=== PATIENT | female | born 1965 | race Caucasian/White ===

== ENCOUNTER 2019-11-08 12:16 | Emergency (ER) | payer BC ==
--- OUTSIDE RECORDS SUMMARY | 2019-11-08 12:19 | XMS REPORT | Clinical Summary ---
:1965 Author Organization [facility] Address [address] [place] [address] Care Team Providers Name Role Phone GILSON Ye Primary Care Provider Allergies Active Allergy Reactions Severity Noted Date Comments Atorvastatin Other (See Comments) 12/28/2018 Benadryl Allergy Palpitations Low 04/10/2011 Decongestant Cyclobenzaprine Other (See Comments) 09/04/2015 Spac ed out Spaced out Spaced out Spaced out Duloxetine 09/04/2015 Can not functio n Diphenhydramine Other (See Comments) 12/28/2018 Gabapentin 09/04/2015 Angina attacks, eyes crossed, tripping over m y feet Medications Medication Sig Dispensed Refills Start Date End Date Status metFORMIN XR Take 1,000 3 07/25/2015 Activ e (GLUCOPHATE-XR) 500 mg by mouth MG 24 hr tablet 2 (two) times a day. aspirin (ECOTRIN) Take 81 mg 0 A ctive 81 MG enteric by mouth coated tablet daily. bisoproloL-hydrochl 0 12/29/2018 Active orothiazide (ZIAC) 10-6.25 mg per tablet UNABLE TO FIND 1 capsule 2 0 05/08/2018 Ac tive (two) times a day. NeuRx-TF furosemide (LASIX) 40 mg. 0 02/11/2019 Active 20 mg tablet losartan (COZAAR) Take 25 mg 0 A ctive 25 MG tablet by mouth daily. glipiZIDE Take 10 mg 0 Active (GLUCOTROL) 10 MG by mouth 3 tablet (three) times a day. SITagliptin Take 100 mg 0 Active (JANUVIA) 100 MG by mouth tablet daily. divalproex Take 1 90 tablet 3 10/07/2019 Active (Depakote) 250 MG tablet (250 EC tablet mg total) by mouth nightly. acetaminophen-codei 0 07/01/2015 Discontinued ne (TYLENOL #3) 0 (Pat ient 300-30 mg per Report ed) tablet fluvastatin 0 06/20/2015 Discont inued (LESCOL) 20 MG 0 (Tika ent capsule Reported) ondansetron 0 07/01/2015 Discont inued (ZOFRAN) 4 MG 0 (Patie nt tablet Reported) nebivolol Take 2.5 mg 0 Disconti nued (BYSTOLIC) 2.5 MG by mouth 0 (P atient tablet daily. Reported) lidocaine 0 09/07/2015 Discontin ued (XYLOCAINE) 5 % 0 (Pat ient ointment Reported) diclofenac sodium 3 0 09/07/2015 Discontinued % gel 0 (Patient Reported) cyanocobalamin 100 Take 700,000 0 08/27/19 2 Discontinued MCG tablet Units by 0 (Patient mouth. Reported) divalproex Take 1 30 tablet 11 08/27/2019 Disconti nued (Depakote) 250 MG tablet (250 0 (Reorder) EC tablet mg total) by mouth nightly. divalproex Take 1 90 tablet 2 09/24/2019 Disconti nued (Depakote) 250 MG tablet (250 0 (Reorder) EC tablet mg total) by mouth nightly. Active Problems Problem Noted Date Neuropathy 08/27/2019 Diabetic polyneuropathy associated with type 2 diabete s mellitus 08/27/2019 Foot pain, bilateral 08/27/2019 Spondylolisthesis of cervical region 10/20/2017 Impingement syndrome of left shoulder 10/20/2017 Chronic left shoulder pain 10/20/2017 Cervical spondylosis with radiculopathy 10/20/2017 S/P cervical spinal fusion 11/22/2015 Hoarseness 09/04/2015 Chest pain 09/04/2015 Palpitation 09/04/2015 Arrhythmia 09/04/2015 Urgency of urination 09/04/2015 Nocturia 09/04/2015 Postoperative visit 09/04/2015 Overview: 6 wks post op -DOS-06/29/15- ACDF C45-C56 , doing good, occasional numbness to back of neck, improved. Would like to see pt inmarielos [facility] PT, do not want her to undergo any traction on the cervical spine and the L UE Cervical radiculopathy 09/04/2015 Cervical spondylosis 09/04/2015 Thoracic spondylosis 09/04/2015 Encounters Date Type Specialty Care Team Description 10/27/2019 Telephone Neurology Marissa Palafox MA 10/07/2019 Procedure visit Neurology Dallin Morris, Diabetic garo yneuropathy associated with type 2 diabetes mellitus (HCC) (Primary Dx); Neuropathy 10/07/2019 Travel 09/24/2019 Refill Neurology Marissa Palafox MA 08/27/2019 Office Visit Neurology Dallin Morris, Diabetic polyne uropathy associated with type 2 diabetes mellitus (HCC) (Primary Dx); Neuropathy; Foot pain, bila teral 08/27/2019 Travel 08/09/2019 Travel 03/15/2019 Hospital Encounter Radiology Shun Whitaker II, MD 03/12/2019 Office Visit Orthopedic Surgery Shun Whitaker Polyneur opathy associated with underlying disease (HCC) (Primary Dx); MD BRAIN Type 2 diabetes mellitus without complication, without long-term current use of insulin (HCC); Chronic pain of both ankles; Foot pain, bila teral after 11/07/2018 Family History Medical History Relation Name Comments Cancer Father Janae Angel Unknown Diabetes Father Janae Angel Hyperlipidemia Father Janae Angel Heart disease Maternal Grandmother Lauren Candelaria Blood Clots Mother Isaura Candelaria Cancer Mother Isaura Candelaria Colon Cancer Crohn's disease Mother Isaura Jacobsonard Heart disease Mother Isaura Candelaria Hypertension Mother Isaura Candelaria Cancer Paternal Aunt Flora Angel Breast, Colon Cancer Paternal Grandmother Adevannessa Jeanne Unkown Diabetes Paternal Grandmother Adevannessa Angel Relation Name Status Comments Father Janae Angel Maternal Grandmother Lauren Candelaria Mother Isaura Candelaria Paternal Aunt Flora Angel Paternal Grandmother Yani Angel Social History Tobacco Use Types Packs/Day Years Used Date Never Smoker 0 0 Smokeless Tobacco: Never Used Alcohol Use Drinks/Week oz/Week Comments Yes 0 Glasses of wine 0.0 occl 0 Cans of beer 0 Shots of liquor 0 Standard drinks or equivalent Sex Assigned at Date Recorded Female 03/11/2019 5:43 PM [employer] Job Start Date Occupation Industry Not on file Not on file Not on file Travel History Travel Start Travel End No recent travel history available. Last Filed Vital Signs Vital Sign Reading Time Taken Comments Blood Pressure 120/80 10/07/2019 2:56 PM CDT Pulse 86 10/07/2019 2:56 PM CDT Temperature - - Respiratory Rate 14 10/07/2019 2:56 PM CDT Oxygen Saturation - - Inhaled Oxygen Concentration - - Weight 87.5 kg (193 lb) 08/27/2019 8:24 AM CDT Height - - Body Mass Index - - Plan of Treatment Date Type Specialty Care Team Description 01/17/2020 [place] [address] [facility] [address] [place] [id number] Health Maintenance Due Date Last Done Comments DIABETIC RETINAL EYE EXAM 1965 DIABETIC FOOT EXAM 1974 URINE MICROALBUMIN 1974 CERVICAL CANCER SCREENING 1985 BREAST CANCER SCREENING 2014 COLONOSCOPY SCREENING 2014 SHINGLES VACCINES (#1) 2014 INFLUENZA VACCINE 12/09/2019 Procedures Procedure Name Priority Date/Time Associated Diagnosis Comme nts XR ANKLE 3 VW Routine 03/12/2019 1:26 PM Chronic pain of both Results for this BILATERAL [employer] ankles procedure are i n the results section. XR FOOT 3 VW Routine 03/12/2019 1:26 PM Chronic pain of both Results for this BILATERAL [employer] ankles procedure are in Foot pain, bilateral the res ults section. after 11/07/2018 Results XR Ankle 3 Vw Bilateral (03/12/2019 1:26 PM [employer]) Specimen Narrative Performed At This result has an attachment that is no t available. Three-view weightbearing images of the right ankle reveals no evidence of [facility] acute fracture or dislocation. Ankle mortise is congru ent. Bones well mineralized. Three-view weightbearing images of the Left ankle reve als no evidence of acute fracture or dislocation. Ankle mortise is congru ent. Bones well mineralized. Left navicular rim osteophyte appreciat ed. Performing Organization Address City/State/Zipcode Phone Number [facility] [address] [place] [address] XR Foot 3 Vw Bilateral (03/12/2019 1:26 PM [employer]) Specimen Narrative Performed At This result has an attachment that is no t available. Three-view weightbearing images of the right foot reveals no evidence of [facility] acute fracture or dislocation. Bones well mineralized. Neutral talus first metatarsal alignment appreciated Three-view weightbearing images of the left foot revea ls no evidence of acute fracture or dislocation. Bones well mineralized. Neutral talus first metatarsal alignment appreciated. Dorsal rim navicul ar osteophyte appreciated. 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
--- OUTSIDE RECORDS SUMMARY | 2019-11-08 12:20 | XMS REPORT | Summary of Care ---
:1965 Author Organization [facility] Address [address] [place] [id number] Care Team Providers Name Role Phone Unavailable Primary Care Provider Unavailable Reason for Visit Reason Comments Medical Records Encounter Details Date Type Department Care Team Description 08/24/2019 Telephone [facility]opa[facility] Minh Pineda MD Medical Records Surgery- [place] [address], [place] [address] [place] [address] [place], [place] [phone] [id number] Allergies Active Allergy Reactions Severity Noted Date Comments Benadryl Allergy Palpitations 04/10/2011 Decongestant Cyclobenzaprine Unknown - See comments 09/04/2015 Sp aced out Duloxetine Unknown - See comments 09/04/2015 Can n ot function Gabapentin Unknown - See comments 09/04/2015 Angin a attacks, eyes crossed, tripping over m y feet documented as of this encounter (statuses as of 08/24/2019) Medications Medication Sig Dispensed Refills Start Date End Date Status zolpidem (AMBIEN) 10 mg Take 10 mg by 0 Active tablet mouth at bedtime as needed. aspirin (ASPIR-LOW) 81 Take 81 mg by 0 Active mg EC tablet mouth daily. Blood-Glucose Meter 1 Kit 0 07/11/2011 Active (ONE TOUCH ULTRAMINI) Kit Lancets & Blood Glucose 200 Strip 3 07/11/2011 Active Strips (ONE TOUCH COMBO) Cmpk carvedilol (COREG) 12.5 Take 1 Tab by 180 Tab 1 07/11/2011 Active mg tablet mouth 2 (two) times daily with meals. metformin ER 500 mg 24 Take 1,000 mg by 0 07/25/2015 Active hr tablet mouth. OXTELLAR XR 150 mg Tb24 0 08/17/2018 Active HYDROcodone-acetaminoph Take 1 tablet by 0 Active en (NORCO) 10-325 mg mouth every 6 tablet (six) hours as needed. amitriptyline 50 mg TAKE 1 TABLET BY 0 08/12/2018 Active tablet MOUTH EVERYDAY AT BEDTIME losartan potassium Take by mouth. 0 Active (LOSARTAN ORAL) cyanocobalamin/thiamine Inject as 0 Active (NEURO B-12 INJECTION) directed. Vitamin B Complex Take by mouth. 0 Active No.12-Niacin 50 mg/15 mL Liqd sub-q insulin device, Use 1 V-go daily. 90 Each 1 09/04/2018 Active 20 unit (V-GO 20) Use 2 clicks 5 DeviIndications: minutes before Uncontrolled type 2 each meal. diabetes mellitus with hyperglycemia insulin aspart RAPID Use up to 40 5 Vial 3 09/04/2018 Active (NOVOLOG U-100 INSULIN units daily ASPART) 100 unit/mL through V-go injectionIndications: insulin pump Uncontrolled type 2 diabetes mellitus with hyperglycemia Insulin Syringe-Needle Use One syringe 1 Box 3 09/04/2018 Active U-100 (INSULIN SYRINGE) Daily 0.5 mL 29 gauge x 1/2" SyrgIndications: Uncontrolled type 2 diabetes mellitus with hyperglycemia atorvastatin 40 mg Take 1 tablet by 90 tablet 1 09/18/2018 Active tabletIndications: mouth at bedtime. 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 Financial Resource Strain Answer Date Recorded How hard is it for you to pay for the very basics like Somew hat hard 04/13/2019 food, housing, medical care, and heating? Food Insecurity Answer Date Recorded Within the past 12 months, you worried that your food Someti mes true 04/13/2019 would run out before you got money to buy more. Within the past 12 months, the food you bought just Sometime s true 04/13/2019 didn't last and you didn't have money to get more. Transportation Needs Answer Date Recorded In the past 12 months, has lack of transportation kept you f rom No 04/13/2019 medical appointments or from getting medications? In the past 12 months, has lack of transportation kept you f rom No 04/13/2019 meetings, work, or getting things needed for daily living? Sex Assigned at Date Recorded Not on file Job Start Date Occupation Industry Not on file Not on file Not on file Travel History Travel Start Travel End No recent travel history available. documented as of this encounter Last Filed Vital Signs Not on filedocumented in this encounter Plan of Treatment Health Maintenance Due Date Last Done Comments HEPATITIS C (HCV) SCREEN 1965 PNEUMOCOCCAL 0-64 YEARS COMBINED 1970 SERIES (1 of 1 - PPSV23) EYE EXAM 1974 DTaP,Tdap,and Td Vaccines (1 - 12/15/1975 Tdap) FOOT EXAM 1982 PAP SMEAR 1985 Breast Cancer Screening 2004 (MAMMOGRAM) COLONOSCOPY 2014 Zoster Recombinant Vaccine 2014 (SHINGRIX) (1 of 2) URINE MICROALBUMIN 09/15/2019 09/14/2018, 04/10/2011 HgA1C 10/12/2019 04/13/2019, 09/04/2018, 07/10/2011, Additional history exists INFLUENZA VACCINE (Season Ended) 2019 Depression Screening 12/02/2019 12/01/2018 CREATININE (SERUM) 04/13/2020 04/13/2019, 09/14/2018, 07/10/2011 LDL-C 04/13/2020 04/13/2019, 09/14/2018, 07/10/2011, Additional history exists documented as of this encounter Results Not on filedocumented in this encounter Insurance Payer Benefit Plan Subscriber ID Effective Dates Phone Address Type / Group BC[employer] OF [employer] [place] [id number] 2015-Deb [phone] [address] PPO/POS [place] - OUT OF t [id number] [place] [address] documented as of this encounter
--- OUTSIDE RECORDS SUMMARY | 2019-11-08 12:20 | XMS REPORT | Continuity of Care Document ---
:1965 Author Organization [facility] t Address [address] [place] [address] Care Team Providers Name Role Phone Ephraim RIGGINS Primary Care Physician Javy CONTRERAS Attending Clinician Unavailable Alexandra TRUONG Attending Clinician Miriam TRUONG, L Attending Clinician Panchito TRUONG Attending Clinician Doctor Unassigned, Name Attending Clinician Unavailable Miriam MONIQUE Attending Clinician Singer ROQUE Attending Clinician Ronaldo TRUONG Attending Clinician Sherman TRUONG, A. Attending Clinician Buddy TRUONG Attending Clinician Ashley Dorsey Attending Clinician Ronaldo TRUONG Admitting Clinician Payers Payer Name Policy Type Policy Number Effective Date Expiration Date Ashley atkins [id number] xxxxxxxxxxxx 2019 [place] CHOICE 00:00:00 Worship PPO/FEDERAL EMPL PPOxxxxxxxxxxx x1 2018-Pre sentPPO Problems Condition Condition Condition Status Onset Resolution Last Treating Co mments Source Name Details Category Date Date Treatment Clinician Date Neuropathy Neuropathy Disease Active [place] 6[facility]19 [facility] 00:00: st 00 Diabetic Diabetic Disease Active [place] polyneurop polyneurop 6-19 [facility] athy athy 00:00: st associated associated 00 with type with type 2 diabetes 2 diabetes mellitus mellitus Foot pain, Foot pain, Disease Active [place] bilateral bilateral 6- Meth cris 00:00: st 00 Spondyloli Spondyloli Disease Active [place] st[place] of sthesis of 8-13 [facility] cervical cervical 00:00: st region region 00 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 8-13 [facility] of left of left 00:00: st shoulder shoulder 00 Chronic Chronic Disease Active [place] left left 8-13 [facility] shoulder shoulder 00:00: st pain pain 00 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 8-13 [facility] s with s with 00:00: st radiculopa radiculopa 00 thy thy S/P S/P Disease Active [place] cervical cervical 9-14 [facility] i spinal spinal 00:00: st fusion fusion 00 Hoarseness Hoarseness Disease Active [place] 09-03 [facility] 00:00: st 00 Chest pain Chest pain Disease Active [place] 09-03 [facility] 00:00: st 00 Palpitatio Palpitatio Disease Active [place] n n 09-03 Method[facility] 00:00: st 00 Arrhythmia Arrhythmia Disease Active [place] 09-03 Method[facility] 00:00: st 00 Urgency of Urgency of Disease Active [place] urination urination 09-03 Meth cris 00:00: st 00 Nocturia Nocturia Disease Active [place] 09-03 [facility] 00:00: st 00 Postoperat Postoperat Disease Active Overview : [place] doris visit doris visit 09-03 6 wks Meth cris 00:00: post op st 00 -DOS-/ /16- ACDF C45-C56, doing good, occasiona l numbness to back of neck, improved. Would like to see pt initiate PT, do not want her to undergo any traction on the cervical spine and the LUE Cervical Cervical Disease Active [place] radiculopa radiculopa 09-03 [facility] thy thy 00:00: st 00 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 09-03 [facility] s s 00:00: st 00 Thoracic Thoracic Disease Active [place] spondylosi spondylosi 09-03 Me [facility] s s 00:00: st 00 Allergies, Adverse Reactions, Alerts Allergy Allergy Status Severity Reaction(s) Onset Inactive Treating Comm ents Source Name Type Date Date Clinician Atorvast Propensi Active Other (See 2018-03 Chance lee atin ty to Comments) [facility] adverse 00:00: st reaction 00 s to drug Diphenhy Propensi Active Other (See 2018-03 Chance lee dramine ty to Comments) Method i adverse 00:00: st reaction 00 s to drug Cycloben Propensi Active Other (See Spaced Chance lee zaprine ty to Comments) 09-03 outSpaced Met hodi adverse 00:00: outSpaced st reaction 00 outSpaced s to out drug Duloxeti Propensi Active Can not [place] ne ty to 09-03 function [facility] adverse 00:00: st reaction 00 s to drug Gabapent Propensi Active Angina [place] in ty to 09-03 attacks, [facility] adverse 00:00: eyes st reaction 00 crossed, s to tripping drug over my feet Benadryl Propensi Active Palpitations [place] Allergy ty to 04-10 [facility] Deconges adverse 00:00: st tant reaction 00 s to drug Family History Family Member Diagnosis Comments Start Date Stop Date Source Natural father Cancer [facility] Natural father Diabetes [facility] Natural father Hyperlipidemia [place] [facility] Maternal grandmother Heart disease [place] [facility] Natural mother Blood Clots [facility] ethodist Natural mother Cancer [facility] Natural mother Crohn's disease [place] [facility] Natural mother Heart disease [facility] Natural mother Hypertension [facility] Paternal aunt Cancer [facility] Paternal grandmother Cancer [place] [facility] Paternal grandmother Diabetes [place] [facility] Social History Social Habit Start Date Stop Date Quantity Comments Source Sex Assigned At F [facility] Alcohol intake 2019-10-07 2019-10-07 Current drinker [place] [facility] 00:00:00 00:00:00 of alcohol (finding) Alcohol Comment 2019-08-27 2019-08-27 occl Krzysztof Cheung ethodist 00:00:00 00:00:00 Smoking Status Start Date Stop Date Source Never smoker Krzysztof Jesuis t Medications Ordered Filled Start Stop Current Ordering Indication Dosage Frequency Signature Comments Components Source Medication Medication Date Date Medication? Clinician (SIG) Name Name divalproex 2020-0 Yes 250mg QD Take 1 [place] (Depakote) 7-30 tablet [facility] 250 MG EC 00:00: ([address] tablet 00 total) by mouth nightly. divalproex 2020-0 2020- No 250mg QD Take 1 [place] (Depakote) 09-23 07-30 tablet Method i 250 MG EC 00:00: 00:00 ([address] tablet 00 :00 total) by mouth nightly. SITagliptin 2020-0 Yes 100mg QD Take 100 [place] (JANUVIA) 6-19 mg by [facility] 100 MG 08:30: mouth st tablet 12 daily. losartan 2020-0 Yes 25mg QD Take 25 mg [place] (COZAAR) 25 08-26 by mouth Meth cris MG tablet 08:30: daily. st 11 glipiZIDE 2020-0 Yes 10mg [id number] Take 10 mg [place] (GLUCOTROL) - [id number] by mouth 3 [facility] 10 MG 08:30: 3D (three) st tablet 11 times a day. cyanocobala 2020-0 2020- No [id number] Take [place] min 100 MCG 08-26- 700,000 Meth cris tablet 08:28: 00:[address] 08 :00 mouth. nebivolol 2020-0 2020- No 2.5mg QD Take 2.5 [place] (BYSTOLIC) 08-26-19 mg by Methodi 2.5 MG 08:21: 00:[address] tablet 39 :00 daily. divalproex 2020-0 2020- No 250mg QD Take 1 [place] (Depakote) 08-26 tablet Method i 250 MG EC 00:00: 00:00 ([address] tablet 00 :00 total) by mouth nightly. aspirin 2020-0 Yes 81mg QD Take 81 mg [place] (ECOTRIN) 1-03 by mouth Method i 81 MG 12:54: daily. st enteric 34 coated tablet furosemide 2018-03 Yes 40mg 40 mg. [place] (LASIX) 20 2-05 [facility] mg tablet 00:00: st 00 bisoproloL- 2018-03 Yes [place] hydrochloro 0-22 [facility] thiazide 00:00: st (ZIAC) 00 10-6.25 mg per tablet UNABLE TO Yes 1{capsu Q.5D 1 capsule Krzysztof FIND 05-08 le} 2 (two) [facility] 00:00: times a st 00 day. NeuRx-TF lidocaine 2019- No Krzysztof (XYLOCAINE) 09-06 Methodi 5 % 00:00: 00:00 st ointment 00 :00 diclofenac 2019- No Opal n sodium 3 % 09-06 [facility] gel 00:00: 00:00 st 00 :00 metFORMIN Yes 1000mg Q.5D Take 1,000 [place] XR 5-17 mg by [facility] (GLUCOPHATE 00:00: mouth 2 st -XR) 500 MG 00 (two) 24 hr times a tablet day. acetaminoph 2019- No [place] en-codeine 06-30 [facility] (TYLENOL 00:00: 00:00 st #3) 300-30 00 :00 mg per tablet ondansetron 2019- No [place] (ZOFRAN) 4 06-30 [facility] MG tablet 00:00: 00:00 st 00 :00 fluvastatin 2019- No [place] (LESCOL) 20 06-19 [facility] MG capsule 00:00: 00:00 st 00 :00 Vital Signs Vital Name Observation Time Observation Value Comments Source Systolic blood 2019-10-07 14:56:00 120 mm[Hg] [facility] [facility] pressure Diastolic blood 2019-10-07 14:56:00 80 mm[Hg] [place] [facility] pressure Heart rate 2019-10-07 14:56:00 86 /min Krzysztof Corcoran Respiratory rate 2019-10-07 14:56:00 14 /min Sunny Corcoran Body weight 2019-08-27 08:24:00 87.544 kg Krzysztof Corcoran Procedures Procedure Date / Time Performed Performing Clinician Sourc e XR ANKLE 3 VW BILATERAL 2019-03-12 13:26:45 [facility] [place] [facility] XR FOOT 3 VW BILATERAL 2019-03-12 13:26:34 [place] [facility] Plan of Care Planned Activity Planned Date Details Comments Source Future Scheduled 2019-12-09 INFLUENZA VACCINE [place] [facility] Test 00:00:00 [code = INFLUENZA VACCINE] Future Scheduled 2014 BREAST CANCER [facility] Test 00:00:00 SCREENING [code = BREAST CANCER SCREENING] Future Scheduled 2014 COLONOSCOPY SCREENING [place] [facility] Test 00:00:00 [code = COLONOSCOPY SCREENING] Future Scheduled 2014 SHINGLES VACCINES (#1) [place] [facility] Test 00:00:00 [code = SHINGLES VACCINES (#1)] Future Scheduled 1985 Screening for [facility] thodist Test 00:00:00 malignant neoplasm of cervix (procedure) [code = 888629095] Future Scheduled 1974 DIABETIC FOOT EXAM [place] [facility] Test 00:00:00 [code = DIABETIC FOOT EXAM] Future Scheduled 1974 URINE MICROALBUMIN [place] [facility] Test 00:00:00 [code = URINE MICROALBUMIN] Future Scheduled 1964 DIABETIC RETINAL EYE [place] [facility] [facility] Test 00:00:00 EXAM [code = DIABETIC RETINAL EYE EXAM] Encounters Start End Encounter Admission Attending Care Care Encounter Source Date/Time Date/Time Type Type Clinicians Facility Department ID 2019-10-07 2019-10-07 Outpatient SANJIV CABRERA [facility] [id number] [place] 00:00:00 00:00:[address] 2019-08-27 2019-08-27 Outpatient SANJIV CABRERA [facility] [id number] [place] 00:00:00 00:00:[address] 2019-08-24 2019-08-24 Telephone Miriam [facility] [id number] 00:00:00 00:00:00 [facility] [id number] Surgical [id number] Specialti [id number] es 198 Alexis 2019-05-13 2019-05-13 Telephone DHIRAJ Flanagan [id number] 00:00:00 00:00:00 [place] [id number] [place] [id number] Profess [id number] [facility] 2019-05-13 2019-05-13 Orders Doctor GENE [id number] 00:00:00 00:00:00 Only Unassigned, YESSY [id number] [place] [facility] [id number] [id number] 2019-04-29 2019-04-29 Telephone [facility] [id number] 00:00:00 00:00:00 [facility] [id number] Surgical [id number] Special [id number] rika Espinoza 2019-04-18 2019-04-18 [facility] [id number] 16:51:08 18:50:00 Phil Espinoza [id number] [place] [id number] [place] [id number] 084 2019-04-13 2019-04-13 Emergency Srinivasan [facility] 1.2.840. [id number] 01:48:48 20:25:00 Jordon Higgins [id number] [place] [id number] [place] [id number] [id number] 2019-04-12 2019-04-12 Orders Doctor GENE [id number] 00:00:00 00:00:00 Only Unassigned, YESSY [id number] [place] [facility] [id number] [id number] 2019-04-06 2019-04-06 Orders Doctor GENE [id number] 00:00:00 00:00:00 Only Unassigned, YESSY [id number] [place] [facility] [id number] 009 2019-03-15 2019-03-15 Outpatient BLAKE GREEN [facility] [id number] [place] 00:00:00 00:00:[address] 2018-11-24 2018-11-24 Abstract [place], [facility] [id number] 00:00:00 00:00:00 [facility] [id number] CARE [id number] [facility] [id number] 198 2018-11-12 2018-11-12 Office Huseyin [facility] [id number] 08:41:28 09:13:32 Visit [facility] [id number] Surgical [id number] [facility] [id number] 198 [place] Results This patient has no known results.
--- NOTE | 2019-11-08 13:55 | RAD REPORT ---
EXAM DESCRIPTION: RAD - Foot Left 3 View - 11/08/2019 1:42 pm CLINICAL HISTORY: bruising/swelling COMPARISON: No comparisons FINDINGS: No fracture, dislocation or periosteal reaction. No erosive or destructive bone process. P atient has mild IP joint degenerative change. Distal phalanges show some osteopenic change. Large kristen ntar spur is present. Moderate-size spur is present at the Achilles attachment to the calcaneus. Mild spurring changes are present over the dorsum of the tarsal bones. Soft tissues are edematous over the dorsum of the distal foot. No air or foreign body in the soft tis sues. IMPRESSION: No acute or destructive bone process identifiable. Patient has a large plantar spur. Soft tissue swelling over the dorsum of the foot. No air or foreign body.
--- NOTE | 2019-11-08 14:55 | EDPHYS ---
Physician Documentation [facility] Name: Emily Nguyen Age: 53 yrs Sex: Female : 1965 Arrival Date: 11/08/2019 Time: 12:19 Bed 12 Private MD: Charan Piña ED Physician Michael Key HPI: 11/07 14:59 This 53 yrs old Female presents to ER via Ambulatory with complaints of Foot snw Pain, Foot Injury. 14:59 The patient presents with a contusion, an injury, swelling. The complaints affect the snw dorsum of left foot. Context: The problem was sustained at home, resulted from an unknown cause, the patient can fully bear weight, the patient is able to ambulate, Problem is a result from a previous injury: No. Onset: The symptoms/episode began/occurred at an unknown time. Associated signs and symptoms: Pertinent positives: swelling. 15:00 Severity of symptoms: At their worst the symptoms were very mild, in the emergency snw department the symptoms are unchanged. The patient has not experienced similar symptoms in the past. It is unknown whether or not the patient has recently seen a physician. Historical: - Allergies: 12:33 Benadryl; aa5 12:33 Flexeril; aa5 12:33 GABAPENTIN; aa5 - PMHx: 12:33 Neuropathy; Diabetes - NIDDM; Hypertension; Heart blockage; aa5 - PSHx: 12:33 Tonsillectomy; Tubal ligation; C4, C5, C6 fusion; Heart cath; aa5 - Immunization history:: Adult Immunizations unknown. - Social history:: Smoking status: Patient denies any tobacco usage or history of. ROS: 14:58 Constitutional: Negative for fever, chills, and weight loss, Eyes: Negative for injury, snw pain, redness, and discharge, ENT: Negative for injury, pain, and discharge, Neck: Negative for injury, pain, and swelling, Cardiovascular: Negative for chest pain, palpitations, and edema, Respiratory: Negative for shortness of breath, cough, wheezing, and pleuritic chest pain, Abdomen/GI: Negative for abdominal pain, nausea, vomiting, diarrhea, and constipation, Back: Negative for injury and pain, : Negative for injury, bleeding, discharge, and swelling, Neuro: Negative for headache, weakness, numbness, tingling, and seizure, Psych: Negative for depression, anxiety, suicide ideation, homicidal ideation, and hallucinations. 14:58 Skin: Negative for injury, rash, and discoloration. 14:58 MS/extremity: Positive for injury or acute deformity, contusion, of the dorsum of left foot, pt with neuropathy and does not know of any trauma. Exam: 14:57 Constitutional: This is a well developed, well nourished patient who is awake, alert, snw and in no acute distress. Head/Face: Normocephalic, atraumatic. Eyes: Pupils equal round and reactive to light, extra-ocular motions intact. Lids and lashes normal. Conjunctiva and sclera are non-icteric and not injected. Cornea within normal limits. Periorbital areas with no swelling, redness, or edema. ENT: Nares patent. No nasal discharge, no septal abnormalities noted. Tympanic membranes are normal and external auditory canals are clear. Oropharynx with no redness, swelling, or masses, exudates, or evidence of obstruction, uvula midline. Mucous membranes moist. Neck: Trachea midline, no thyromegaly or masses palpated, and no cervical lymphadenopathy. Supple, full range of motion without nuchal rigidity, or vertebral point tenderness. No Meningismus. Chest/axilla: Normal chest wall appearance and motion. Nontender with no deformity. No lesions are appreciated. Cardiovascular: Regular rate and rhythm with a normal S1 and S2. No gallops, murmurs, or rubs. Normal PMI, no JVD. No pulse deficits. Respiratory: Lungs have equal breath sounds bilaterally, clear to auscultation and percussion. No rales, rhonchi or wheezes noted. No increased work of breathing, no retractions or nasal flaring. Abdomen/GI: Soft, non-tender, with normal bowel sounds. No distension or tympany. No guarding or rebound. No evidence of tenderness throughout. Back: No spinal tenderness. No costovertebral tenderness. Full range of motion. Neuro: Awake and alert, GCS 15, oriented to person, place, time, and situation. Cranial nerves II-XII grossly intact. Motor strength 5/5 in all extremities. Sensory grossly intact. Cerebellar exam normal. Normal gait. Psych: Awake, alert, with orientation to person, place and time. Behavior, mood, and affect are within normal limits. 14:57 Skin: Appearance: Color: pale, doughy, injury, contusion(s), that are deep, of the dorsum of left foot, left second toe and left third toe. Vital Signs: 12:30 BP 161 / 99; Pulse 99; Resp 18 S; Temp 97.4(O); Pulse Ox 98% on R/A; Weight 85.73 kg aa5 (R); Height 5 ft. 7 in. (170.18 cm) (R); Pain 0/10; 12:30 Body Mass Index 29.60 (85.73 kg, 170.18 cm) aa5 MDM: 14:06 Patient medically screened. snw 14:54 Data reviewed: vital signs, nurses notes. Data interpreted: Pulse oximetry: on room air snw is 98 %. Interpretation: normal. Counseling: I had a detailed discussion with the patient and/or guardian regarding: the historical points, exam findings, and any diagnostic results supporting the discharge/admit diagnosis, the presence of at least one elevated blood pressure reading (>120/80) during this emergency department visit, radiology results, the need for outpatient follow up, to return to the emergency department if symptoms worsen or persist or if there are any questions or concerns that arise at home. Special discussion: Based on the history and exam findings, there is no indication for further emergent testing or inpatient evaluation. I discussed with the patient/guardian the need to see the primary care provider for further evaluation of the symptoms. 11/07 12:36 Order name: Foot Left 3 View XRAY; Complete Time: 14:00 aa5 11/07 13:50 Order name: Naun wrap-joint; Complete Time: 15:00 snw Administered Medications: 15:00 Drug: Tetanus-Diphtheria Toxoid Adult 0.5 ml {Beauty Sales Consultant: [employer]. Exp: aa5 04/29/2022. Lot #: [id number]. } Route: IM; Site: right deltoid; 15:15 Follow up: Response: No adverse reaction aa5 Disposition: 16:24 Co-signature as Attending Physician, Michael Key MD. rn Disposition: 11/08/19 14:54 Discharged to Home. Impression: Contusion of left foot, Edema, unspecified. - Condition is Stable. - Discharge Instructions: Deisy RICE for Routine Care of Injuries, VIS, Tetanus, Diphtheria (Td) - CDC, Heat Therapy, Peripheral Edema. - Medication Reconciliation Form, Thank You Letter, Antibiotic Education, Prescription Opioid Use form. - Follow up: Charan Piña MD; When: 2 - 3 days; Reason: Recheck today's complaints, Continuance of care, Re-evaluation by your physician. Follow up: Emergency Department; When: As needed; Reason: Worsening of condition. Signatures: Dispatcher [employer] EDME Yanelis Pacheco, ENEIDA-C SENIOR OPERATOR-Csnw Melisa Ashley, RN RN iw Michael Key MD MD rn Calderon, Audri, RN RN aa5 Corrections: (The following items were deleted from the chart) 15:15 14:54 11/08/2019 14:54 Discharged to Home. Impression: Contusion of left foot; Edema, iw unspecified. Condition is Stable. Discharge Instructions: Contusion, RICE for Routine Care of Injuries, Heat Therapy. Forms are Medication Reconciliation Form, Thank You Letter, Antibiotic Education, Prescription Opioid Use. Follow up: Charan Piña; When: 2 - 3 days; Reason: Recheck today's complaints, Continuance of care, Re-evaluation by your physician. Follow up: Emergency Department; When: As needed; Reason: Worsening of condition. snw
--- NOTE | 2019-11-08 14:55 | ER ---
Nurse's Notes [facility] Name: Emily Nguyen Age: 53 yrs Sex: Female : 1965 Arrival Date: 11/08/2019 Time: 12:19 Bed 12 Private MD: Charan Piña Diagnosis: Contusion of left foot;Edema, unspecified Presentation: 11/07 12:30 Chief complaint: Patient states: left foot bruising that she noticed last night around aa5 2330. Pt states "I have neuropathy so I don't know what I did to it". 12:30 Acuity: ARLET 4 aa5 12:30 Initial Sepsis Screen: Does the patient meet any 2 criteria? No. Patient's initial aa5 sepsis screen is negative. Does the patient have a suspected source of infection? No. Patient's initial sepsis screen is negative. Risk Assessment: Do you want to hurt yourself or someone else? Patient reports no desire to harm self or others. 12:30 Coronavirus screen: Client denies travel out of the [place] in the last 14 days. At this aa5 time, the client does not indicate any symptoms associated with coronavirus-19. Ebola Screen: Patient negative for fever greater than or equal to 101.5 degrees Fahrenheit, and additional compatible Ebola Virus Disease symptoms. Onset of symptoms was October 2019. 12:30 Method Of Arrival: Ambulatory aa5 Historical: - Allergies: 12:33 Benadryl; aa5 12:33 Flexeril; aa5 12:33 GABAPENTIN; aa5 - PMHx: 12:33 Neuropathy; Diabetes - NIDDM; Hypertension; Heart blockage; aa5 - PSHx: 12:33 Tonsillectomy; Tubal ligation; C4, C5, C6 fusion; Heart cath; aa5 - Immunization history:: Adult Immunizations unknown. - Social history:: Smoking status: Patient denies any tobacco usage or history of. Screenin:00 Abuse screen: Denies threats or abuse. Nutritional screening: No deficits noted. aa5 Tuberculosis screening: No symptoms or risk factors identified. Fall Risk None identified. Assessment: 14:00 General: Appears comfortable, Behavior is calm, cooperative. Pain: Denies pain. Neuro: aa5 Level of Consciousness is awake, alert, obeys commands, Oriented to person, place, time, situation. Cardiovascular: Patient's skin is warm and dry. Respiratory: Airway is patent Respiratory effort is even, unlabored, Respiratory pattern is regular, symmetrical. GI: No signs and/or symptoms were reported involving the gastrointestinal system. : No signs and/or symptoms were reported regarding the genitourinary system. EENT: No signs and/or symptoms were reported regarding the EENT system. Derm: Skin is pink, warm \\T\\ dry. Bruising that is dark purple, green, on dorsum of left foot. Musculoskeletal: Range of motion: intact in all extremities. 15:00 Reassessment: Naun bandage applied to left foot. . aa5 15:15 Reassessment: Patient is alert, oriented x 3, equal unlabored respirations, skin aa5 warm/dry/pink. Vital Signs: 12:30 BP 161 / 99; Pulse 99; Resp 18 S; Temp 97.4(O); Pulse Ox 98% on R/A; Weight 85.73 kg aa5 (R); Height 5 ft. 7 in. (170.18 cm) (R); Pain 0/10; 12:30 Body Mass Index 29.60 (85.73 kg, 170.18 cm) aa5 ED Course: 12:19 Patient arrived in ED. ag5 12:19 Charan Piña MD is Private Physician. ag5 12:30 Arm band placed on. aa5 12:30 Patient has correct armband on for positive identification. aa5 12:34 Triage completed. aa5 13:41 Foot Left 3 View XRAY In Process Unspecified. EDMS 13:51 Yanelis Pacheco FNP-C is PHCP. snw 13:51 Michael Key MD is Attending Physician. snw 14:03 Jose M Ramachandran, SCARLETT is Primary Nurse. em 14:51 Charan Piña MD is Referral Physician. snw 15:15 No provider procedures requiring assistance completed. Patient did not have IV access aa5 during this emergency room visit. Administered Medications: 15:00 Drug: Tetanus-Diphtheria Toxoid Adult 0.5 ml {Chopping Machine Operator: [employer]. Exp: aa5 04/29/2022. Lot #: [id number]. } Route: IM; Site: right deltoid; 15:15 Follow up: Response: No adverse reaction aa5 Outcome: 14:54 Discharge ordered by . snw 15:15 Patient left the ED. alexander 15:15 Discharged to home ambulatory. loren 15:15 Condition: stable 15:15 Discharge instructions given to patient, Instructed on discharge instructions, follow up and referral plans. Demonstrated understanding of instructions, follow-up care. Signatures: Dispatcher [employer] EDYanelis Correa, SUPPLY TECH-C SUPPLY TECH-Csnw Jose M Ramachandran RN RN em Williams, Irene, RN RN iw Calderon, Audri, RN RN Esha Zamudio [facility]
[2019-11-08] MEDS ORDERED: TETANUS & DIPHTHERIA TOX,ADULT 0.5 ML VIAL ONE (15:13)
== END 2019-11-08 15:15 | disposition home or self-care (01) ==
LOC: ER 12:16
DX: S90.32XA Contusion of left foot, initial encounter (principal); X58.XXXA Exposure to other specified factors, initial encounter; Y93.9 Activity, unspecified; Y92.009 Unspecified place in unspecified non-institutional (private) residence as the place of occurrence of the external cause; I10 Essential (primary) hypertension; Z88.8 Allergy status to other drugs, medicaments and biological substances
CPT/HCPCS: 90471; 90714; 99283

== ENCOUNTER 2020-08-24 02:02 | Emergency (ER) | payer BC, OTHER ==
--- OUTSIDE RECORDS SUMMARY | 2020-08-24 02:05 | XMS REPORT | Continuity of Care Document ---
:1965 Author Organization [facility] t Address [address] [place] [address] Dr. Goel [address] [place] [address] Care Team Providers Name Role Phone Ephraim RIGGINS Primary Care Physician Alexandra TRUONG Attending Clinician Javy CONTRERAS Attending Clinician Unavailable Miriam TRUONG, L Attending Clinician Doctor Unassigned, Name Attending Clinician Unavailable Panchito TRUONG Attending Clinician Miriam MONIQUE Attending Clinician Singer ROQUE Attending Clinician Ronaldo TRUONG Attending Clinician PETER Attending Clinician Unavailable Buddy TRUONG Attending Clinician Huseyin WALTER S Attending Clinician Ronaldo TRUONG Admitting Clinician Payers Payer Name Policy Type Policy Effective Date Expiration Date Sour ce Number BCBSBCBS CHOICE [id number] 2019 [facility] PPO/FEDERAL 00:00:00 [facility] EMPL [id number] 2019-Presnicola ntPPO Problems Condition Condition Condition Status Onset Resolution Last Treating Co mments Source Name Details Category Date Date Treatment Clinician Date Neuropathy Neuropathy Disease Active 2020-0 [facility] [place] 6-19 [facility] 00:00: st 00 Diabetic Diabetic Disease Active 2020-0 [place] polyneurop polyneurop 6 [facility] athy athy 00:00: st associated associated 00 with type with type 2 diabetes 2 diabetes mellitus mellitus Foot pain, Foot pain, Disease Active [place] bilateral bilateral 6- Meth cris 00:00: st 00 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 8-13 [facility] cervical cervical 00:00: st region region 00 Impingemen Impingemen Disease Active [place] t syndrome t syndrome 8-13 Me [facility] of left of left 00:00: st shoulder shoulder 00 Chronic Chronic Disease Active [facility] left left 8-13 [facility]i shoulder shoulder 00:00: st pain pain 00 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 8- Me thodi s with s with 00:00: st radiculopa radiculopa 00 thy thy S/P S/P Disease Active [facility] cervical cervical 9-14 Method i spinal spinal [...] 00 Postoperat Postoperat Disease Active Overview : [facility] doris visit doris visit 09-03 Formattin M ethodi 00:00: g of this st note might be different from the original. 6 wks post op -DOS-06/28- ACDF C45-C56, doing good, occasiona l numbness [...] over my feet Benadryl Propensi Active Palpitations [facility] Allergy ty to 04-10 [facility]i Deconges adverse 00:00: st tant reaction 00 s to drug Family History Family Member Diagnosis Comments Start Date Stop Date Source Natural father Cancer [facility] Me thodist Natural father Diabetes [facility] Natural father Hyperlipidemia [place] Maternal grandmother Heart disease [place] Natural mother Blood Clots [place] M ethodist Natural mother Cancer [facility] Natural mother Crohn's disease [place] Natural mother Heart disease [facility] Natural mother Hypertension [facility] Paternal aunt Cancer [facility] Met hodist Paternal grandmother Cancer [place] Paternal grandmother Diabetes [place] Social History Social Habit Start Date Stop Date Quantity Comments Source Tobacco use and 2019-10-07 2019-10-07 Never used [place] ethodist exposure 00:00:00 00:00:00 Alcohol intake 2019-10-07 2019-10-07 Current drinker [place] [facility] 00:00:00 00:00:00 of alcohol (finding) Alcohol Comment 2019-08-27 2019-08-27 occl Krzysztof Cheung ethodist 00:00:00 00:00:00 Sex [birth year] F Krzysztof Cheung ethodist 00:00:00 00:00:00 Smoking Status Start Date Stop Date Source Never smoker Krzysztof Methodis t Medications Ordered Filled Start Stop Current Ordering Indication Dosage Frequency Signature Comments Components Source Medication Medication Date Date Medication? Clinician (SIG) Name Name divalproex Yes TAKE 250 [place] (DEPAKOTE) 5-26 MG AND 125 Met h[facility] 125 MG EC 00:00: MG st tablet 00 TOGETHER AT NIGHT FOR A TOTAL OF 375 MG. divalproex 2020- No TAKE 250 [place] (DEPAKOTE) 3-22 05-26 MG AND 125 Me thodi 125 MG EC 00:00: 00:[address] tablet 00 :00 TOGETHER AT NIGHT FOR A TOTAL OF 375 MG. divalproex 2020- No TAKE 250 [place] (DEPAKOTE) 1-21 03-22 MG AND 125 Me [facility] 125 MG EC 00:00: 00:[address] tablet 00 :00 TOGETHER AT NIGHT FOR A TOTAL OF 375 MG. glipiZIDE 2019-03 No 10mg [id number] Take 10 mg [place] (GLUCOTROL) 03-18 [id number] by mouth 3 Methodi 10 MG 11:44: 00:00 3D (three) st tablet 32 :00 times a day. SITagliptin 2019-03- No 100mg QD Take 100 [place] (JANUVIA) 03-18- mg by Methodi 100 MG 11:44: 00:[address] tablet 32 :00 daily. diclofenac 2019-03 Yes 1{patch QD Place 1 [place] epolamine 03-18 } patch on Method i 1.3 % patch 00:00: the skin st 24 hour 00 daily. divalproex 2019-03 No Take 250 [place] (DEPAKOTE) 09 01-21 mg and 125 Me [facility] 125 MG EC 00:00: 00:[address] tablet 00 :00 together at night for a total of 375 mg. pravastatin 2019-03 Yes TAKE 1 [place] (PRAVACHOL) 0-21 TABLET (40 Me thodi 40 mg 00:00: MG TOTAL) st tablet 00 BY MOUTH 1 (ONE) TIME EACH DAY bisoproloL- 2019- Yes 1{tbl} QD Take 1 [place] hydrochloro 0-12 tablet by Met hodi thiazide 00:00: mouth st (ZIAC) 00 daily. 5-6.25 mg per tablet furosemide 2019-0 Yes 40mg QD Take 40 mg [place] (LASIX) 40 9-25 by mouth Metho di mg tablet 00:00: daily. st 00 prednisoLON 2019- Yes PLACE 1 [place] E acetate 9-09 DROP INTO Metho di (PRED 00:00: THE LEFT st FORTE) 1 % 00 EYE TWO ophthalmic TIMES suspension DAILY. SHAKE WELL BEFORE INSTILLATI ON divalproex 2019-0 Yes 250mg QD Take 1 [place] (Depakote) 7-30 tablet Methodi 250 MG EC 00:00: ([address] tablet 00 total) by mouth nightly. divalproex 2019-0 2020- No 250mg QD Take 1 [place] (Depakote) 7-17 07-30 tablet Method i 250 MG EC 00:00: 00:00 ([address] tablet 00 :00 total) by mouth nightly. losartan 2019-0 Yes 25mg QD Take 25 mg [place] (COZAAR) 25 6-19 by mouth Meth cris MG tablet 08:30: daily. st 11 cyanocobala 2019-0 2020- No [id number] Take [place] min 100 MCG 6- 06-19 700,000 Meth cris tablet 08:28: 00:[address] 08 :00 mouth. nebivolol 2020-0 2020- No 2.5mg QD Take 2.5 [place] (BYSTOLIC) 6-19 06-19 mg by Methodi 2.5 MG 08:21: 00:[address] tablet 39 :00 daily. divalproex 2020-0 2020- No 250mg QD Take 1 [place] (Depakote) 6- 07-17 tablet Method i 250 MG EC 00:00: 00:00 ([address] tablet 00 :00 total) by mouth nightly. aspirin 2020-0 Yes 81mg QD Take 81 mg [place] (ECOTRIN) 1-03 by mouth Method i 81 MG 12:54: daily. st enteric 34 coated tablet furosemide 2018-03- No 40mg 40 mg. [place] (LASIX) 20 2-01-16 Methodi mg tablet 00:00: 00:00 st 00 :00 bisoproloL- 2018-03- No [place] hydrochloro 0-22 01-16 Methodi thiazide 00:00: 00:00 st (ZIAC) 00 :00 10-6.25 mg per tablet UNABLE TO Yes 1{capsu Q.5D 1 capsule [place] FIND 05-08 le} 2 (two) Methodi 00:00: times a st 00 day. NeuRx-TF lidocaine 2019- No Krzysztof (XYLOCAINE) 09-06 Methodi 5 % 00:00: 00:00 st ointment 00 :00 diclofenac 2019- No [place] n sodium 3 % 09-06 Methodi gel [...] Time Observation Value Comments Source Systolic blood 2020-01-17 11:41:00 102 mm[Hg] [place] [facility] pressure Diastolic blood 2020-01-17 11:41:00 68 mm[Hg] [place] pressure Heart rate 2020-01-17 11:41:00 86 /min [facility] Respiratory rate 2020-01-17 11:41:00 14 /min [place] Body weight 2019-08-27 08:24:00 87.544 kg [facility] Procedures This patient has no known procedures. Plan of Care Planned Activity Planned Date Details Comments Source Future Scheduled 2020-11-16 DIABETES: RETINAL EYE [place] [facility] Test 00:00:00 EXAM [code = DIABETES: RETINAL EYE EXAM] Future Scheduled 2020-10-08 INFLUENZA VACCINE [place] [facility] Test 00:00:00 [code = INFLUENZA VACCINE] Future Scheduled 2014 COLONOSCOPY SCREENING [place] [facility] Test 00:00:00 [code = COLONOSCOPY SCREENING] Future Scheduled 2014 SHINGLES VACCINES (#1) [place] [facility] Test 00:00:00 [code = SHINGLES VACCINES (#1)] Future Scheduled 2014 BREAST CANCER [facility] thodist Test 00:00:00 SCREENING [code = BREAST CANCER SCREENING] Future Scheduled 1985 Screening for [facility] thodist Test 00:00:00 malignant neoplasm of cervix (procedure) [code = 015047279] Future Scheduled 1982 Hepatitis C screening [place] [facility] Test 00:00:00 (procedure) [code = 790396936] Future Scheduled 1976 COVID-19 VACCINE (1) [place] [facility] Test 00:00:00 [code = COVID-19 VACCINE (1)] Future Scheduled 1974 DIABETIC FOOT EXAM [place] [facility] Test 00:00:00 [code = DIABETIC FOOT EXAM] Future Scheduled 1974 URINE MICROALBUMIN [place] [facility] Test 00:00:00 [code = URINE MICROALBUMIN] Encounters Start End Encounter Admission Attending Care Care Encounter Source Date/Time Date/Time Type Type Clinicians Facility Department ID 2020-01-17 2020-01-17 Outpatient SANJIV CABRERA [facility] [id number] [facility] 00:00:00 00:00:[address] 2019-10-07 2019-10-07 Outpatient SANJIV CABRERA [facility] [id number] [facility] 00:00:00 00:00:[address] 2019-08-27 2019-08-27 Outpatient SANJIV CABRERA [facility] [id number] [facility] 00:00:00 00:00:[address] 2019-08-24 2019-08-24 [id number] 00:00:00 00:00:[address] [facility] [id number] Surgical [id number] Specialti [id number] es 198 [place] 2019-05-13 2019-05-13 Orders Doctor MILLS [id number] 00:00:00 00:00:00 Only Unassigned, YESSY [id number] Piqua [facility] [id number] 2019-05-13 2019-05-13 Telephone Panchito [facility] [id number] 00:00:00 00:00:00 Paola Espinoza [id number] Adger [id number] [facility] [id number] [facility] 2019-04-29 2019-04-29 Telephone Miriam [facility] [id number] 00:00:00 00:00:[address] [facility] [id number] Surgical [id number] Specialti [id number] es 198 [place] 2019-04-18 2019-04-18 Emergency Miriam [facility] [id number] 16:51:08 18:50:00 Phil Espinoza [id number] Adger [id number] [facility] [id number] 2019-04-13 2019-04-13 Emergency Srinivasan Whitney [facility] 1.2.840. [id number] 01:48:48 20:25:00 Jordon Higgins [id number] Adger [id number] [facility] [id number] 2019-04-12 2019-04-12 Orders Doctor MILLS [id number] 00:00:00 00:00:00 Only Unassigned, YESSY [id number] [place] [facility] [id number] 2019-04-06 2019-04-06 Orders Doctor GENE [id number] 00:00:00 00:00:00 Only Unassigned, YESSY [id number] [facility] [id number] [id number] 2019-03-15 2019-03-15 Outpatient BLAKE GREEN [facility] [id number] [facility] 00:00:00 00:00:[address] 2018-11-24 2018-11-24 Abstract Buddy AKJAZMINE [id number] 00:00:00 00:00:00 [facility] [id number] CARE [id number] CHANCE [id number] 198 2018-11-12 2018-11-12 Office DHIRAJ Fontanez [id number] 08:41:28 09:13:32 Visit [facility] [id number] Surgical [id number] Specialti [id number] 198 [place] Results This patient has no known results.
--- NOTE | 2020-08-24 02:26 | ER ---
Nurse's Notes [facility] Name: Emily Nguyen Age: 54 yrs Sex: Female : 1965 Arrival Date: 08/24/2020 Time: 02:08 Bed 20 Private MD: Diagnosis: Cellulitis of right toe Presentation: 08/24 02:20 Chief complaint: Patient states: blister on big right toe that started yesterday, em redness noted to right big toe. Coronavirus screen: Client denies travel out of the [place] in the last 14 days. Ebola Screen: Patient negative for fever greater than or equal to 101.5 degrees Fahrenheit, and additional compatible Ebola Virus Disease symptoms Patient denies exposure to infectious person. Patient denies travel to an Ebola-affected area in the 21 days before illness onset. No symptoms or risks identified at this time. Initial Sepsis Screen: Does the patient meet any 2 criteria? No. Patient's initial sepsis screen is negative. Does the patient have a suspected source of infection? No. Patient's initial sepsis screen is negative. Risk Assessment: Do you want to hurt yourself or someone else? Patient reports no desire to harm self or others. Onset of symptoms was August 24, 2020. 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 - Social history:: Smoking status: Patient denies any tobacco usage or history of. - Family history:: not pertinent. - Hospitalizations: : No recent hospitalization is reported. Screenin:24 Abuse screen: Denies threats or abuse. Denies injuries from another. Nutritional jm8 screening: No deficits noted. Tuberculosis screening: No symptoms or risk factors identified. Fall Risk None identified. Assessment: 02:22 General: Appears in no apparent distress. comfortable, Behavior is calm, cooperative, jm8 appropriate for age. Pain: Denies pain. Neuro: No deficits noted. Level of Consciousness is awake, alert, obeys commands, Oriented to person, place, time. Cardiovascular: No deficits noted. Respiratory: No deficits noted. Airway is patent Trachea midline Respiratory effort is even, unlabored, Respiratory pattern is regular, symmetrical. GI: No deficits noted. No signs and/or symptoms were reported involving the gastrointestinal system. : No deficits noted. No signs and/or symptoms were reported regarding the genitourinary system. EENT: No deficits noted. No signs and/or symptoms were reported regarding the EENT system. Derm: Skin is intact, is healthy with good turgor, Skin is dry, Skin is pink, warm \T\ dry. normal, Skin temperature is warm Wound noted left big toe Wound is blister with erythema. Musculoskeletal: No deficits noted. No signs and/or symptoms reported regarding the musculoskeletal system. Vital Signs: 02:20 BP 171 / 100; Pulse 98; Resp 18; Temp 97.4; Pulse Ox 100% on R/A; Weight 80.74 kg; em Height 5 ft. 7 in. (170.18 cm); Pain 0/10; 02:20 Body Mass Index 27.88 (80.74 kg, 170.18 cm) em ED Course: 02:08 Patient arrived in ED. bp1 02:13 Michael Key MD is Attending Physician. rn 02:23 Triage completed. em 02:23 Arm band placed on. em 02:25 Patient has correct armband on for positive identification. Bed in low position. Call jm8 light in reach. Side rails up X2. 02:31 No provider procedures requiring assistance completed. Patient did not have IV access jm8 during this emergency room visit. Administered Medications: 02:22 Drug: Clindamycin 300 mg Route: PO; jm8 02:31 Follow up: Response: No adverse reaction jm8 Outcome: 02:25 Discharge ordered by . rn 02:30 Discharged to home ambulatory. jm8 02:30 Condition: good 02:30 Discharge instructions given to patient, Instructed on discharge instructions, follow up and referral plans. medication usage, Demonstrated understanding of instructions, follow-up care, medications, Prescriptions given X 1. 02:31 Patient left the ED. jm8 Signatures: Jose M Ramachandran RN RN Michael Key MD MD rn [place], Brittany [address], [place], RN RN jm8
--- NOTE | 2020-08-24 02:27 | EDPHYS ---
Physician Documentation [facility] Name: Emily Nguyen Age: 54 yrs Sex: Female : 1965 Arrival Date: 08/24/2020 Time: 02:08 Bed 20 Private MD: ED Physician Michael Key HPI: 08/24 02:21 This 54 yrs old Female presents to ER via Unassigned with complaints of rn Blister On Toe, Toe Injury. 02:21 The patient presents with a rash. The complaints affect the right foot. Onset: The rn symptoms/episode began/occurred yesterday. Modifying factors: The symptoms are alleviated by nothing, the symptoms are aggravated by nothing. Severity of symptoms: At their worst the symptoms were mild, in the emergency department the symptoms are unchanged. The patient has experienced similar episodes in the past. Reports had another blister on her right big toe, lanced it last night and soaked it, today noticed small rash and redness to toe, no drainage or fever. . 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 - Social history:: Smoking status: Patient denies any tobacco usage or history of. - Family history:: not pertinent. - Hospitalizations: : No recent hospitalization is reported. ROS: 02:21 Constitutional: Negative for fever, chills, and weight loss, MS/Extremity: Negative for rn injury and deformity, Skin: + rash to right great toe Exam: 02:21 Constitutional: This is a well developed, well nourished patient who is awake, alert, rn and in no acute distress. 02:21 Skin: + de-roofed blister right great toe, mild erythema around blister, no drainage, rn few papular lesions without erythema over proximal toe. Vital Signs: 02:20 BP 171 / 100; Pulse 98; Resp 18; Temp 97.4; Pulse Ox 100% on R/A; Weight 80.74 kg; em Height 5 ft. 7 in. (170.18 cm); Pain 0/10; 02:20 Body Mass Index 27.88 (80.74 kg, 170.18 cm) em MDM: 02:13 Patient medically screened. rn 02:21 Differential diagnosis: cellulitis. Differential diagnosis: fungal infection. Data rn reviewed: vital signs, nurses notes. Counseling: I had a detailed discussion with the patient and/or guardian regarding: the historical points, exam findings, and any diagnostic results supporting the discharge/admit diagnosis, the need for outpatient follow up, to return to the emergency department if symptoms worsen or persist or if there are any questions or concerns that arise at home. Special discussion: I discussed with the patient/guardian in detail that at this point there is no indication for admission to the hospital. It is understood, however, that if the symptoms persist or worsen the patient needs to return immediately for re-evaluation. Administered Medications: 02:22 Drug: Clindamycin 300 mg Route: PO; jm8 02:31 Follow up: Response: No adverse reaction jm8 Disposition: 08/24/20 02:25 Discharged to Home. Impression: Cellulitis of right toe. - Condition is Stable. - Discharge Instructions: Cellulitis, Adult. - Prescriptions for Clindamycin HCl 300 mg Oral Capsule - take 1 capsule by ORAL route every 6 hours for 10 days; 40 capsule. - Medication Reconciliation Form, Thank You Letter, Antibiotic Education, Prescription Opioid Use form. - Follow up: Private Physician; When: As needed; Reason: Recheck today's complaints, Re-evaluation by your physician. - Problem is new. - Symptoms have improved. Signatures: Jose M Ramachandran RN RN em Michael Key MD MD rn Malcaba, Joseph, RN RN jm8 Corrections: (The following items were deleted from the chart) 02:24 02:21 Constitutional: Negative for fever, chills, and weight loss, MS/Extremity: rn Negative for injury and deformity, Skin: + de-roofed blister right great toe, mild erythema around blister, no drainage, few papular lesions without erythema over proximal toe. rn 02:31 02:25 08/24/2020 02:25 Discharged to Home. Impression: Cellulitis of right toe. jmLinn Condition is Stable. Forms are Medication Reconciliation Form, Thank You Letter, Antibiotic Education, Prescription Opioid Use. Follow up: Private Physician; When: As needed; Reason: Recheck today's complaints, Re-evaluation by your physician. Problem is new. Symptoms have improved. rn
[2020-08-24 03:35] VITALS: BP 171/100; TEMP 97.4; O2SAT 100
== END 2020-08-24 02:31 | disposition home or self-care (01) ==
LOC: ER 02:02
DX: L03.031 Cellulitis of right toe (principal); I10 Essential (primary) hypertension; Z88.8 Allergy status to other drugs, medicaments and biological substances

== ENCOUNTER 2020-09-23 21:21 | Inpatient (IN) | payer OTHER ==
--- OUTSIDE RECORDS SUMMARY | 2020-09-23 21:26 | XMS REPORT | Continuity of Care Document ---
:1965 Author Organization [facility] t Address [address] [place] [address] Care Team Providers Name Role Phone Wang TRUONG Primary Care Physician Jacky CONTRERAS Attending Clinician Unavailable Chilango Borden MD Attending Clinician Javy CONTRERAS Attending Clinician Unavailable Alexandra TRUONG Attending Clinician Miriam TRUONG, L Attending Clinician Panchito TRUONG Attending Clinician Doctor Unassigned, Name Attending Clinician Unavailable Miriam MONIQUE Attending Clinician Singer ROQUE Attending Clinician Ronaldo TRUONG Attending Clinician PETER Attending Clinician Unavailable Buddy TRUONG Attending Clinician Ashley Dorsey Attending Clinician Ronaldo TRUONG Admitting Clinician Payers Payer Name Policy Type Policy Effective Date Expiration Date Sour ce Number [facility] [id number] 2020 [place] CHO[place] 00:00:00 [facility] EXCHANGECOM [facility] EXCHANGE MARKETPLACExxxxxx [id number] 2020-Pr esentExchange Problems Condition Condition Condition Status Onset Resolution [...] pain, Disease Active [place] bilateral bilateral 6-19 Meth cirs 00:00: st 00 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 8-13 Me [facility] cervical cervical 00:00: st region region 00 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 8-13 Me th[facility] of left of left 00:00: st shoulder shoulder 00 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 8-13 Methodi shoulder shoulder 00:00: st pain pain 00 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 8-13 Me th[facility] s with s with 00:00: st radiculopa radiculopa 00 thy thy S/P S/P Disease Active [place] cervical cervical 9-14 Method i spinal spinal [...] 00 Postoperat Postoperat Disease Active Overview : [place] doris visit doris visit 09-03 Autumn batres 00:00: g of this st note might [...] 2018-03 Chance lee atin ty to Comments) 0 Methodi adverse 00:00: st reaction 00 s [...] over my feet Benadryl Propensi Active Palpitations [place] Allergy ty to 04-10 Methodi Deconges adverse 00:00: st tant reaction 00 s to drug Family History Family Member Diagnosis Comments Start Date Stop Date Source Natural father Cancer [place] [facility] Natural father Diabetes [place] [facility] Natural father Hyperlipidemia [place] [facility] Maternal grandmother Heart disease [place] [facility] Natural mother Blood Clots [place] M ethodist Natural mother Cancer [place] [facility] Natural mother Crohn's disease [place] [facility] Natural mother Heart disease [place] [facility] Natural mother Hypertension [place] [facility] Paternal aunt Cancer [place] [facility] Paternal grandmother Cancer [place] [facility] Paternal grandmother Diabetes [place] [facility] Social History Social Habit Start Date Stop Date Quantity Comments Source Tobacco use and 2020-09-20 2020-09-20 Never used Krzysztof Cheung ethodist exposure 00:00:00 00:00:00 Alcohol intake 2020-09-20 2020-09-20 Current drinker [place] [facility] 00:00:00 00:00:00 of alcohol (finding) Alcohol Comment 2019-08-27 2019-08-27 occl Kr[facility]ysztof [facility]orneodist 00:00:00 00:00:00 Sex [birth year] F [facility]f [facility] 00:00:00 00:00:00 Smoking Status Start Date Stop Date Source Never smoker Krzysztof Nailsis t Medications Ordered Filled Start Stop Current Ordering Indication Dosage Frequency Signature Comments Components Source Medication Medication Date Date Medication? Clinician (SIG) Name Name MAGNESIUM Yes Q.5D Take by [place] CARBONATE 7-14 mouth 2 Methodi ORAL 15:34: (two) st 02 times a day. potassium Yes Q.5D Take by [place] 99 mg 7-14 mouth 2 Methodi tablet 15:34: (two) st 02 times a day. cholecalcif Yes Take by [place] lukas, 7-14 mouth. Methodi vitamin D3, 15:34: st (VITAMIN D3 02 ORAL) ibuprofen Yes 400mg Q6H Take 400 [place] (ADVIL) 200 7-14 mg by Methodi MG tablet 15:31: mouth st 12 every 6 (six) hours as needed for mild pain. aspirin Yes 81mg QD Take 81 mg [place] (ECOTRIN) 7-14 by mouth Method i 81 MG 15:30: daily. st enteric 29 coated tablet furosemide Yes 20mg QD Take 20 mg [place] (LASIX) 20 7-14 by mouth Metho di mg tablet 15:30: daily. st 29 losartan Yes 12.5mg QD Take 12.5 [place] potassium 7-14 mg by Methodi (LOSARTAN 15:30: mouth st ORAL) 29 nightly. lidocaine Yes 1{patch Q24H Place 1 [place] (LIDODERM) 7-14 } patch on Metho di 5 % 15:30: the skin st 29 daily. Remove & Discard patch within 12 hours or as directed by losartan 2020- No 25mg QD Take 25 mg [place] (COZAAR) 25 7-14 07-14 by mouth Met hodi MG tablet 15:27: 00:[address] 34 :00 divalproex Yes TAKE 1 [place] (DEPAKOTE) 6-21 TABLET AT Meth cris 125 MG EC 00:00: BEDTIME st tablet 00 ALONG WITH A 250 MG TABLET FOR A TOTAL OF 375 MG. divalproex 2020- No TAKE 250 [place] (DEPAKOTE) 5-26 06-21 MG AND 125 Me th[facility] 125 MG [...] FOR A TOTAL OF 375 MG. glipiZIDE 2019-03- No 10mg Q.[id number] Take 10 mg [place] (GLUCOTROL) 03-18 [id number] by mouth 3 Methodi 10 MG 11:44: 00:00 3D (three) st tablet 32 :00 times a day. SITagliptin 2019-03- No 100mg QD Take 100 [place] (JANUVIA) 03-18 mg by Methodi 100 MG 11:44: 00:[address] tablet 32 :00 daily. diclofenac 2019-03- No 1{patch QD Place 1 [place] epolamine 03-18 } patch on Metho di 1.3 % patch 00:00: 00:00 the skin s t 24 hour 00 :00 daily. divalproex 2019-03- No Take 250 [place] (DEPAKOTE) 09 01-21 mg and 125 Me th[facility] 125 MG EC 00:00: 00:[address] tablet 00 :00 together at night for a total of 375 mg. pravastatin 2019-03 Yes TAKE 1 [place] (PRAVACHOL) 0-21 TABLET (40 Me thodi 40 mg 00:00: MG TOTAL) st tablet 00 BY MOUTH 1 (ONE) TIME EACH DAY bisoproloL- 2019-03 Yes 1{tbl} QD Take 1 [place] hydrochloro 0-12 tablet by Met hodi thiazide 00:00: mouth st (ZIAC) 00 daily. 5-6.25 mg per tablet furosemide Yes 40mg QD Take 40 mg [place] (LASIX) 40 9-25 by mouth Metho di mg tablet 00:00: daily. st 00 prednisoLON 2019- Yes Using once [place] E acetate 9-09 a day Methodi (PRED 00:00: st FORTE) 1 % 00 ophthalmic suspension divalproex Yes 250mg QD Take 1 [place] (Depakote) 7-30 tablet Methodi 250 MG EC 00:00: ([address] tablet 00 total) by mouth nightly. divalproex 2020- No 250mg QD Take 1 [place] (Depakote) 7-17 07-30 tablet Method i 250 MG EC 00:00: 00:00 ([address] tablet 00 :00 total) by mouth nightly. divalproex 2019-0 2020- No 250mg QD Take 1 [place] (Depakote) 6-19 07-17 tablet Method i 250 MG EC 00:00: 00:00 ([address] tablet 00 :00 total) by mouth nightly. furosemide 2018-03 2020- No 40mg 40 mg. [place] (LASIX) 20 2-05 01-16 Methodi mg tablet 00:00: 00:00 st 00 :00 bisoproloL- 2018-03 2020- No [place] hydrochloro 0-22 01-16 Methodi thiazide 00:00: 00:00 st (ZIAC) 00 :00 10-6.25 mg per tablet UNABLE TO Yes 1{capsu Q.5D 1 capsule [place] FIND 3- le} 2 (two) Methodi 00:00: times a st 00 day. NeuRx-TF metFORMIN Yes 1000mg Q.5D Take 1,000 [place] XR 5-17 mg by Methodi (GLUCOPHATE 00:00: mouth 2 st -XR) 500 MG 00 (two) 24 hr times a tablet day. Vital Signs Vital Name Observation Time Observation Value Comments Source Systolic blood 2020-09-20 15:22:00 113 mm[Hg] [place] [facility] pressure Diastolic blood 2020-09-20 15:22:00 78 mm[Hg] [place] [facility] pressure Heart rate 2020-09-20 15:22:00 93 /min Krzysztof Corcoran Body temperature 2020-09-20 15:22:00 36.67 Anna Sunny Corcoran Body weight 2020-09-20 15:22:00 83.008 kg Krzysztof Corcoran Oxygen saturation in 2020-09-20 15:22:00 98 /min Krzysztof Corcoran Arterial blood by Pulse oximetry Respiratory rate 2020-01-17 11:41:00 14 /min Sunny Corcoran Procedures Procedure Date / Time Performing Clinician Source Performed ANTINUCLEAR ANTIBODIES, 2020-09-20 16:14:00 Nisha Borden IFA RHEUMATOID FACTOR 2020-09-20 16:14:00 Nisha Borden CYCLIC CITRULLINATED 2020-09-20 16:14:00 Nisha Borden PEPTIDE AB, IGG ANTIEXTRACTABLE NUCLEAR 2020-09-20 16:14:00 Nisha Borden ANTIGENS SCL-70 ANTIBODY 2020-09-20 16:14:00 Nisha Borden SEDIMENTATION RATE 2020-09-20 16:14:00 Nisha Borden C-REACTIVE PROTEIN 2020-09-20 16:14:00 Nisha Borden CREATINE KINASE, TOTAL 2020-09-20 16:14:00 Nisha Borden (CPK) URINALYSIS, AUTOMATED WITH 2020-09-20 16:14:00 Nsiha Borden MICROSCOPY COMPREHENSIVE METABOLIC 2020-09-20 16:14:00 Nisha Borden PANEL CBC WITH PLATELET AND 2020-09-20 16:14:00 Nisha Borden DIFFERENTIAL MICROSCOPIC EXAMINATION 2020-09-20 16:14:00 Michi, Nisha Chilango [place] [facility] Plan of Care Planned Activity Planned Date Details Comments Source Future Scheduled 2020-11-16 DIABETES: RETINAL EYE [place] [facility] Test 00:00:00 EXAM [code = DIABETES: RETINAL EYE EXAM] Future Scheduled 2020-10-08 INFLUENZA VACCINE [place] [facility] Test 00:00:00 [code = INFLUENZA VACCINE] Future Scheduled 2014 BREAST CANCER [place] [facility] Test 00:00:00 SCREENING [code = BREAST CANCER SCREENING] Future Scheduled 2014 COLONOSCOPY SCREENING [place] [facility] Test 00:00:00 [code = COLONOSCOPY SCREENING] Future Scheduled 2014 SHINGLES VACCINES (#1) [place] [facility] Test 00:00:00 [code = SHINGLES VACCINES (#1)] Future Scheduled 1985 Screening for [facility] thodist Test 00:00:00 malignant neoplasm of cervix (procedure) [code = 123913469] Future Scheduled 1982 Hepatitis C screening [place] [facility] Test 00:00:00 (procedure) [code = 606905392] Future Scheduled 1976 COVID-19 VACCINE (1) [place] [facility] Test 00:00:00 [code = COVID-19 VACCINE (1)] Future Scheduled 1974 DIABETIC FOOT EXAM [place] [facility] Test 00:00:00 [code = DIABETIC FOOT EXAM] Future Scheduled 1974 URINE MICROALBUMIN [place] [facility] Test 00:00:00 [code = URINE MICROALBUMIN] Encounters Start End Encounter Admission Attending Care Care Encounter Source Date/Time Date/Time Type Type Clinicians Facility Department ID 2020-09-20 2020-09-20 Outpatient MICHI, [facility] [id number] [place] 00:00:00 00:00:00 MOHAMMED [address] 2020-01-17 2020-01-17 Outpatient CABRERASANJIV [facility] [id number] [place] 00:00:00 00:00:[address] 2019-10-07 2019-10-07 Outpatient CABRERASANJIV [facility] [id number] [place] 00:00:00 00:00:[address] 2019-08-27 2019-08-27 Outpatient CABRERASANJIV [facility] [id number] [place] 00:00:00 00:00:[address] 2019-08-24 2019-08-24 Telephone Miriam [facility] [id number] 00:00:00 00:00:00 Minh [facility] [id number] Surgical 4.2.7.2.686 Specialti [id number] es 198 [place] 2019-05-13 2019-05-13 Telephone Panchito [facility] [id number] 00:00:00 00:00:00 Paola Alexis [id number] [place] 4.2.7.2.686 [facility] [id number] nal 059 [facility] 2019-05-13 2019-05-13 Orders Doctor MILLS [id number] 00:00:00 00:00:00 Only Unassigned, YESSY [id number] Botines [facility] 4.2.7.2.686 [id number] 009 2019-04-29 2019-04-29 Telephone Miriam [facility] [id number] 00:00:00 00:00:00 Minh [facility] [id number] Surgical 4.2.7.2.686 Specialti [id number] es 198 [place] 2019-04-18 2019-04-18 Emergency Miriam [facility] [id number] 16:51:08 18:50:00 Phil Espinoza [id number] [place] 4.2.7.2.686 [place] [id number] 084 2019-04-13 2019-04-13 Emergency Srinivasan Whitney [facility] 1.2.840. [id number] 01:48:48 20:25:00 Jordon Higgins [id number] [place] 4.2.7.2.686 [place] [id number] 2019-04-12 2019-04-12 Orders Doctor MILLS [id number] 00:00:00 00:00:00 Only Unassigned, YESSY 350.1.13.10 [place] [facility] 4.2.7.2.686 [id number] [id number] 2019-04-06 2019-04-06 Orders Doctor GENE [id number] 00:00:00 00:00:00 Only Unassigned, YESSY 350.1.13.10 [place] [facility] 4.2.7.2.686 [id number] 009 2019-03-15 2019-03-15 Outpatient [facility]LA[facility] [id number] [place] 00:00:00 00:00:[address] 2018-11-24 2018-11-24 [facility] [id number] 00:00:00 00:00:00 [facility] [id number] CARE 4.2.7.2.686 PAVILLION [id number] 198 2018-11-12 2018-11-12 Office Huseyin [facility] [id number] 08:41:28 09:13:32 Visit [facility] [id number] Surgical 4.2.7.2.686 Specialti [id number] 198 [place] Results Test Description Test Time Test Comments Results Result Comments Source Cyclic citrullinated peptide antibody, IgG 2020-09-23 05:09: 00 Test Item Value Reference Range Interpretation Comme nts Cyclic citrullin 7 See_Comment peptide Ab (test code Negati ve <20 = 37871-0) Weak positive 2 0 - 39 Moderate positive 40 - 59 S jan positive >59 [Automated mess age] The system which ge nerated this result transmit rodolfo reference range: 0 - 19 u nits. The reference range was not used to interpret th is result as normal/abnormal . NEELAM (test code = NEELAM) Performed at: [address] [place] [address] [id number] Director: Piotr Gerard MD, Phone: [phone] Comment: Test(s) Glucose called to Genoveva Rico MA on 09/21/2020pecimen Comment: at 13:31 EST [place] MethodistSSA/SSB [id number] 13:10:00 Test Item Value Reference Range Interpretation Comments Sjogren's SS-A <0.2 See_Comment [Automated antibody (test message] The system code = 67539-2) which genera rodolfo this result transmitted reference range : 0.0 - 0.9 AI. T he reference range was not used to interpret this result as normal/abnormal . Sjogren's SS-B <0.2 See_Comment [Automated antibody (test message] The system code = 28673-3) which genera rodolfo this result transmitted reference range : 0.0 - 0.9 AI. T he reference range was not used to interpret this result as normal/abnormal . NEELAM (test code = Performed at: NEELAM) - [address] [id number] Director: Shivam Uriostegui MD, Phone: [phone] [place] MethodistScl-70 [id number] 13:10:00 Test Item Value Reference Range Interpretation Comments Scleroderma SCL-70 <0.2 See_Comment [Automat ed Ab (test code = message] The 44219-6) system which generated this result transmit rodolfo reference range : 0.0 - 0.9 AI. T he reference range was not used to interpret this result as normal/abnormal . NEELAM (test code = Performed at: [facility]) - [address] [id number] Director: Shivam Uriostegui MD, Phone: [phone] [place] MethodistAntinuclear Antibodies, [id number] 13:10:00 Test Item Value Reference Range Interpretation Comments Antinuclear Negative antibodies (LADONNA) (test code = Negative <1: 80 5048-4) Borderline 1:8 0 Positive >1:8 0 NEELAM (test code = Performed at: NEELAM) - [address] [id number] Director: Shivam Uriostegui MD, Phone: [phone] [place] MethodistAntiextractable Nuclear [id number] 13:10:00 Test Item Value Reference Range Interpretation Comments Ribonucleic <0.2 See_Comment [Automated antibody (PODIATRIST) message] The (test code = system which 17513-8) generated this result transmit rodolfo reference range : 0.0 - 0.9 AI. T he reference range was not used to interpret this result as normal/abnormal . Carrillo antibody <0.2 See_Comment [Automated (test code = message] The 87468-5) system which generated this result transmit rodolfo reference range : 0.0 - 0.9 AI. T he reference range was not used to interpret this result as normal/abnormal . NEELAM (test code = Performed at: NEELAM) - [address] [id number] Director: Shivam Uriostegui MD, Phone: [phone] n Comment: Test(s) Glucose called to Genoveva Rico MA on 09/21/2020pecime n Comment: at 13:31 EST [place] MethodistMicroscopic [id number] 09:10:00 Test Item Value Reference Range Interpretation Comments WBC, UA (test code = >30 See_Comment A [Autom ated 5821-4) message] The system which generated this result transmitted reference range : 0 - 5 /hpf. The reference range was not used to interpret this result as normal/abnormal . RBC, UA (test code = 11-30 See_Comment A [Autom ated 98768-0) message] The system which generated this result transmitted reference range : 0 - 2 /hpf. The reference range was not used to interpret this result as normal/abnormal . Epithelial cells (non 0-10 See_Comment [Auto mated renal) (test code = message] The 5787-7) system which generated this result transmitted reference range : 0 - 10 /hpf. Th e reference range was not used to interpret this result as normal/abnormal . Casts (test code = None seen None seen /lpf 41343-1) Bacteria, UA (test Many None seen/Few A code = 5769-5) NEELAM (test code = NEELAM) Performed at: 01 - [address] [id number] Director: Shivam Uriostegui MD, Phone: [phone] Lab Interpretation Abnormal (test code = 03074-9) [place] MethodistSedimentation [id number] 09:10:00 Test Item Value Reference Range Interpretation Comments Sedimentation rate 13 See_Comment [Automat ed (test code = 4537-7) message ] The system which generated this result transmitted reference range : 0 - 40 mm/hr. T he reference range was not used to interpret this result as normal/abnormal . NEELAM (test code = Performed at: NEELAM) - [address] [id number] Director: Shivam Uriostegui MD, Phone: [phone] [place] MethodistUrinalysis, automated with [id number] 09:10:00 Test Item Value Reference Range Interpretation Comments Specific gravity, >=1.030 1.005-1.030 A urine (test code = 2965-2) pH, urine (test code 6.5 5.0-7.5 = 5803-2) Color, UA (test code Yellow Yellow = 5778-6) Appearance (test code Clear Clear = 5767-9) WBC esterase, urine Negative Negative (test code = 5799-2) Protein, UA (test Trace Negative/Trace code = 10858-5) Glucose, urine (test 3+ Negative A code = 2349-9) Ketones, UA (test Negative Negative code = 2514-8) Occult blood, urine 2+ Negative A (test code = 5794-3) Bilirubin, UA (test Negative Negative code = 5770-3) Urobilinogen, UA 0.2 mg/dL 0.2-1.0 (test code = 43082-4) Nitrite, UA (test Positive Negative A code = 5802-4) Microscopic See below: Microscopic was examination (test indicated and was code = 03877-9) performed. NEELAM (test code = NEELAM) Performed at: [facility] [id number] Director: Shivam Uriostegui MD, Phone: [phone] Lab Interpretation Abnormal (test code = 65389-5) [place] MethodistComprehensive metabolic [id number] 07:15:00 Test Item Value Reference Interpretation Comments Range Glucose (test code = 664 mg/dL 65-99 Verif ied by repeat 5-7) analysis BUN (test code = 13 mg/dL 6-24 3094-0) Creatinine (test 0.83 mg/dL 0.57-1.00 code = 2160-0) EGFR Non-Afr. 80 mL/min/1.73 >59 Bulgarian (test code = 2775) EGFR 92 mL/min/1.73 >59 [facility] cur rently Bulgarian (test code reports eGFR in = 2774) compliance with the current recommendations of the [employer]. Lab daniel will update reporting as ne w guidelines are published from the NKF-ASN Task f orce. BUN/creatinine ratio 16 9-23 (test code = 3097-3) Sodium (test code = 133 mmol/L 134-144 L 2951-2) Potassium (test code 4.4 mmol/L 3.5-5.2 = 2823-3) Chloride (test code 91 mmol/L 96-106 L = 2075-0) CO2 (test code = 25 mmol/L -2027-9) Calcium (test code = 9.7 mg/dL 8.7-10.2 19832-1) Protein (test code = 7.3 g/dL 6.0-8.5 2885-2) Albumin, S (test 4.4 g/dL 3.8-4.9 code = 1751-7) Globulin, total 2.9 g/dL 1.5-4.5 (test code = 42744-2) Albumin/globulin 1.5 1.2-2.2 ratio (test code = 1759-0) Total bilirubin 0.2 mg/dL 0.0-1.2 (test code = 1975-2) Alkaline phosphatase 204 See_Comment H [Autom ated message] (test code = 6768-6) The [facility] tem which generated this result transmit rodolfo reference range : 48 - 121 IU/L. The reference range was not used to interpret this result as normal/abnormal . AST (test code = 13 See_Comment [Automated message] 1920-8) The system [employer] generated this result transmit rodolfo reference range : 0 - 40 IU/L. The reference range was not used to interpret this result as normal/abnormal . ALT (test code = 17 See_Comment [Automated message] 1742-6) The system [employer] generated this result transmit rodolfo reference range : 0 - 32 IU/L. The reference range was not used to interpret this result as normal/abnormal . NEELAM (test code = Performed at: NEELAM) 01 - [facility] [address] [place], [place] [id number] Director: Shivam Uriostegui MD, Phone: [phone] Lab Interpretation Abnormal (test code = 23500-1) [place] MethodistCreatine kinase, total (CPK)2020-09-21 07:15:00 Test Item Value Reference Range Interpretation Comments Creatine kinase (test 24 U/L 32-182 L code = 2157-6) NEELAM (test code = NEELAM) Performed at: [facility] [address] [id number] Director: Shivam Uriostegui MD, Phone: [phone] Lab Interpretation (test Abnormal code = 93270-8) [place] MethodistC-reactive [id number] 05:10:00 Test Item Value Reference Range Interpretation Comments CRP (test code = 1987-07) 23 mg/L 0-10 H NEELAM (test code = NEELAM) Performed at: [facility] [address] [id number] Director: Shivam Uriostegui MD, Phone: [phone] Lab Interpretation (test Abnormal code = 59485-2) [place] MethodistRheumatoid [id number] 05:10:00 Test Item Value Reference Range Interpretation Comments Rheumatoid 12.5 See_Comment [Automated arthritis latex message] The turbid (test code system whi ch = 72020-5) generated this result transmit rodolfo reference range : 0.0 - 13.9 IU/m L. The reference range was not u sed to interpret th is result as normal/abnormal . NEELAM (test code = Performed at: [facility]) - [facility] [id number] Director: Shivam Uriostegui MD, Phone: [phone] [place] MethodistCBC with platelet and [id number] 05:10:00 Test Item Value Reference Range Interpretation Comments WBC (test code = 10.8 See_Comment [Automated 2390-2) message] The system which generated this result transmitted reference range : 3.4 - 10.8 x10E3/uL. The reference range was not used to interpret this result as normal/abnormal . RBC (test code = 4.85 See_Comment [Automated 241-8) message] The system which generated this result transmitted reference range : 3.77 - 5.28 x10E6/uL. The reference range was not used to interpret this result as normal/abnormal . HGB (test code = 15.1 g/dL 11.1-15.9 718-7) HCT (test code = 44.4 % 34.0-46.6 4544-3) MCV (test code = 92 fL 79-97 787-2) MCH (test code = 31.1 pg 26.6-33.0 785-6) MCHC (test code = 34.0 g/dL 31.5-35.7 786-4) RDW (test code = 11.7 % 11.7-15.4 788-0) Platelet count (test 343 See_Comment [Autom ated code = 777-3) message] The system which generated this result transmitted reference range : 150 - 450 x10E3/uL. The reference range was not used to interpret this result as normal/abnormal . Neutrophils (test 76 % Not Estab. code = 770-8) Lymphocytes (test 17 % Not Estab. code = 736-9) Monocytes (test code 4 % Not Estab. = 5905-5) Eosinophils (test 2 % Not Estab. code = 713-8) Basophils (test code 1 % Not Estab. = 706-2) Neutrophils, absolute 8.2 See_Comment H [Auto mated (test code = 751-8) message] The system which generated this result transmitted reference range : 1.4 - 7.0 x10E3/uL. The reference range was not used to interpret this result as normal/abnormal . Lymphocytes, absolute 1.9 See_Comment [Auto mated (test code = 731-0) message] The system which generated this result transmitted reference range : 0.7 - 3.1 x10E3/uL. The reference range was not used to interpret this result as normal/abnormal . Monocytes, absolute 0.5 See_Comment [Automa rodolfo (test code = 742-7) message] The system which generated this result transmitted reference range : 0.1 - 0.9 x10E3/uL. The reference range was not used to interpret this result as normal/abnormal . Eosinophils, absolute 0.2 See_Comment [Auto mated (test code = 711-2) message] The system which generated this result transmitted reference range : 0.0 - 0.4 x10E3/uL. The reference range was not used to interpret this result as normal/abnormal . Basophils, absolute 0.1 See_Comment [Automa rodolfo (test code = 704-7) message] The system which generated this result transmitted reference range : 0.0 - 0.2 x10E3/uL. The reference range was not used to interpret this result as normal/abnormal . Immature granulocytes 0 % Not Estab. (test code = 98599-2) Immature grans (abs) 0.0 See_Comment [Autom ated (test code = 15911-2) messag e] The system which generated this result transmitted reference range : 0.0 - 0.1 x10E3/uL. The reference range was not used to interpret this result as normal/abnormal . NEELAM (test code = NEELAM) Performed at: [facility] [id number] Director: Shivam Uriostegui MD, Phone: [phone] Lab Interpretation Abnormal (test code = 09810-0) Krzysztof Corcoran
[2020-09-23 22:31] LABS: Urine Blood Trace-intact (Negative); Urine Glucose 2+ (Negative); Urine Protein Trace (Negative); Urine pH 6.5 (5.0-7.0)
[2020-09-23 22:54] LABS: Absolute Lymphocytes (CBC) 1.9 K/uL (0.7-4.9); Basophils % 0.4 % (0-1.3); Hematocrit 38.5 % (36.0-45.0); Lymphocytes % 19.7 % (15.3-44.8); MPV 9.1 fL (7.6-11.3); Protime INR 0.85; RBC Red Blood Cell Count 4.29 M/uL (3.86-4.86)
[2020-09-23 23:11] LABS: ALT/SGPT 23 U/L (12-78); AST/SGOT 8 U/L (15-37); Albumin 3.2 g/dL (3.4-5.0); Alkaline Phosphatase 193 U/L (45-117); BUN Blood Urea Nitrogen 14 mg/dL (7-18); Bicarbonate 25 mmol/L (21-32); Bilirubin Direct < 0.1 mg/dL (0-0.2); Bilirubin Total 0.3 mg/dL (0.2-1.0); Glucose Level 614 mg/dL (74-106); Magnesium 2.4 mg/dL (1.8-2.4); NT PRO-BNP 88 pg/mL (<125); Potassium 4.2 mmol/L (3.5-5.1); Protein, Total 7.4 g/dL (6.4-8.2); Sodium Level 129 mmol/L (136-145); Troponin (Emerg Dept Use Only) < 0.02 ng/mL (0.0-0.045)
[2020-09-23 23:13] LABS: Urine Bacteria 20-50 /HPF (<20); Urine RBC <5 /HPF (NONE SEEN)
[2020-09-24] MEDS ORDERED: NA CHLORIDE 0.9% 1,000 ML ONE ×2 (00:10→07:29)
[2020-09-24] MEDS ORDERED: INSULIN -REGULAR HUMAN 50 UNIT/0.5 ML ML ONE ×3 (01:48→12:40)
[2020-09-24] MEDS ORDERED: CEFTRIAXONE/SWI 1gm 1 GM/10 ML SYR ONE ×2 (01:49→08:56)
--- NOTE | 2020-09-24 03:35 | ER ---
Nurse's Notes [facility] Name: Emily Nguyen Age: 54 yrs Sex: Female : 1965 Arrival Date: 09/23/2020 Time: 21:25 Bed 18 Private MD: Diagnosis: Other specified diabetes mellitus with hyperglycemia;UTI/ Urinary tract infection, site not specified;Chest pain, unspecified;Dehydration Presentation: 09/23 21:55 Chief complaint: Patient states: she always has pain but now she is feeling shaky, bb weak, and her blood sugar is greater than 600. Coronavirus screen: At this time, the client does not indicate any symptoms associated with coronavirus-19. Ebola Screen: No symptoms or risks identified at this time. Initial Sepsis Screen: Does the patient meet any 2 criteria? No. Patient's initial sepsis screen is negative. Does the patient have a suspected source of infection? No. Patient's initial sepsis screen is negative. Risk Assessment: Do you want to hurt yourself or someone else? Patient reports no desire to harm self or others. Onset of symptoms was September 23, 2020. 21:55 Method Of Arrival: Ambulatory bb 21:55 Acuity: ARLET 3 bb Triage Assessment: 21:57 General: Appears in no apparent distress. Behavior is calm, cooperative. Pain: Denies bb pain. Neuro: Level of Consciousness is awake, alert, obeys commands, Oriented to person, place, time, situation. Cardiovascular: Capillary refill < 3 seconds Patient's skin is warm and dry. Respiratory: Airway is patent Respiratory effort is even, unlabored. GI: Reports nausea. Derm: Skin is pink, warm \T\ dry. Musculoskeletal: Circulation, motion, and sensation intact. 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 - Social history:: Smoking status: Patient denies any tobacco usage or history of. Screenin:30 Abuse screen: Denies threats or abuse. Nutritional screening: No deficits noted. ea Tuberculosis screening: No symptoms or risk factors identified. Fall Risk None identified. Assessment: 23:20 General: Appears in no apparent distress. Behavior is calm, cooperative, appropriate ea for age. Pain: Denies pain. Neuro: Level of Consciousness is awake, alert, obeys commands, Oriented to person, place, time. Cardiovascular: Patient's skin is warm and dry. Respiratory: Airway is patent Respiratory effort is even, unlabored, Respiratory pattern is regular, symmetrical. GI: Abdomen is non-distended. Derm: Skin is pink, warm \T\ dry. 09/24 00:16 Reassessment: Patient and/or family updated on plan of care and expected duration. Pain ea level reassessed. Patient is alert, oriented x 3, equal unlabored respirations, skin warm/dry/pink. 01:00 Reassessment: Pt resting with eyes closed respirations even and unlabored chest ea expansions even and symmetrical. No s/s of pain or discomfort noted at this time. 02:30 Reassessment: Pt resting with eyes closed respirations even and unlabored chest ea expansions even and symmetrical. No s/s of pain or discomfort noted at this time. 03:34 Reassessment: Patient and/or family updated on plan of care and expected duration. Pain ea level reassessed. Patient is alert, oriented x 3, equal unlabored respirations, skin warm/dry/pink. Provider updating pt on plan of care. Vital Signs: 09/23 21:55 BP 126 / 87; Pulse 91; Resp 18; Temp 99.1(TE); Pulse Ox 97% on R/A; Weight 81.65 kg bb (R); Height 5 ft. 7 in. (170.18 cm) (R); Pain 0/10; 09/24 01:00 BP 152 / 81; Pulse 83; Resp 18; Pulse Ox 98% ; ea 03:30 BP 165 / 85; Pulse 83; Resp 18; Pulse Ox 98% on R/A; ea 09/23 21:55 Body Mass Index 28.19 (81.65 kg, 170.18 cm) bb ED Course: 09/23 21:25 Patient arrived in ED. cf2 21:57 Triage completed. bb 21:57 Arm band placed on Patient placed in an exam room, Patient notified of wait time. bb 22:41 XRAY Chest (1 view) In Process Unspecified. EDMS 23:14 Notified ED physician of a critical lab result(s). glucose of 614 Dr Galindo notified. bb 23:20 Yeimi Spain, RN is Primary Nurse. ea 23:30 Patient has correct armband on for positive identification. Bed in low position. Call ea light in reach. Side rails up X2. 09/24 00:13 Hua Galindo MD is Attending Physician. [facility] 00:32 Inserted saline lock: 22 gauge in left hand, using aseptic technique. ea 03:34 Elias Whitt MD is Hospitalizing Provider. [facility] 05:41 No provider procedures requiring assistance completed. Patient admitted, IV remains in ea place. Administered Medications: 00:32 Drug: NS 0.9% 1000 ml Route: IV; Rate: 1 bolus; Site: left hand; ea 03:30 Follow up: Response: No adverse reaction; IV Status: Completed infusion; IV Intake: ea 1000ml 02:17 Drug: Insulin Regular Human 10 units {Co-Signature: em (Jose M Ramachandran RN).} Route: IVP; ea Site: left hand; 02:30 Follow up: Response: No adverse reaction ea 02:18 Drug: Rocephin (cefTRIAXone) 1 grams Route: IV; Rate: per protocol; Site: left hand; ea 05:42 Follow up: IV Status: Completed infusion ea Intake: 03:30 IV: 1000ml; Total: 1000ml. ea Outcome: 03:35 Decision to Hospitalize by Provider. [facility] 05:41 Admitted to ER Hold. Please see [facility] for further documentation. ea 05:41 Condition: stable 05:41 Instructed on the need for admit. 14:18 Patient left the ED. ss Signatures: Dispatcher [employer] Savita Jacob RN RN bb Smirch, Shelby, RN RN Yeimi Spain, Gio Rivera RN, ea 2 Hua Galindo MD MD [facility] Jose M Ramachandran RN em
--- NOTE | 2020-09-24 03:35 | EDPHYS ---
Physician Documentation [facility] Name: Emily Nguyen Age: 54 yrs Sex: Female : 1965 Arrival Date: 09/23/2020 Time: 21:25 Bed 18 Private MD: ED Physician Hua Galindo HPI: 09/24 00:40 This 54 yrs old Female presents to ER via Ambulatory with complaints of High mh7 Blood Sugar, Dizziness, Nausea, Chest Pain. 00:40 The patient or guardian reports generalized fatigue, hyperglycemia, that was mh7 potentially precipitated by adjusting medication dose, with the patient's symptoms witnessed by no one, Treatment prior to arrival includes:. 01:25 Onset: The symptoms/episode began/occurred 2 day(s) ago. Associated signs and symptoms: mh7 Pertinent positives: nausea, Dizziness, chest pain, Pertinent negatives: diaphoresis, diarrhea, seizure activity, skin flushing, urinary incontinence, vomiting. Current symptoms: In the emergency department the patient's symptoms are unchanged from the initial presentation. 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 - Social history:: Smoking status: Patient denies any tobacco usage or history of. ROS: 09/24 01:25 Constitutional: Negative for fever, chills, and weight loss, Eyes: Negative for injury, mh7 pain, redness, and discharge, ENT: Negative for injury, pain, and discharge, Neck: Negative for injury, pain, and swelling, Respiratory: Negative for shortness of breath, cough, wheezing, and pleuritic chest pain. Back: Negative for injury and pain, : Negative for injury, bleeding, discharge, and swelling, MS/Extremity: Negative for injury and deformity, Skin: Negative for injury, rash, and discoloration, Neuro: Negative for headache, weakness, numbness, tingling, and seizure, Psych: Negative for depression, anxiety, suicide ideation, homicidal ideation, and hallucinations, Allergy/Immunology: Negative for hives, rash, and allergies, Hematologic/Lymphatic: Negative for swollen nodes, abnormal bleeding, and unusual bruising. Abdomen/GI: Negative for abdominal pain, vomiting, diarrhea, constipation, abdominal cramps, abdominal distension, anorexia, dysphagia, hematemesis, black/tarry stool, rectal pain, rectal bleeding, bowel incontinence, flatulence. Exam: 01:25 Constitutional: This is a well developed, well nourished patient who is awake, alert, mh7 and in no acute distress. Head/Face: Normocephalic, atraumatic. Eyes: Pupils equal round and reactive to light, extra-ocular motions intact. Lids and lashes normal. Conjunctiva and sclera are non-icteric and not injected. Cornea within normal limits. Periorbital areas with no swelling, redness, or edema. Neck: Trachea midline, no thyromegaly or masses palpated, and no cervical lymphadenopathy. Supple, full range of motion without nuchal rigidity, or vertebral point tenderness. No Meningismus. Chest/axilla: Normal chest wall appearance and motion. Nontender with no deformity. No lesions are appreciated. Cardiovascular: Regular rate and rhythm with a normal S1 and S2. No gallops, murmurs, or rubs. Normal PMI, no JVD. No pulse deficits. Respiratory: Lungs have equal breath sounds bilaterally, clear to auscultation and percussion. No rales, rhonchi or wheezes noted. No increased work of breathing, no retractions or nasal flaring. Abdomen/GI: Soft, non-tender, with normal bowel sounds. No distension or tympany. No guarding or rebound. No evidence of tenderness throughout. Back: No spinal tenderness. No costovertebral tenderness. Full range of motion. Skin: Warm, dry with normal turgor. Normal color with no rashes, no lesions, and no evidence of cellulitis. MS/ Extremity: Pulses equal, no cyanosis. Neurovascular intact. Full, normal range of motion. Neuro: Awake and alert, GCS 15, oriented to person, place, time, and situation. Cranial nerves II-XII grossly intact. Motor strength 5/5 in all extremities. Sensory grossly intact. Cerebellar exam normal. Normal gait. Psych: Awake, alert, with orientation to person, place and time. Behavior, mood, and affect are within normal limits. 01:25 Constitutional: The patient appears Vital Signs: 09/23 21:55 BP 126 / 87; Pulse 91; Resp 18; Temp 99.1(TE); Pulse Ox 97% on R/A; Weight 81.65 kg bb (R); Height 5 ft. 7 in. (170.18 cm) (R); Pain 0/10; 09/24 01:00 BP 152 / 81; Pulse 83; Resp 18; Pulse Ox 98% ; ea 03:30 BP 165 / 85; Pulse 83; Resp 18; Pulse Ox 98% on R/A; ea 09/23 21:55 Body Mass Index 28.19 (81.65 kg, 170.18 cm) MDM: 03:32 Differential diagnosis: DKA, hyperglycemia, Chest pain, UTI. Data reviewed: vital [facility] signs, nurses notes, lab test result(s), cardiac enzymes, CBC, electrolytes, urinalysis, EKG, radiologic studies, plain films. Data interpreted: Pulse oximetry: on room air is 97 %. Interpretation: normal. Counseling: I had a detailed discussion with the patient and/or guardian regarding: the historical points, exam findings, and any diagnostic results supporting the discharge/admit diagnosis, lab results, radiology results, the need for further work-up and treatment in the hospital. Response to treatment: the patient's symptoms have mildly improved after treatment. 03:35 Patient medically screened. [facility] 09/23 22:06 Order name: Basic Metabolic Panel; Complete Time: 00:38 09/23 22:06 Order name: CBC with Diff; Complete Time: 00:38 09/23 22:06 Order name: LFT's; Complete Time: 00:38 09/23 22:06 Order name: Magnesium; Complete Time: 00:38 09/23 22:06 Order name: NT PRO-BNP; Complete Time: 00:38 09/23 22:06 Order name: PT-INR; Complete Time: 00:38 09/23 22:06 Order name: Troponin (emerg Dept Use Only); Complete Time: 00:38 09/23 22:12 Order name: Glucose, Ancillary Testing; Complete Time: 00:38 EDMS 09/23 22:30 Order name: Urine Dipstick-Ancillary; Complete Time: 00:38 EDMS 09/23 22:32 Order name: Urine Microscopic Only ds4 09/23 22:33 Order name: Urine Microscopic Only; Complete Time: 00:38 [facility] 09/23 23:14 Order name: Urine Culture [facility] 09/24 06:14 Order name: COVID-19 : Document "Date of Symptom Onset" if Symptomatic. ea 09/24 06:30 Order name: CORONAVIRUS [facility] 09/23 22:06 Order name: XRAY Chest (1 view) 09/24 07:24 Order name: SARS-COV-2 RT PCR [facility] 09/24 07:57 Order name: Glucose, Ancillary Testing [facility] 09/24 10:30 Order name: CBC with Automated Diff [facility] 09/24 10:32 Order name: Comprehensive Metabolic Panel [facility] 09/24 10:32 Order name: Phosphorus [facility] 09/24 10:32 Order name: Troponin I [facility] 09/24 10:32 Order name: Lipid Profile [facility] 09/24 10:32 Order name: T4 Free [facility] 09/24 10:32 Order name: Magnesium [facility] 09/24 10:32 Order name: Thyroid Stimulating Hormone [facility] 09/24 12:19 Order name: Glucose, Ancillary Testing [facility] 09/24 13:26 Order name: Hemoglobin A1c [facility] 09/23 22:06 Order name: EKG; Complete Time: 22:07 09/23 22:06 Order name: Cardiac monitoring; Complete Time: 00:32 09/23 22:06 Order name: EKG - Nurse/Tech; Complete Time: 22:32 09/23 22:06 Order name: IV Saline Lock; Complete Time: 00:32 09/23 22:06 Order name: Labs collected and sent; Complete Time: 22:32 09/23 22:06 Order name: O2 Per Protocol; Complete Time: 22:32 09/23 22:06 Order name: O2 Sat Monitoring; Complete Time: 22:32 bb Administered Medications: 00:32 Drug: NS 0.9% 1000 ml Route: IV; Rate: 1 bolus; Site: left hand; ea 03:30 Follow up: Response: No adverse reaction; IV Status: Completed infusion; IV Intake: ea 1000ml 02:17 Drug: Insulin Regular Human 10 units {Co-Signature: em (Jose M Ramachandran RN).} Route: IVP; ea Site: left hand; 02:30 Follow up: Response: No adverse reaction 02:18 Drug: Rocephin (cefTRIAXone) 1 grams Route: IV; Rate: per protocol; Site: left hand; ea 05:42 Follow up: IV Status: Completed infusion ea Disposition Summary: 09/24/20 03:35 Hospitalization Ordered Hospitalization Status: Inpatient Admission [facility] Provider: Elias Whitt Condition: Stable [facility] Problem: new [facility] Symptoms: have improved [facility] Bed/Room Type: Standard [facility] Location: Telemetry/MedSurg (Inpatient)(09/24/20 12:13) Room Assignment: [facility](09/24/20 12:13) Diagnosis - Other specified diabetes mellitus with hyperglycemia [facility] - UTI/ Urinary tract infection, site not specified [facility] - Chest pain, unspecified [facility] - Dehydration [facility] Forms: - Medication Reconciliation Form [facility] - SBAR form [facility] Signatures: Dispatcher [employer] EDReena Colvin RN RN mw Woody, Diana, RN RN dw Ballard, Brenda, RN RN bb Antunez, Elena, RN RN ea Holmes, Maurice, MD MD [facility] Jose M Ramachandran RN em Corrections: (The following items were deleted from the chart) 03:46 03:35 Telemetry/MedSurg (Inpatient) [facility] mw 03:46 03:35 7 mw 12:13 03:46 [facility] ER HOLD mw dw 12:13 03:46 ERHOLD- mw
--- NOTE | 2020-09-24 04:47 | P.HP ---
Certification for Inpatient Patient admitted to: Inpatient With expected LOS: >2 Midnights Patient will require the following post-hospital care: None Practitioner: I am a practitioner with admitting privileges, knowledge of patient current condition, hospital course, and medical plan of care. Services: Services provided to patient in accordance with Admission requirements found in Title 42 Section 412.3 of the Code of Federal Regulations Patient History Date of Service: 09/24/20 Reason for admission: UTI, dehydration History of Present Illness: Ms. Nguyen is a 54 yo F with DM here today for malaise, weakness and lower abdominal pain beginning last night. She also reports dysuria and nausea. Denies night sweats, and chills. Na 129, cl 96. Glu 614. UA positive for nitrites, leuks, WBCs, bacteria, glucose. Received fluids, ceftriaxone and insulin in the ED. - Past Medical/Surgical History -: DM -: Raynauds -: Diabete retinopathy -: Diabetic neuropathy -: scleritis of eye -: tonsillectomy -: tubal ligation - Family History Mother -: Heart disease, Stroke Father -: Cancer - Social History Smoking Status: Never smoker Alcohol use: No CD- Drugs: No Caffeine use: Yes Place of Residence: Home Review of Systems General: Weakness, Malaise Gastrointestinal: Abdominal Pain Genitourinary: Dysuria Physical Examination - Physical Exam General: Alert, In no apparent distress HEENT: Atraumatic, PERRLA, Mucous membr. moist/pink, EOMI, Sclerae nonicteric Neck: Supple, 2+ carotid pulse no bruit, No LAD, Without JVD or thyroid abn ormality Respiratory: Clear to auscultation bilaterally, Normal air movement Cardiovascular: Regular rate/rhythm, Normal S1 S2 Gastrointestinal: Normal bowel sounds, No tenderness Musculoskeletal: No tenderness Integumentary: No rashes Neurological: Normal gait, Normal speech, Normal strength at 5/5 x4 extr, Normal tone, Normal affect Lymphatics: No axilla or inguinal lymphadenopathy - Studies Laboratory Data (last 24 hrs) 09/23/20 22:22: PT 9.8, INR 0.85 09/23/20 22:22: WBC 9.50, Hgb 13.5, Hct 38.5, Plt Count 294 09/23/20 22:22: Sodium 129 L, Potassium 4.2, BUN 14, Creatinine 0.91, Glucose 614 H*, Magnesium 2.4, Total Bilirubin 0.3, AST 8 L, ALT 23, Alkaline Phosphatase 193 H Assessment and Plan - Problems (Diagnosis) (1) Type 2 diabetes mellitus Current Visit: Yes Status: Acute Qualifiers: 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 use Diabetes mellitus complication status: with kidney complications Diabetes mellitus complication detail: with chronic kidney disease Chronic kidney disease stage: stage 2 (mild) Qualified Code(s): E11.22 - Type 2 diabetes mellitus with diabetic chronic kidney disease; N18.2 - Chronic kidney disease, stage 2 (mild); Z79.4 - skilled nursing (current) use of insulin (2) UTI (urinary tract infection) Current Visit: Yes Status: Acute Qualifiers: Urinary tract infection type: acute cystitis Hematuria presence: without hematuria Qualified Code(s): N30.00 - Acute cystitis without hematuria (3) Dehydration Current Visit: Yes Status: Acute (4) Hyponatremia Current Visit: Yes Status: Acute - Plan continue IVF hydration and Iv antibiotics monitor sodium levels sliding scale insulin and accuchecks, A1c pending reconcile and continue home medications DVT ppx Discharge Plan: Home Plan to discharge in: 48 Hours - Advance Directives Does patient have a Living Will: No Does patient have a Durable POA for Healthcare: No - Code Status/Comfort Care Code Status Assessed: Yes (full code ) Critical Care: No Time Spent Managing Pts Care (In Minutes): 70
[2020-09-24 05:52] VITALS: BMI 28.1
[2020-09-24] MEDS ORDERED: ACETAMINOPHEN 500 MG TAB PO PRN (06:03)
[2020-09-24] MEDS ORDERED: ACETAMINOPHEN 500 MG TAB ONE (06:33)
[2020-09-24] MEDS ORDERED: CEFTRIAXONE/SWI 1gm 1 GM/10 ML SYR IV SCH ×2 (07:00→09:00)
[2020-09-24] MEDS: NA CHLORIDE 0.9% 1,000 ML IV SCH ×2 (07:23→16:57)
--- NOTE | 2020-09-24 07:56 | RAD REPORT ---
EXAM DESCRIPTION: RAD - Chest Single View - 09/23/2020 10:41 pm CLINICAL HISTORY: CHEST PAIN Chest pain. COMPARISON: No comparisons FINDINGS: Portable technique limits examination quality. The lungs are grossly clear. The heart is normal in size. No displaced fractures. Cervical hardware p late. IMPRESSION: No acute intrathoracic process suspected.
[2020-09-24] MEDS: INSULIN -REGULAR HUMAN 50 UNIT/0.5 ML ML SQ SCH ×4 (08:37→21:00)
[2020-09-24] MEDS: ENOXAPARIN 40 MG/0.4 ML SQ SCH (08:37)
[2020-09-24] MEDS ORDERED: ENOXAPARIN 40 MG/0.4 ML SQ ONE (08:58)
[2020-09-24 10:22] LABS: Absolute Lymphocytes (CBC) 0.8 K/uL (0.7-4.9); Basophils % 0.4 % (0-1.3); Hematocrit 28.6 % (36.0-45.0); Lymphocytes % 11.1 % (15.3-44.8); MPV 8.8 fL (7.6-11.3); RBC Red Blood Cell Count 3.22 M/uL (3.86-4.86)
[2020-09-24 10:29] LABS: ALT/SGPT 14 U/L (12-78); AST/SGOT 5 U/L (15-37); Albumin 2.1 g/dL (3.4-5.0); Alkaline Phosphatase 112 U/L (45-117); BUN Blood Urea Nitrogen 9 mg/dL (7-18); Bicarbonate 25 mmol/L (21-32); Bilirubin Total 0.2 mg/dL (0.2-1.0); Glucose Level 265 mg/dL (74-106); HDL Cholesterol 31 mg/dL (40-60); LDL Cholesterol, Calculated 107 (<130); Magnesium 1.7 mg/dL (1.8-2.4); Phosphorus 2.3 mg/dL (2.5-4.9); Sodium Level 143 mmol/L (136-145); Thyroid Stimulating Hormone 0.341 uIU/mL (0.360-3.740); Troponin I < 0.02 ng/mL (0.0-0.045)
[2020-09-24] MEDS ORDERED: SENOSIDES 8.6 MG TAB PO PRN (10:44)
[2020-09-24] MEDS ORDERED: [UNRECOGNIZED DRUG - OTHER] PO SCH (10:45)
[2020-09-24] MEDS ORDERED: MAG HYDROX PO SCH (10:45)
[2020-09-24] MEDS ORDERED: CA CARB PO SCH (10:45)
[2020-09-24] MEDS ORDERED: FAMOTIDINE PO SCH (10:45)
[2020-09-24] MEDS: HOME MED 1 EA UNK (Cholecalciferol (Vitamin D3) [D3-50] 1,250 MCG Capsule) PO SCH (10:48)
[2020-09-24] MEDS ORDERED: HOME MED 1 EA UNK (Divalproex Sodium [Depakote] 125 MG Tablet.Dr) PO SCH (10:48)
[2020-09-24] MEDS: TRAMADOL HCL 50 MG TAB PO PRN ×3 (11:07→22:14)
[2020-09-24] MEDS ORDERED: TRAMADOL 37.5mg/APAP 325mg PER TAB ONE (11:23)
[2020-09-24] MEDS ORDERED: TRAMADOL HCL 50 MG TAB ONE (11:29)
[2020-09-24] MEDS: MAGNESIUM OXIDE 400 MG TAB PO SCH ×2 (12:00→21:00)
[2020-09-24] MEDS ORDERED: LIDOCAINE 4% PATCH TOP SCH (12:00)
[2020-09-24] MEDS ORDERED: POTASSIUM 25 MEQ EFFERV TAB PO ONE (12:00)
[2020-09-24] MEDS: ASPIRIN 81 MG CHEWABLE TABLET PO SCH (12:30)
[2020-09-24] MEDS: FUROSEMIDE 40 MG TABLET PO SCH (12:30)
[2020-09-24] MEDS ORDERED: ASPIRIN 81 MG CHEWABLE TABLET ONE (12:48)
[2020-09-24] MEDS ORDERED: MAGNESIUM OXIDE 400 MG TAB ONE (12:48)
[2020-09-24] MEDS ORDERED: POTASSIUM 25 MEQ EFFERV TAB ONE (12:48)
[2020-09-24] MEDS ORDERED: FUROSEMIDE 40 MG TABLET ONE (12:49)
--- NOTE | 2020-09-24 15:58 | P.PN ---
Subjective Date of Service: 09/24/20 Chief Complaint: UTI, dehydration Blood sugar readings improved. Patient complaining of back pain which is chronic. No fever. Physical Examination - Vital Signs Temperature: 98.6 F Blood Pressure: 171/80 Pulse: 91 Respirations: 16 Pulse Ox (%): 97 - Physical Exam General: Alert, In no apparent distress, Oriented x3 HEENT: Mucous membr. moist/pink Neck: JVD not distended Respiratory: Clear to auscultation bilaterally, Normal air movement Cardiovascular: No edema, Regular rate/rhythm, Normal S1 S2 Gastrointestinal: Soft and benign, Non-distended, No tenderness Musculoskeletal: No swelling Integumentary: No rashes, No erythema Neurological: Normal speech, Normal strength at 5/5 x4 extr - Studies Laboratory Data (last 24 hrs) 09/23/20 22:22: PT 9.8, INR 0.85 09/23/20 22:22: WBC 9.50, Hgb 13.5, Hct 38.5, Plt Count 294 09/23/20 22:22: Sodium 129 L, Potassium 4.2, BUN 14, Creatinine 0.91, Glucose 614 H*, Magnesium 2.4, Total Bilirubin 0.3, AST 8 L, ALT 23, Alkaline Phosphatase 193 H Assessment And Plan - Current Problems (Diagnosis) (1) Type 2 diabetes mellitus with hyperglycemia Current Visit: Yes Status: Acute (2) Hyponatremia Current Visit: Yes Status: Acute (3) UTI (urinary tract infection) Current Visit: Yes Status: Acute Qualifiers: Urinary tract infection type: acute cystitis Hematuria presence: without hematuria Qualified Code(s): N30.00 - Acute cystitis without hematuria (4) Hypocalcemia Current Visit: Yes Status: Acute - Plan Continue IV Rocephin. Follow urine culture. Patient admits noncompliance with insulin. Hemoglobin A1c is 13 Continue insulin sliding scale Long-acting insulin-start with 15 units b.i.d. Patient is on Tresiba 25 units b.i.d. Replace calcium and magnesium levels. Check vitamin-D levels Monitor electrolytes.
[2020-09-24] MEDS ORDERED: Magnesium Sulfate 2gm IVPB 2 G/50 ML BAG IV ONE (16:01)
[2020-09-24] MEDS ORDERED: GLUCAGON 1 MG/VIAL IM PRN (16:06)
[2020-09-24] MEDS ORDERED: D50W 25 GM/50 ML SYRINGE IV PRN (16:06)
[2020-09-24] MEDS ORDERED: POTASSIUM CL SA 10 MEQ TAB PO ONE (16:06)
[2020-09-24] MEDS ORDERED: POTASS/SODIUM PHOSPHATE 1 PKT POWD.PACK PO ONE (16:06)
[2020-09-24] MEDS: DIVALPROEX DR 250 MG TAB PO SCH (16:57)
[2020-09-24 17:04] LABS: Magnesium 2.3 mg/dL (1.8-2.4); Phosphorus 2.9 mg/dL (2.5-4.9); Potassium 4.1 mmol/L (3.5-5.1)
[2020-09-24] MEDS ORDERED: CEFEPIME/SWI 1gm 10 ML IV SCH (21:00)
[2020-09-24] MEDS: HOME MED 1 EA UNK (Potassium Gluconate [Potassium] 99 MG Tablet) PO SCH (21:00)
[2020-09-24] MEDS ORDERED: HOME MED 1 EA UNK (Magnesium Oxide [Magnesium] 500 MG Capsule) PO SCH (21:00)
[2020-09-24] MEDS: B6 PO SCH (21:00)
[2020-09-24] MEDS ORDERED: CEFEPIME 1 GM/VIAL IV SCH (21:00)
[2020-09-24] MEDS: B12 PO SCH (21:00)
[2020-09-24] MEDS: LEVOMEFOLATE CALCIUM PO SCH (21:00)
[2020-09-24] MEDS: ATORVASTATIN 10 MG TAB PO SCH (21:00)
[2020-09-24] MEDS: INSULIN GLARGINE 100 UNITS/ML SQ SCH (22:12)
[2020-09-24] MEDS: CALCIUM CARBONATE 500 MG TAB PO SCH (22:16)
[2020-09-25] MEDS ORDERED: CEFTRIAXONE 1 GM/NS 50 ML 1 GM/50 ML BAG IV SCH (02:00)
[2020-09-25] MEDS: NA CHLORIDE 0.9% 1,000 ML IV SCH ×3 (02:00→21:04)
[2020-09-25 06:10] LABS: Absolute Lymphocytes (CBC) 1.4 K/uL (0.7-4.9); Basophils % 0.6 % (0-1.3); Hematocrit 35.7 % (36.0-45.0); Lymphocytes % 20.3 % (15.3-44.8); MPV 7.9 fL (7.6-11.3); RBC Red Blood Cell Count 3.95 M/uL (3.86-4.86)
[2020-09-25 06:21] LABS: ALT/SGPT 16 U/L (12-78); AST/SGOT 10 U/L (15-37); Albumin 2.5 g/dL (3.4-5.0); Alkaline Phosphatase 130 U/L (45-117); BUN Blood Urea Nitrogen 9 mg/dL (7-18); Bicarbonate 30 mmol/L (21-32); Bilirubin Total 0.3 mg/dL (0.2-1.0); Glucose Level 178 mg/dL (74-106); Magnesium 2.3 mg/dL (1.8-2.4); Phosphorus 3.4 mg/dL (2.5-4.9); Potassium 4.3 mmol/L (3.5-5.1); Protein, Total 6.4 g/dL (6.4-8.2); Sodium Level 138 mmol/L (136-145)
[2020-09-25] MEDS: TRAMADOL HCL 50 MG TAB PO PRN ×2 (07:16→09:08)
[2020-09-25] MEDS: ONDANSETRON 4 MG/2 ML VIAL IV PRN ×3 (07:16→21:07)
[2020-09-25] MEDS: HOME MED 1 EA UNK (Cholecalciferol (Vitamin D3) [D3-50] 1,250 MCG Capsule) PO SCH (09:00)
[2020-09-25] MEDS: B6 PO SCH ×2 (09:00→21:00)
[2020-09-25] MEDS ORDERED: HOME MED 1 EA UNK (Pravastatin [Pravachol*] 40 MG/TAB Tab) PO SCH (09:00)
[2020-09-25] MEDS: MAGNESIUM OXIDE 400 MG TAB PO SCH ×2 (09:00→21:00)
[2020-09-25] MEDS ORDERED: DIVALPROEX NA 125 MG CAP PO SCH ×3 (09:00→19:00)
[2020-09-25] MEDS ORDERED: HOME MED 1 EA UNK (Losartan Potassium [Losartan Potassium] 25 MG Tablet) PO SCH (09:00)
[2020-09-25] MEDS: B12 PO SCH ×2 (09:00→21:00)
[2020-09-25] MEDS: LEVOMEFOLATE CALCIUM PO SCH ×2 (09:00→21:00)
[2020-09-25] MEDS: INSULIN GLARGINE 100 UNITS/ML SQ SCH ×2 (09:00→21:04)
[2020-09-25] MEDS: HOME MED 1 EA UNK (Potassium Gluconate [Potassium] 99 MG Tablet) PO SCH ×2 (09:00→21:00)
[2020-09-25] MEDS: CEFEPIME/SWI 1gm 10 ML IV SCH ×2 (09:07→21:00)
[2020-09-25] MEDS: ENOXAPARIN 40 MG/0.4 ML SQ SCH (09:07)
[2020-09-25] MEDS: ASPIRIN 81 MG CHEWABLE TABLET PO SCH (09:08)
[2020-09-25] MEDS: LOSARTAN POTASSIUM 50 MG TABLET PO SCH (09:08)
[2020-09-25] MEDS: CALCIUM CARBONATE 500 MG TAB PO SCH ×2 (09:09→21:06)
[2020-09-25] MEDS: FUROSEMIDE 40 MG TABLET PO SCH (09:10)
[2020-09-25] MEDS: INSULIN -REGULAR HUMAN 50 UNIT/0.5 ML ML SQ SCH ×4 (09:11→21:06)
--- NOTE | 2020-09-25 14:21 | P.PN ---
Subjective Date of Service: 09/25/20 Chief Complaint: UTI, dehydration Blood sugar readings improved. Patient vomited this morning and she is complaining of headache. Urine culture growing Gram negative rods. She is complaining of headache. Physical Examination - Vital Signs Temperature: 97.5 F Blood Pressure: 130/70 Pulse: 97 Respirations: 15 Pulse Ox (%): 93 - Physical Exam General: Alert, In no apparent distress, Oriented x3 HEENT: Mucous membr. moist/pink Neck: Supple, JVD not distended Respiratory: Clear to auscultation bilaterally, Normal air movement Cardiovascular: No edema, Regular rate/rhythm, Normal S1 S2 Gastrointestinal: Soft and benign, Non-distended, No tenderness Musculoskeletal: No swelling Integumentary: No rashes Neurological: Normal strength at 5/5 x4 extr Assessment And Plan - Current Problems (Diagnosis) (1) Type 2 diabetes mellitus with hyperglycemia Current Visit: Yes Status: Acute (2) Hyponatremia Current Visit: Yes Status: Acute (3) UTI (urinary tract infection) Current Visit: Yes Status: Acute Qualifiers: Urinary tract infection type: acute cystitis Hematuria presence: without hematuria Qualified Code(s): N30.00 - Acute cystitis without hematuria (4) Hypocalcemia Current Visit: Yes Status: Acute - Plan Patient headache likely related to febrile illness Continue IV Rocephin. Follow urine culture. Hemoglobin A1c is 13 Continue insulin sliding scale Continue Long-acting insulin. Patient is on Tresiba 25 units b.i.d at home but has been noncompliant Replace calcium and magnesium levels. Serum calcium level corrected. Monitor electrolytes and replete as needed.
[2020-09-25] MEDS ORDERED: METOCLOPRAMIDE 10 MG/2mL INJ IV PRN (17:09)
[2020-09-25] MEDS: DIVALPROEX DR 250 MG TAB PO SCH (18:00)
[2020-09-25] MEDS: ATORVASTATIN 10 MG TAB PO SCH (21:00)
[2020-09-26 04:32] LABS: Absolute Lymphocytes (CBC) 1.9 K/uL (0.7-4.9); Basophils % 0.3 % (0-1.3); Hematocrit 35.9 % (36.0-45.0); MPV 8.7 fL (7.6-11.3); RBC Red Blood Cell Count 4.01 M/uL (3.86-4.86)
[2020-09-26 04:35] LABS: BUN Blood Urea Nitrogen 7 mg/dL (7-18); Bicarbonate 30 mmol/L (21-32); Glucose Level 156 mg/dL (74-106); Potassium 3.9 mmol/L (3.5-5.1); Sodium Level 141 mmol/L (136-145)
[2020-09-26] MEDS: NA CHLORIDE 0.9% 1,000 ML IV SCH (08:03)
[2020-09-26 08:38] VITALS: BP 179/92; TEMP 98.4
[2020-09-26] MEDS: LOSARTAN POTASSIUM 50 MG TABLET PO SCH (08:40)
[2020-09-26] MEDS: CALCIUM CARBONATE 500 MG TAB PO SCH (08:40)
[2020-09-26] MEDS: ASPIRIN 81 MG CHEWABLE TABLET PO SCH (08:40)
[2020-09-26] MEDS: FUROSEMIDE 40 MG TABLET PO SCH (08:41)
[2020-09-26] MEDS: MAGNESIUM OXIDE 400 MG TAB PO SCH (08:41)
[2020-09-26] MEDS: INSULIN -REGULAR HUMAN 50 UNIT/0.5 ML ML SQ SCH ×2 (08:42→11:30)
[2020-09-26] MEDS: CEFEPIME/SWI 1gm 10 ML IV SCH (08:42)
[2020-09-26] MEDS: ENOXAPARIN 40 MG/0.4 ML SQ SCH (08:42)
[2020-09-26] MEDS: INSULIN GLARGINE 100 UNITS/ML SQ SCH (08:43)
[2020-09-26] MEDS: HOME MED 1 EA UNK (Potassium Gluconate [Potassium] 99 MG Tablet) PO SCH (08:46)
[2020-09-26] MEDS: B12 PO SCH (08:48)
[2020-09-26] MEDS: B6 PO SCH (08:48)
[2020-09-26] MEDS: LEVOMEFOLATE CALCIUM PO SCH (08:48)
[2020-09-26] MEDS: HOME MED 1 EA UNK (Cholecalciferol (Vitamin D3) [D3-50] 1,250 MCG Capsule) PO SCH (08:48)
[2020-09-26 08:58] LABS: Platelet Estimate ADEQ; Platelets, Giant PRESENT; White Blood Cell Scan OK (OK)
[2020-09-26 08:59] LABS: Blood Morphology Comment NOT SEEN (NOT SEEN)
[2020-09-26] MEDS ORDERED: POTASSIUM CL SA 10 MEQ TAB PO ONE (09:00)
[2020-09-26] MEDS ORDERED: BISOPROLOL/HCTZ 5/6.25MG TAB PO SCH (10:00)
[2020-09-26 10:11] VITALS: O2SAT 93
--- NOTE | 2020-09-26 14:48 | P.DS ---
Admission Date: 09/24/20 Discharge Date: 09/26/20 Disposition: ROUTINE DISCHARGE Discharge Condition: GOOD Reason for Admission: UTI, dehydration Procedures: CXR (09/23): No acute intrathoracic process suspected. Problem list Acute cystitis Mild hypocalcemia, resolved Mild hyponatremia, resolved Diabetes mellitus type 2, insulin-dependent Brief History of Present Illness: 54 yo F with DM here today for malaise, weakness and lower abdominal pain beginning last night. She also reports dysuria and nausea. Denies night sweats, and chills. Na 129, cl 96. Glu 614. UA positive for nitrites, leuks, WBCs, bacteria, glucose. Received fluids, ceftriaxone and insulin in the ED. Hospital Course: Empirically treated with IV antibiotics. She had improvement/resolution of her symptoms. Her glucose was controlled with Levemir and sliding scale insulin. Urine culture grew E. coli resistant to ampicillin and intermediate resistant to Unasyn. She was discharged home with Levaquin. Follow-up with PCP in 3 to 5 days. During her hospitalization she developed some nausea which improved with antiemetics. On day of discharge she tolerated her breakfast without any nausea or vomiting and not requiring antiemetics for >12hrs. she was discharged with a few doses of Zofran as needed. Vital Signs/Physical Exam: Temp Pulse Resp BP Pulse Ox 98.4 F 103 H 18 179/92 H 93 09/26/20 08:00 09/26/20 08:41 09/26/20 08:00 09/26/20 08:41 09/26/20 08:00 General: Alert, In no apparent distress, Oriented x3 HEENT: Sclerae nonicteric Neck: JVD not distended Respiratory: Clear to auscultation bilaterally, Normal air movement Cardiovascular: No edema, Regular rate/rhythm, Normal S1 S2 Gastrointestinal: Soft and benign, Non-distended, No tenderness Musculoskeletal: No erythema, No tenderness Integumentary: No rashes, No significant lesion Neurological: Normal speech, Normal affect Laboratory Data at Discharge: WBC 8.90 K/uL (4.3-10.9) D 09/26/20 03:39 Hgb 12.7 g/dL (12.0-15.0) 09/26/20 03:39 Hct 35.9 % (36.0-45.0) L 09/26/20 03:39 Plt Count 239 K/uL (152-406) 09/26/20 03:39 PT 9.8 SECONDS (9.5-12.5) 09/23/20 22:22 INR 0.85 09/23/20 22:22 Sodium 141 mmol/L (136-145) 09/26/20 03:39 Potassium 3.9 mmol/L (3.5-5.1) 09/26/20 03:39 BUN 7 mg/dL (7-18) 09/26/20 03:39 Creatinine 0.50 mg/dL (0.55-1.3) L 09/26/20 03:39 Glucose 156 mg/dL (74-106) H 09/26/20 03:39 Phosphorus 3.4 mg/dL (2.5-4.9) 09/25/20 05:52 Magnesium 2.3 mg/dL (1.8-2.4) 09/25/20 05:52 Total Bilirubin 0.3 mg/dL (0.2-1.0) 09/25/20 05:52 AST 10 U/L (15-37) L 09/25/20 05:52 ALT 16 U/L (12-78) 09/25/20 05:52 Alkaline Phosphatase 130 U/L (45-117) H 09/25/20 05:52 Troponin I < 0.02 ng/mL (0.0-0.045) 09/24/20 14:05 Triglycerides 154 mg/dL (<150) H 09/24/20 09:35 Cholesterol 169 mg/dL (<200) 09/24/20 09:35 HDL Cholesterol 31 mg/dL (40-60) L 09/24/20 09:35 Cholesterol/HDL Ratio 5.45 09/24/20 09:35 Home Medications: Acetaminophen with Codeine [Tylenol with-Codeine #3 Tablet] 1 tab PO DAILY PRN 09/24/20 Aspirin 1 tab PO DAILY 09/24/20 B12/Levomefolate Calcium/B-6 [Folbic Rf Tablet] 2 tab PO BID 09/24/20 Bisoprolol Fumarate/Hctz [Bisoprolol-Hctz 5-6.25 mg Tab] 5 - 6.25 tab PO DAILY 09/24/20 Cholecalciferol (Vitamin D3) [D3-50] 2 tab PO DAILY 09/24/20 Divalproex Sodium 250 mg PO DAILY 6PM 09/24/20 Divalproex Sodium [Depakote] 1 tab PO DAILY 09/24/20 Famotidine/Ca Carb/Mag Hydrox [Pepcid Complete Tablet Chew] 1 tab PO PRN 09/24/20 Furosemide [Lasix*] 1 tab PO DAILY 09/24/20 Ibuprofen 2 tab PO PRN PRN 09/24/20 Insulin Degludec [Tresiba] 25 units IM BID 09/24/20 Lidocaine [Lidocaine Pain Relief] 1 patch IN PRN 09/24/20 Losartan Potassium 1 tab PO DAILY 09/24/20 Magnesium Oxide [Magnesium] 1 tab PO BID 09/24/20 Metformin ER [Glucophage ER*] 2 tab PO BID 09/24/20 Potassium Gluconate [Potassium] 1 tab PO BID 09/24/20 Pravastatin [Pravachol*] 1 tab PO DAILY 09/24/20 Sennosides [Senna Lax] 1 tab PO PRN PRN 09/24/20 Silver Sulfadiazine Crm [Silvadene*] 1 lizet IN PRN 09/24/20 Ondansetron HCl [Zofran] 4 mg PO Q6H #10 tablet 09/26/20 levoFLOXacin [Levaquin*] 750 mg PO DAILY #7 tab 09/26/20 New Medications: levoFLOXacin [Levaquin*] 750 mg PO DAILY #7 tab Ondansetron HCl [Zofran] 4 mg PO Q6H #10 tablet Physician Discharge Instructions: You were found to have a urinary tract infection. Your symptoms improved with antibiotics. Your urine culture grew e.coli that was sensitive to many antibiotics, and you are discharged with Levaquin for 7 days. Please follow up with your PCP in 3-5 days. Diet: ADA Activity: Ad jairo Followup: Charan Piña MD [Primary Care Provider] - (Call to schedule appointment) Time spent managing pt's care (in minutes): 40
[2020-09-28 23:08] LABS: Vitamin D 1,25-Dihydroxy Total 53 pg/mL (18-72); Vitamin D,1,25-OH2, D2 <8 pg/mL
== END 2020-09-26 11:50 | disposition home or self-care (01) | DRG 690 ==
LOC: ER 21:21 → ERHOLD 09-24 03:38 → 2ND 09-24 14:13
PROVIDERS: ADMIT Internal Medicine; ATTEND Hospitalist
DX: N30.00 Acute cystitis without hematuria (principal); E87.1 Hypo-osmolality and hyponatremia; Z16.11 Resistance to penicillins; E86.0 Dehydration; I12.9 Hypertensive chronic kidney disease with stage 1 through stage 4 chronic kidney disease, or unspecified chronic kidney disease; N18.2 Chronic kidney disease, stage 2 (mild); E11.22 Type 2 diabetes mellitus with diabetic chronic kidney disease; E11.65 Type 2 diabetes mellitus with hyperglycemia; E11.40 Type 2 diabetes mellitus with diabetic neuropathy, unspecified; G89.29 Other chronic pain; M54.9 Dorsalgia, unspecified; E83.51 Hypocalcemia; B96.20 Unspecified Escherichia coli [E. coli] as the cause of diseases classified elsewhere; R07.9 Chest pain, unspecified; Z79.4 Long term (current) use of insulin; Z88.8 Allergy status to other drugs, medicaments and biological substances; Z91.14 Patient's other noncompliance with medication regimen; Z98.51 Tubal ligation status; Z20.822 Contact with and (suspected) exposure to COVID-19
CPT/HCPCS: 36415; 71045; 80048; 80053; 80061; 80076; 81003; 81015; 82306; 82652; 82947; 83036; 83735; 83880; 84100; 84132; 84439; 84443; 84484; 85025; 85610; 87077; 87086; 87088; 87186; 93005; 94760; 96361; 96365; 96366; 96375; 99285; J0692; J0696; J1650; J1815; J2405; J2765; J7030; U0003

== ENCOUNTER 2021-07-03 20:46 | Emergency (ER) | payer MEDICARE ==
--- OUTSIDE RECORDS SUMMARY | 2021-07-03 20:51 | XMS REPORT | Continuity of Care Document ---
:1965 Author Organization [facility] t Address [address] [place] [address] Care Team Providers Name Role Phone KEDENA Primary Care Physician Unavailable NATHANIEL FERRIS Attending Clinician Unavailable GENOVEVA MAGALLANES Attending Clinician Unavailable FLORES LESLIE Attending Clinician Unavailable Sesar Attending Clinician Unavailable BLAKE GREEN Attending Clinician Unavailable DIAMOND OTT Attending Clinician Unavailable SANJIV CABRERA Attending Clinician Unavailable Minh Silva MD Attending Clinician Panchito TRUONG Attending Clinician Doctor Unassigned, Name Attending Clinician Unavailable Shira RATE ENGINEER Attending Clinician SHIRA Attending Clinician Unavailable Singer ROQUE Attending Clinician Ronaldo TRUONG Attending Clinician Buddy TRUONG Attending Clinician Huseyin WALTER S Attending Clinician Sesar Admitting Clinician Unavailable SHIRA Admitting Clinician Unavailable Ronaldo TRUONG Admitting Clinician Payers Payer Name Policy Type Policy Number Effective Date Expiration Date S lizznatali PPO/POS - [employer] [id number] OUT OF STATE BCBS - [id number] PPO - BCBS DEVOTED HEALTH DAF5UR DEVOTED HEALTH DAF5UR 2021 (MEDICARE 00:00:00 REPLACEMENT HMO) Problems Condition Condition Condition Status Onset Resolution Last Treating Co mments Source Name Details Category Date Date Treatment Clinician Date Chest pain Chest pain Disease Active U nivers 2-04 ity of 00:00: Medical Branch Obesity Obesity Disease Active Univers (BMI (BMI 2-04 ity of 30-39.9) 30-39.9) 00:00: Medical Branch Hypertensi Hypertensi Disease Active U nivers ve urgency ve urgency 2-04 it y of 00:00: Medical Branch Diabetes Diabetes Disease Active Overview: Un josh mellitus mellitus 5-18 ICD10 ity of type 2, type 2, 00:00: Diagnosis [place] uncontroll uncontroll 00 Term Me dical ed, ed, 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 Industrial Branch without without Utility complicati complicati ons ons Diabetes Diabetes Disease Active Overview: Un josh mellitus mellitus 5-18 ICD10 ity of type 2, type 2, 00:00: Diagnosis [place] uncontroll uncontroll 00 Term Me dical ed, ed, Nurse Staff Industrial Branch without without Utility complicati complicati ons ons Allergies, Adverse Reactions, Alerts Allergy Allergy Status Severity Reaction(s) Onset Inactive Treating Comm ents Source Name Type Date Date Clinician Cycloben Propensi Active Unknown - Spaced Uni vers zaprine ty to See comments 09-03 out ity of adverse 00:00: [place] reaction 00 Medical s Branch Duloxeti Propensi Active Unknown - Can not Un josh ne ty to See comments 6 function it y of adverse 00:00: [place] reaction 00 Medical s Branch CYCLOBEN DRUG Active Unknown-Cmnt Un josh ZAPRINE INGREDI 09-03 ity of 00:00: [place] [facility] DULOXETI DRUG Active Unknown-Cmnt Un josh NE INGREDI 09-03 ity of 00:00: Medical Branch GABAPENT DRUG Active Unknown-Cmnt Un josh IN INGREDI 09-03 ity of 00:00: Medical Branch Gabapent Propensi Active Unknown - Angina Uni vers in ty to See comments 6 attacks, it y of adverse 00:00: eyes [place] reaction crossed, Medica l s tripping Branch over my feet Benadryl Propensi Active Palpitations Univers Allergy ty to 2- ity of Deconges adverse 00:00: [place] tant reaction 00 Medical s Branch BENADRYL DRUG Active Palpitations Un josh ALLERGY 04-10 ity of DECONGES 00:00: [place] TANT 00 Medical Branch Social History Social Habit Start Date Stop Date Quantity Comments Source Alcohol Comment once a month [facility] [place] [facility] [place] Sex Assigned At [facility] [place] [facility] [place] Alcohol intake 2019-04-18 2019-04-18 University 00:00:00 00:00:00 [place] [facility] History SDOH 2019-04-13 2019-04-13 21 University o f Education 00:00:00 00:00:00 [place] [facility] History [facility] 2019-04-13 2019-04-13 3 University o f Financial 00:00:00 00:00:00 [place] [facility] History [facility] Food 2019-04-13 2019-04-13 2 Univers ity of Worry 00:00:00 00:00:00 [place] [facility] History [facility] Food 2019-04-13 2019-04-13 2 Univers ity of Scarcity 00:00:00 00:00:00 [place] [facility] History [facility] 2019-04-13 2019-04-13 2 [place] o f Transport Med 00:00:00 00:00:00 [place] Medic al [facility] History [facility] 2019-04-13 2019-04-13 2 [place] o f Transport Non-Med 00:00:00 00:00:00 [facility] edical Branch Smoking Status Start Date Stop Date Source Never smoker [facility] Branch Medications Ordered Filled Start Stop Current Ordering Indication Dosage Frequency Signature Comments Components Source Medication Medication Date Date Medication? Clinician (SIG) Name Name cefadroxil 2020- No [id number] 1000mg Take 1 Univers 1 gram 04-18-20 tablet by ity of tablet 00:00: 05:59 mouth [place] 00 :00 daily for Medical 10 days. Branch zolpidem Yes 10mg Take 10 mg Uni vers (AMBIEN) 10 2-05 by mouth ity of mg tablet 02:37: at bedtime [place] 47 as needed. Medical Branch aspirin Yes 81mg Take 81 mg Univ ers (ASPIR-LOW) 2-05 by mouth ity of 81 mg EC 02:37: daily. [place] tablet 47 Medical Branch HYDROcodone 2020-0 Yes 1{tbl} Take 1 Un josh -acetaminop 2-05 tablet by ity of hen (NORCO) 02:37: mouth [place] 10-325 mg 47 every 6 Medical tablet (six) Branch hours as needed. losartan 2020-0 Yes Take by Unive rs potassium 2-05 mouth. ity of (LOSARTAN 02:37: [place] ORAL) 47 Medical Branch cyanocobala 0 Yes Inject as Univers min/thiamin 2-05 directed. ity of e (NEURO 02:37: [place] B-12 47 Medical INJECTION) Branch Vitamin B 0 Yes Take by Univ ers Complex 2-05 mouth. ity of No.12-Niaci 02:37: [place] n 50 mg/15 47 Medical mL Liqd Branch zolpidem 0 Yes 10mg Take 10 mg Uni vers (AMBIEN) 10 2-05 by mouth ity of mg tablet 02:37: at [place]time [place] 47 as needed. Medical Branch aspirin 0 Yes 81mg Take 81 mg Univ ers (ASPIR-LOW) 2-05 by mouth ity of 81 mg EC 02:37: daily. [place] tablet 47 Medical Branch HYDROcodone 0 Yes 1{tbl} Take 1 Un josh -acetaminop 2-05 tablet by ity of hen (NORCO) 02:37: mouth [place] 10-325 mg 47 every 6 Medical tablet (six) Branch hours as needed. losartan 2019-0 Yes Take by Unive rs potassium 2-05 mouth. ity of (LOSARTAN 02:37: [place] ORAL) 47 Medical Branch cyanocobala 0 Yes Inject as Univers min/thiamin 2-05 directed. ity of e (NEURO 02:37: [place] B-12 47 Medical INJECTION) Branch Vitamin B 0 Yes Take by Univ ers Complex 2-05 mouth. ity of No.12-Niaci 02:37: [place] n 50 mg/15 47 Medical mL Liqd Branch zolpidem 0 Yes 10mg Take 10 mg Uni vers (AMBIEN) 10 2-05 by mouth ity of mg tablet 02:37: at [place]time [place] 47 as needed. Medical Branch aspirin 2019-0 Yes 81mg Take 81 mg Univ ers (ASPIR-LOW) 2-05 by mouth ity of 81 mg EC 02:37: daily. [place] tablet 47 Medical Branch HYDROcodone 2020-0 Yes 1{tbl} Take 1 Un josh -acetaminop 2-05 tablet by ity of hen (NORCO) 02:37: mouth [place] 10-325 mg 47 every 6 Medical tablet (six) Branch hours as needed. losartan 2020-0 Yes Take by Unive rs potassium 2-05 mouth. ity of (LOSARTAN 02:37: [place] ORAL) 47 Medical Branch cyanocobala 2020-0 Yes Inject as Univers min/thiamin 2-05 directed. ity of e (NEURO 02:37: [place] B-12 47 Medical INJECTION) Branch Vitamin B 2020-0 Yes Take by Univ ers Complex 2-05 mouth. ity of No.12-Niaci 02:37: [place] n 50 mg/15 47 Medical mL Liqd Branch zolpidem 2019-0 Yes 10mg Take 10 mg Uni vers (AMBIEN) 10 2-05 by mouth ity of mg tablet 02:37: at [place]time [place] 47 as needed. Medical Branch aspirin 2020-0 Yes 81mg Take 81 mg Univ ers (ASPIR-LOW) 2-05 by mouth ity of 81 mg EC 02:37: daily. [place] tablet 47 Medical Branch HYDROcodone 2020-0 Yes 1{tbl} Take 1 Un josh -acetaminop 2-05 tablet by ity of hen (NORCO) 02:37: mouth [place] 10-325 mg 47 every 6 Medical tablet (six) Branch hours as needed. losartan 2020-0 Yes Take by Unive rs potassium 2-05 mouth. ity of (LOSARTAN 02:37: [place] ORAL) 47 Medical Branch cyanocobala 2020-0 Yes Inject as Univers min/thiamin 2-05 directed. ity of e (NEURO 02:37: [place] B-12 47 Medical INJECTION) Branch Vitamin B 2020-0 Yes Take by Univ ers Complex 2-05 mouth. ity of No.12-Niaci 02:37: [place] n 50 mg/15 47 Medical mL Liqd Branch zolpidem 2019-0 Yes 10mg Take 10 mg Uni vers (AMBIEN) 10 2-05 by mouth ity of mg tablet 02:37: at bedtime [place] 47 as needed. Medical Branch aspirin 2020-0 Yes 81mg Take 81 mg Univ ers (ASPIR-LOW) 2-05 by mouth ity of 81 mg EC 02:37: daily. [place] tablet 47 Medical Branch HYDROcodone 2020-0 Yes 1{tbl} Take 1 Un josh -acetaminop 2-05 tablet by ity of hen (NORCO) 02:37: mouth [place] 10-325 mg 47 every 6 Medical tablet (six) Branch hours as needed. losartan 2020-0 Yes Take by Unive rs potassium 2-05 mouth. ity of (LOSARTAN 02:37: [place] ORAL) 47 Medical Branch cyanocobala 2020-0 Yes Inject as Univers min/thiamin 2-05 directed. ity of e (NEURO 02:37: [place] B-12 47 Medical INJECTION) Branch Vitamin B 2020-0 Yes Take by Univ ers Complex 2-05 mouth. ity of No.12-Niaci 02:37: [place] n 50 mg/15 47 Medical mL Liqd Branch zolpidem 2019-0 Yes 10mg Take 10 mg Uni vers (AMBIEN) 10 2-05 by mouth ity of mg tablet 02:37: at bedtime [place] 47 as needed. Medical Branch aspirin 2020-0 Yes 81mg Take 81 mg Univ ers (ASPIR-LOW) 2-05 by mouth ity of 81 mg EC 02:37: daily. [place] tablet 47 Medical Branch HYDROcodone 2020-0 Yes 1{tbl} Take 1 Un josh -acetaminop 2-05 tablet by ity of hen (NORCO) 02:37: mouth [place] 10-325 mg 47 every 6 Medical tablet (six) Branch hours as needed. losartan 2020-0 Yes Take by Unive rs potassium 2-05 mouth. ity of (LOSARTAN 02:37: [place] ORAL) 47 Medical Branch cyanocobala 2020-0 Yes Inject as Univers min/thiamin 2-05 directed. ity of e (NEURO 02:37: [place] B-12 47 Medical INJECTION) Branch Vitamin B 2020-0 Yes Take by Univ ers Complex 2-05 mouth. ity of No.12-Niaci 02:37: [place] n 50 mg/15 47 Medical mL Liqd Branch zolpidem 2020-0 Yes 10mg Take 10 mg Uni vers (AMBIEN) 10 2-05 by mouth ity of mg tablet 02:37: at bedtime [place] 47 as needed. Medical Branch aspirin 2020-0 Yes 81mg Take 81 mg Univ ers (ASPIR-LOW) 2-05 by mouth ity of 81 mg EC 02:37: daily. [place] tablet 47 Medical Branch HYDROcodone 2020-0 Yes 1{tbl} Take 1 Un josh -acetaminop 2-05 tablet by ity of hen (NORCO) 02:37: mouth [place] 10-325 mg 47 every 6 Medical tablet (six) Branch hours as needed. losartan 2020-0 Yes Take by Unive rs potassium 2-05 mouth. ity of (LOSARTAN 02:37: [place] ORAL) 47 Medical Branch cyanocobala 2020-0 Yes Inject as Univers min/thiamin 2-05 directed. ity of e (NEURO 02:37: [place] B-12 47 Medical INJECTION) Branch Vitamin B 2019-0 Yes Take by Univ ers Complex 2-05 mouth. ity of No.12-Niaci 02:37: [place] n 50 mg/15 47 Medical mL Liqd Branch zolpidem 0 Yes 10mg Take 10 mg Uni vers (AMBIEN) 10 2-05 by mouth ity of mg tablet 02:37: at bedtime [place] 47 as needed. Medical Branch aspirin 2019-0 Yes 81mg Take 81 mg Univ ers (ASPIR-LOW) 2-05 by mouth ity of 81 mg EC 02:37: daily. [place] tablet 47 Medical Branch HYDROcodone 2020-0 Yes 1{tbl} Take 1 Un josh -acetaminop 2-05 tablet by ity of hen (NORCO) 02:37: mouth [place] 10-325 mg 47 every 6 Medical tablet (six) Branch hours as needed. losartan 2020-0 Yes Take by Unive rs potassium 2-05 mouth. ity of (LOSARTAN 02:37: [place] ORAL) 47 Medical Branch cyanocobala 2019-0 Yes Inject as Univers min/thiamin 2-05 directed. ity of e (NEURO 02:37: [place] B-12 47 Medical INJECTION) Branch Vitamin B 2019-0 Yes Take by Univ ers Complex 2-05 mouth. ity of No.12-Niaci 02:37: [place] n 50 mg/15 47 Medical mL Liqd Branch amLODIPine 0 2020- No [id number] 5mg Take 2 Univers 2.5 mg 2-05 03-07 tablets by ity of tablet 00:00: 05:59 mouth [place] 00 :00 daily for Medical 30 days. Branch SITagliptin 2019-0 2020- No [id number] 100mg Take 1 Univers 100 mg 2-07 10-07 tablet by ity of tablet 00:00: 05:59 mouth [place] 00 :00 daily for Medical 30 days. Branch amLODIPine 2020-0 2020- No [id number] 5mg Take 2 Univers 2.5 mg 2-05 03-07 tablets by ity of tablet 00:00: 05:59 mouth [place] 00 :00 daily for Medical 30 days. Branch SITagliptin 2020-0 2020- No [id number] 100mg Take 1 Univers 100 mg 2-07 10-07 tablet by ity of tablet 00:00: 05:59 mouth [place] 00 :00 daily for Medical 30 days. Branch amLODIPine 2020-0 2020- No [id number] 5mg Take 2 Univers 2.5 mg 2-07 10-07 tablets by ity of tablet 00:00: 05:59 mouth [place] 00 :00 daily for Medical 30 days. Branch SITagliptin 2020-0 2020- No [id number] 100mg Take 1 Univers 100 mg 2-07 10-07 tablet by ity of tablet 00:00: 05:59 mouth [place] 00 :00 daily for Medical 30 days. Branch amLODIPine 2020-0 2020- No [id number] 5mg Take 2 Univers 2.5 mg 2-07 10-07 tablets by ity of tablet 00:00: 05:59 mouth [place] 00 :00 daily for Medical 30 days. Branch SITagliptin 2020-0 2020- No [id number] 100mg Take 1 Univers 100 mg 2-07 10-07 tablet by ity of tablet 00:00: 05:59 mouth [place] 00 :00 daily for Medical 30 days. Branch ibuprofen 2020-0 Yes 600mg 600 mg, Univ ers (IBU) 2-04 Oral, ity of tablet 600 22:27: Q8HPRN, [place] mg 29 Starting Medical Fri04/13/19 Branch at 1627, Until Discontinu ed, Routine, headaches losartan 2020-0 Yes 100mg 100 mg, Unive rs (COZAAR) 2-04 Oral, ity of tablet 100 15:00: DAILY, [place] mg 00 First dose Medical on Fri [place] 04/13/19 at 0900, Until Discontinu ed, Routine amLODIPine 2020-0 Yes 5mg 5 mg, Univer s (NORVASC) 2-04 Oral, ity of tablet 5 mg 15:00: DAILY, [place] 00 First dose Medical on [facility] [place] 04/13/19 at 0900, Until Discontinu ed, Routine aspirin 2020-0 Yes 81mg 81 mg, Univers chewable 2-04 Oral, ity of tablet 81 15:00: DAILY, [place] mg 00 First dose Medical on [facility] [place] 04/13/19 at 0900, Until Discontinu ed, Routine metoprolol 2020-0 Yes 100mg 100 mg, Uni vers tartrate 2-04 Oral, BID, ity o f (LOPRESSOR) 14:00: First dose [place] tablet 100 00 on [facility] mg 04/13/19 at Branch 0800, Until Discontinu ed, Routine docusate 2020-0 Yes 100mg 100 mg, Unive rs (COLACE) 2-04 Oral, BID, ity o f capsule 100 14:00: First dose [place] mg 00 on [facility] 04/13/19 at Branch 0800, Until Discontinu ed, Routine SITagliptin 2020-0 Yes 100mg 100 mg, Un josh (JANUVIA) 2-04 Oral, ity of tablet 100 13:45: DAILY, [place] mg 00 First dose Medical on [facility] [place] 04/13/19 at 0745, Until Discontinu ed, Routine glipiZIDE 2020-0 Yes 10mg 10 mg, Univer s (GLUCOTROL) 2-04 Oral, ity of tablet 10 13:45: BIDAC, [place] mg 00 First dose Medical on [facility] [place] 04/13/19 at 0745, Until Discontinu ed, Routine furosemide 2020-0 Yes 20mg 20 mg, Unive rs (LASIX) 2-04 Slow IV ity of injection 13:45: Push, [place] 20 mg 00 QAM+PM, Medical First dose Branch on Fri04/13/19 at 0745, Until Discontinu ed, Routine Sliding 2020-0 Yes Subcutaneo Univ ers Scale 2-04 us, Q4H, ity of Insulin - 11:15: First [place] Aspart 00 on [facility] (NOVOLOG) + 04/13/19 at [facility] Fsbg 0515, Testing Until Discontinu ed, Routine ondansetron 2020-0 Yes 4mg 4 mg, Slow Univers (ZOFRAN 2-04 IV Push, ity of (PF)) 11:13: Q6HPRN, [place] injection 4 01 Starting Medi rocio mg 04/13/19 Branch at 0513, Until Discontinu ed, Routine, Nausea and Vomiting (N/V) glucagon 2019-0 Yes 1mg 1 mg, Univers (GLUCAGEN 2-04 Intramuscu ity of DIAGNOSTIC 11:11: lar, PRN, [place] KIT) 56 Starting Medical injection 1 04/13/19 Br anch mg at 0511, Until Discontinu ed, DAXA, Blood Glucose < or = 70 mg/dL and patient is unable to swallow or has mental changes. dextrose 50 2019-0 Yes 25mL 25 mL, Univ ers % in water 204 Slow IV ity of (D50W) 11:11: Push, PRN, [place] injection 56 Starting Medica l 25 mL 04/13/19 Branch at 0511, Until Discontinu ed, DAXA, Blood Glucose < or = 70 mg/dL and patient is unable to swallow or has mental status changes. insulin 2019- 2020- No 10U 10 Units, Univ ers regular 04-13 02-04 Subcutaneo ity o f human 10:30: 09:27 , ONCE, [place] (HUMULIN R) 00 :00 1 dose, Medic al injection 04/13/19 Bran ch 10 Units at 0430, Routine glipiZIDE 2019- 2020- No [id number] 10mg Take 1 U nivers 10 mg 2-06 10-06 tablet by ity of tablet 00:00: 05:59 mouth 3 [place] 00 :00 (three) Medical times Branch daily before meals for 30 days. metFORMIN 2019- 2020- No [id number] 1000mg Take 1 Univers 1,000 mg 2- 03-06 tablet by ity o f tablet 00:00: 05:59 mouth 2 [place] 00 :00 (two) Medical times Branch daily with meals for 30 days. glipiZIDE 2019- 2020- No [id number] 10mg Take 1 U nivers 10 mg 2- 03-06 tablet by ity of tablet 00:00: 05:59 mouth 3 [place] 00 :00 (three) Medical times Branch daily before meals for 30 days. metFORMIN 2019- 2020- No [id number] 1000mg Take 1 Univers 1,000 mg 2- 03-06 tablet by ity o f tablet 00:00: 05:59 mouth 2 [place] 00 :00 (two) Medical times Branch daily with meals for 30 days. glipiZIDE 2019- 2020- No [id number] 10mg Take 1 U nivers 10 mg 2- 03-06 tablet by ity of tablet 00:00: 05:59 mouth 3 [place] 00 :00 (three) Medical times Branch daily before meals for 30 days. metFORMIN 2019- 2020- No [id number] 1000mg Take 1 Univers 1,000 mg 2- 03-06 tablet by ity o f tablet 00:00: 05:59 mouth 2 [place] 00 :00 (two) Medical times Branch daily with meals for 30 days. glipiZIDE 2019-2019- No [id number] 10mg Take 1 U nivers 10 mg 2-06 10-06 tablet by ity of tablet 00:00: 05:59 mouth 3 [place] 00 :00 (three) Medical times Branch daily before meals for 30 days. metFORMIN 2019- No [id number] 1000mg Take 1 Univers 1,000 mg 2-06 tablet by ity o f tablet 00:00: 05:59 mouth 2 [place] 00 :00 (two) Medical times Branch daily with meals for 30 days. atorvastati 0 Yes [id number] 40mg Take 1 Univers n 40 mg 7-12 tablet by ity of tablet 00:00: mouth at [place] [address] bedtime. Medical Branch atorvastati 0 Yes [id number] 40mg Take 1 Univers n 40 mg 7-12 tablet by ity of tablet 00:00: mouth at [place] [address] bedtime. Medical Branch atorvastati 2019-0 Yes [id number] 40mg Take 1 Univers n 40 mg 7-12 tablet by ity of tablet 00:00: mouth at [place] [address] bedtime. Medical Branch atorvastati 0 Yes [id number] 40mg Take 1 Univers n 40 mg 7-12 tablet by ity of tablet 00:00: mouth at [place] [address] bedtime. Medical Branch atorvastati 2019-0 Yes [id number] 40mg Take 1 Univers n 40 mg 7-12 tablet by ity of tablet 00:00: mouth at [place] [address] bedtime. Medical Branch atorvastati 0 Yes [id number] 40mg Take 1 Univers n 40 mg 7-12 tablet by ity of tablet 00:00: mouth at [place] 00 bedtime. Medical Branch atorvastati Yes [id number] 40mg Take 1 Univers n 40 mg 7-12 tablet by ity of tablet 00:00: mouth at [place] [address] bedtime. Medical Branch atorvastati Yes [id number] 40mg Take 1 Univers n 40 mg 7-12 tablet by ity of tablet 00:00: mouth at [place] bedtime. Medical Branch atorvastati Yes [id number] 40mg Take 1 Univers n 40 mg 7-12 tablet by ity of tablet 00:00: mouth at [place] bedtime. Medical Branch atorvastati Yes [id number] 40mg Take 1 Univers n 40 mg 7-12 tablet by ity of tablet 00:00: mouth at [place] bedtime. Medical Branch atorvastati Yes [id number] 40mg Take 1 Univers n 40 mg 7-12 tablet by ity of tablet 00:00: mouth at [place] bedtime. Medical Branch atorvastati Yes [id number] 40mg Take 1 Univers n 40 mg 7-12 tablet by ity of tablet 00:00: mouth at [place] bedtime. Medical Branch atorvastati Yes [id number] 40mg Take 1 Univers n 40 mg 7-12 tablet by ity of tablet 00:00: mouth at [place] bedtime. Medical Branch atorvastati Yes [id number] 40mg Take 1 Univers n 40 mg 7-12 tablet by ity of tablet 00:00: mouth at [place] [address] bedtime. Medical Branch atorvastati Yes [id number] 40mg Take 1 Univers n 40 mg 7-12 tablet by ity of tablet 00:00: mouth at [place] [address] bedtime. Medical Branch atorvastati Yes [id number] 40mg Take 1 Univers n 40 mg 7-12 tablet by ity of tablet 00:00: mouth at [place] [address] bedtime. Medical Branch cyanocobala Yes Inject as Univers min/thiamin 09-04 directed. ity of e (NEURO 17:40: [place] B-12 55 Medical INJECTION) Branch Vitamin B Yes Take by Univ ers Complex 09-04 mouth. ity of No.12-Niaci 17:40: [place] n 50 mg/15 55 Medical mL Liqd Branch cyanocobala Yes Inject as Univers min/thiamin 6-28 directed. ity of e (NEURO 17:40: [place] B- 55 Medical INJECTION) Branch Vitamin B Yes Take by [employer] ers Complex 6-28 mouth. ity of No.12-Niaci 17:40: [place] n 50 mg/15 55 Medical mL Liqd Branch cyanocobala Yes Inject as Univers min/thiamin 6-28 directed. ity of e (NEURO 17:40: [place] B-12 55 Medical INJECTION) Branch Vitamin B Yes Take by [facility] ers Complex 6-28 mouth. ity of No.12-Niaci 17:40: [place] n 50 mg/15 55 Medical mL Liqd Branch cyanocobala Yes Inject as Univers min/thiamin 6-28 directed. ity of e (NEURO 17:40: [facility]- 55 Medical INJECTION) Branch Vitamin B Yes Take by [facility] ers Complex 6-28 mouth. ity of No.12-Niaci 17:40: [place] n 50 mg/15 55 Medical mL Liqd Branch cyanocobala Yes Inject as Univers min/thiamin 6-28 directed. ity of e (NEURO 17:40: [place] B- 55 Medical INJECTION) Branch Vitamin B Yes Take by Text[facility] ers Complex 6-28 mouth. ity of No.12-Niaci 17:40: [place] n 50 mg/15 55 Medical mL Liqd Branch cyanocobala Yes Inject as Univers min/thiamin 6-28 directed. ity of e (NEURO 17:40: [place] B- 55 Medical INJECTION) Branch Vitamin B Yes Take by Textádo ers Complex 6-28 mouth. ity of No.12-Niaci 17:40: [place] n 50 mg/15 55 Medical mL Liqd Branch cyanocobala Yes Inject as Univers min/thiamin 6-28 directed. ity of e (NEURO 17:40: [place] B-12 55 Medical INJECTION) Branch Vitamin B Yes Take by Textádo ers Complex 6-28 mouth. ity of No.12-Niaci 17:40: [place] n 50 mg/15 55 Medical mL Liqd Branch cyanocobala 2019-0 Yes Inject as Univers min/thiamin 6-28 directed. ity of e (NEURO 17:40: [place] B-12 55 Medical INJECTION) Branch Vitamin B Yes Take by Univ ers Complex 6-28 mouth. ity of No.12-Niaci 17:40: [place] n 50 mg/15 55 Medical mL Liqd Branch losartan Yes Take by Unive rs potassium 6-28 mouth. ity of (LOSARTAN 17:39: [place] ORAL) 20 Medical Branch losartan Yes Take by Unive rs potassium 6-28 mouth. ity of (LOSARTAN 17:39: [place] ORAL) 20 Medical Branch losartan Yes Take by Unive rs potassium 6-28 mouth. ity of (LOSARTAN 17:39: [place] ORAL) 20 Medical Branch losartan Yes Take by Unive rs potassium 6-28 mouth. ity of (LOSARTAN 17:39: [place] ORAL) 20 Medical Branch losartan Yes Take by Unive rs potassium 6-28 mouth. ity of (LOSARTAN 17:39: [place] ORAL) 20 Medical Branch losartan Yes Take by Unive rs potassium 6-28 mouth. ity of (LOSARTAN 17:39: [place] ORAL) 20 Medical Branch losartan Yes Take by Unive rs potassium 6-28 mouth. ity of (LOSARTAN 17:39: [place] ORAL) 20 Medical Branch losartan Yes Take by Unive rs potassium 6-28 mouth. ity of (LOSARTAN 17:39: [place] ORAL) 20 Medical Branch sub-q Yes [id number] Use 1 V-go U nivers insulin 6-28 daily. ity of device, 20 00:00: Use 2 [place] unit (V-GO 00 clicks 5 Medic al 20) Donna minutes Branch before each meal. insulin Yes [id number] Use up to Univers aspart 6-28 40 units ity of RAPID 00:00: daily [place] (NOVOLOG 00 through Medical U-100 V-go Branch INSULIN insulin ASPART) 100 pump unit/mL injection Insulin Yes [id number] Use One Un josh Syringe-Nee 6-28 syringe ity o f dle U-100 00:00: Daily [place] (INSULIN 00 Medical SYRINGE) Branch 0.5 mL 29 gauge x 1/2" Syrg sub-q Yes [id number] Use 1 V-go U nivers insulin 6-28 daily. ity of device, 20 00:00: Use 2 [place] unit (V-GO 00 clicks 5 Medic al 20) [place] minutes Branch before each meal. insulin 2019-0 Yes [id number] Use up to Univers aspart 6-28 40 units ity of RAPID 00:00: daily [place] (NOVOLOG 00 through Medical U-100 V-go Branch INSULIN insulin ASPART) 100 pump unit/mL injection Insulin 2019-0 Yes [id number] Use One Un josh Syringe-Nee 6-28 syringe ity o f dle U-100 00:00: Daily [place] (INSULIN 00 Medical SYRINGE) Branch 0.5 mL 29 gauge x 1/2" Syrg sub-q 2019-0 Yes [id number] Use 1 V-go U nivers insulin 6-28 daily. ity of device, 20 00:00: Use 2 [place] unit (V-GO 00 clicks 5 Medic al 20) [place] minutes Branch before each meal. insulin 2019-0 Yes [id number] Use up to Univers aspart 6-28 40 units ity of RAPID 00:00: daily [place] (NOVOLOG 00 through Medical U-100 V-go Branch INSULIN insulin ASPART) 100 pump unit/mL injection Insulin 2019-0 Yes [id number] Use One Un josh Syringe-Nee 6-28 syringe ity o f dle U-100 00:00: Daily [place] (INSULIN 00 Medical SYRINGE) Branch 0.5 mL 29 gauge x 1/2" Syrg sub-q 2019-0 Yes [id number] Use 1 V-go U nivers insulin 6-28 daily. ity of device, 20 00:00: Use 2 [place] unit (V-GO 00 clicks 5 Medic al 20) [place] minutes Branch before each meal. insulin 2019-0 Yes [id number] Use up to [facility] aspart 6-28 40 units ity of RAPID 00:00: daily [place] (NOVOLOG 00 through Medical U-100 V-go Branch INSULIN insulin ASPART) 100 pump unit/mL injection Insulin 2019-0 Yes [id number] Use One Un josh Syringe-Nee 6-28 syringe ity o f dle U-100 00:00: Daily [place] (INSULIN 00 Medical SYRINGE) Branch 0.5 mL 29 gauge x 1/2" Syrg sub-q 2019-0 Yes [id number] Use 1 V-go U nivers insulin 6-28 daily. ity of device, 20 00:00: Use 2 [place] unit (V-GO 00 clicks 5 Medic al 20) [place] minutes Branch before each meal. insulin 2019-0 Yes [id number] Use up to [facility] aspart 6-28 40 units ity of RAPID 00:00: daily [place] (NOVOLOG 00 through Medical U-100 V-go Branch INSULIN insulin ASPART) 100 pump unit/mL injection Insulin 2019-0 Yes [id number] Use One Un josh Syringe-Nee 6-28 syringe ity o f dle U-100 00:00: Daily [place] (INSULIN 00 Medical SYRINGE) Branch 0.5 mL 29 gauge x 1/2" Syrg sub-q 2019-0 Yes [id number] Use 1 V-go U nivers insulin 6-28 daily. ity of device, 20 00:00: Use 2 [place] unit (V-GO 00 clicks 5 Medic al 20) [place] minutes Branch before each meal. insulin 2019-0 Yes [id number] Use up to [facility] aspart 6-28 40 units ity of RAPID 00:00: daily [place] (NOVOLOG 00 through Medical U-100 V-go Branch INSULIN insulin ASPART) 100 pump unit/mL injection Insulin 2019-0 Yes [id number] Use One Un josh Syringe-Nee 6-28 syringe ity o f dle U-100 00:00: Daily [place] (INSULIN 00 Medical SYRINGE) Branch 0.5 mL 29 gauge x 1/2" Syrg sub-q 2019-0 Yes [id number] Use 1 V-go U nivers insulin 6-28 daily. ity of device, 20 00:00: Use 2 [place] unit (V-GO 00 clicks 5 Medic al 20) [place] minutes Branch before each meal. insulin 2019-0 Yes [id number] Use up to [facility] aspart 6-28 40 units ity of RAPID 00:00: daily [place] (NOVOLOG 00 through Medical U-100 V-go Branch INSULIN insulin ASPART) 100 pump unit/mL injection Insulin 2019-0 Yes [id number] Use One Un josh Syringe-Nee 6-28 syringe ity o f dle U-100 00:00: Daily [place] (INSULIN 00 Medical SYRINGE) Branch 0.5 mL 29 gauge x 1/2" Syrg sub-q 2019-0 Yes [id number] Use 1 V-go U nivers insulin 6-28 daily. ity of device, 20 00:00: Use 2 [place] unit (V-GO 00 clicks 5 Medic al 20) [place] minutes Branch before each meal. insulin 2019-0 Yes [id number] Use up to [facility] aspart 6-28 40 units ity of RAPID 00:00: daily [place] (NOVOLOG 00 through Medical U-100 V-go Branch INSULIN insulin ASPART) 100 pump unit/mL injection Insulin 2019-0 Yes [id number] Use One Un josh Syringe-Nee 6-28 syringe ity o f dle U-100 00:00: Daily [place] (INSULIN 00 Medical SYRINGE) Branch 0.5 mL 29 gauge x 1/2" Syrg sub-q 2019-0 Yes [id number] Use 1 V-go U nivers insulin 6-28 daily. ity of device, 20 00:00: Use 2 [place] unit (V-GO 00 clicks 5 Medic al 20) [place] minutes Branch before each meal. insulin 2019-0 Yes [id number] Use up to [facility] aspart 6-28 40 units ity of RAPID 00:00: daily [place] (NOVOLOG 00 through Medical U-100 V-go Branch INSULIN insulin ASPART) 100 pump unit/mL injection Insulin 2019-0 Yes [id number] Use One Un josh Syringe-Nee 6-28 syringe ity o f dle U-100 00:00: Daily [place] (INSULIN 00 Medical SYRINGE) Branch 0.5 mL 29 gauge x 1/2" Syrg sub-q 2019-0 Yes [id number] Use 1 V-go U nivers insulin 6-28 daily. ity of device, 20 00:00: Use 2 [place] unit (V-GO 00 clicks 5 Medic al 20) [place] minutes Branch before each meal. insulin 2019-0 Yes [id number] Use up to [facility] aspart 6-28 40 units ity of RAPID 00:00: daily [place] (NOVOLOG 00 through Medical U-100 V-go Branch INSULIN insulin ASPART) 100 pump unit/mL injection Insulin 2019-0 Yes [id number] Use One Un josh Syringe-Nee 6-28 syringe ity o f dle U-100 00:00: Daily [place] (INSULIN 00 Medical SYRINGE) Branch 0.5 mL 29 gauge x 1/2" Syrg sub-q 2019-0 Yes [id number] Use 1 V-go U nivers insulin 6-28 daily. ity of device, 20 00:00: Use 2 [place] unit (V-GO 00 clicks 5 Medic al 20) [place] minutes Branch before each meal. insulin 2019-0 Yes [id number] Use up to [facility] aspart 6-28 40 units ity of RAPID 00:00: daily [place] (NOVOLOG 00 through Medical U-100 V-go Branch INSULIN insulin ASPART) 100 pump unit/mL injection Insulin 2019-0 Yes [id number] Use One Un josh Syringe-Nee 6-28 syringe ity o f dle U-100 00:00: Daily [place] (INSULIN 00 Medical SYRINGE) Branch 0.5 mL 29 gauge x 1/2" Syrg sub-q 2019-0 Yes [id number] Use 1 V-go U nivers insulin 6-28 daily. ity of device, 20 00:00: Use 2 [place] unit (V-GO 00 clicks 5 Medic al 20) [place] minutes Branch before each meal. insulin 2019-0 Yes [id number] Use up to [facility] aspart 6-28 40 units ity of RAPID 00:00: daily [place] (NOVOLOG 00 through Medical U-100 V-go Branch INSULIN insulin ASPART) 100 pump unit/mL injection Insulin 2019-0 Yes [id number] Use One Un josh Syringe-Nee 6-28 syringe ity o f dle U-100 00:00: Daily [place] (INSULIN 00 Medical SYRINGE) Branch 0.5 mL 29 gauge x 1/2" Syrg sub-q 2019-0 Yes [id number] Use 1 V-go U nivers insulin 6-28 daily. ity of device, 20 00:00: Use 2 [place] unit (V-GO 00 clicks 5 Medic al 20) [place] minutes Branch before each meal. insulin 2019-0 Yes [id number] Use up to [facility] aspart 6-28 40 units ity of RAPID 00:00: daily [place] (NOVOLOG 00 through Medical U-100 V-go Branch INSULIN insulin ASPART) 100 pump unit/mL injection Insulin 2019-0 Yes [id number] Use One Un josh Syringe-Nee 6-28 syringe ity o f dle U-100 00:00: Daily [place] (INSULIN 00 Medical SYRINGE) Branch 0.5 mL 29 gauge x 1/2" Syrg sub-q 2019-0 Yes [id number] Use 1 V-go U nivers insulin 6-28 daily. ity of device, 20 00:00: Use 2 [place] unit (V-GO 00 clicks 5 Medic al 20) [place] minutes Branch before each meal. insulin 2019-0 Yes [id number] Use up to [facility] aspart 6-28 40 units ity of RAPID 00:00: daily [place] (NOVOLOG 00 through Medical U-100 V-go Branch INSULIN insulin ASPART) 100 pump unit/mL injection Insulin 2019-0 Yes [id number] Use One Un josh Syringe-Nee 6-28 syringe ity o f dle U-100 00:00: Daily [place] (INSULIN 00 Medical SYRINGE) Branch 0.5 mL 29 gauge x 1/2" Syrg sub-q 2019- Yes [id number] Use 1 V-go U nivers insulin 6-28 daily. ity of device, 20 00:00: Use 2 [place] unit (V-GO 00 clicks 5 Medic al 20) Donna minutes Branch before each meal. insulin 2019-0 Yes [id number] Use up to [facility] aspart 6-28 40 units ity of RAPID 00:00: daily [place] (NOVOLOG 00 through Medical U-100 V-go Branch INSULIN insulin ASPART) 100 pump unit/mL injection Insulin 2019-0 Yes [id number] Use One Un josh Syringe-Nee 6-28 syringe ity o f dle U-100 00:00: Daily [place] (INSULIN 00 Medical SYRINGE) Branch 0.5 mL 29 gauge x 1/2" Syrg sub-q 2019-0 Yes [id number] Use 1 V-go U nivers insulin 6-28 daily. ity of device, 20 00:00: Use 2 [place] unit (V-GO 00 clicks 5 Medic al 20) Donna minutes Branch before each meal. insulin 2019-0 Yes [id number] Use up to [facility] aspart 6-28 40 units ity of RAPID 00:00: daily [place] (NOVOLOG 00 through Medical U-100 V-go Branch INSULIN insulin ASPART) 100 pump unit/mL injection Insulin 2019-0 Yes [id number] Use One Un josh Syringe-Nee 6-28 syringe ity o f dle U-100 00:00: Daily [place] (INSULIN 00 Medical SYRINGE) Branch 0.5 mL 29 gauge x 1/2" Syrg zolpidem 2019-0 Yes 10mg Take 10 mg Uni vers (AMBIEN) 10 6-24 by mouth ity of mg tablet 19:03: at bedtime [place] 56 as needed. Medical Branch HYDROcodone 2019-0 Yes 1{tbl} Take 1 Un josh -acetaminop 6-24 tablet by ity of hen ([place]) 19:03: mouth [place] 10-325 mg 56 every 6 Medical tablet (six) Branch hours as needed. zolpidem 2019-0 Yes 10mg Take 10 mg Uni vers (AMBIEN) 10 6-24 by mouth ity of mg tablet 19:03: [place]time [place] 56 as needed. Medical Branch zolpidem 2019-0 Yes 10mg Take 10 mg [facility] vers (AMBIEN) 10 6-24 by mouth ity of mg tablet 19:03: at [place]time [place] 56 as needed. Medical Branch HYDROcodone 2018-0 Yes 1{tbl} Take 1 Un josh -acetaminop 6-24 tablet by ity of hen ([place]) 19:03: mouth [place] 10-325 mg 56 every 6 Medical tablet (six) Branch hours as needed. zolpidem 2019-0 Yes 10mg Take 10 mg Uni vers (AMBIEN) 10 6-24 by mouth ity of mg tablet 19:03: at [place]time [place] 56 as needed. Medical Branch HYDROcodone 2018-0 Yes 1{tbl} Take 1 Un josh -acetaminop 6-24 tablet by ity of hen ([place]) 19:03: mouth [place] 10-325 mg 56 every 6 Medical tablet (six) Branch hours as needed. HYDROcodone 2019-0 Yes 1{tbl} Take 1 Un josh -acetaminop 6-24 tablet by ity of hen ([place]) 19:03: mouth [place] 10-325 mg 56 every 6 Medical tablet (six) Branch hours as needed. zolpidem 2019-0 Yes 10mg Take 10 mg Uni vers (AMBIEN) 10 6-24 by mouth ity of mg tablet 19:03: at [place]time [place] 56 as needed. Medical Branch HYDROcodone 2019-0 Yes 1{tbl} Take 1 Un josh -acetaminop 6-24 tablet by ity of hen ([place]) 19:03: mouth [place] 10-325 mg 56 every 6 Medical tablet (six) Branch hours as needed. zolpidem 2019-0 Yes 10mg Take 10 mg Uni vers (AMBIEN) 10 6-24 by mouth ity of mg tablet 19:03: at bedtime [place] 56 as needed. Medical Branch HYDROcodone 2019-0 Yes 1{tbl} Take 1 Un josh -acetaminop 6-24 tablet by ity of hen ([place]) 19:03: mouth [place] 10-325 mg 56 every 6 Medical tablet (six) Branch hours as needed. zolpidem 2019-0 Yes 10mg Take 10 mg Uni vers (AMBIEN) 10 6-24 by mouth ity of mg tablet 19:03: at bedtime [place] 56 as needed. Medical Branch HYDROcodone 2019-0 Yes 1{tbl} Take 1 Un josh -acetaminop 6-24 tablet by ity of hen ([place]) 19:03: mouth [place] 10-325 mg 56 every 6 Medical tablet (six) Branch hours as needed. zolpidem 2018-0 Yes 10mg Take 10 mg Uni vers (AMBIEN) 10 6-24 by mouth ity of mg tablet 19:03: at bedtime [place] 56 as needed. Medical Branch HYDROcodone 2018-0 Yes 1{tbl} Take 1 Un josh -acetaminop 6-24 tablet by ity of hen ([place]) 19:03: mouth [place] 10-325 mg 56 every 6 Medical tablet (six) Branch hours as needed. aspirin 2019-0 Yes 81mg Take 81 mg Univ ers (ASPIR-LOW) 6-24 by mouth ity of 81 mg EC 19:02: daily. [place] tablet 47 Medical Branch aspirin 2019-0 Yes 81mg Take 81 mg Univ ers (ASPIR-LOW) 6-24 by mouth ity of 81 mg EC 19:02: daily. [place] tablet 47 Medical Branch aspirin 2019-0 Yes 81mg Take 81 mg Univ ers (ASPIR-LOW) 6-24 by mouth ity of 81 mg EC 19:02: daily. [place] tablet 47 Medical Branch aspirin 2019-0 Yes 81mg Take 81 mg Univ ers (ASPIR-LOW) 6-24 by mouth ity of 81 mg EC 19:02: daily. [place] tablet 47 Medical Branch aspirin 2019-0 Yes 81mg Take 81 mg Univ ers (ASPIR-LOW) 6-24 by mouth ity of 81 mg EC 19:02: daily. [place] tablet 47 Medical Branch aspirin 2019-0 Yes 81mg Take 81 mg Univ ers (ASPIR-LOW) 6-24 by mouth ity of 81 mg EC 19:02: daily. [place] tablet 47 Medical Branch aspirin 2019-0 Yes 81mg Take 81 mg Univ ers (ASPIR-LOW) 6-24 by mouth ity of 81 mg EC 19:02: daily. [place] tablet 47 Medical Branch aspirin 2019-0 Yes 81mg Take 81 mg Univ ers (ASPIR-LOW) 6-24 by mouth ity of 81 mg EC 19:02: daily. [place] tablet 47 Medical Branch OXTELLAR XR 2018-0 Yes Univer s 150 mg Tb24 6-10 ity of 00:00: [place] 00 Medical Branch OXTELLAR XR 2019-0 Yes Univer s 150 mg Tb24 6-10 ity of 00:00: [place] 00 Medical Branch OXTELLAR XR 2019-0 Yes Univer s 150 mg Tb24 6-10 ity of 00:00: [place] [id number] Medical Branch OXTELLAR XR 2019-0 Yes Univer s 150 mg Tb24 6-10 ity of 00:00: [place] [id number] Medical Branch OXTELLAR XR 2019-0 Yes Univer s 150 mg Tb24 6-10 ity of 00:00: [place] [id number] Medical Branch OXTELLAR XR 2019-0 Yes Univer s 150 mg Tb24 6-10 ity of 00:00: [place] 00 Medical Branch OXTELLAR XR 2019-0 Yes Univer s 150 mg Tb24 6-10 ity of 00:00: [place] 00 Medical Branch OXTELLAR XR 2019-0 Yes Univer s 150 mg Tb24 6-10 ity of 00:00: [place] 00 Medical Branch OXTELLAR XR 2019-0 Yes Univer s 150 mg Tb24 6-10 ity of 00:00: [place] 00 Medical Branch OXTELLAR XR 2019-0 Yes Univer s 150 mg Tb24 6-10 ity of 00:00: [place] 00 Medical Branch OXTELLAR XR 2019-0 Yes Univer s 150 mg Tb24 6-10 ity of 00:00: [place] 00 Medical Branch OXTELLAR XR 2019-0 Yes Univer s 150 mg Tb24 6-10 ity of 00:00: [place] 00 Medical Branch OXTELLAR XR 2019-0 Yes Univer s 150 mg Tb24 6-10 ity of 00:00: [place] 00 Medical Branch OXTELLAR XR 2019-0 Yes Univer s 150 mg Tb24 6-10 ity of 00:00: [place] Medical Branch OXTELLAR XR 2019-0 Yes Univer s 150 mg Tb24 6-10 ity of 00:00: [place] Medical Branch OXTELLAR XR 2019-0 Yes Univer s 150 mg Tb24 6-10 ity of 00:00: [place] Medical Branch amitriptyli 2019-0 Yes TAKE 1 Univ ers ne 50 mg 6-05 TABLET BY ity of tablet 00:00: MOUTH EVERYDAY Medical AT BEDTIME Branch amitriptyli 2019-0 Yes TAKE 1 Univ ers ne 50 mg 6-05 TABLET BY ity of tablet 00:00: [facility] EVERYDAY Medical AT BEDTIME Branch amitriptyli 2019-0 Yes TAKE 1 Univ ers ne 50 mg 6-05 TABLET BY ity of tablet 00:00: [facility] EVERYDAY Medical AT BEDTIME Branch amitriptyli 2019-0 Yes TAKE 1 Univ ers ne 50 mg 6-05 TABLET BY ity of tablet 00:00: MOUTH EVERYDAY Medical AT BEDTIME Branch amitriptyli 2019-0 Yes TAKE 1 Univ ers ne 50 mg 6-05 TABLET BY ity of tablet 00:00: [facility] EVERYDAY Medical AT BEDTIME Branch amitriptyli 2019-0 Yes TAKE 1 Univ ers ne 50 mg 6-05 TABLET BY ity of tablet 00:00: [facility] EVERYDAY Medical AT BEDTIME Branch amitriptyli 2019-0 Yes TAKE 1 Univ ers ne 50 mg 6-05 TABLET BY ity of tablet 00:00: [facility] EVERYDAY Medical AT BEDTIME Branch amitriptyli 2019-0 Yes TAKE 1 Univ ers ne 50 mg 6-05 TABLET BY ity of tablet 00:00: MOUTH EVERYDAY Medical AT BEDTIME Branch amitriptyli 2019-0 Yes TAKE 1 Univ ers ne 50 mg 6-05 TABLET BY ity of tablet 00:00: MOUTH 00 EVERYDAY Medical AT BEDTIME Branch amitriptyli 2019-0 Yes TAKE 1 Univ ers ne 50 mg 6-05 TABLET BY ity of tablet 00:00: MOUTH EVERYDAY Medical AT BEDTIME Branch amitriptyli 2019-0 Yes TAKE 1 Univ ers ne 50 mg 6-05 TABLET BY ity of tablet 00:00: MOUTH EVERYDAY Medical AT BEDTIME Branch amitriptyli 2019-0 Yes TAKE 1 Univ ers ne 50 mg 6-05 TABLET BY ity of tablet 00:00: MOUTH EVERYDAY Medical AT BEDTIME Branch amitriptyli 2019-0 Yes TAKE 1 Univ ers ne 50 mg 6-05 TABLET BY ity of tablet 00:00: MOUTH EVERYDAY Medical AT BEDTIME Branch amitriptyli 2019-0 Yes TAKE 1 Univ ers ne 50 mg 6-05 TABLET BY ity of tablet 00:00: MOUTH EVERYDAY Medical AT BEDTIME [place] amitriptyli 2019-0 Yes TAKE 1 Univ ers ne 50 mg 6-05 TABLET BY ity of tablet 00:00: MOUTH EVERYDAY Medical AT BEDTIME [place] amitriptyli 2018-0 Yes TAKE 1 Univ ers ne 50 mg 6-05 TABLET BY ity of tablet 00:00: MOUTH EVERYDAY Medical AT [facility] metformin 2015-0 Yes 1000mg Take 1,000 Univers ER 500 mg 5-17 mg by ity of 24 hr 00:00: mouth. [place] tablet [facility] metformin 2015-0 Yes 1000mg Take 1,000 Univers ER 500 mg 5-17 mg by ity of 24 hr 00:00: mouth. [place] tablet [facility] metformin 2015-0 Yes 1000mg Take 1,000 Univers ER 500 mg 5-17 mg by ity of 24 hr 00:00: mouth. [place] tablet [facility] metformin 2015-0 Yes 1000mg Take 1,000 Univers ER 500 mg 5-17 mg by ity of 24 hr 00:00: mouth. [place] tablet [facility] metformin 2015-0 Yes 1000mg Take 1,000 Univers ER 500 mg 5-17 mg by ity of 24 hr 00:00: mouth. [place] tablet [facility] metformin 2015-0 Yes 1000mg Take 1,000 Univers ER 500 mg 5-17 mg by ity of 24 hr 00:00: mouth. [place] tablet [facility] metformin 2015-0 Yes 1000mg Take 1,000 Univers ER 500 mg 5-17 mg by ity of 24 hr 00:00: mouth. [place] tablet [facility] metformin 2015-0 Yes 1000mg Take 1,000 Univers ER 500 mg 5-17 mg by ity of 24 hr 00:00: mouth. [place] tablet [facility] metformin 2016-0 Yes 1000mg Take 1,000 Univers ER 500 mg 5-17 mg by ity of 24 hr 00:00: mouth. [place] tablet [facility] metformin Yes 1000mg Take 1,000 Univers ER 500 mg 5-17 mg by ity of 24 hr 00:00: mouth. [place] tablet [facility] metformin 0 Yes 1000mg Take 1,000 Univers ER 500 mg 5-17 mg by ity of 24 hr 00:00: mouth. [place] tablet [facility] metformin Yes 1000mg Take 1,000 Univers ER 500 mg 5-17 mg by ity of 24 hr 00:00: mouth. [place] tablet [facility] metformin Yes 1000mg Take 1,000 Univers ER 500 mg 5-17 mg by ity of 24 hr 00:00: mouth. [place] tablet [facility] metformin Yes 1000mg Take 1,000 Univers ER 500 mg 5-17 mg by ity of 24 hr 00:00: mouth. [place] tablet [facility] metformin Yes 1000mg Take 1,000 Univers ER 500 mg 5-17 mg by ity of 24 hr 00:00: mouth. [place] tablet [facility] metformin Yes 1000mg Take 1,000 Univers ER 500 mg 5-17 mg by ity of 24 hr 00:00: mouth. [place] tablet [facility] Blood-Gluco Yes Univer s se Meter 5-03 ity of (ONE TOUCH 00:00: [place] ULTRAMINI) 00 [facility] Lancets & 0 Yes Univers Blood 5-03 ity of Glucose 00:00: [place] Strips (ONE [facility] COMBO) Cmpk carvedilol Yes 12.5mg Take 1 Tab Univers (COREG) 5-03 by mouth 2 ity of 12.5 mg 00:00: (two) [place] tablet 00 times Medical daily with Branch meals. Blood-Gluco Yes Univer s se Meter 5-03 ity of (ONE TOUCH 00:00: [place] ULTRAMINI) 00 [facility] Lancets & 2011-0 Yes Univers Blood 5-03 ity of Glucose 00:00: [place] Strips (ONE [facility] COMBO) Cmpk carvedilol 2011- Yes 12.5mg Take 1 Tab Univers (COREG) 5-03 by mouth 2 ity of 12.5 mg 00:00: (two) [place] tablet 00 times Medical daily with Branch meals. Blood-Gluco Yes Univer s se Meter 5-03 ity of (ONE TOUCH 00:00: [place] ULTRAMINI) 00 Medical Kit Branch Blood-Gluco Yes Univer s se Meter 5-03 ity of (ONE TOUCH 00:00: [place] ULTRAMINI) 00 Medical Kit Branch Lancets & 2011-0 Yes Univers Blood 5-03 ity of Glucose 00:00: [place] Strips (ONE 00 Medical TOUCH Branch COMBO) Cmpk carvedilol Yes 12.5mg Take 1 Tab Univers (COREG) 5-03 by mouth 2 ity of 12.5 mg 00:00: (two) [place] tablet 00 times Medical daily with Branch meals. Lancets & Yes Univers Blood 5-03 ity of Glucose 00:00: [place] Strips (ONE 00 Medical TOUCH Branch COMBO) Cmpk carvedilol Yes 12.5mg Take 1 Tab Univers (COREG) 5-03 by mouth 2 ity of 12.5 mg 00:00: (two) [place] tablet 00 times Medical daily with Branch meals. Blood-Gluco Yes Univer s se Meter 5-03 ity of (ONE TOUCH 00:00: [place] ULTRAMINI) 00 Medical Kit Branch Lancets & 0 Yes Univers Blood 5-03 ity of Glucose 00:00: [place] Strips (ONE 00 Medical TOUCH Branch COMBO) Cmpk carvedilol Yes 12.5mg Take 1 Tab Univers (COREG) 5-03 by mouth 2 ity of 12.5 mg 00:00: (two) [place] tablet 00 times Medical daily with Branch meals. Blood-Gluco Yes Univer s se Meter 5-03 ity of (ONE TOUCH 00:00: [place] ULTRAMINI) 00 Medical Kit Branch Lancets & 2011-0 Yes Univers Blood 5-03 ity of Glucose 00:00: [place] Strips (ONE 00 Medical TOUCH Branch COMBO) Cmpk carvedilol Yes 12.5mg Take 1 Tab Univers (COREG) 5-03 by mouth 2 ity of 12.5 mg 00:00: (two) [place] tablet 00 times Medical daily with Branch meals. Blood-Gluco Yes Univer s se Meter 5-03 ity of (ONE TOUCH 00:00: [place] ULTRAMINI) 00 Medical Kit Branch Lancets & Yes Univers Blood 5-03 ity of Glucose 00:00: [place] Strips (ONE 00 Medical TOUCH Branch COMBO) Cmpk carvedilol Yes 12.5mg Take 1 Tab Univers (COREG) 5-03 by mouth 2 ity of 12.5 mg 00:00: (two) [place] tablet 00 times Medical daily with Branch meals. Blood-Gluco Yes Univer s se Meter 5-03 ity of (ONE TOUCH 00:00: [place] ULTRAMINI) 00 Medical Kit Branch Lancets & Yes Univers Blood 5-03 ity of Glucose 00:00: [place] Strips (ONE 00 Medical TOUCH Branch COMBO) Cmpk carvedilol Yes 12.5mg Take 1 Tab Univers (COREG) 5-03 by mouth 2 ity of 12.5 mg 00:00: (two) [place] tablet 00 times Medical daily with Branch meals. Blood-Gluco Yes Univer s se Meter 5-03 ity of (ONE TOUCH 00:00: [place] ULTRAMINI) 00 Medical Kit Branch Lancets & Yes Univers Blood 5-03 ity of Glucose 00:00: [place] Strips (ONE 00 Medical TOUCH Branch COMBO) Cmpk carvedilol Yes 12.5mg Take 1 Tab Univers (COREG) 5-03 by mouth 2 ity of 12.5 mg 00:00: (two) [place] tablet 00 times Medical daily with Branch meals. Blood-Gluco Yes Univer s se Meter 5-03 ity of (ONE TOUCH 00:00: [place] ULTRAMINI) 00 Medical Kit Branch Lancets & Yes Univers Blood 5-03 ity of Glucose 00:00: [place] Strips (ONE 00 Medical TOUCH Branch COMBO) Cmpk carvedilol Yes 12.5mg Take 1 Tab Univers (COREG) 5-03 by mouth 2 ity of 12.5 mg 00:00: (two) [place] tablet 00 times Medical daily with Branch meals. Blood-Gluco Yes Univer s se Meter 5-03 ity of (ONE TOUCH 00:00: [place] ULTRAMINI) 00 Medical Kit Branch Blood-Gluco Yes Univer s se Meter 5-03 ity of (ONE TOUCH 00:00: [place] ULTRAMINI) 00 Medical Kit Branch Lancets & Yes Univers Blood 5-03 ity of Glucose 00:00: [place] Strips (ONE 00 Medical TOUCH Branch COMBO) Cmpk carvedilol Yes 12.5mg Take 1 Tab Univers (COREG) 5-03 by mouth 2 ity of 12.5 mg 00:00: (two) [place] tablet 00 times Medical daily with Branch meals. Lancets & Yes Univers Blood 5-03 ity of Glucose 00:00: [place] Strips (ONE 00 Medical TOUCH Branch COMBO) Cmpk carvedilol Yes 12.5mg Take 1 Tab Univers (COREG) 5-03 by mouth 2 ity of 12.5 mg 00:00: (two) [place] tablet 00 times Medical daily with Branch meals. Blood-Gluco Yes Univer s se Meter 5-03 ity of (ONE TOUCH 00:00: [place] ULTRAMINI) 00 Medical Kit Branch Lancets & Yes Univers Blood 5-03 ity of Glucose 00:00: [place] Strips (ONE 00 Medical TOUCH Branch COMBO) Cmpk carvedilol Yes 12.5mg Take 1 Tab Univers (COREG) 5-03 by mouth 2 ity of 12.5 mg 00:00: (two) [place] tablet 00 times Medical daily with Branch meals. Blood-Gluco Yes Univer s se Meter 5-03 ity of (ONE TOUCH 00:00: [place] ULTRAMINI) 00 Medical Kit Branch Lancets & Yes Univers Blood 5-03 ity of Glucose 00:00: [place] Strips (ONE 00 Medical TOUCH Branch COMBO) Cmpk carvedilol Yes 12.5mg Take 1 Tab Univers (COREG) 5-03 by mouth 2 ity of 12.5 mg 00:00: (two) [place] tablet 00 times Medical daily with Branch meals. Blood-Gluco Yes Univer s se Meter 5-03 ity of (ONE TOUCH 00:00: [place] ULTRAMINI) 00 Medical Kit Branch Lancets & Yes Univers Blood 5-03 ity of Glucose 00:00: [place] Strips (ONE 00 Medical TOUCH Branch COMBO) Cmpk carvedilol Yes 12.5mg Take 1 Tab Univers (COREG) 5-03 by mouth 2 ity of 12.5 mg 00:00: (two) [place] tablet 00 times Medical daily with Branch meals. Blood-Gluco Yes Univer s se Meter 5-03 ity of (ONE TOUCH 00:00: [place] ULTRAMINI) 00 Medical Kit Branch Lancets & 2011- Yes Univers Blood 5-03 ity of Glucose 00:00: [place] Strips (ONE 00 Medical TOUCH Branch COMBO) Cmpk carvedilol Yes 12.5mg Take 1 Tab Univers (COREG) 5-03 by mouth 2 ity of 12.5 mg 00:00: (two) [place] tablet 00 times Medical daily with Branch meals. Vital Signs Vital Name Observation Time Observation Value Comments Source Systolic blood 2019-04-18 23:50:00 179 mm[Hg] [facility] Diastolic blood 2019-04-18 23:50:00 109 mm[Hg] [facility] Heart rate 2019-04-18 23:50:00 78 /min [facility] Respiratory rate 2019-04-18 23:50:00 16 /min [facility] 2019-04-18 23:50:00 99 /min [place] of Arterial blood by [facility] Pulse oximetry [place] Body temperature 2019-04-18 21:57:00 36.94 [place] [facility] Body height 2019-04-18 21:57:00 170.2 cm [facility] Body weight 2019-04-18 21:57:00 87.091 kg [facility] BMI 2019-04-18 21:57:00 30.07 kg/m2 [facility] Systolic blood 2019-04-18 23:50:00 179 mm[Hg] [facility] Diastolic blood 2019-04-18 23:50:00 109 mm[Hg] [facility] Heart rate 2019-04-18 23:50:00 78 /min [facility] Respiratory rate 2019-04-18 23:50:00 16 /min [facility] O[facility] in 2019-04-18 23:50:00 99 /min [facility] of Arterial blood by [facility] Pulse oximetry Branch Body temperature 2019-04-18 21:57:00 36.94 [place] [facility] [place] [facility] Body height 2019-04-18 21:57:00 170.2 cm [facility] Body weight 2019-04-18 21:57:00 87.091 kg [facility] BMI 2019-04-18 21:57:00 30.07 kg/m2 [facility] Heart rate 2019-04-14 00:16:00 92 /min [facility] Systolic blood 2019-04-13 22:00:00 105 mm[Hg] [facility] Diastolic blood 2019-04-13 22:00:00 77 mm[Hg] [facility] Body temperature 2019-04-13 22:00:00 36.61 Anna [facility] Respiratory rate 2019-04-13 22:00:00 14 /min [facility] Oxygen saturation in 2019-04-13 22:00:00 95 /min [facility] of Arterial blood by [facility] Pulse oximetry Branch Body height 2019-04-13 10:33:00 170.2 cm [facility] Body weight 2019-04-13 10:33:00 88.497 kg [facility] BMI 2019-04-13 10:33:00 30.56 kg/m2 [facility] Heart rate 2019-04-14 00:16:00 92 /min [facility] Systolic blood 2019-04-13 22:00:00 105 mm[Hg] [facility] Diastolic blood 2019-04-13 22:00:00 77 mm[Hg] [facility] Body temperature 2019-04-13 22:00:00 36.61 Anna [facility] Respiratory rate 2019-04-13 22:00:00 14 /min [facility] Oxygen saturation in 2019-04-13 22:00:00 95 /min [facility] Arterial blood by [facility] Pulse oximetry Branch Body height 2019-04-13 10:33:00 170.2 cm [facility] Body weight 2019-04-13 10:33:00 88.497 kg [facility] BMI 2019-04-13 10:33:00 30.56 kg/m2 [facility] Systolic blood 2018-11-12 13:48:00 150 mm[Hg] [facility] Diastolic blood 2018-11-12 13:48:00 94 mm[Hg] [facility] Heart rate 2018-11-12 13:48:00 116 /min [facility] Body height 2018-11-12 13:42:00 170.2 cm [facility] Body weight 2018-11-12 13:42:00 81.647 kg [facility] BMI 2018-11-12 13:42:00 28.19 kg/m2 [facility] Systolic blood 2018-11-12 13:48:00 150 mm[Hg] [facility] Diastolic blood 2018-11-12 13:48:00 94 mm[Hg] [facility] Heart rate 2018-11-12 13:48:00 116 /min [facility] Body height 2018-11-12 13:42:00 170.2 cm [facility] Body weight 2018-11-12 13:42:00 81.647 kg [facility] BMI 2018-11-12 13:42:00 28.19 kg/m2 [facility] Systolic blood 2018-10-21 13:45:00 152 mm[Hg] [facility] Diastolic blood 2018-10-21 13:45:00 89 mm[Hg] [facility] Heart rate 2018-10-21 13:45:00 103 /min [facility] Body height 2018-10-21 13:45:00 170.2 cm [facility] Body weight 2018-10-21 13:45:00 81.647 kg [facility] BMI 2018-10-21 13:45:00 28.19 kg/m2 [facility] Procedures Procedure Date / Time Performing Clinician Source Performed MEDICATION CORRESPONDENCE 2019-05-13 06:01:00 Doctor Unassigned, [facility] XR FOOT 3+ VW RIGHT 2019-04-19 00:09:34 Phil Silva [facility] POCT GLUCOSE(AGE >30DAYS) 2019-04-18 23:51:00 Phil Silva [facility] POCT GLUCOSE (AUTOMATED) 2019-04-18 23:46:00 Phil Silva [facility] NOTICE OF PRIVACY 2019-04-18 21:45:59 Doctor Unassigned, [facility] PRACTICES [facility] POCT GLUCOSE (AUTOMATED) 2019-04-13 22:11:00 Jordon Higgins [facility] ECHO ROUTINE W/DOPPLER 2019-04-13 21:10:37 Jordon Higgins [facility] COLOR [facility] TROPONIN I 2019-04-13 18:54:00 Ronaldo priyanka [facility] POCT GLUCOSE (AUTOMATED) 2019-04-13 17:45:00 Ronaldo priyanka [facility] POCT GLUCOSE (AUTOMATED) 2019-04-13 13:37:00 Jordon Higgins [facility] TROPONIN I 2019-04-13 13:22:00 Ronaldo priyanka [facility] XR CHEST 1 VW 2019-04-13 08:13:47 Singer [facility] CREATINE KINASE 2019-04-13 08:08:00 Ronaldo priyanka [facility] MAGNESIUM 2019-04-13 08:08:00 Singer [facility] TROPONIN I 2019-04-13 08:08:00 Singer [facility] THYROID STIMULATING 2019-04-13 08:08:00 Jordon Higgins [facility] HORMONE [facility] COMP. METABOLIC PANEL 2019-04-13 08:08:00 Srinivasan Whitney [facility] ([id number]) [facility] LIPID PANEL (41277)(TOTAL 2019-04-13 08:08:[address] [facility] CHOLESTEROL, [facility] TRIGLYCERIDES, HDL) CBC WITH DIFFERENTIAL 2019-04-13 08:08:00 Srinivasan Whitney [facility] GLYCOSYLATED HEMOGLOBIN 2019-04-13 08:08:00 Jordon Higgins [facility] ([facility] Medical [facility] N-TERMINAL PRO-BNP 2019-04-13 08:08:00 Singer [facility] EKG-12 LEAD 2019-04-13 07:52:57 Singer [facility] ASSIGNMENT OF BENEFITS 2019-04-13 07:49:11 Doctor Unassigned, Un [facility] ASSIGNMENT OF BENEFITS 2019-04-13 07:49:10 Doctor Unassigned, Un [facility] CONSENT/REFUSAL FOR 2019-04-13 07:47:58 Doctor Unassigned, [facility] DIAGNOSIS AND TREATMENT [facility] AUTHORIZATION FOR RELEASE 2019-04-12 06:01:00 Doctor Jonasigned, [facility] AUTHORIZATION FOR RELEASE 2019-04-06 06:01:00 Doctor Unassigned, [facility] Encounters Start End Encounter Admission Attending Care Care Encounter Source Date/Time Date/Time Type Type Clinicians Facility Department ID 2021-07-03 2021-07-03 Outpatient RAUL FERRIS [facility] [id number] 09:16:51 12:04:55 NATHANIEL [facility] 2021-05-29 2021-05-29 Outpatient RAUL [facility] [id number] [facility] 14:07:32 16:34:47 NATHANIEL [facility] 2021-04-30 2021-04-30 Outpatient ELPIDIO, [facility] [id number] [place] 00:00:00 00:00:00 MOH[address] 2021-04-23 2021-04-23 Outpatient LESLIE, [facility] [id number] [place] 00:00:00 00:00:00 FLORES [facility] 2021-04-18 2021-04-18 Outpatient Adams_R DM[facility] [id number] [facility] 01:24:00 01:24:00 0209 [facility] 2021-03-13 2021-03-13 Outpatient Adams_R [facility] [id number] [facility] 04:55:00 04:55:00 0104 [facility] l [facility] 2020-12-29 2020-12-29 Outpatient DMG DMG [id number] Pending [facility] To [facility] 08:00:00 08:00:00 1022 Medica l Group 2020-12-06 2020-12-06 Outpatient [facility] [id number] [place] 00:00:00 00:00:[address] 2020-12-06 2020-12-06 Outpatient PETER BLAKE [facility] [id number] [place] 00:00:00 00:00:[address] 2020-12-06 2020-12-06 Outpatient BLAKE GREEN [facility] [id number] [place] 00:00:00 00:00:[address] 2020-12-06 2020-12-06 Outpatient ELPIDIO, [facility] [id number] [place] 00:00:00 00:00:00 MOHAMMED [address] 2020-11-23 2020-11-23 Outpatient ELPIDIO, [facility] [id number] [place] 00:00:00 00:00:00 MOHAMMED [address] 2020-11-15 2020-11-15 Outpatient SEPTIMUS, [facility] [id number] [place] 00:00:00 00:00:00 DIAMOND [address] 2020-10-30 2020-10-30 Outpatient ELPIDIO, [facility] [id number] [place] 00:00:00 00:00:00 MOHAMMED [address] 2020-10-30 2020-10-30 Outpatient ELPIDIO, [facility] [id number] [place] 00:00:00 00:00:00 MOHAMMED [address] 2020-10-30 2020-10-30 Outpatient ELPIDIO, [facility] [id number] [place] 00:00:00 00:00:00 MOHAMMED [address] 2020-10-30 2020-10-30 Outpatient ELPIDIO, [facility] [id number] [place] 00:00:00 00:00:00 MOHAMMED [address] 2020-10-19 2020-10-19 Outpatient [facility] [id number] [place] 00:00:00 00:00:[address] 2020-10-19 2020-10-19 Outpatient ELPIDIO, [facility] [id number] [place] 00:00:00 00:00:00 MOHAMMED [address] 2020-09-20 2020-09-20 Outpatient ELPIDIO, [facility] [id number] [place] 00:00:00 00:00:00 MOHAMMED [address] 2020-01-17 2020-01-17 Outpatient CABRERA, SANJIV [facility] [id number] [place] 00:00:00 00:00:[address] 2019-10-07 2019-10-07 Outpatient CABRERA, SANJIV [facility] [id number] [place] 00:00:00 00:00:[address] 2019-08-27 2019-08-27 Outpatient CABRERA, SANJIV [facility] [id number] [place] 00:00:00 00:00:00 558 Method i 2019-08-24 2019-08-24 [facility]phone [facility] 1.2.840.114 [id number] [facility] 00:00:00 00:00:00 [facility] 350.1.13.10 it y of Surgical 4.2.7.2.686 Bon as Specialti [phone] Fl dical es 198 [facility] 2019-08-24 2019-08-24 Telephone [facility] 1.2.840.114 [id number] 00:00:00 00:00:00 [facility] 350.1.13.10 Surgical 4.2.7.2.686 Specialti [phone] es [address] [place] [address] 2019-05-13 2019-05-13 Telephone [facility] [id number] [id number] [facility] 00:00:00 00:00:00 [facility] 350.1.13.10 ity of [place].2.[place] Profess[place] [phone] Fl dical nal 059 [facility] 2019-05-13 2019-05-13 Orders Doctor GENE 1.2.840.114 [id number] Univers 00:00:00 00:00:00 Only Unassigned, YESSY 350.1.13.10 ity [facility] 4.2.7.2.686 Bon as [phone] [facility] 009 [place] 2019-05-13 2019-05-13 Telephone Panchito [facility] [id number] [id number] 00:00:00 00:00:00 Paola Espinoza 350.1.13.10 [place] 4.2.7.2.686 Professio [phone] [facility] 059 [facility] 2019-05-13 2019-05-13 Orders Doctor GENE 1.2.840.114 [id number] 00:00:00 00:00:00 Only Unassigned, YESSY 350.1.13.10 [facility] 4.2.7.2.686 [id number] [facility] 2019-04-29 2019-04-29 Telephone [facility] 1.2.840.114 [id number] Univers 00:00:00 00:00:00 [place] 350.1.13.10 it y of Surgical 4.2.7.2.686 Bon as Specialti [phone] Fl dical es 198 [facility] 2019-04-29 2019-04-29 Telephone [facility] 1.2.840.114 [id number] 00:00:00 00:00:00 [place] 350.1.13.10 Surgical 4.2.7.2.686 Specialti [phone] es 198 [place] 2019-04-18 2019-04-18 Emergency [facility] 1.2.840.114 [id number] Univers 16:51:08 18:50:00 Phil Espinoza 350.1.13.10 i ty [place]2.[place] [phone] [facility] [address] [place] [address] 2019-04-18 2019-04-18 Emergency X [facility] ERT [id number] Univers 16:51:08 18:50:00 PHIL lamar of [facility] 2019-04-18 2019-04-18 Emergency [facility] 1.2.840.114 [id number] 16:51:08 18:50:00 Phil Espinoza 350.1.13.10 [place] 4.2.7.2.686 [place] [phone] [facility] 2019-04-13 2019-04-13 Emergency Srinivasan Whitney [facility] 1.2.840. 114 [id number] [facility] 01:48:48 20:25:00 Cesar Higginspriyanka Espinoza 350.1.13.10 ity of [place] 4.2.7.2.686 [place] [facility] [phone] [address] 2019-04-13 2019-04-13 Emergency Srinivasan Whitney [facility] 1.2.840. 114 [id number] 01:48:48 20:25:00 Jordon Higgins 350.1.13.10 [place] 4.2.7.2.686 [place] [phone] [facility] 2019-04-12 2019-04-12 Orders Doctor GENE 1.2.840.114 [id number] [facility] 00:00:00 00:00:00 Only Unassigned, YESSY 350.1.13.10 [facility] 4.2.7.2.686 Bon as [phone] [address] 2019-04-12 2019-04-12 Orders Doctor MILLS 1.2.840.114 [id number] 00:00:00 00:00:00 Only Unassigned, YESSY 350.1.13.10 [facility] 4.2.7.2.686 [id number] [facility] 2019-04-06 2019-04-06 Orders Doctor MILLS 1.2.840.114 [id number] [facility] 00:00:00 00:00:00 Only Unassigned, YESSY 350.1.13.10 [facility] 4.2.7.2.686 Bon as [phone] [address] 2019-04-06 2019-04-06 Orders Doctor GENE 1.2.840.114 [id number] 00:00:00 00:00:00 Only Unassigned, YESSY 350.1.13.10 [facility] 4.2.7.2.686 [id number] [facility] 2019-03-15 2019-03-15 Outpatient BLAKE GREEN [facility] [id number] [place] 00:00:00 00:00:00 707 Method i 2018-11-24 2018-11-24 Abstract Buddy TNJAZMINE 1.2.025.827 [id number] [facility] 00:00:00 00:00:00 Christopher PRIMARY 350.1.13.10 ity of CARE 4.2.7.2.686 Grace win [facility] [phone] Fl dical 198 Branch 2018-11-24 2018-11-24 Abstract Buddy [facility] 1.2.947.009 [id number] 00:00:00 00:00:00 Christopher PRIMARY 350.1.13.10 CARE 4.2.7.2.686 PAVILLION [id number] 198 2018-11-12 2018-11-12 Office [facility] 1.2.840.114 [id number] Univers 08:41:28 09:13:32 Visit [facility] 350.1.13.10 it y of Surgical 4.2.7.2.686 Bon as Specialti [id number] Fl dical es 198 [facility] 2018-11-12 2018-11-12 Office [facility] 1.2.840.114 [id number] 08:41:28 09:13:32 Visit [facility] 350.1.13.10 Surgical 4.2.7.2.686 Specialti [phone] es 198 [place] 2018-10-21 2018-10-21 Office [facility] 1.2.840.114 [id number] Univers 08:38:11 08:53:11 Visit [facility] 350.1.13.10 it y of Surgical 4.2.7.2.686 Bon as Specialti [phone] Fl dical es 198 [facility] Results Test Test Test Results Result Source Description Time Comments Comments XR FOOT 3+ VW 2019-04- Impression: 1. No Univ ersity of RIGHT 10 radiographic evidence of [facility] 00:25:37 osteomyelitis. ?If Branch clinically indicated,bone scan or MRI may be obtained to further evaluate.2. Nondisplaced first distal phalanx fracture not excluded. RL: [id number]: [id number] End of Report Exam: Right Foot, 04/18/2019 5:30 PM. Ordering Physician: PHIL SILVA. History: Right great toe infection. Technique: 3 views of the right foot. Comparison: None. Findings: There is diffuse soft tissue swelling at the first toe. Slightly increasedlinear trabecular lucency extends through the first lateral and obliqueviews, the not well visualized on the frontal view. Joint spaces arepreserved. There is no periosteal reaction or osseous erosion. Calcanealspurring is noted. [facility], Radiant Results Inft User - 04/18/2019 6:26 PM CSTExam: Right Foot, 04/18/2019 5:30 PM.Ordering Physician: PHIL SILVA.History: Right great toe infection.Technique: 3 views of the right foot. Comparison: None.Findings: There is diffuse soft tissue swelling at the first toe. Slightly increasedlinear trabecular lucency extends through the first lateral and obliqueviews, the not well visualized on the frontal view. Joint spaces arepreserved. There is no periosteal reaction or osseous erosion. Calcanealspurring is noted.IMPRESSIONImpressi on: 1. No radiographic evidence of osteomyelitis. If clinically indicated,bone scan or MRI may be obtained to further evaluate.2. Nondisplaced first distal phalanx fracture not excluded.RL: [id number]: [id number] of Report GLUCOSE (AUTOMATED) 2019-04-18 23:51:00 Test Item Value Reference Range Interpretation Comme nts POCT GLU (test code = 8882398093) 278 mg/dL 70-110 H Lab Interpretation (test code = 87078-1) [facility] >30DAYS[facility]2019-04-18 23:51:00 Test Item Value Reference Range Interpretation Comments POCT Glu (age>30days) (test code = 278 mg/dL 70-110 A 3342) Lab Interpretation (test code = Abnormal 34273-6) [facility]2019-04-13 22:14:00 Test Item Value Reference Range Interpretation Comments POCT GLU (test code = 0609741642) 356 mg/dL 70-110 H Lab Interpretation (test code = Abnormal 99810-2) [facility] [id number] 19:37:00 Test Item Value Reference Range Interpretation Comments TROPONIN I (test <0.012 See_Comment [Automated code = 0017282500) message] The system which generated this result transmitted reference range : <=0.034 ng/mL. The reference range was not used to interpr et this result as normal/abnormal . NEELAM (test code = Equal or Less than NEELAM) 0.034 ng/ml---Normal ?Note: Cardiac troponin begins to rise 3-4 hours after the onset of ischemia. Repeat in 4-6 hours if the sample was drawn within 3-4 hours of the onset of the symptom and found normal. Between 0.035 and 0.120 ng/mL--- Borderline. Questionable myocardial injury or necrosis ? ?Note: Serial measurement may be necessary to confirm or exclude the diagnosis of myocardial injury or necrosis; Clinical correlation (symptoms, EKGs, imaging studies, and others) required; Repeat in 4-6 hours if clinically indicated. ? Equal or Higher than 0.121 ng/mL---Abnormal. Myocardial Injury or Necrosis Likely ? Biotin has been reported to cause a negative bias, interpret results relative to patient's use of biotin. ? Lab Interpretation Normal (test code = 94784-3) [facility]2019-04-13 17:48:00 Test Item Value Reference Range Interpretation Comments POCT GLU (test code = 1355070257) 228 mg/dL 70-110 H Lab Interpretation (test code = Abnormal 00004-2) [facility] [id number] 14:16:00 Test Item Value Reference Range Interpretation Comments TROPONIN I (test <0.012 See_Comment [Automated code = 5929397554) message] The system which generated this result transmitted reference range : <=0.034 ng/mL. The reference range was not used to interpr et this result as normal/abnormal . NEELAM (test code = Equal or Less than NEELAM) 0.034 ng/ml---Normal ?Note: Cardiac troponin begins to rise 3-4 hours after the onset of ischemia. Repeat in 4-6 hours if the sample was drawn within 3-4 hours of the onset of the symptom and found normal. Between 0.035 and 0.120 ng/mL--- Borderline. Questionable myocardial injury or necrosis ? ?Note: Serial measurement may be necessary to confirm or exclude the diagnosis of myocardial injury or necrosis; Clinical correlation (symptoms, EKGs, imaging studies, and others) required; Repeat in 4-6 hours if clinically indicated. ? Equal or Higher than 0.121 ng/mL---Abnormal. Myocardial Injury or Necrosis Likely ? Biotin has been reported to cause a negative bias, interpret results relative to patient's use of biotin. ? Lab Interpretation Normal (test code = 57284-4) [facility]2019-04-13 14:00:00 Test Item Value Reference Range Interpretation Comments POCT GLU (test code = 2136505732) 206 mg/dL 70-110 H Lab Interpretation (test code = Abnormal 70614-1) [facility] CenterTHYROID STIMULATING [id number] 12:57:00 Test Item Value Reference Range Interpretation Comments TSH (test code = See_Comment [Automated message] 2168092784) The system [employer] generated this result transmitted ref erence range: 0.45 - 4 .70 mIU/L. The refe rence range was not u sed to interpret this result as normal/abnor mal. Lab Interpretation (test Normal code = 73402-9) [facility] CenterCREATINE [id number] 12:36:00 Test Item Value Reference Range Interpretation Comments CK (test code = 7057182880) <20 33-194 L Lab Interpretation (test code = Abnormal 99810-3) [facility] CenterGLYCOSYLATED HEMOGLOBIN (A1C)2019-04-13 12:29:00 Test Item Value Reference Interpretation Comments Range HGB A1C (test code = See_Comment H [Autom ated 4548-4) message] The system which generated this result transmitted reference range : 4.0 - 6.0 % NGSP. The reference range was not used to interpret this result as normal/abnormal . NEELAM (test code = %A1C (NGSP) NEELAM) Interpretation (ADA)4.8-5.6 ? ? Normal or (Non-Diabetic Range)5.7-6.4 ? ? Increased Risk (Pre-Diabetic)>6.5 ?Diabetes Indicated Lab Interpretation Abnormal (test code = 30908-8) [facility] CenterLIPID PANEL (92581)(TOTAL CHOLESTEROL, TRIGLYCERIDES, HDL)2019-04-13 12:24:00 Test Item Value Reference Range Interpretation Comments CHOL (test code = 245 mg/dL 120-200 H 3521728241) HDL (test code = 42 mg/dL >50 L 6869823529) HDLC RATIO (test code = See_Comment H [Au tomated message] 4174022977) The system [employer] generated this result transmit rodolfo reference range : <=4.5. The refe rence range was not u sed to interpret th is result as normal/abnormal . TRIG (test code = 198 mg/dL 30-170 H 0788971822) LDL CHOL (test code = 163 mg/dL See_Comment H [Auto mated message] 10367-8) The system [employer] generated this result transmit rodolfo reference range : <=160. The refe rence range was not u sed to interpret th is result as normal/abnormal . VLDL (test code = 40 mg/dL 5-60 3854496886) Lab Interpretation (test Abnormal code = 49873-4) [facility]TR[facility] [id number] 08:48:00 Test Item Value Reference Range Interpretation Comments TROPONIN I (test <0.012 See_Comment [Automated code = 2835751081) message] The system which generated this result transmitted reference range : <=0.034 ng/mL. The reference range was not used to interpr et this result as normal/abnormal . NEELAM (test code = Equal or Less than NEELAM) 0.034 ng/ml---Normal ?Note: Cardiac troponin begins to rise 3-4 hours after the onset of ischemia. Repeat in 4-6 hours if the sample was drawn within 3-4 hours of the onset of the symptom and found normal. Between 0.035 and 0.120 ng/mL--- Borderline. Questionable myocardial injury or necrosis ? ?Note: Serial measurement may be necessary to confirm or exclude the diagnosis of myocardial injury or necrosis; Clinical correlation (symptoms, EKGs, imaging studies, and others) required; Repeat in 4-6 hours if clinically indicated. ? Equal or Higher than 0.121 ng/mL---Abnormal. Myocardial Injury or Necrosis Likely ? Biotin has been reported to cause a negative bias, interpret results relative to patient's use of biotin. ? Lab Interpretation Normal (test code = 20038-7) [facility] CenterN-TERMINAL [id number] 08:45:00 Test Item Value Reference Range Interpretation Comments NT-proBNP (test code 99 pg/mL See_Comment [Autom ated = 9972828418) message] The system which generated this result transmitted reference range : <=125. The reference range was not used to interpret this result as normal/abnormal . NEELAM (test code = NEELAM) Biotin has been reported to cause a negative bias, interpret results relative to patient's use of biotin. Lab Interpretation Normal (test code = 04486-0) [facility] CenterCOMP. METABOLIC PANEL (66373)2019-04-13 08:36:00 Test Item Value Reference Range Interpretation Comments NA (test code = 132 mmol/L 135-145 L 9317024506) K (test code = 4.2 mmol/L 3.5-5 [id number]) CL (test code = 94 mmol/L 98-108 L 9160933297) CO2 TOTAL (test code = 27 mmol/L 23-31 5247563260) AGAP (test code = 2-16 3251409574) BUN (test code = 19 mg/dL 7-23 7872261906) GLUCOSE (test code = 400 mg/dL 70-110 H 2441426324) CREATININE (test code = 0.53 mg/dL 0.5-1.04 6191440006) TOTAL BILI (test code = 0.3 mg/dL 0.1-1.4 3478153698) CALCIUM (test code = 10.0 mg/dL 8.6-10.6 2174705800) T PROTEIN (test code = 7.9 g/dL 6.3-8.2 1246661821) ALBUMIN (test code = 4.6 g/dL 3.5-5 7789028722) ALK PHOS (test code = 177 U/L 34-122 H 8503944411) ALTv (test code = 23 U/L 5-35 1742-6) AST(SGOT) (test code = 25 U/L 13-40 8179322878) eGFR Calculation mL/min/1.73m2 (Non-) (test code = 6419999680) eGFR Calculation mL/min/1.73m2 () (test code = 9366270727) NEELAM (test code = NEELAM) Association of Glomerular Filtration Rate (GFR) and Staging of Kidney Disease* + --+ --+ ------+| GFR (mL/min/1.73 m2) ?| With Kidney Damage ?| ?Without Kidney Damage+ --------+ --------+ +| ?>90 ?| ?Stage one ?| ? Normal ?+ ---+ ---+ -------+| ?60-89 ?| ?Stage two ?| ? Decreased GFR ? + --+ --+ ------+| ?30-59 ?| ?Stage three ?| ? Stage three ? + --+ --+ ------+| ?15-29 ?| ?Stage four ? | ? Stage four ?+ ---+ ---+ -------+| ?<15 (or dialysis) ? ?| ?Stage five ? | ? Stage five ?+ ---+ ---+ -------+ *Each stage assumes the associated GFR level has been in effect for at least three months. ?Stages 1 to 5, with or without kidney disease, indicate chronic kidney disease. Notes: Determination of stages one and two (with eGFR >59mL/min/1.73 m2) requires estimation of kidney damage for at least three months as defined by structural or functional abnormalities of the kidney, manifested by either:Pathological abnormalities or Markers of kidney damage (including abnormalities in the composition of the blood or urine or abnormalities in imaging tests). Lab Interpretation Abnormal (test code = 21940-3) [facility] Test Item Value Reference Range Interpretation Comments MAGNESIUM (test code = 6277859418) 2.1 mg/dL 1.7-2.4 Lab Interpretation (test code = Normal 71849-5) [facility] WITH [id number] 08:24:00 Test Item Value Reference Range Interpretation Comments WBC (test code = See_Comment H [Automated 6690-2) message] The sy stem which generated this result transmitted reference range : 4.30 - 11.10 10*3/?L. The reference range was not used to interpret this result as normal/abnormal . RBC (test code = See_Comment [Automated 789-8) message] The sy stem which generated this result transmitted reference range : 3.93 - 5.25 10*6/?L. The reference range was not used to interpret this result as normal/abnormal . HGB (test code = 14.2 g/dL 11.6-15 718-7) HCT (test code = 41.0 % 35.7-45.2 4544-3) MCV (test code = 85.8 fL 80.6-95.5 787-2) MCH (test code = 29.7 pg 25.9-32.8 785-6) MCHC (test code = 34.6 g/dL 31.6-35.1 786-4) RDW-SD (test code = 35.9 fL 39-49.9 L 93075-3) RDW-CV (test code = 11.6 % 12-15.5 L 788-0) PLT (test code = See_Comment [Automated 777-3) message] The sy stem which generated this result transmitted reference range : 166 - 358 10*3/ ?L. The reference r benson was not used to interpret this result as normal/abnormal . MPV (test code = 10.1 fL 9.5-12.9 01555-6) NRBC/100 WBC (test See_Comment [Automat ed code = 2272130015) message] The system which generated this result transmitted reference range : 0.0 - 10.0 /100 WBCs. The refer ence range was not u sed to interpret th is result as normal/abnormal . NRBC x10^3 (test code <0.01 See_Comment [Auto mated = 9875445131) message] The s ystem which generated this result transmitted reference range : 10*3/?L. The reference range was not used to interpret this result as normal/abnormal . GRAN MAT (NEUT) % 66.7 % (test code = 770-8) IMM GRAN % (test code 0.30 % = 3283377505) LYMPH % (test code = 23.7 % 736-9) MONO % (test code = 6.0 % 5905-5) EOS % (test code = 2.9 % 713-8) BASO % (test code = 0.4 % 706-2) GRAN MAT x10^3(ANC) 7.62 10*3/uL 1.88-7.09 H (test code = 4706866308) IMM GRAN x10^3 (test 0.03 10*3/uL 0-0.06 code = 3189248234) LYMPH x10^3 (test code 2.70 10*3/uL 1.32-3.29 = 731-0) MONO x10^3 (test code 0.68 10*3/uL 0.33-0.92 = 742-7) EOS x10^3 (test code = 0.33 10*3/uL 0.03-0.39 711-2) BASO x10^3 (test code 0.04 10*3/uL 0.01-0.07 = 704-7) Lab Interpretation Abnormal (test code = 68000-2) [facility] [id number] 08:17:28Equivocal edema type pattern. CLINICAL HISTORY:Chest pain COMPARISON:None TECHNIQUE:Portable view of the chest performed at 04/13/2019 2:00 AM FINDINGS:There is indistinctness of the pulmonary vasculature as well as someprominence, which could represent interstitial edema. 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 No cardiomegaly. There are no appreciable effusionsor pneumothorax. [facility], Radiant Results Inft User - 04/13/2019 2:18 AM CSTCLINICAL HISTORY:Chest pain COMPARISON:NoneTE CHNIQUE:Portable view of the chest performed at 04/13/2019 2:00 AMFINDINGS:There is indistinctness of the pulmonary vasculature as well as someprominence, which could represent interstitial edema. This may beexaggerated due to portable technique and decreased aeration. 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 No cardiomegaly. There are no appreciable effusionsor pneumothorax.IMPRESSIONEquivocal edema type pattern. [facility]
[2021-07-03] MEDS ORDERED: ONDANSETRON 4 MG/2 ML VIAL ONE (21:20)
[2021-07-03] MEDS ORDERED: MECLIZINE HCL 12.5 MG TAB ONE (21:20)
[2021-07-03] MEDS ORDERED: NA CHLORIDE 0.9% 1,000 ML ONE (21:20)
--- NOTE | 2021-07-03 21:25 | RAD REPORT ---
EXAM DESCRIPTION: RAD - Chest Single View - 07/03/2021 9:17 pm CLINICAL HISTORY: COUGH COMPARISON: Chest Single View dated 09/23/2020 FINDINGS: Lines: None. Lungs: No evidence of edema or pneumonia. Pleural: No significant pleural effusions or pneumothorax. Cardiac: The heart size is within normal limits. Bones: No acute fractures. Other: IMPRESSION: No acute cardiopulmonary disease.
[2021-07-03 21:56] LABS: Absolute Lymphocytes (CBC) 2.9 K/uL (0.7-4.9); Hematocrit 33.3 % (36.0-45.0); Lymphocytes % 23.3 % (15.3-44.8); MPV 8.9 fL (7.6-11.3); RBC Red Blood Cell Count 3.86 M/uL (3.86-4.86)
--- NOTE | 2021-07-03 21:58 | RAD REPORT ---
EXAM DESCRIPTION: CT - Head Brain Wo Cont - 07/03/2021 9:51 pm CLINICAL HISTORY: dizziness COMPARISON: No comparisons TECHNIQUE: All CT scans are performed using dose optimization technique as appropriate and may inclu de automated exposure control or mA/KV adjustment according to patient size. FINDINGS: No intracranial hemorrhage, hydrocephalus or extra-axial fluid collection.No areas of brai n edema or evidence of midline shift. The paranasal sinuses and mastoids are clear. The calvarium is intact. IMPRESSION: No acute intracranial abnormality.
[2021-07-03 22:01] LABS: Protime INR 0.96
[2021-07-03 22:09] LABS: Albumin 3.8 g/dL (3.4-5.0); Bilirubin Direct 0.1 mg/dL (0-0.2); Bilirubin Total 0.3 mg/dL (0.2-1.0); Potassium 3.6 mmol/L (3.5-5.1); Protein, Total 8.2 g/dL (6.4-8.2); Troponin High Sensitivity 17.3 pg/mL (<58.9)
[2021-07-03 22:55] LABS: Valproic Acid (Depakene) Level 6.8 ug/mL (50-100)
[2021-07-03 23:03] LABS: Urine Blood Negative (Negative); Urine Glucose 2+ (Negative); Urine Protein Negative (Negative); Urine pH 6.5 (5.0-7.0)
[2021-07-03] MEDS ORDERED: CLOPIDOGREL 75 MG TABLET ONE (23:56)
[2021-07-03] MEDS ORDERED: ASPIRIN 81 MG CHEWABLE TABLET ONE (23:56)
[2021-07-03] MEDS ORDERED: INSULIN -REGULAR HUMAN 50 UNIT/0.5 ML ML ONE (23:58)
--- NOTE | 2021-07-04 01:21 | EDPHYS ---
Physician Documentation [facility] Name: Emily Nguyen Age: 55 yrs Sex: Female : 1965 Arrival Date: 07/03/2021 Time: 20:49 Bed 5 Private MD: ED Physician Magno Espinoza HPI: 07/03 21:45 This 55 yrs old Female presents to ER via Ambulatory with complaints of kari Dizziness. 21:45 The patient presents with dizziness, lightheadedness. Onset: The symptoms/episode kari began/occurred 2 day(s) ago. Context: just prior to the episode the patient experienced. Modifying factors: The symptoms are alleviated by holding head still, the symptoms are aggravated by movement of head. Associated signs and symptoms: Pertinent positives: nausea. Severity of symptoms: At their worst the symptoms were mild in the emergency department the symptoms are unchanged. Patient's baseline: Neuro: alert and fully oriented. Historical: - Allergies: 21:09 Benadryl; lp1 21:09 Flexeril; lp1 21:09 GABAPENTIN; lp1 - Home Meds: 21:09 bisoprolol-hydrochlorothiazide 5-6.25 mg oral tab 1 tab once daily [Active]; Tresiba lp1 FlexTouch U-100 100 unit/mL (3 mL) subcutaneous inpn [Active]; Ozempic 0.25 mg or 0.5 mg(2 mg/1.5 mL) subcutaneous pnij once wkly [Active]; Depakote 125 mg Oral TbEC 3 times per day [Active]; celecoxib Oral 2 times per day [Active]; Tramadol Oral twice a day [Active]; metformin 1,000 mg Oral tab 1 tab 2 times per day [Active]; 21:12 furosemide 20 mg Oral tab 1 tab once daily [Active]; lp1 - PMHx: 21:09 Diabetes - NIDDM; heart blockage; Hypertension; neuropathy; lp1 - PSHx: 21:09 Neck fusion; Tonsillectomy; tubal ligation; lp1 - Immunization history:: Adult Immunizations up to date. - Social history:: Smoking status: Patient denies any tobacco usage or history of. - Family history:: not pertinent. ROS: 21:45 Constitutional: Negative for fever, chills, and weight loss, Eyes: Negative for injury, kari pain, redness, and discharge, ENT: Negative for injury, pain, and discharge, Neck: Negative for injury, pain, and swelling, Cardiovascular: Negative for chest pain, palpitations, and edema, Respiratory: Negative for shortness of breath, cough, wheezing, and pleuritic chest pain, Abdomen/GI: Negative for abdominal pain, nausea, vomiting, diarrhea, and constipation, Back: Negative for injury and pain, : Negative for injury, bleeding, discharge, and swelling, MS/Extremity: Negative for injury and deformity, Skin: Negative for injury, rash, and discoloration, Psych: Negative for depression, anxiety, suicide ideation, homicidal ideation, and hallucinations, Allergy/Immunology: Negative for hives, rash, and allergies, Endocrine: Negative for neck swelling, polydipsia, polyuria, polyphagia, and marked weight changes, Hematologic/Lymphatic: Negative for swollen nodes, abnormal bleeding, and unusual bruising. 21:45 Neuro: Positive for dizziness. Exam: 21:45 Constitutional: This is a well developed, well nourished patient who is awake, alert, kari and in no acute distress. Head/Face: Normocephalic, atraumatic. Eyes: Pupils equal round and reactive to light, extra-ocular motions intact. Lids and lashes normal. Conjunctiva and sclera are non-icteric and not injected. Cornea within normal limits. Periorbital areas with no swelling, redness, or edema. ENT: Nares patent. No nasal discharge, no septal abnormalities noted. Tympanic membranes are normal and external auditory canals are clear. Oropharynx with no redness, swelling, or masses, exudates, or evidence of obstruction, uvula midline. Mucous membranes moist. Neck: Trachea midline, no thyromegaly or masses palpated, and no cervical lymphadenopathy. Supple, full range of motion without nuchal rigidity, or vertebral point tenderness. No Meningismus. Chest/axilla: Normal chest wall appearance and motion. Nontender with no deformity. No lesions are appreciated. Cardiovascular: Regular rate and rhythm with a normal S1 and S2. No gallops, murmurs, or rubs. Normal PMI, no JVD. No pulse deficits. Respiratory: Lungs have equal breath sounds bilaterally, clear to auscultation and percussion. No rales, rhonchi or wheezes noted. No increased work of breathing, no retractions or nasal flaring. Abdomen/GI: Soft, non-tender, with normal bowel sounds. No distension or tympany. No guarding or rebound. No evidence of tenderness throughout. Back: No spinal tenderness. No costovertebral tenderness. Full range of motion. Skin: Warm, dry with normal turgor. Normal color with no rashes, no lesions, and no evidence of cellulitis. MS/ Extremity: Pulses equal, no cyanosis. Neurovascular intact. Full, normal range of motion. Neuro: Awake and alert, GCS 15, oriented to person, place, time, and situation. Cranial nerves II-XII grossly intact. Motor strength 5/5 in all extremities. Sensory grossly intact. Cerebellar exam normal. Normal gait. Psych: Awake, alert, with orientation to person, place and time. Behavior, mood, and affect are within normal limits. Vital Signs: 21:08 BP 175 / 88; Pulse 99; Resp 18; Temp 97.8(O); Pulse Ox 99% on R/A; Weight 73.48 kg (R); lp1 Height 5 ft. 7 in. (170.18 cm); Pain 0/10; 21:15 BP 140 / 75; Pulse 94; Resp 16 S; Pulse Ox 98% on R/A; al4 21:41 BP 151 / 96; Pulse 101; Resp 15 S; Pulse Ox 100% on R/A; al4 22:28 BP 163 / 91; Pulse 99; Resp 16 S; Pulse Ox 97% on R/A; al4 23:30 BP 171 / 93; Pulse 93; Resp 22; Pulse Ox 100% on R/A; oe 07/04 00:17 BP 179 / 90; Pulse 97; Resp 24 S; Pulse Ox 99% on R/A; al4 01:45 BP 138 / 95; Pulse 92; Resp 22 S; Pulse Ox 99% on R/A; al4 02:07 BP 162 / 95; Pulse 89; Resp 20 S; Pulse Ox 99% on R/A; al4 07/03 21:08 Body Mass Index 25.37 (73.48 kg, 170.18 cm) lp1 MDM: 07/03 20:55 Patient medically screened. kari 21:59 Differential diagnosis: cardiac arrhythmia, CVA, generalized weakness, hypovolemia, kari idiopathic dizziness, near-syncope, TIA, vertigo. Data reviewed: vital signs, nurses notes, lab test result(s), EKG, radiologic studies, CT scan, doppler, plain films. Data interpreted: vehicle monitor technician: rate is 101 beats/min, rhythm is normal sinus rhythm, regular. Test interpretation: by ED physician or midlevel provider: ECG, plain radiologic studies. Counseling: I had a detailed discussion with the patient and/or guardian regarding: the historical points, exam findings, and any diagnostic results supporting the discharge/admit diagnosis, lab results, radiology results, the need for outpatient follow up, for definitive care, a family practitioner, a neurologist. 07/03 21:01 Order name: Basic Metabolic Panel; Complete Time: 23:14 [facility] 07/03 21:01 Order name: CBC with Diff; Complete Time: 22:50 [facility] 07/03 21:01 Order name: LFT's; Complete Time: 23:14 [facility] 07/03 21:01 Order name: Magnesium; Complete Time: 23:14 [facility] 07/03 21:01 Order name: NT PRO-BNP; Complete Time: 23:14 [facility] 07/03 21:01 Order name: PT-INR; Complete Time: 22:50 [facility] 07/03 21:01 Order name: Troponin HS; Complete Time: 23:14 [facility] 07/03 21:01 Order name: XRAY Chest (1 view); Complete Time: 22:50 [facility] 07/03 21:14 Order name: Glucose, Ancillary Testing; Complete Time: 22:50 [facility] 07/03 22:17 Order name: Valproic Acid (Depakene) Level; Complete Time: 23:14 [facility] 07/03 23:03 Order name: Urine Dipstick-Ancillary; Complete Time: 23:14 [facility] 07/04 00:30 Order name: Glucose, Ancillary Testing [facility] 07/04 01:25 Order name: Glucose, Ancillary Testing [facility] 07/03 21:01 Order name: US Carotid Artery Bilateral [facility] 07/03 21:13 Order name: Head Brain Wo Cont; Complete Time: 22:50 [facility] 07/03 23:19 Order name: Head angio [facility] 07/03 23:19 Order name: Neck Angio [facility] 07/03 21:01 Order name: EKG; Complete Time: 21:02 [facility] 07/03 21:01 Order name: Cardiac monitoring; Complete Time: 21:10 [facility] 07/03 21:01 Order name: EKG - Nurse/Tech; Complete Time: 21:10 [facility] 07/03 21:01 Order name: IV Saline Lock; Complete Time: 23:14 [facility] 07/03 21:01 Order name: Labs collected and sent; Complete Time: 23:14 [facility] 07/03 21:01 Order name: O2 Per Protocol; Complete Time: 21:10 [facility] 07/03 21:01 Order name: O2 Sat Monitoring; Complete Time: 21:10 [facility] 07/03 21:01 Order name: Urine Dipstick-Ancillary (obtain specimen); Complete Time: 23:02 kari Administered Medications: 21:33 Drug: Meclizine 50 mg Route: PO; al4 22:26 Follow up: Response: No adverse reaction al4 21:35 Drug: NS 0.9% 1000 ml Route: IV; Rate: 1 bolus; Site: right antecubital; al4 07/04 01:33 Follow up: IV Status: Completed infusion; IV Intake: 1000ml al4 07/03 22:26 Not Given (Patient Refused): Zofran (Ondansetron) 4 mg IVP once; over 2 minutes al4 07/04 00:22 Not Given (Other Intervention Used): Insulin Regular Human 8 units Sub-Q once jb4 00:25 Drug: Aspirin 81 mg Route: PO; al4 01:09 Follow up: Response: No adverse reaction al4 00:25 Drug: PlaVIX (clopidogrel) 75 mg Route: PO; al4 01:09 Follow up: Response: No adverse reaction al4 00:27 Drug: Insulin Regular Human 4 units {Co-Signature: jb4 (Srikanth Mclean RN).} Route: al4 Sub-Q; Site: right upper arm; 01:33 Follow up: Response: No adverse reaction al4 01:53 Drug: Norvasc (amlodipine) 5 mg Route: PO; al4 02:09 Follow up: Response: No adverse reaction al4 Disposition Summary: 07/04/21 01:21 Discharge Ordered Location: Home kari Problem: new kari Symptoms: have improved kari Condition: Stable kari Diagnosis - Dizziness and giddiness kari - Other peripheral vertigo, bilateral kari - Occlusion and stenosis of bilateral carotid arteries - moderate kari - Essential (primary) hypertension kari - Cerebral aneurysm, nonruptured - 3.6X2.7MMRIGHT TEMPORAL FOSSA kari Followup: kari - With: Private Physician - When: 2 - 3 days - Reason: Recheck today's complaints, Continuance of care, Re-evaluation by your physician Followup: kari - With: - When: 2 - 3 days - Reason: Recheck today's complaints, Re-evaluation by your physician Followup: kari - With: - When: 2 - 3 days - Reason: Recheck today's complaints, Re-evaluation by your physician Discharge Instructions: - Discharge Summary Sheet kari - Benign Positional Vertigo kari - Dizziness kari - Vertigo kari - Vertigo, Agwl-hs-Eusc kari - Aspirin and Your Heart kari - Dizziness, Oesz-ks-[id number] kari - Carotid Artery Disease [facility] Forms: - Medication Reconciliation Form [facility] - Thank You Letter [facility] - Antibiotic Education [facility] - Prescription Opioid Use [facility] Prescriptions: - Meclizine 25 mg Oral Tablet - take 1 tablet by ORAL route every 8 hours As needed; 30 tablet; Refills: 0, [facility] Product Selection Permitted - Zofran 4 mg Oral Tablet - take 1 tablet by ORAL route every 12 hours As needed; 20 tablet; Refills: 0, [facility] Product Selection Permitted - Plavix 75 mg Oral Tablet - take 1 tablet by ORAL route once daily; 20 tablet; Refills: 0, Product [facility] Selection Permitted - Norvasc 5 mg Oral Tablet - take 1 tablet by ORAL route once daily; 20 tablet; Refills: 0, Product [facility] Selection Permitted Signatures: Dispatcher [employer] EDMagno Jennings MD MD cha Pena, Laura, RN RN lp1 Srikanth Mclean RN RN jb4 Sunil Rosas RN jb4 Corrections: (The following items were deleted from the chart) 07/03 22:17 21:39 VALPROIC ACID (DEPAKOTE)+C.LAB.BRZ ordered. EDMS EDMS
--- NOTE | 2021-07-04 01:21 | ER ---
Nurse's Notes [facility] Name: Emily Nguyen Age: 55 yrs Sex: Female : 1965 Arrival Date: 07/03/2021 Time: 20:49 Bed 5 Private MD: Diagnosis: Dizziness and giddiness;Other peripheral vertigo, bilateral;Occlusion and stenosis of bilateral carotid arteries-moderate;Essential (primary) hypertension;Cerebral aneurysm, nonruptured-3.6X2.7MMRIGHT TEMPORAL FOSSA Presentation: 07/03 21:08 Chief complaint: Patient states: Onset of dizziness about 4 hours ago, reports feeling lp1 clammy for about 2 days, blood sugars have been in the 400's at home. Coronavirus screen: At this time, the client does not indicate any symptoms associated with coronavirus-19. Ebola Screen: No symptoms or risks identified at this time. Initial Sepsis Screen: Does the patient meet any 2 criteria? No. Patient's initial sepsis screen is negative. Does the patient have a suspected source of infection? No. Patient's initial sepsis screen is negative. Risk Assessment: Do you want to hurt yourself or someone else? Patient reports no desire to harm self or others. Onset of symptoms was July 03, 2021. 21:08 Method Of Arrival: Ambulatory lp1 21:08 Acuity: ARLET 3 lp1 Historical: - Allergies: 21:09 Benadryl; lp1 21:09 Flexeril; lp1 21:09 GABAPENTIN; lp1 - Home Meds: 21:09 bisoprolol-hydrochlorothiazide 5-6.25 mg oral tab 1 tab once daily [Active]; Tresiba lp1 FlexTouch U-100 100 unit/mL (3 mL) subcutaneous inpn [Active]; Ozempic 0.25 mg or 0.5 mg(2 mg/1.5 mL) subcutaneous pnij once wkly [Active]; Depakote 125 mg Oral TbEC 3 times per day [Active]; celecoxib Oral 2 times per day [Active]; Tramadol Oral twice a day [Active]; metformin 1,000 mg Oral tab 1 tab 2 times per day [Active]; 21:12 furosemide 20 mg Oral tab 1 tab once daily [Active]; lp1 - PMHx: 21:09 Diabetes - NIDDM; heart blockage; Hypertension; neuropathy; lp1 - PSHx: 21:09 Neck fusion; Tonsillectomy; tubal ligation; lp1 - Immunization history:: Adult Immunizations up to date. - Social history:: Smoking status: Patient denies any tobacco usage or history of. - Family history:: not pertinent. Screenin:41 Abuse screen: Denies threats or abuse. Nutritional screening: No deficits noted. al4 Tuberculosis screening: No symptoms or risk factors identified. 21:48 Fall Risk No fall in past 12 months (0 pts). IV access (20 points). Ambulatory Aid- al4 None/Bed Rest/Nurse Assist (0 pts). Gait- Normal/Bed Rest/Wheelchair (0 pts) Mental Status- Oriented to own ability (0 pts). Total Grimes Fall Scale indicates No Risk (0-24 pts). Assessment: 21:30 Reassessment: patient aware of the need for urine sample. urine specimen cup given to al4 patient and instructed to call RN when ready. 21:33 Reassessment: patient declined zofran at this time stating "I was nauseous when I got al4 here, but I am not anymore". 21:38 General: Appears in no apparent distress. comfortable, Behavior is calm, cooperative. al4 Pain: Denies pain. Neuro: Level of Consciousness is awake, alert, obeys commands, Oriented to person, place, time, situation, Reports dizziness, since > 1 week, but worsened over past 2 days. Cardiovascular: Capillary refill < 3 seconds Patient's skin is warm and dry. Respiratory: Airway is patent Respiratory effort is unlabored, Respiratory pattern is regular. 21:38 GI: Patient currently denies nausea, vomiting. al4 22:25 Reassessment: Patient appears in no apparent distress at this time. Patient is alert, al4 oriented x 3, equal unlabored respirations, skin warm/dry/pink. patient reminded of need for urine sample - states she does not need to go right now.. 07/04 00:33 Reassessment: Patient appears in no apparent distress at this time. Patient is alert, al4 oriented x 3, equal unlabored respirations, skin warm/dry/pink. patient sitting on edge of bed with legs dangling - instructed not to stand up by RN and demonstrated understanding. . 01:08 Reassessment: Patient appears in no apparent distress at this time. Patient is alert, al4 oriented x 3, equal unlabored respirations, skin warm/dry/pink. 01:45 Reassessment: Patient up for d/c. MD Espinoza wants to speak with patient before al4 discharge. 02:00 Reassessment: Patient appears in no apparent distress at this time. Patient is alert, al4 oriented x 3, equal unlabored respirations, skin warm/dry/pink. Vital Signs: 07/03 21:08 BP 175 / 88; Pulse 99; Resp 18; Temp 97.8(O); Pulse Ox 99% on R/A; Weight 73.48 kg (R); lp1 Height 5 ft. 7 in. (170.18 cm); Pain 0/10; 21:15 BP 140 / 75; Pulse 94; Resp 16 S; Pulse Ox 98% on R/A; al4 21:41 BP 151 / 96; Pulse 101; Resp 15 S; Pulse Ox 100% on R/A; al4 22:28 BP 163 / 91; Pulse 99; Resp 16 S; Pulse Ox 97% on R/A; al4 23:30 BP 171 / 93; Pulse 93; Resp 22; Pulse Ox 100% on R/A; oe 07/04 00:17 BP 179 / 90; Pulse 97; Resp 24 S; Pulse Ox 99% on R/A; al4 01:45 BP 138 / 95; Pulse 92; Resp 22 S; Pulse Ox 99% on R/A; al4 02:07 BP 162 / 95; Pulse 89; Resp 20 S; Pulse Ox 99% on R/A; al4 07/03 21:08 Body Mass Index 25.37 (73.48 kg, 170.18 cm) lp1 ED Course: 07/03 20:49 Patient arrived in ED. bp1 20:55 Magno Espinoza MD is Attending Physician. kari 21:06 Renan Santos, SCARLETT is Primary Nurse. as6 21:09 Triage completed. lp1 21:09 Arm band placed on. lp1 21:19 XRAY Chest (1 view) In Process Unspecified. EDMS 21:41 Bed in low position. Call light in reach. Side rails up X2. machinist tool and die on. Pulse al4 ox on. NIBP on. 21:50 Inserted saline lock: 20 gauge in right antecubital area, using aseptic technique. oe Blood collected. 21:53 Head Brain Wo Cont In Process Unspecified. EDMS 22:26 US Carotid Artery Bilateral In Process Unspecified. EDMS 23:47 Inserted saline lock: 20 gauge in left antecubital area, using aseptic technique. al4 07/04 01:01 Head angio In Process Unspecified. EDMS 01:01 Neck Angio In Process Unspecified. EDMS 01:21 Jason Sheldon MD is Referral Physician. kari 01:21 Maida Aquino MD is Referral Physician. kari 01:33 No provider procedures requiring assistance completed. al4 01:46 IV discontinued, intact, bleeding controlled, No redness/swelling at site. Pressure al4 dressing applied. Administered Medications: 07/03 21:33 Drug: Meclizine 50 mg Route: PO; al4 22:26 Follow up: Response: No adverse reaction al4 21:35 Drug: NS 0.9% 1000 ml Route: IV; Rate: 1 bolus; Site: right antecubital; al4 07/04 01:33 Follow up: IV Status: Completed infusion; IV Intake: 1000ml al4 07/03 22:26 Not Given (Patient Refused): Zofran (Ondansetron) 4 mg IVP once; over 2 minutes al4 07/04 00:22 Not Given (Other Intervention Used): Insulin Regular Human 8 units Sub-Q once jb4 00:25 Drug: Aspirin 81 mg Route: PO; al4 01:09 Follow up: Response: No adverse reaction al4 00:25 Drug: PlaVIX (clopidogrel) 75 mg Route: PO; al4 01:09 Follow up: Response: No adverse reaction al4 00:27 Drug: Insulin Regular Human 4 units {Co-Signature: jb4 (Srikanth Mclean RN).} Route: al4 Sub-Q; Site: right upper arm; 01:33 Follow up: Response: No adverse reaction al4 01:53 Drug: Norvasc (amlodipine) 5 mg Route: PO; al4 02:09 Follow up: Response: No adverse reaction al4 Intake: 01:33 IV: 1000ml; Total: 1000ml. al4 Outcome: 01:21 Discharge ordered by . kari 01:45 Discharged to home ambulatory, with ride from son al4 01:45 Condition: good 01:45 Discharge instructions given to patient, Instructed on discharge instructions, follow up and referral plans. medication usage, Demonstrated understanding of instructions, follow-up care, medications. 02:10 Patient left the ED. al4 Signatures: Dispatcher [employer] EDMagno Jennings MD MD cha Pena, Laura, RN RN lp1 Justin Gastelum Brittany bp1 Slawson, Ashby, SCARLETT RN as6 Sunil Rosas al4 Srikanth Mclean RN jb4 Srikanth Mclean RN jb4 Corrections: (The following items were deleted from the chart) 07/03 21:46 21:38 Neuro: Level of Consciousness is awake, alert, obeys commands, Oriented to al4 person, place, time, situation, al4 21:38 Pain: Denies pain. al4 al4 22:25 Reassessment: Patient appears in no apparent distress at this time. Patient is al4 alert, oriented x 3, equal unlabored respirations, skin warm/dry/pink. al4
[2021-07-04] MEDS ORDERED: AMLODIPINE 5 MG TAB ONE (01:48)
[2021-07-04 03:41] VITALS: TEMP 97.8
[2021-07-04 03:57] VITALS: O2SAT 99
[2021-07-04 04:00] VITALS: BP 162/95
--- NOTE | 2021-07-04 14:40 | RAD REPORT ---
EXAM DESCRIPTION: CT - Head angio - 07/04/2021 6:58 am CLINICAL HISTORY: 55 years, Female, dizziness COMPARISON: None.. TECHNIQUE: Multiple transaxial tomograms of the neck through the brain were performed after administ ration of a 100 cc of Omnipaque 350 at a rate of 5 cc/s for complete opacification of the carotid art eries and intracranial vessels. Subsequent 3-D multiplanar reformats, volume rendering technique and maximum intensity projection su ges were generated and reviewed. Stenosis measurements were performed according to NASCET criteria. This exam was performed according to our departmental dose-optimization protocol, which includes auto mated exposure control, adjustment of the mA and/or kV according to patient size and/or use of iterat doris reconstruction technique. FINDINGS: Distal portions of the right and left internal carotid artery: Normal opacification is d emonstrated within the distal portions of the right and left internal carotid arteries. There is no s ignificant areas of stenosis and/or occlusion. There is normal opacification within the proximal aspect anterior circulation without evidence of int racranial aneurysm. Intracranial portions of the internal carotid arteries the cavernous sinus portio ns demonstrates no significant stenosis. The anterior cerebral arteries, middle cerebral artery and i ts branches demonstrate normal opacification with no evidence for significant stenosis and/or occlusi on. There is a aneurysm at the level of the M2 origin/bifurcation within the right temporal fossa kristina sured approximately 3.6 x [address] series #416 image 46/[address] series #415 image 51/1 52. There is normal venous drainage with no evidence for significant sinus vein thrombosis. Grossly the brain parenchyma demonstrate normal fitch-white matter differentiation with no evidence fo r mass effect and/or midline shift. There is no evidence for significant abnormal parenchymal enhance ment The skull base and intracranial structures demonstrate to be within normal limits. IMPRESSION: 3.6 x 2.7 mm aneurysm at the level of the right M2 origin/bifurcation. No evidence for significant stenosis and/or occlusion within the major intracranial arteries. Electronically signed by: Jose Nolan MD 07/04/2021 1:20 AM CDT Due to temporary technical issues with the PACS/Fluency reporting system, reports are being signed by the in house radiologists without review as a courtesy to insure prompt reporting. The interpreting radiologist is fully responsible for the content of the report.
--- NOTE | 2021-07-04 14:44 | RAD REPORT ---
EXAM DESCRIPTION: CT - Neck Angio - 07/04/2021 6:59 am CLINICAL HISTORY: The patient is 55 years old and is Female; dizziness TECHNIQUE: Axial computed tomographic angiography images of the neck with intravenous contrast. [facility] CT exam was performed using one or more of the following dose reduction techniques: automated ex posure control, adjustment of the mA and/or kV according to patient size, and/or use of iterative rec onstruction technique. MIP reconstructed images were created and reviewed. COMPARISON: None. FINDINGS: BASILAR ARTERY: No occlusion or significant stenosis. No aneurysm. RIGHT COMMON CAROTID ARTERY: No significant stenosis. No dissection or occlusion. RIGHT EXTRACRANIAL INTERNAL CAROTID ARTERY: No significant stenosis. No dissection or occlusion. Trace calcifications. RIGHT EXTERNAL CAROTID ARTERY: No occlusion. RIGHT EXTRACRANIAL VERTEBRAL ARTERY: No significant stenosis. No dissection or occlusion. LEFT COMMON CAROTID ARTERY: No significant stenosis. No dissection or occlusion. LEFT EXTRACRANIAL INTERNAL CAROTID ARTERY: Less than 50% stenosis of the proximal left ICA due to s oft and calcified plaques. LEFT EXTERNAL CAROTID ARTERY: Unremarkable. No occlusion. LEFT EXTRACRANIAL VERTEBRAL ARTERY: See above. BONES/JOINTS: Multilevel degenerative changes of the cervical spine. Post surgical changes from C4 to C6. No acute fracture. No dislocation. SOFT TISSUES: Unremarkable as visualized. No mass. CAROTID STENOSIS REFERENCE USING NASCET CRITERIA: % ICA stenosis = (1 - narrowest ICA diameter/diameter of distal cervical ICA) x 100. Mild - <50% stenosis. Moderate - 50-69% stenosis. Severe - 70-94% stenosis. Near occlusion - 95-99% stenosis. Occluded - 100% stenosis. IMPRESSION: 1. Less than 50% stenosis of the proximal left ICA. 2. No right-sided flow limiting stenosis. 3. Multilevel degenerative changes of the cervical spine. Post surgical changes from C4 to C6. Electronically signed by: Ben De Los Santos DO 07/04/2021 1:20 AM CDT Due to temporary technical issues with the PACS/Fluency reporting system, reports are being signed by the in house radiologists without review as a courtesy to insure prompt reporting. The interpreting radiologist is fully responsible for the content of the report.
--- NOTE | 2021-07-04 15:19 | RAD REPORT ---
EXAM DESCRIPTION: US - Carotid Artery Bilateral - 07/03/2021 11:11 pm CLINICAL HISTORY: 55 years Female, DIZZINESS TECHNIQUE: Real-time duplex carotid ultrasound examination performed with sagittal and transverse gr ayscale and color Doppler imaging of the bilateral extracranial carotid circulation and vertebral art eries. COMPARISON: None. FINDINGS: Color Doppler and grayscale imaging of the right extracranial carotid circulation demonstr ate mild atherosclerotic plaquing with less than 50% diameter stenosis. Normal Doppler flow veloc ity and waveforms. Normal ICA/CCA ratio of 1.0 . On the left color Doppler and fitch scale imaging demonstrate moderate atherosclerotic plaquing of the internal carotid artery. This is secondary to hard plaque. Doppler analysis indicates a peak sys tolic velocity of 145 cm/s with an internal to common carotid velocity ratio of 1.5. Findings i ndicate 50-69% stenosis. Patent bilateral vertebral arteries, antegrade flow. IMPRESSION: 1. Unilateral 50-69% stenosis of the left internal carotid artery. 2. Less than 50% stenosis of the right internal carotid artery. 3. Consider follow-up CTA neck for more accurate assessment as deemed warranted. The criteria used for the quantification of stenosis are those of the Society of Radiologists and U ltrasound Consensus Conference. Electronically signed by: Oleksandr Angeles MD 07/03/2021 11:01 PM CDT Due to temporary technical issues with the PACS/Fluency reporting system, reports are being signed by the in house radiologists without review as a courtesy to insure prompt reporting. The interpreting radiologist is fully responsible for the content of the report.
== END 2021-07-04 02:10 | disposition home or self-care (01) ==
LOC: ER 20:46
DX: H81.393 Other peripheral vertigo, bilateral (principal); I67.1 Cerebral aneurysm, nonruptured; I65.23 Occlusion and stenosis of bilateral carotid arteries; I10 Essential (primary) hypertension; E11.9 Type 2 diabetes mellitus without complications; Z79.4 Long term (current) use of insulin; Z88.8 Allergy status to other drugs, medicaments and biological substances
CPT/HCPCS: 85025; 80048; 36415; 83735; 85610; 82947 ×3; 80076; 80164; 81003; 84484; 83880; 70450; 70496; 70498; 71045; 93880; Q9967; J1815; J8597; J7030; 96360; 96361; 96372; 99284; J2405

== ENCOUNTER 2021-11-26 00:59 | Emergency (ER) | payer MEDICARE ==
--- OUTSIDE RECORDS SUMMARY | 2021-11-26 01:09 | XMS REPORT | Continuity of Care Document ---
:1965 Author Organization [facility] t Address [address] [place] [address] Care Team Providers Name Role Phone KEDENA CHINCHILLA Primary Care Physician Unavailable Nisha Borden MD Attending Clinician Sydnee Leslie MD Attending Clinician aSnjiv Cabrera MD Attending Clinician Ogbechie_L Attending Clinician Unavailable GAYLORD_S Attending Clinician Unavailable Adalgisa Moore RPH Attending Clinician Unavailable Lupe Holguin Attending Clinician Unavailable NATHANIEL FERRIS Attending Clinician Unavailable Adams_R Attending Clinician Unavailable Marissa Palafox MA Attending Clinician Unavailable Genoveva Rico MA Attending Clinician Unavailable Chidi Lew NP Attending Clinician DEJUAN LEE Attending Clinician Unavailable Marj Mcfadden MA Attending Clinician Unavailable Cecy Vera MA Attending Clinician Unavailable Mylene Rivers MA Attending Clinician Unavailable Luci Plascencia Attending Clinician Marilu Rene Attending Clinician Blake Green MD Attending Clinician DIAMOND OTT Attending Clinician Unavailable Minh Silva MD Attending Clinician Paola Flanagan MD Attending Clinician Doctor Unassigned, [place] Attending Clinician Unavailable Phil Scott Attending Clinician PHIL SILVA Attending Clinician Unavailable Srinivasan Whitney DO Attending Clinician Ronaldo TRUONG, Jordon Attending Clinician Manuel Goodwin MD Attending Clinician Jhon Dorsey Attending Clinician Ogbechie_L Admitting Clinician Unavailable GAYLORD_S Admitting Clinician Unavailable Adams_R Admitting Clinician Unavailable PHIL SILVA Admitting Clinician Unavailable Ronaldo TRUONG, Jordon Admitting Clinician Payers Payer Name Policy Type Policy Number Effective Date Expiration Date S wilbert [employer] DAF5UR 2021 (MEDICARE 00:00:00 REPLACEMENT HMO) PPO/POS - [employer] [id number] OUT OF STATE BS - [id number] PPO - [facility] [employer] HE[employer] DAF5UR Problems Condition Condition Condition Status Onset Resolution Last Treating Co mments Source Name Details Category Date Date Treatment Clinician Date Neuropathy Neuropathy Disease Active 2020-0 M ethodi 08-26 00:00: Hospita 00 l Diabetic Diabetic Disease Active 2020-0 Metho di polyneurop polyneurop 08-26 athy athy 00:00: Hospita associated associated 00 l with type with type 2 diabetes 2 diabetes mellitus mellitus Foot pain, Foot pain, Disease Active 2020-0 M ethodi bilateral bilateral 08-26 00:00: Hospita 00 l Chest pain Chest pain Disease Active 2020-0 U nivers 2-04 ity of 00:00: [place] [id number] Medical Branch Obesity Obesity Disease Active 2020-0 Univers (BMI (BMI 2-04 ity of 30-39.9) 30-39.9) 00:00: [place] [address] Medical Branch Hypertensi Hypertensi Disease Active 2020-0 U nivers ve urgency ve urgency 2-04 it y of 00:00: [address] Branch Spondyloli Spondyloli Disease Active 2018-0 M ethodi sthesis of sthesis of 8-13 st cervical cervical 00:00: Hospit a region region 00 l Impingemen Impingemen Disease Active 2018-0 M ethodi t syndrome t syndrome 8-13 st of left of left 00:00: Hospita shoulder shoulder 00 l Chronic Chronic Disease Active Methodi left left 8-13 st shoulder shoulder 00:00: Hospit a pain pain 00 l 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 813 st s with s with 00:00: Hospita radiculopa radiculopa 00 l thy thy S/P S/P Disease Active Methodi cervical cervical 914 st spinal spinal 00:00: Hospita fusion fusion 00 l Hoarseness Hoarseness Disease Active M ethodi 09-03 st 00:00: Hospita 00 l Chest pain Chest pain Disease Active M ethodi 09-03 st 00:00: Hospita 00 l Palpitatio Palpitatio Disease Active M ethodi n n 09-03 00:00: Hospita 00 l Arrhythmia Arrhythmia Disease Active M ethodi 09-03 00:00: Hospita 00 l Urgency of Urgency of Disease Active M ethodi urination urination 09-03 00:00: Hospita 00 l Nocturia Nocturia Disease Active Metho di 09-03 00:00: Hospita 00 l Postoperat Postoperat Disease Active Overview : Methodi doris visit doris visit 09-03 Formattin s t 00:00: g of this Hospita 00 note l might be different from the original. 6 wks post op -DOS-06/28- ACDF C45-C56, doing good, occasiona l numbness to back of neck, improved. 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 09-03 st s s 00:00: Hospita 00 l Diabetes Diabetes Disease Active Overview: Un josh mellitus mellitus 5-18 ICD10 ity of type 2, type 2, 00:00: Diagnosis [place] uncontroll uncontroll 00 Term Me dical ed, ed, [employer] Branch without without Utility complicati complicati ons ons Diabetes Diabetes Disease Active Overview: Un josh mellitus mellitus 5-18 ICD10 ity of type 2, type 2, 00:00: Diagnosis [place] uncontroll uncontroll 00 Term Me dical ed, ed, [employer] Branch without without Utility complicati complicati ons ons Allergies, Adverse Reactions, Alerts Allergy Allergy Status Severity Reaction(s) Onset Inactive Treating Comm ents Source Name Type Date Date Clinician Atorvast Propensi Active Other (See 2018-03 Tn thodi atin ty to Comments) adverse 00:00: Hospita reaction 00 l s to drug Diphenhy Propensi Active Other (See 2018-03 Tn thodi dramine ty to Comments) adverse 00:00: Hospita reaction 00 l s to drug Cycloben Propensi Active Unknown - Spaced Uni vers zaprine ty to See comments 09-03 out ity of adverse 00:00: [place] reaction 00 Medical s Branch Duloxeti Propensi Active Unknown - Can not Un josh ne ty to See comments 09-03 function it y of adverse 00:00: [place] reaction 00 Medical s Branch CYCLOBEN DRUG Active Unknown-Cmnt Un josh ZAPRINE INGREDI 09-03 ity of 00:00: [place] 00 Medical Branch DULOXETI DRUG Active Unknown-Cmnt Un josh NE INGREDI 09-03 ity of 00:00: [place] 00 Medical Branch GABAPENT DRUG Active Unknown-Cmnt Un josh IN INGREDI 09-03 ity of 00:00: [place] 00 Medical Branch Gabapent Propensi Active Unknown - Angina Uni vers in ty to See comments 09-03 attacks, it y of adverse 00:00: eyes [place] reaction 00 crossed, Medica l s tripping Branch over my feet Cycloben Propensi Active Other (See Spaced Me thodi zaprine ty to Comments) 09-[address] adverse 00:00: outSpaced Hospit a reaction 00 outSpaced l s to out drug Duloxeti Propensi Active Can not Metho di ne ty to 09-[address] adverse 00:00: Hospita reaction 00 l s to drug Gabapent Propensi Active Angina Method i in ty to 09-03 attacks, st adverse 00:00: eyes Hospita reaction 00 crossed, l s to tripping drug over my feet Benadryl Propensi Active Palpitations Univers Allergy ty to 04-10 ity of Deconges adverse 00:00: [place] tant reaction 00 Medical s Branch BENADRYL DRUG Active Palpitations Un josh ALLERGY 04-10 ity of DECONGES 00:00: [place] TANT 00 Medical Branch Benadryl Propensi Active Palpitations Methodi Allergy ty to 04-10 st Deconges adverse 00:00: Hospita tant reaction 00 l s to drug Family History Family Member Diagnosis Comments Start Date Stop Date Source Natural father Cancer [facility] Natural father Diabetes [facility] Natural father Hyperlipidemia Method ist [facility] M[facility] mother Blood Clots [facility] Natural mother Cancer [facility] Natural mother Crohn's disease [facility] Natural mother Heart disease Methodi [facility] Natural mother Hypertension [facility] Paternal aunt Cancer [facility]ital Paternal grandmother Cancer [facility] Paternal grandmother Diabetes [facility] Social History Social Habit Start Date Stop Date Quantity Comments Source Sex Assigned At [facility] Tobacco use and 2021-10-23 2021-10-23 Smokeless tobacco Me thodist exposure 00:00:00 00:00:00 non-user Hospital Alcohol intake 2021-10-23 2021-10-23 Current drinker Metho dist 00:00:00 00:00:00 of [facility] (finding) Alcohol Comment 2019-08-27 2019-08-27 occl Alevism 00:00:00 00:00:00 Hospital History [facility] 2019-04-13 2019-04-13 21 University o f Education 00:00:00 00:00:00 [facility] History SDOH 2019-04-13 2019-04-13 3 University o f Financial 00:00:00 00:00:00 [facility] History [facility] Food 2019-04-13 2019-04-13 2 Univers ity of Worry 00:00:00 00:00:00 [facility] History [facility] Food 2019-04-13 2019-04-13 2 Univers ity of Scarcity 00:00:00 00:00:00 [place] [facility] History SDOH 2019-04-13 2019-04-13 2 University o f Transport Med 00:00:00 00:00:00 [place] [facility] History SDOH 2019-04-13 2019-04-13 2 University o f Transport Non-Med 00:00:00 00:00:00 [facility] edical Branch Smoking Status Start Date Stop Date Source Never smoked tobacco [facility] Medications Ordered Filled Start Stop Current Ordering Indication Dosage Frequency Signature Comments Components Source Medication Medication Date Date Medication? Clinician (SIG) Name Name divalproex Yes TAKE 1 Metho di (DEPAKOTE) 9-[address] 125 MG EC 00:00: MOUTH Hospita tablet 00 EVERY DAY l AT NIGHT (TOTAL OF 375 MG) nitrofurant No 100mg Q.5D Take 1 Me thodi oin, 10-29 08-[address] macrocrysta 00:00: 04:59 (100 mg Ho spita l-monohydra 00 :00 total) by l te, mouth 2 (Macrobid) (two) 100 MG times a capsule day for 7 days. insulin Yes [id number] 40U QD Inject 0.2 Methodi degludec 8-19 mL (40 st (Tresiba 00:00: Units Hospita FlexTouch 00 total) l U-200) 200 under the unit/mL (3 skin mL) daily. subcutaneou s pen semaglutide Yes .5mg Q1W Inject Meth cris (Ozempic) 8-[address] 0.25 00:00: (0.5 mg Hospita mg/dose (2 00 total) l mg/1.5 mL) under the subcutaneou skin every s pen 7 days. pravastatin Yes TAKE 1 Meth cris (PRAVACHOL) 8-[address] 40 mg 00:00: MOUTH 1 Hospita tablet 00 TIME EACH l DAY. aspirin Yes 81mg QD Take 81 mg Meth cris (ECOTRIN) 8-[address] 81 MG 14:10: daily. Hospita enteric 49 l coated tablet furosemide Yes 20mg QD Take 20 mg M ethodi (LASIX) [address] mg tablet 14:10: daily. Hospit a 49 l lidocaine Yes 1{patch Q24H Place 1 Me thodi (LIDODERM) 16 } patch on st 5 % 14:10: the skin Hospita 49 daily. l Remove & Discard patch within 12 hours or as directed by MAGNESIUM Yes Q.5D Take by Metho di CARBONATE -[address] ORAL 14:10: (two) Hospita 49 times a l day. potassium Yes Q.5D Take by Metho di 99 mg [address] tablet 14:10: (two) Hospita 49 times a l day. cholecalcif Yes Take by Met emery gaytan, 8-[address] vitamin D3, 14:10: Hospit a (VITAMIN D3 49 l ORAL) ondansetron Yes 4mg Q12H Take 1 Meth cris (ZOFRAN) 4 16 tablet (4 st MG tablet 00:00: mg total) Hos yasmin 00 by mouth l every 12 (twelve) hours as needed for nausea or vomiting. meclizine 2022- Yes 25mg Q8H Take 1 Metho di (ANTIVERT) 10-2317 tablet (25 st 25 mg 00:00: 04:59 mg total) Hospit a tablet 00 :00 by mouth l every 8 (eight) hours as needed for dizziness. semaglutide 2021- No .5mg Q1W Inject Met land (Ozempic) 10-[address] 0.25 mg or 00:00: 00:00 (0.5 mg Hos yasmin 0.5 mg(2 00 :00 total) l mg/1.5 mL) under the subcutaneou skin every s pen 7 days. insulin 2021- No [id number] 40U QD Inject 0.2 Methodi degludec 10-23 mL (40 st (Tresiba 00:00: 00:00 Units Hospita FlexTouch 00 :00 total) l U-200) 200 under the unit/mL (3 skin mL) daily. subcutaneou s pen traMADoL 2021- No TAKE 1 Method i (ULTRAM) 50 8-05 09-[address] mg tablet 00:00: 04:59 MOUTH Hospit a 00 :00 TWICE A l DAY celecoxib Yes TAKE 1 Method i (CeleBREX) 7-[address] 200 MG 00:00: MOUTH 2 Hospita capsule 00 (TWO) l TIMES A DAY NEEDED FOR MODERATE PAIN FOR UP TO 30 DAYS. traMADoL 2021- No TAKE 1 Method i (ULTRAM) 50 7-05 08-[address] mg tablet 00:00: 00:00 MOUTH Hospit a 00 :00 TWICE A l DAY divalproex Yes 250mg QD Take 1 Meth cris (Depakote) 6-[address] 250 MG EC 00:00: (250 mg Hospi ta tablet 00 total) by l mouth nightly. celecoxib 2021- No 200mg Q.5D Take 1 Meth cris (CeleBREX) 6 07-[address] 200 MG 00:00: 04:59 (200 mg Hospita capsule 00 :00 total) by l mouth 2 (two) times a day as needed for moderate pain for up to 30 days. divalproex 2021- No TAKE 1 Meth cris (DEPAKOTE) 5- 09-[address] 125 MG EC 00:00: 00:00 MOUTH Hospit a tablet 00 :00 EVERY DAY l AT NIGHT (TOTAL OF 375 MG) traMADoL 2021- No TAKE 1 Method i (ULTRAM) 50 5-25 07-[address] mg tablet 00:00: 00:00 MOUTH Hospit a 00 :00 TWICE A l DAY cyanocobala 2021- No [id number] 1000ug Methodi min 5-16 05-16 st injection 19:30: 19:50 Hospita 1,000 mcg 00 :00 l losartan 2021- No 12.5mg QD Take 12.5 M ethodi potassium 5-16 05-[address] (LOSARTAN 14:01: 00:00 mouth Hospit a ORAL) 14 :00 nightly. l PRN insulin 2021- No [id number] 40U QD Inject 0.2 Methodi degludec 5-16 08- mL (40 st (Tresiba 00:00: 00:00 Units Hospita FlexTouch 00 :00 total) l U-200) 200 under the unit/mL (3 skin mL) daily. subcutaneou s pen semaglutide 2021- No .5mg Q1W Inject Met hodi (Ozempic) 07-[address] 0.25 mg or 00:00: 00:00 (0.5 mg Hos yasmin 0.5 mg(2 00 :00 total) l mg/1.5 mL) under the subcutaneou skin every s pen 7 days. amLODIPine Yes 5mg QD Take 5 mg Me thodi (NORVASC) 5 -[address] mg tablet 00:00: daily. Hospit a 00 l clopidogreL Yes 75mg QD Take 75 mg Methodi (PLAVIX) 75 -[address] mg tablet 00:00: daily. Hospit a 00 l meclizine 2021- No 25mg Q8H Take 25 mg M ethodi (ANTIVERT) -28 10-[address] 25 mg 00:00: 00:00 every 8 Hospita tablet 00 :00 (eight) l hours as needed. ondansetron 2021- No 4mg Q12H Take 4 mg Methodi (ZOFRAN) 4 -[address] MG tablet 00:00: 00:00 every 12 Hos yasmin 00 :00 (twelve) l hours as needed. traMADoL 2021- No TAKE 1 Method i (ULTRAM) 50 4-04 05-[address] mg tablet 00:00: 00:00 MOUTH Hospit a 00 :00 TWICE A l DAY celecoxib 2021- No TAKE 1 Metho di (CeleBREX) 3-08 06-[address] 200 MG 00:00: 00:00 MOUTH Hospita capsule 00 :00 TWICE A l DAY NEEDED FOR MODERATE PAIN pravastatin 2021- No TAKE 1 Met hodi (PRAVACHOL) 2-20 08-19 TABLET (40 s t 40 mg 00:00: 00:00 MG TOTAL) Hospit a tablet 00 :00 BY MOUTH 1 l (ONE) TIME EACH DAY semaglutide 2021- No .25mg Q1W Inject Me thodi (Ozempic) 04-23-[address] 0.25 mg or 11:08: 00:00 under the H ospita 0.5 mg(2 47 :00 skin every l mg/1.5 mL) 7 days. subcutaneou s pen semaglutide 2021- No .5mg Q1W Inject Met hodi (Ozempic) 04-23 05-[address] 0.25 mg or 00:00: 00:00 (0.5 mg Hos yasmin 0.5 mg(2 00 :00 total) l mg/1.5 mL) under the subcutaneou skin every s pen 7 days. varicella-z 2021- No [id number] .5mL Inject 0.5 Methodi narcisa 04-23 02-[address] [id number], 00:00: 05:59 the Hospita PF, 00 :00 shoulder, l (SHINGRIX) thigh, or 50 mcg/0.5 buttocks mL once for 1 suspension dose. for reconstitut ion IM injection FreeStyle Yes Methodi David 14 2- st Day Sensor 00:00: Hospita kit 00 l BD Yes Methodi Ultra-Fine -17 st Dalila Pen 00:00: Hospita Needle 32 00 l gauge x 5/32" needle FreeStyle Yes Methodi David 14 1-17 st Day [place] 00:00: Hospita misc 00 l traMADoL 2020-03- No [id number] TAKE 1 Me thodi (ULTRAM) 50 2-29 03-29 TABLET(50 st mg tablet 00:00: 04:59 MG) BY Hospi ta 00 :00 MOUTH l TWICE DAILY FOR CHRONIC PAIN celecoxib 2020-03- No [id number] TAKE 1 Methodi (CeleBREX) 0-06 02-07 CAPSULE(20 st 200 MG 00:00: 05:59 0 MG) BY Hospit a capsule 00 :00 MOUTH l TWICE DAILY NEEDED FOR MODERATE PAIN traMADoL 2020- [place] [id number] 50mg Q.5D Take 1 Metho di (ULTRAM) 50 9-29 12-29 tablet (50 s t mg tablet 00:00: 00:00 mg total) Ho spita 00 :00 by mouth 2 l (two) times a day for 180 days .chronic pain. insulin 30U Inject 30 Meth cris degludec 11-[address] (Tresiba 00:00: 00:00 under the Hos yasmin FlexTouch 00 :00 skin. l U-200) 200 unit/mL (3 mL) [place] [id number] 50mg Q.5D Take 1 Metho di (ULTRAM) 50 10-25 tablet (50 s t mg tablet 00:00: 00:00 mg total) Ho spita 00 :00 by mouth 2 l (two) times a day for 180 days .chronic pain. celecoxib 2020- No TAKE 1 Methodi (CeleBREX) 10-19 CAPSULE(20 st 200 MG 00:00: 00:00 0 MG) BY Hospit a capsule 00 :00 MOUTH l TWICE DAILY NEEDED FOR MODERATE PAIN insulin 2021- No 30U QD 30 Units Metho di degludec 09-24 05-[address] (TRESIBA) 00:00: 00:00 Hospita 100 unit/mL 00 :00 l vial divalproex 2021- No TAKE 1 Meth cris (DEPAKOTE) 08-28 05-[address] 125 MG EC 00:00: 00:00 BEDTIME Hosp aron tablet 00 :00 ALONG WITH l A 250 MG TABLET FOR A TOTAL OF 375 MG. pravastatin 2019-03- No TAKE 1 Met hodi (PRAVACHOL) 0-21 02-20 TABLET (40 s t 40 mg 00:00: 00:00 MG TOTAL) Hospit a tablet 00 :00 BY MOUTH 1 l (ONE) TIME EACH DAY bisoproloL- 2019-03 Yes 1{tbl} QD Take 1 Me thodi hydrochloro 0-[address] thiazide 00:00: mouth Hospita (ZIAC) 00 daily. l 5-6.25 mg per tablet prednisoLON 2021- No Using once Methodi E acetate 11-16 05-[address] (PRED 00:00: 00:00 Hospita FORTE) 1 % 00 :00 l ophthalmic suspension divalproex 2021- No 250mg QD Take 1 Met hodi (Depakote) 10-[address] 250 MG EC 00:00: 00:00 (250 mg Hosp aron tablet 00 :00 total) by l mouth nightly. cefadroxil 2019- No [id number] 1000mg Take 1 Univers 1 gram 04-18 02-20 tablet by ity of tablet 00:00: 05:59 [...] daily. [place] tablet 47 Medical Branch HYDROcodone Yes 1{tbl} Take 1 Un josh -acetaminop 2-05 tablet by ity of hen (NORCO) 02:37: mouth [place] 10-325 mg 47 every 6 Medical tablet (six) Branch hours as needed. losartan Yes Take by [facility] s potassium 2-05 mouth. ity of (LOSARTAN 02:37: [place] ORAL) 47 Medical Branch cyanocobala 0 Yes Inject as U nivers min/thiamin 2-05 directed. ity of e (NEURO 02:37: [place] B-12 47 Medical INJECTION) Branch Vitamin B Yes [facility] Complex 2-05 mouth. ity of No.12-Niaci 02:37: [place] n 50 mg/15 47 Medical mL Liqd Branch zolpidem Yes 10mg Take 10 mg [...] -acetaminop 2-05 tablet by ity of hen (YangarooCO) 02:37: mouth [place] 10-325 mg 47 every 6 Medical tablet (six) Branch hours as needed. losartan 2020-0 Yes Take by Univer s potassium 2-05 mouth. ity of (LOSARTAN 02:37: [place] ORAL) 47 Medical Branch cyanocobala 2020-0 Yes Inject as U nivers min/thiamin 2-05 directed. ity of e (NEURO 02:37: [place] B-12 47 Medical INJECTION) Branch Vitamin B 2019-0 Yes Take by Unive rs Complex 2-05 mouth. ity of No.12-Niaci 02:37: [...] daily. [place] tablet 47 Medical Branch HYDROcodone 2019-0 Yes 1{tbl} Take 1 Un josh -acetaminop 2-05 tablet by ity of hen (NORCO) 02:37: mouth [place] 10-325 mg 47 every 6 Medical tablet (six) Branch hours as needed. losartan 2020-0 Yes Take by [employer] s potassium 2-05 mouth. ity of (LOSARTAN 02:37: [place] ORAL) 47 Medical Branch cyanocobala 2019-0 Yes Inject as U nivers min/thiamin 2-05 directed. ity of e (NEURO 02:37: [place] B-12 47 Medical INJECTION) Branch Vitamin B 2020-0 Yes Take by Unive rs Complex 2-05 mouth. ity of No.12-Niaci 02:37: [...] as needed. losartan 2020-0 Yes Take by Univer s potassium 2-05 mouth. ity of (LOSARTAN 02:37: [place] ORAL) 47 Medical Branch cyanocobala 2019-0 Yes Inject as U nivers min/thiamin 2-05 directed. ity of e (NEURO 02:37: [place] B-12 47 Medical INJECTION) Branch Vitamin B 2019-0 Yes Take by Unive rs Complex 2-05 mouth. ity of No.12-Niaci 02:37: [...] as needed. losartan 2020-0 Yes Take by Univer s potassium 2-05 mouth. ity of (LOSARTAN 02:37: [place] ORAL) 47 Medical Branch cyanocobala 2019-0 Yes Inject as U nivers min/thiamin 2-05 directed. ity of e (NEURO 02:37: [place] B-12 47 Medical INJECTION) Branch Vitamin B 2019-0 Yes Take by Unive rs Complex 2-05 mouth. ity of No.12-Niaci 02:37: [...] as needed. losartan 2020-0 Yes Take by Univer s potassium 2-05 mouth. ity of (LOSARTAN 02:37: [place] ORAL) 47 Medical Branch cyanocobala 2020-0 Yes Inject as U nivers min/thiamin 2-05 directed. ity of e (NEURO 02:37: [place] B-12 47 Medical INJECTION) Branch Vitamin B 2020-0 Yes Take by Unive rs Complex 2-05 mouth. ity of No.12-Niaci 02:37: [...] as needed. losartan 2020-0 Yes Take by Univer s potassium 2-05 mouth. ity of (LOSARTAN 02:37: [place] ORAL) 47 Medical Branch cyanocobala 2020-0 Yes Inject as U nivers min/thiamin 2-05 directed. ity of e (NEURO 02:37: [place] B-12 47 Medical INJECTION) Branch Vitamin B 2020-0 Yes Take by Unive rs Complex 2-05 mouth. ity of No.12-Niaci 02:37: [...] daily. [place] tablet 47 Medical Branch HYDROcodone 2019-0 Yes 1{tbl} Take 1 Un josh -acetaminop 2-05 tablet by ity of hen (NORCO) 02:37: mouth [place] 10-325 mg 47 every 6 Medical tablet (six) Branch hours as needed. losartan 0 Yes Take by [facility] s potassium 2-05 mouth. ity of (LOSARTAN 02:37: [place] ORAL) 47 Medical Branch cyanocobala 0 Yes Inject as U nivers min/thiamin 2-05 directed. ity of e (NEURO 02:37: [place] B-12 47 Medical INJECTION) Branch Vitamin B 0 Yes Take by [facility] Complex 2-05 mouth. ity of No.12-Niaci 02:37: [place] n 50 mg/15 47 Medical mL Liqd Branch amLODIPine 2020- No [id number] 5mg Take 2 Univers 2.5 mg 2-05 03-07 tablets by ity of tablet 00:00: 05:59 mouth [place] 00 :00 daily for Medical 30 days. Branch SITagliptin 2019-0 2020- No [id number] 100mg Take 1 Univers 100 mg 2-05 03-07 tablet by ity of tablet 00:00: 05:59 mouth [place] 00 :00 daily for Medical 30 days. Branch amLODIPine 2019-0 2020- No [id number] 5mg Take 2 Univers 2.5 mg 2-05 03-07 tablets by ity of tablet 00:00: 05:59 mouth [place] 00 :00 daily for Medical 30 days. Branch SITagliptin 2020-0 2020- No [id number] 100mg Take 1 Univers 100 mg 2-05 03-07 tablet by ity of tablet 00:00: 05:59 mouth [place] 00 :00 daily for Medical 30 days. Branch amLODIPine 2020-0 2020- No [id number] 5mg Take 2 Univers 2.5 mg 2-05 03-07 tablets by ity of tablet 00:00: 05:59 mouth [place] 00 :00 daily for Medical 30 days. Branch SITagliptin 2020-0 2020- No [id number] 100mg Take 1 Univers 100 mg 2-05 03-07 tablet by ity of tablet 00:00: 05:59 mouth [place] 00 :00 daily for Medical 30 days. Branch amLODIPine 2019-0 2020- No [id number] 5mg Take 2 Univers 2.5 mg 04-14- tablets by ity of tablet 00:00: 05:59 mouth [place] 00 :00 daily for Medical 30 days. Branch SITagliptin 2020-0 2020- No [id number] 100mg Take 1 Univers 100 mg 04-14-07 tablet by ity of tablet 00:00: 05:59 mouth [place] 00 :00 daily for Medical 30 days. Branch ibuprofen 2020-0 Yes 600mg 600 mg, Univ ers (IBU) 2-04 Oral, ity of tablet 600 22:27: Q8HPRN, [place] mg 29 Starting Medical [facility] 04/13/19 Branch at 1627, Until Discontinu ed, Routine, headaches losartan 2020-0 Yes 100mg 100 mg, Unive rs (COZAAR) 2-04 Oral, ity of tablet 100 15:00: DAILY, [place] mg 00 First dose [facility] 04/13/19 at 0900, Until Discontinu ed, Routine amLODIPine 2020-0 Yes 5mg 5 mg, Univer s (NORVASC) 2-04 Oral, ity of tablet 5 mg 15:00: DAILY, [place] 00 [place] [facility] 04/13/19 at 0900, Until Discontinu ed, Routine aspirin 2020-0 Yes 81mg 81 mg, Univers chewable 2-04 Oral, ity of tablet 81 15:00: DAILY, [place] mg 00 First dose Medical on [facility] 04/13/19 at 0900, Until Discontinu ed, Routine metoprolol 2020-0 Yes 100mg 100 mg, Uni vers tartrate 2-04 Oral, BID, ity o f (LOPRESSOR) 14:00: First dose [place] tablet 100 00 on [facility] mg 04/13/19 at Branch 0800, Until Discontinu ed, Routine docusate 2020-0 Yes 100mg 100 mg, Unive rs (COLACE) 2-04 Oral, BID, ity o f capsule 100 14:00: First dose [place] mg 00 on [facility] 04/13/19 at Branch 0800, Until Discontinu ed, Routine SITagliptin 2020-0 Yes 100mg 100 mg, Un josh (JANUVIA) 2-04 Oral, ity of tablet 100 13:45: DAILY, [place] mg 00 First dose Medical on [facility] 04/13/19 at 0745, Until Discontinu ed, Routine glipiZIDE 2020-0 Yes 10mg 10 mg, Univer s (GLUCOTROL) 2-04 Oral, ity of tablet 10 13:45: BIDAC, [place] mg 00 First dose Medical on Fri Branch 04/13/19 at 0745, Until Discontinu ed, Routine furosemide 2020-0 Yes 20mg 20 mg, Unive rs (LASIX) 2-04 Slow IV ity of injection 13:45: Push, [place] 20 mg 00 QAM+PM, Medical First dose Branch on Fri04/13/19 at 0745, Until Discontinu ed, Routine Sliding 2020-0 Yes Subcutaneo Univ ers Scale 2-04 us, Q4H, ity of Insulin - 11:15: [place] Aspart 00 on Fri (NOVOLOG) + 04/13/19 at [facility] 0515, Testing Until Discontinu ed, Routine ondansetron 2020-0 Yes 4mg 4 mg, Slow Univers (ZOFRAN 2-04 IV Push, ity of (PF)) 11:13: Q6HPRN, [place] injection 4 01 Starting Medi rcoio mg Fri04/13/19 Branch at 0513, Until Discontinu ed, Routine, Nausea and Vomiting (N/V) glucagon 2020-0 Yes 1mg 1 mg, Univers (GLUCAGEN 2-04 Intramuscu ity of DIAGNOSTIC 11:11: [place], PRN, [place] KIT) 56 Starting Medical injection 1 Fri04/13/19 Br anch mg at 0511, Until Discontinu ed, DAXA, Blood Glucose < or = 70 mg/dL and patient is unable to swallow or has mental changes. dextrose 50 2020-0 Yes 25mL 25 mL, Univ ers % in water 2-04 Slow IV ity of (D50W) 11:11: Push, PRN, [place] injection 56 Starting Medica l 25 mL Fri04/13/19 Branch at 0511, Until Discontinu ed, DAXA, Blood Glucose < or = 70 mg/dL and patient is unable to swallow or has mental status changes. insulin 2020-0 2020- No 10U 10 Units, Univ ers regular 2-04 02-04 Subcutaneo ity o f human 10:30: 09:27 , ONCE, [place] (HUMULIN R) 00 :00 1 dose, Medic al injection 04/13/19 Bran ch 10 Units at 0430, Routine glipiZIDE 2019- 2020- No [id number] 10mg Take 1 U nivers 10 mg 2-04 03-06 tablet by ity of tablet 00:00: 05:59 mouth 3 [place] 00 :00 (three) Medical times Branch daily before meals for 30 days. metFORMIN 2019- 2020- No [id number] 1000mg Take 1 Univers 1,000 mg 2-04 03-06 tablet by ity o f tablet 00:00: 05:59 mouth 2 [place] 00 :00 (two) Medical times Branch daily with meals for 30 days. glipiZIDE 2019- 2020- No [id number] 10mg Take 1 U nivers 10 mg 2-04 03-06 tablet by ity of tablet 00:00: 05:59 mouth 3 [place] 00 :00 (three) Medical times Branch daily before meals for 30 days. metFORMIN 2019- 2020- No [id number] 1000mg Take 1 Univers 1,000 mg 2-04 03-06 tablet by ity o f tablet 00:00: 05:59 mouth 2 [place] 00 :00 (two) Medical times Branch daily with meals for 30 days. glipiZIDE 2019- 2020- No [id number] 10mg Take 1 U nivers 10 mg 2-04 03-06 tablet by ity of tablet 00:00: 05:59 mouth 3 [place] 00 :00 (three) Medical times Branch daily before meals for 30 days. metFORMIN 2019- 2020- No [id number] 1000mg Take 1 Univers 1,000 mg 2-04 03-06 tablet by ity o f tablet 00:00: 05:59 mouth 2 [place] 00 :00 (two) Medical times Branch daily with meals for 30 days. glipiZIDE 2019- 2020- No [id number] 10mg Take 1 U nivers 10 mg 2-04 03-06 tablet by ity of tablet 00:00: 05:59 mouth 3 [place] 00 :00 (three) Medical times Branch daily before meals for 30 days. metFORMIN 2019- 2020- No [id number] 1000mg Take 1 Univers 1,000 mg 2-04 03-06 tablet by ity o f tablet 00:00: 05:59 mouth 2 [place] 00 :00 (two) Medical times Branch daily with meals for 30 days. atorvasta 2019-0 Yes [id number] 40mg Take 1 Univers n 40 mg 7-12 tablet by ity of tablet 00:00: mouth at [place] [address] bedtime. [facility] Branch atorvasta 2019-0 Yes [id number] 40mg Take 1 Univers n 40 mg 7-12 tablet by ity of tablet 00:00: mouth at [place] bedtime. [facility] Branch atorvasta 2019-0 Yes [id number] 40mg Take 1 Univers n 40 mg 7-12 tablet by ity of tablet 00:00: mouth at [place] bedtime. [facility] Branch atorvasta 2019-0 Yes [id number] 40mg Take 1 Univers n 40 mg 7-12 tablet by ity of tablet 00:00: mouth at [place] bedtime. [facility] Branch atorvasta 2018-0 Yes [id number] 40mg Take 1 Univers n 40 mg 7-12 tablet by ity of tablet 00:00: mouth at [place] bedtime. [facility] Branch atorvasta 2018-0 Yes [id number] 40mg Take 1 Univers n 40 mg 7-12 tablet by ity of tablet 00:00: mouth at [place] bedtime. [facility] Branch atorvasta 2018-0 Yes [id number] 40mg Take 1 Univers n 40 mg 7-12 tablet by ity of tablet 00:00: mouth at [place] bedtime. [facility] Branch atorvasta 2018-0 Yes [id number] 40mg Take 1 Univers n 40 mg 7-12 tablet by ity of tablet 00:00: mouth at [place] [address] bedtime. [facility] Branch atorvastati 2019-0 Yes [id number] 40mg Take 1 Univers n 40 mg 7-12 tablet by ity of tablet 00:00: mouth at [place] [address] bedtime. [facility] Branch atorvastati 2019-0 Yes [id number] 40mg Take 1 Univers n 40 mg 7-12 tablet by ity of tablet 00:00: mouth at [place] [address] bedtime. [facility] Branch atorvastati 2019-0 Yes [id number] 40mg Take 1 Univers n 40 mg 7-12 tablet by ity of tablet 00:00: mouth at [place] [address] bedtime. [facility] Branch atorvasta 2019-0 Yes [id number] 40mg Take 1 Univers n 40 mg 7-12 tablet by ity of tablet 00:00: mouth at [place] 00 bedtime. Medical Branch atorvastati Yes [id number] 40mg Take 1 Univers n 40 mg 7-12 tablet by ity of tablet 00:00: mouth at [place] 00 bedtime. Medical Branch atorvastati Yes [id number] 40mg Take 1 Univers n 40 mg 7-12 tablet by ity of tablet 00:00: mouth at [place] 00 bedtime. Medical Branch atorvastati Yes [id number] 40mg Take 1 Univers n 40 mg 7-12 tablet by ity of tablet 00:00: mouth at [place] 00 bedtime. Medical Branch atorvastati Yes [id number] 40mg Take 1 Univers n 40 mg 7-12 tablet by ity of tablet 00:00: mouth at [place] 00 bedtime. Medical Branch cyanocobala Yes Inject as U nivers min/thiamin 6-28 directed. ity of e (NEURO 17:40: [place] B-12 55 Medical INJECTION) Branch Vitamin B Yes Take by Unive rs Complex 6-28 mouth. ity of No.12-Niaci 17:40: [place] n 50 mg/15 55 Medical mL Liqd Branch cyanocobala Yes Inject as U nivers min/thiamin 6-28 directed. ity of e (NEURO 17:40: [place] B-12 55 Medical INJECTION) Branch Vitamin B Yes Take by Unive rs Complex 6-28 mouth. ity of No.12-Niaci 17:40: [place] n 50 mg/15 55 Medical mL Liqd Branch cyanocobala Yes Inject as U nivers min/thiamin 6-28 directed. ity of e (NEURO 17:40: [place] B-12 55 Medical INJECTION) Branch Vitamin B Yes Take by Unive rs Complex 6-28 mouth. ity of No.12-Niaci 17:40: [place] n 50 mg/15 55 Medical mL Liqd Branch cyanocobala Yes Inject as U nivers min/thiamin 6-28 directed. ity of e (NEURO 17:40: [place] B-12 55 Medical INJECTION) Branch Vitamin B Yes Take by Unive rs Complex 6-28 mouth. ity of No.12-Niaci 17:40: [place] n 50 mg/15 55 Medical mL Liqd Branch cyanocobala Yes Inject as U nivers min/thiamin 6-28 directed. ity of e (NEURO 17:40: [place] B-12 55 Medical INJECTION) Branch Vitamin B Yes Take by Unive rs Complex 6-28 mouth. ity of No.12-Niaci 17:40: [place] n 50 mg/15 55 Medical mL Liqd Branch cyanocobala Yes Inject as U nivers min/thiamin 6-28 directed. ity of e (NEURO 17:40: [place] B-12 55 Medical INJECTION) Branch Vitamin B Yes Take by Unive rs Complex 6-28 mouth. ity of No.12-Niaci 17:40: [place] n 50 mg/15 55 Medical mL Liqd Branch cyanocobala Yes Inject as U nivers min/thiamin 6-28 directed. ity of e (NEURO 17:40: [place] B- 55 Medical INJECTION) Branch Vitamin B Yes Take by Unive rs Complex 6-28 mouth. ity of No.12-Niaci 17:40: [place] n 50 mg/15 55 Medical mL Liqd Branch cyanocobala Yes Inject as U nivers min/thiamin 6-28 directed. ity of e (NEURO 17:40: [place] B-12 55 Medical INJECTION) Branch Vitamin B Yes Take by Unive rs Complex 6-28 mouth. ity of No.12-Niaci 17:40: [place] n 50 mg/15 55 Medical mL Liqd Branch losartan Yes Take by Univer s potassium 6-28 mouth. ity of (LOSARTAN 17:39: [place] ORAL) 20 Medical Branch losartan Yes Take by Univer s potassium 6-28 mouth. ity of (LOSARTAN 17:39: [place] ORAL) 20 Medical Branch losartan Yes Take by Univer s potassium 6-28 mouth. ity of (LOSARTAN 17:39: [place] ORAL) 20 Medical Branch losartan Yes Take by Univer s potassium 6-28 mouth. ity of (LOSARTAN 17:39: [place] ORAL) 20 Medical Branch losartan Yes Take by Univer s potassium 6-28 mouth. ity of (LOSARTAN 17:39: [place] ORAL) 20 Medical Branch losartan 2019-0 Yes Take by Univer s potassium 6-28 mouth. ity of (LOSARTAN 17:39: [place] ORAL) 20 Medical Branch losartan 2018-0 Yes Take by Univer s potassium 6-28 mouth. ity of (LOSARTAN 17:39: [place] ORAL) 20 Medical Branch losartan 2018-0 Yes Take by Univer s potassium 6-28 mouth. ity of (LOSARTAN 17:39: [place] ORAL) 20 Medical Branch sub-q Yes [id number] Use 1 V-go U nivers insulin 6-28 daily. Use ity of device, 20 00:00: 2 clicks 5 [place] unit (V-GO 00 minutes Medica l 20) [place] before Branch each meal. insulin Yes [id number] Use up to Univers aspart 6-28 40 units ity of RAPID 00:00: daily [place] (NOVOLOG 00 through Medical U-100 V-go Branch INSULIN insulin ASPART) 100 pump unit/mL injection Insulin Yes [id number] Use One Un josh Syringe-Nee 6-28 syringe ity o f dle U-100 00:00: Daily [place] (INSULIN 00 Medical SYRINGE) Branch 0.5 mL 29 gauge x 1/2" Syrg sub-q Yes [id number] Use 1 V-go U nivers insulin 6-28 daily. Use ity of device, 20 00:00: 2 clicks 5 [place] unit (V-GO 00 minutes Medica l 20) [place] before Branch each meal. insulin Yes [id number] Use up to Univers aspart 6-28 40 units ity of RAPID 00:00: daily [place] (NOVOLOG 00 through Medical U-100 V-go Branch INSULIN insulin ASPART) 100 pump unit/mL injection Insulin Yes [id number] Use One Un josh Syringe-Nee 6-28 syringe ity o f dle U-100 00:00: Daily [place] (INSULIN 00 Medical SYRINGE) Branch 0.5 mL 29 gauge x 1/2" Syrg sub-q Yes [id number] Use 1 V-go U nivers insulin 6-28 daily. Use ity of device, 20 00:00: 2 clicks 5 [place] unit (V-GO 00 minutes Medica l 20) [place] before Branch each meal. insulin Yes [id number] Use up to Univers aspart 6-28 40 units ity of RAPID 00:00: daily [place] (NOVOLOG 00 through Medical U-100 V-go Branch INSULIN insulin ASPART) 100 pump unit/mL injection Insulin 2019-0 Yes [id number] Use One Un josh Syringe-Nee 6-28 syringe ity o f dle U-100 00:00: Daily [place] (INSULIN 00 Medical SYRINGE) Branch 0.5 mL 29 gauge x 1/2" Syrg sub-q 2019-0 Yes [id number] Use 1 V-go U nivers insulin 6-28 daily. Use ity of device, 20 00:00: 2 clicks 5 [place] unit (V-GO 00 minutes Medica l 20) [place] before Branch each meal. insulin 2018-0 Yes [id number] Use up to Univers aspart 6-28 40 units ity of RAPID 00:00: daily [place] (NOVOLOG 00 through Medical U-100 V-go Branch INSULIN insulin ASPART) 100 pump unit/mL injection Insulin 2018-0 Yes [id number] Use One Un josh Syringe-Nee 6-28 syringe ity o f dle U-100 00:00: Daily [place] (INSULIN 00 Medical SYRINGE) Branch 0.5 mL 29 gauge x 1/2" Syrg sub-q 2019-0 Yes [id number] Use 1 V-go U nivers insulin 6-28 daily. Use ity of device, 20 00:00: 2 clicks 5 [place] unit (V-GO 00 minutes Medica l 20) [place] before Branch each meal. insulin 2019-0 Yes [id number] Use up to Univers aspart 6-28 40 units ity of RAPID 00:00: daily [place] (NOVOLOG 00 through Medical U-100 V-go Branch INSULIN insulin ASPART) 100 pump unit/mL injection Insulin 2019-0 Yes [id number] Use One Un josh Syringe-Nee 6-28 syringe ity o f dle U-100 00:00: Daily [place] (INSULIN 00 Medical SYRINGE) Branch 0.5 mL 29 gauge x 1/2" Syrg sub-q 2019-0 Yes [id number] Use 1 V-go U nivers insulin 6-28 daily. Use ity of device, 20 00:00: 2 clicks 5 [place] unit (V-GO 00 minutes Medica l 20) [place] before Branch each meal. insulin 2019-0 Yes [id number] Use up to Univers aspart 6-28 40 units ity of RAPID 00:00: daily [place] (NOVOLOG 00 through Medical U-100 V-go Branch INSULIN insulin ASPART) 100 pump unit/mL injection Insulin 2019-0 Yes [id number] Use One Un josh Syringe-Nee 6-28 syringe ity o f dle U-100 00:00: Daily [place] (INSULIN 00 Medical SYRINGE) Branch 0.5 mL 29 gauge x 1/2" Syrg sub-q 2019-0 Yes [id number] Use 1 V-go U nivers insulin 6-28 daily. Use ity of device, 20 00:00: 2 clicks 5 [place] unit (V-GO 00 minutes Medica l 20) [place] before Branch each meal. insulin 2018-0 Yes [id number] Use up to Univers aspart 6-28 40 units ity of RAPID 00:00: daily [place] (NOVOLOG 00 through Medical U-100 V-go Branch INSULIN insulin ASPART) 100 pump unit/mL injection Insulin 2018-0 Yes [id number] Use One Un josh Syringe-Nee 6-28 syringe ity o f dle U-100 00:00: Daily [place] (INSULIN 00 Medical SYRINGE) Branch 0.5 mL 29 gauge x 1/2" Syrg sub-q 2019-0 Yes [id number] Use 1 V-go U nivers insulin 6-28 daily. Use ity of device, 00:00: 2 clicks 5 [place] unit (V-GO 00 minutes Medica l 20) [place] before Branch each meal. insulin 2019-0 Yes [id number] Use up to Univers aspart 6-28 40 units ity of RAPID 00:00: daily [place] (NOVOLOG 00 through Medical U-100 V-go Branch INSULIN insulin ASPART) 100 pump unit/mL injection Insulin 2019-0 Yes [id number] Use One Un josh Syringe-Nee 6-28 syringe ity o f dle U-100 00:00: Daily [place] (INSULIN 00 Medical SYRINGE) Branch 0.5 mL 29 gauge x 1/2" Syrg sub-q 2019-0 Yes [id number] Use 1 V-go U nivers insulin 6-28 daily. Use ity of device, 20 00:00: 2 clicks 5 [place] unit (V-GO 00 minutes Medica l 20) [place] before Branch each meal. insulin 2019-0 Yes [id number] Use up to Univers aspart 6-28 40 units ity of RAPID 00:00: daily [place] (NOVOLOG 00 through Medical U-100 V-go Branch INSULIN insulin ASPART) 100 pump unit/mL injection Insulin 2019-0 Yes [id number] Use One Un josh Syringe-Nee 6-28 syringe ity o f dle U-100 00:00: Daily [place] (INSULIN 00 Medical SYRINGE) Branch 0.5 mL 29 gauge x 1/2" Syrg sub-q 2019-0 Yes [id number] Use 1 V-go U nivers insulin 6-28 daily. Use ity of device, 20 00:00: 2 clicks 5 [place] unit (V-GO 00 minutes Medica l 20) [place] before Branch each meal. insulin 2018-0 Yes [id number] Use up to Univers aspart 6-28 40 units ity of RAPID 00:00: daily [place] (NOVOLOG 00 through Medical U-100 V-go Branch INSULIN insulin ASPART) 100 pump unit/mL injection Insulin 2019-0 Yes [id number] Use One Un josh Syringe-Nee 6-28 syringe ity o f dle U-100 00:00: Daily [place] (INSULIN 00 Medical SYRINGE) Branch 0.5 mL 29 gauge x 1/2" Syrg sub-q 2019-0 Yes [id number] Use 1 V-go U nivers insulin 6-28 daily. Use ity of device, 00:00: 2 clicks 5 [place] unit (V-GO 00 minutes Medica l 20) [place] before Branch each meal. insulin 2019-0 Yes [id number] Use up to Univers aspart 6-28 40 units ity of RAPID 00:00: daily [place] (NOVOLOG 00 through Medical U-100 V-go Branch INSULIN insulin ASPART) 100 pump unit/mL injection Insulin 2019-0 Yes [id number] Use One Un josh Syringe-Nee 6-28 syringe ity o f dle U-100 00:00: Daily [place] (INSULIN 00 Medical SYRINGE) Branch 0.5 mL 29 gauge x 1/2" Syrg sub-q 2019-0 Yes [id number] Use 1 V-go U nivers insulin 6-28 daily. Use ity of device, 20 00:00: 2 clicks 5 [place] unit (V-GO 00 minutes Medica l 20) [place] before Branch each meal. insulin 2019-0 Yes [id number] Use up to Univers aspart 6-28 40 units ity of RAPID 00:00: daily [place] (NOVOLOG 00 through Medical U-100 V-go Branch INSULIN insulin ASPART) 100 pump unit/mL injection Insulin 2019-0 Yes [id number] Use One Un josh Syringe-Nee 6-28 syringe ity o f dle U-100 00:00: Daily [place] (INSULIN 00 Medical SYRINGE) Branch 0.5 mL 29 gauge x 1/2" Syrg sub-q 2019-0 Yes [id number] Use 1 V-go U nivers insulin 6-28 daily. Use ity of device, 20 00:00: 2 clicks 5 [place] unit (V-GO 00 minutes Medica l 20) [place] before Branch each meal. insulin 2019-0 Yes [id number] Use up to Univers aspart 6-28 40 units ity of RAPID 00:00: daily [place] (NOVOLOG 00 through Medical U-100 V-go Branch INSULIN insulin ASPART) 100 pump unit/mL injection Insulin 2019-0 Yes [id number] Use One Un josh Syringe-Nee 6-28 syringe ity o f dle U-100 00:00: Daily [place] (INSULIN 00 Medical SYRINGE) Branch 0.5 mL 29 gauge x 1/2" Syrg sub-q 2019-0 Yes [id number] Use 1 V-go U nivers insulin 6-28 daily. Use ity of device, 00:00: 2 clicks 5 [place] unit (V-GO 00 minutes Medica l 20) [place] before Branch each meal. insulin 2019-0 Yes [id number] Use up to Univers aspart 6-28 40 units ity of RAPID 00:00: daily [place] (NOVOLOG 00 through Medical U-100 V-go Branch INSULIN insulin ASPART) 100 pump unit/mL injection Insulin 2019-0 Yes [id number] Use One Un josh Syringe-Nee 6-28 syringe ity o f dle U-100 00:00: Daily [place] (INSULIN 00 Medical SYRINGE) Branch 0.5 mL 29 gauge x 1/2" Syrg sub-q 2019-0 Yes [id number] Use 1 V-go U nivers insulin 6-28 daily. Use ity of device, 20 00:00: 2 clicks 5 [place] unit (V-GO 00 minutes Medica l 20) [place] before Branch each meal. insulin 2018- Yes [id number] Use up to Univers aspart 6-28 40 units ity of RAPID 00:00: daily [place] (NOVOLOG 00 through Medical U-100 V-go Branch INSULIN insulin ASPART) 100 pump unit/mL injection Insulin Yes [id number] Use One Un josh Syringe-Nee 6-28 syringe ity o f dle U-100 00:00: Daily [place] (INSULIN 00 Medical SYRINGE) Branch 0.5 mL 29 gauge x 1/2" Syrg sub-q Yes [id number] Use 1 V-go U nivers insulin 6-28 daily. Use ity of device, 20 00:00: 2 clicks 5 [place] unit (V-GO 00 minutes Medica l 20) [place] before Branch each meal. insulin Yes [id number] Use up to Univers aspart 6-28 40 units ity of RAPID 00:00: daily [place] (NOVOLOG 00 through Medical U-100 V-go Branch INSULIN insulin ASPART) 100 pump unit/mL injection Insulin Yes [id number] Use One Un josh Syringe-Nee 6-28 syringe ity o f dle U-100 00:00: Daily [place] (INSULIN 00 Medical SYRINGE) Branch 0.5 mL 29 gauge x 1/2" Syrg zolpidem Yes 10mg Take 10 mg Uni vers (AMBIEN) 10 6-24 by mouth ity of mg tablet 19:03: at bedtime [place] 56 as needed. Medical Branch HYDROcodone Yes 1{tbl} Take 1 Un josh -acetaminop 6-24 tablet by ity of hen (NORCO) 19:03: mouth [place] 10-325 mg 56 every 6 Medical tablet (six) Branch hours as needed. zolpidem Yes 10mg Take 10 mg Uni vers (AMBIEN) 10 6-24 by mouth ity of mg tablet 19:03: at bedtime [place] 56 as needed. Medical Branch zolpidem Yes 10mg Take 10 mg Uni vers (AMBIEN) 10 6-24 by mouth ity of mg tablet 19:03: at bedtime [place] 56 as needed. Medical Branch HYDROcodone 2019-0 Yes 1{tbl} Take 1 Un josh -acetaminop 6-24 tablet by ity of hen (InsideMaps) 19:03: mouth [place] 10-325 mg 56 every 6 Medical tablet (six) Branch hours as needed. zolpidem 2019-0 Yes 10mg Take 10 mg Uni vers (AMBIEN) 10 6-24 by mouth ity of mg tablet 19:03: at bedtime [place] 56 as needed. Medical Branch HYDROcodone 2019-0 Yes 1{tbl} Take 1 Un josh -acetaminop 6-24 tablet by ity of hen (InsideMaps) 19:03: mouth [place] 10-325 mg 56 every 6 Medical tablet (six) Branch hours as needed. HYDROcodone 2019-0 Yes 1{tbl} Take 1 Un josh -acetaminop 6-24 tablet by ity of hen (InsideMaps) 19:03: mouth [place] 10-325 mg 56 every 6 Medical tablet (six) Branch hours as needed. zolpidem 2019-0 Yes 10mg Take 10 mg Uni vers (AMBIEN) 10 6-24 by mouth ity of mg tablet 19:03: at bedtime [place] 56 as needed. Medical Branch HYDROcodone 2019-0 Yes 1{tbl} Take 1 Un josh -acetaminop 6-24 tablet by ity of hen (InsideMaps) 19:03: mouth [place] 10-325 mg 56 every 6 Medical tablet (six) Branch hours as needed. zolpidem 2019-0 Yes 10mg Take 10 mg Uni vers (AMBIEN) 10 6-24 by mouth ity of mg tablet 19:03: at bedtime [place] 56 as needed. Medical Branch HYDROcodone 2019-0 Yes 1{tbl} Take 1 Un josh -acetaminop 6-24 tablet by ity of hen (InsideMaps) 19:03: mouth [place] 10-325 mg 56 every [...] 81 mg EC 19:02: daily. [place] tablet Medical Branch aspirin 2018-0 Yes 81mg Take 81 mg Univ ers (ASPIR-LOW) 6-24 by mouth ity of 81 mg EC 19:02: daily. [place] tablet Medical Branch aspirin 2018-0 Yes 81mg Take 81 mg Univ ers (ASPIR-LOW) 6-24 by mouth ity of 81 mg EC 19:02: daily. [place] tablet Medical Branch aspirin 2018-0 Yes 81mg Take 81 mg Univ ers (ASPIR-LOW) 6-24 by mouth ity of 81 mg EC 19:02: daily. [place] tablet Medical Branch aspirin 2019-0 Yes 81mg Take 81 mg Univ ers (ASPIR-LOW) 6-24 by mouth ity of 81 mg EC 19:02: daily. [place] tablet Medical Branch aspirin 2018-0 Yes 81mg Take 81 mg Univ ers (ASPIR-LOW) 6-24 by mouth ity of 81 mg EC 19:02: daily. [place] tablet Medical Branch aspirin 2019-0 Yes 81mg Take 81 mg Univ ers (ASPIR-LOW) 6-24 by mouth ity of 81 mg EC 19:02: daily. [place] tablet Medical Branch aspirin 2019-0 Yes 81mg Take 81 mg Univ ers (ASPIR-LOW) 6-24 by mouth ity of 81 mg EC 19:02: daily. [place] tablet Medical Branch OXTELLAR XR 2019-0 Yes Univer s 150 mg Tb24 6-10 ity of 00:00: Medical Branch OXTELLAR XR 2019-0 Yes Univer s 150 mg Tb24 6-10 ity of 00:00: [place] 00 Medical Branch OXTELLAR XR 2019-0 Yes Univer s 150 mg Tb24 6-10 ity of 00:00: [place] 00 Medical Branch OXTELLAR XR 2019-0 Yes Univer s 150 mg Tb24 6-10 ity of 00:00: [place] 00 Medical Branch OXTELLAR XR 2019-0 Yes Univer s 150 mg Tb24 6-10 ity of 00:00: [place] 00 Medical Branch OXTELLAR XR 2019-0 Yes Univer s 150 mg Tb24 6-10 ity of 00:00: [place] 00 Medical Branch OXTELLAR XR 2019-0 Yes Univer s 150 mg Tb24 6-10 ity of 00:00: [place] 00 Medical Branch OXTELLAR XR 2019-0 Yes Univer s 150 mg Tb24 6-10 ity of 00:00: [place] Medical Branch OXTELLAR XR 2019-0 Yes Univer s 150 mg Tb24 6-10 ity of 00:00: [place] 00 Medical Branch OXTELLAR XR 2019-0 Yes Univer s 150 mg Tb24 6-10 ity of 00:00: [place] 00 Medical Branch OXTELLAR XR 2019-0 Yes Univer s 150 mg Tb24 6-10 ity of 00:00: [place] 00 Medical Branch OXTELLAR XR 2019-0 Yes Univer s 150 mg Tb24 6-10 ity of 00:00: [place] 00 Medical Branch OXTELLAR XR 2019-0 Yes Univer s 150 mg Tb24 6-10 ity of 00:00: [place] 00 Medical Branch OXTELLAR XR 2019-0 Yes Univer s 150 mg Tb24 6-10 ity of 00:00: [place] 00 Medical Branch OXTELLAR XR 2019-0 Yes Univer s 150 mg Tb24 6-10 ity of 00:00: [place] 00 Medical Branch OXTELLAR XR 2019-0 Yes Univer s 150 mg Tb24 6-10 ity of 00:00: [place] 00 Medical Branch amitriptyli 2019-0 Yes TAKE 1 Univ ers ne 50 mg 6-05 TABLET BY ity of tablet 00:00: MOUTH [place] EVERYDAY Medical AT BEDTIME Branch amitriptyli 2019-0 Yes TAKE 1 Univ ers ne 50 mg 6-05 TABLET BY ity of tablet 00:00: MOUTH [place] EVERYDAY Medical AT BEDTIME Branch amitriptyli 2019-0 [...] TABLET BY ity of tablet 00:00: MOUTH [place] [id number] EVERYDAY Medical AT BEDTIME Branch UNABLE TO 2019-0 Yes 1{capsu Q.5D 1 capsule [facility] FIND 05-08 le} 2 (two) st 00:[facility] l [facility] metformin Yes 1000mg Take 1,000 [facility] ER 500 mg 5-17 mg by ity of 24 hr 00:00: mouth. [place] tablet Medical [place] metformin Yes 1000mg Take 1,000 Univers ER 500 mg 5-17 mg by ity of 24 hr 00:00: mouth. [place] tablet [facility] metformin Yes 1000mg Take 1,000 Univers ER 500 mg 5-17 mg by ity of 24 hr 00:00: mouth. [place] tablet [facility] metformin Yes 1000mg Take 1,000 Univers ER 500 mg 5-17 mg by ity of 24 hr 00:00: mouth. [place] tablet [facility] metformin Yes 1000mg Take 1,000 Univers ER 500 mg 5-17 mg by ity of 24 hr 00:00: mouth. [place] tablet [facility] metformin Yes 1000mg Take 1,000 Univers ER 500 mg 5-17 mg by ity of 24 hr 00:00: mouth. [place] tablet [facility] metformin Yes 1000mg Take 1,000 Univers ER 500 mg 5-17 mg by ity of 24 hr 00:00: mouth. [place] tablet [facility] metformin Yes 1000mg Take 1,000 Univers ER 500 mg 5-17 mg by ity of 24 hr 00:00: mouth. [place] tablet [facility] metformin 0 Yes 1000mg Take 1,000 Univers ER 500 mg 5-17 mg by ity of 24 hr 00:00: mouth. [place] tablet [facility] metformin 0 Yes 1000mg Take 1,000 Univers ER 500 mg 5-17 mg by ity of 24 hr 00:00: mouth. [place] tablet [facility] metformin 0 Yes 1000mg Take 1,000 Univers ER 500 mg 5-17 mg by ity of 24 hr 00:00: mouth. [place] tablet [facility] metformin 0 Yes 1000mg Take 1,000 Univers ER 500 mg 5-17 mg by ity of 24 hr 00:00: mouth. [place] tablet [facility] metformin Yes 1000mg Take 1,000 Univers ER 500 mg 5-17 mg by ity of 24 hr 00:00: mouth. [place] tablet [facility] metformin Yes 1000mg Take 1,000 Univers ER 500 mg 5-17 mg by ity of 24 hr 00:00: mouth. [place] tablet [facility] metformin Yes 1000mg Take 1,000 Univers ER 500 mg 5-17 mg by ity of 24 hr 00:00: mouth. [place] tablet [facility] metformin Yes 1000mg Take 1,000 Univers ER 500 mg 5-17 mg by ity of 24 hr 00:00: mouth. [place] tablet [facility] metFORMIN 2022- No 1000mg Q.5D Take 1,000 Methodi XR 5-17 05-[address] (GLUCOPHATE 00:00: 00:00 mouth 2 Ho spita -XR) 500 MG 00 :00 (two) l 24 hr times a tablet day. Blood-Gluco Yes Univer s se Meter 5-03 ity of (ONE TOUCH 00:00: [place] ULTRAMINI) 00 Medical Kit [place] Lancets & 0 Yes Univers Blood 5-03 ity of Glucose 00:00: [place] Strips (ONE 00 Medical TOUCH Branch COMBO) Cmpk carvedilol 2011- Yes 12.5mg Take 1 Tab Univers (COREG) 5-03 by mouth 2 ity of 12.5 mg 00:00: (two) [place] tablet 00 times Medical daily with Branch meals. Blood-Gluco Yes Univer s se Meter 5-03 ity of (ONE TOUCH 00:00: [place] ULTRAMINI) 00 Medical Kit [place] Lancets & 2012-0 Yes Univers Blood 5-03 ity of Glucose 00:00: [place] Strips (ONE 00 Medical TOUCH [place] COMBO) Cmpk carvedilol 2011- Yes 12.5mg Take 1 Tab Univers (COREG) 5-03 by mouth 2 ity of 12.5 mg 00:00: (two) [place] tablet 00 times Medical daily with Branch meals. Blood-Gluco Yes Univer s se Meter 5-03 ity of (ONE TOUCH 00:00: [place] ULTRAMINI) 00 Medical Kit [place] Blood-Gluco Yes Univer s se Meter 5-03 [...] ULTRAMINI) 00 Medical Kit Branch Lancets & 2012-0 Yes Univers Blood 5-03 ity of Glucose 00:00: [place] Strips (ONE 00 Medical TOUCH Branch COMBO) Cmpk carvedilol Yes 12.5mg Take 1 Tab Univers (COREG) -03 by mouth 2 ity of 12.5 mg 00:00: (two) [place] tablet 00 times Medical daily with Branch meals. Immunizations Ordered Immunization Filled Immunization Date Status Commen ts Source Name Name PFIZER COVID-19 MRNA 2020-11-15 Completed Meth odist VACCINATION 00:00:00 [facility] PFIZER COVID-19 MRNA 2020-10-19 Completed Meth odist VACCINATION 00:00:00 Hospital Vital Signs Vital Name Observation Time Observation Value Comments Source Systolic blood 2019-04-18 23:50:00 179 mm[Hg] Univer sity of [facility] Diastolic blood 2019-04-18 23:50:00 109 mm[Hg] Unive rsity of [facility] Heart rate 2019-04-18 23:50:00 78 /min [facility] Respiratory rate 2019-04-18 23:50:00 16 /min [facility] O[facility] saturation in 2019-04-18 23:50:00 99 /min University of Arterial blood by [facility] Pulse oximetry [place] Body temperature 2019-04-18 21:57:00 36.94 Anna [facility] Body height 2019-04-18 21:57:00 170.2 cm [facility] Body weight 2019-04-18 21:57:00 87.091 kg [facility] BMI 2019-04-18 21:57:00 30.07 kg/m2 [facility] Systolic blood 2019-04-18 23:50:00 179 mm[Hg] Univer sity of [facility] Diastolic blood 2019-04-18 23:50:00 109 mm[Hg] Unive rsity of pressure [facility] Heart rate 2019-04-18 23:50:00 78 /min [facility] Respiratory rate 2019-04-18 23:50:00 16 /min [facility] O[facility] saturation in 2019-04-18 23:50:00 99 /min University of Arterial blood by [facility] Pulse oximetry Branch Body temperature 2019-04-18 21:57:00 36.94 Anna [facility] Body height 2019-04-18 21:57:00 170.2 cm [facility] Body weight 2019-04-18 21:57:00 87.091 kg [facility] BMI 2019-04-18 21:57:00 30.07 kg/m2 Universi ty of [facility] Branch Heart rate 2019-04-14 00:16:00 92 /min [facility] Systolic blood 2019-04-13 22:00:00 105 mm[Hg] Univer sity of [facility] Diastolic blood 2019-04-13 22:00:00 77 mm[Hg] Unive rsity of [facility] Body temperature 2019-04-13 22:00:00 36.61 Anna [facility] Respiratory rate 2019-04-13 22:00:00 14 /min Univ [facility] Oxygen saturation in 2019-04-13 22:00:00 95 /min University of Arterial blood by [facility] Pulse oximetry Branch Body height 2019-04-13 10:33:00 170.2 cm [facility] Body weight 2019-04-13 10:33:00 88.497 kg [facility] BMI 2019-04-13 10:33:00 30.56 kg/m2 [facility] Heart rate 2019-04-14 00:16:00 92 /min [facility] Systolic blood 2019-04-13 22:00:00 105 mm[Hg] Univer sity of [facility] Diastolic blood 2019-04-13 22:00:00 77 mm[Hg] Unive rsity of [facility] Body temperature 2019-04-13 22:00:00 36.61 Anna Univ ersity of [facility] Branch Respiratory rate 2019-04-13 22:00:00 14 /min Univ [facility] Oxygen saturation in 2019-04-13 22:00:00 95 /min University of Arterial blood by [facility] Pulse oximetry Branch Body height 2019-04-13 10:33:00 170.2 cm [facility] Body weight 2019-04-13 10:33:00 88.497 kg [facility] BMI 2019-04-13 10:33:00 30.56 kg/m2 [facility] Systolic blood 2018-11-12 13:48:00 150 mm[Hg] Univer sity of [facility] Diastolic blood 2018-11-12 13:48:00 94 mm[Hg] Unive rsity of [facility] Heart rate 2018-11-12 13:48:00 116 /min [facility] Body height 2018-11-12 13:42:00 170.2 cm [facility] Body weight 2018-11-12 13:42:00 81.647 kg [facility] BMI 2018-11-12 13:42:00 28.19 kg/m2 [facility] Systolic blood 2018-11-12 13:48:00 150 mm[Hg] Univer sity of [facility] Diastolic blood 2018-11-12 13:48:00 94 mm[Hg] Unive rsity of [facility] Heart rate 2018-11-12 13:48:00 116 /min [facility] Body height 2018-11-12 13:42:00 170.2 cm [facility] Body weight 2018-11-12 13:42:00 81.647 kg [facility] BMI 2018-11-12 13:42:00 28.19 kg/m2 [facility] Systolic blood 2018-10-21 13:45:00 152 mm[Hg] Univer [facility]ity of [facility] Diastolic blood 2018-10-21 13:45:00 89 mm[Hg] Unive rsity of [facility] Heart rate 2018-10-21 13:45:00 103 /min [facility] Body height 2018-10-21 13:45:00 170.2 cm [facility] Body weight 2018-10-21 13:45:00 81.647 kg [facility] BMI 2018-10-21 13:45:00 28.19 kg/m2 [facility] Systolic blood 2021-10-23 19:11:00 106 mm[Hg] [facility] Diastolic blood 2021-10-23 19:11:00 76 mm[Hg] [facility] pressure Heart rate 2021-10-23 19:11:00 93 /min [facility] Body temperature 2021-10-23 19:11:00 36.61 Anna [facility] Respiratory rate 2021-10-23 19:11:00 20 /min [facility] Body height 2021-10-23 19:11:00 170.2 cm [facility] Body weight 2021-10-23 19:11:00 74.39 kg [facility] BMI 2021-10-23 19:11:00 25.69 kg/m2 [facility] Oxygen saturation in 2021-10-23 19:11:00 98 /min [facility] Arterial blood by Pulse oximetry Procedures Procedure Date / Time Performing Clinician Source Performed URINE CULTURE, 2021-10-23 05:00:00 [facility] (RAÚL HIST) HEMOGLOBIN A1C 2021-10-23 05:00:00 [facility] METABOLIC 2021-10-23 05:00:[address] [facility] PANEL LIPID PANEL 2021-10-23 05:00:00 [facility] THYROID STIMULATING 2021-10-23 05:00:00 [facility] HORMONE URINALYSIS SCREEN AND 2021-10-23 05:00:00 [facility] MICROSCOPY, WITH REFLEX TO CULTURE MICROSCOPIC EXAMINATION 2021-10-23 05:00:[address] [facility] VITAMIN B1 LEVEL, WHOLE 2021-07-13 14:06:00 [facility] BLOOD SERUM ELECTROPHORESIS 2021-07-13 14:06:00 [facility] METHYLMALONIC ACID, SERUM 2021-07-13 14:06:00 [facility] [place] HOMOCYSTINE, PLASMA 2021-07-13 14:06:00 [facility] FOLATE LEVEL 2021-07-13 14:06:00 [facility] spital CBC WITH PLATELET AND 2021-04-23 17:23:00 [facility] DIFFERENTIAL COMPREHENSIVE METABOLIC 2021-04-23 17:23:00 [facility] HEMOGLOBIN A1C 2021-04-23 17:23:00 [facility] LIPID PANEL 2021-04-23 17:23:00 [facility] URINALYSIS, COMPLETE, WITH 2021-04-23 17:23:00 Sydnee Leslie [facility] REFLEX TO CULTURE THYROID STIMULATING 2021-04-23 17:23:00 [facility]ORM[facility] VITAMIN D 25 HYDROXY LEVEL 2021-04-23 17:23:00 [facility] B12 LEV[facility] 2021-04-23 17:23:00 Kalin [facility] CRP HIGH SENSITIVITY 2021-04-23 17:23:00 [facility] 2021-04-23 17:23:[address] [facility] URIC ACID LEVEL 2021-04-23 17:23:00 Kalin [facility] HEPATITIS C ANTIBODY 2021-04-23 17:23:00 [facility], URINE, 2021-04-23 17:23:00 [facility] RANDOM MICROSCOPIC EXAMINATION 2021-04-23 17:23:00 [facility] XR ANKLE 3 VW BILATERAL 2020-12-06 15:10:33 Blake Green [facility] XR FOOT 3 VW BILATERAL 2020-12-06 15:07[facility] MEDICATION CORRESPONDENCE 2019-05-13 06:01:00 Doctor Unassigned, [facility] XR FOOT 3+ VW RIGHT 2019-04-19 00:09:34 Phil Silva [facility] POCT GLUCOSE(AGE >30DAYS) 2019-04-18 23:51:[address] [facility] POCT GLUCOSE (AUTOMATED) 2019-04-18 23:46:00 Shira Phil [facility] NOTICE OF PRIVACY 2019-04-18 21:45:59 Doctor Unassigned, [facility] PRACTICES [facility] POCT GLUCOSE (AUTOMATED) 2019-04-13 22:11:00 Jordon Higgins [facility] ECHO ROUTINE W/DOPPLER 2019-04-13 21:10:37 Jordon Higgins [facility] COLOR [facility] TROPONIN I 2019-04-13 18:54:00 [facility] POCT GLUCOSE (AUTOMATED) 2019-04-13 17:45:00 Ronaldo priyanka [facility] POCT GLUCOSE (AUTOMATED) 2019-04-13 13:37:00 Ronaldo priyanka [facility] TROPONIN I 2019-04-13 13:22:00 [facility] XR CHEST 1 VW 2019-04-13 08:13:47 Singer [facility] CREATINE KINASE 2019-04-13 08:08:00 [facility] MAGNESIUM 2019-04-13 08:08:00 Singer [facility] TROPONIN I 2019-04-13 08:08:00 Singer [facility] THYROID STIMULATING 2019-04-13 08:08:00 Jordon Higgins [facility] HORMONE [facility] COMP. METABOLIC PANEL 2019-04-13 08:08:00 Singer Srinivasan [facility] ([id number]) [facility] LIPID PANEL (09488)(TOTAL 2019-04-13 08:08:00 Jordon Higgins [facility] CHOLESTEROL, [facility] TRIGLYCERIDES, HDL) CBC WITH DIFFERENTIAL 2019-04-13 08:08:00 rSinivasan [facility] GLYCOSYLATED HEMOGLOBIN 2019-04-13 08:08:00 Jordon Higgins [facility] (A1C) [facility] N-TERMINAL PRO-BNP 2019-04-13 08:08:00 Singer Srinivasan [facility] EKG-12 LEAD 2019-04-13 07:52:57 Singer [facility] [place] [facility] ASSIGNMENT OF BENEFITS 2019-04-13 07:49:11 [facility] ASSIGNMENT OF BENEFITS 2019-04-13 07:49:10 Doctor Unassigned, Un [facility] CONSENT/REFUSAL FOR 2019-04-13 07:47:58 Doctor Unassigned, [facility] DIAGNOSIS AND TREATMENT [facility] AUTHORIZATION FOR RELEASE 2019-04-12 06:01:00 Doctor Unassigned, [facility] AUTHORIZATION FOR RELEASE 2019-04-06 06:01:00 Doctor Unassigned, [facility] Plan of Care Planned Activity Planned Date Details Comments Source Future Scheduled 2021-11-25 HEPATITIS B VACCINES [facility] Test 23:40:15 (1 of 3 - 3-dose series) [code = HEPATITIS B VACCINES (1 of 3 - 3-dose series)] Future Scheduled 2021-11-25 Pneumococcal Vaccine: [facility] Test 23:40:15 Pediatrics (0 to 5 Years) and At-Risk Patients (6 to 64 Years) (1 - PCV) [code = Pneumococcal Vaccine: Pediatrics (0 to 5 Years) and At-Risk Patients (6 to 64 Years) (1 - PCV)] Future Scheduled 2021-11-25 DIABETIC FOOT EXAM [facility] Test 23:40:15 [code = DIABETIC FOOT EXAM] Future Scheduled 2021-11-25 Screening for [facility] Test 23:40:15 malignant neoplasm of cervix (procedure) [code = 157715936] Future Scheduled 2021-11-25 BREAST CANCER [facility] Test 23:40:15 SCREENING [code = BREAST CANCER SCREENING] Future Scheduled 2021-11-25 COLONOSCOPY SCREENING [facility] Test 23:40:15 [code = COLONOSCOPY SCREENING] Future Scheduled 2021-11-25 SHINGLES VACCINES (1 [facility] Test 23:40:15 of 2) [code = SHINGLES VACCINES (1 of 2)] Future Scheduled 2021-11-25 COVID-19 VACCINE (3 - [facility] Test 23:40:15 Booster for Pfizer series) [code = COVID-19 VACCINE (3 - Booster for Pfizer series)] Future Scheduled 2021-11-25 [facility]UENZA [facility]ACCINE [facility] 23:40:15 [code = INFLUENZA VACCINE] Future Scheduled 2021-11-25 URINE [facility]ALBUMIN [facility] Test 23:40:15 [code = URINE MICROALBUMIN] Future Scheduled 2021-11-25 DIABETES: [facility]AL [facility] Test 23:40:15 EXAM [code = DIABETES: RETINAL EYE EXAM] Encounters Start End Encounter Admission Attending Care Care Encounter Source Date/Time Date/Time Type Type Clinicians Facility Department ID 2021-11-17 2021-11-17 Refill Michi, 1.2.840.1 [id number] Methodi 00:00:00 00:00:[address] [place] 3.430.2.7 Hospit a .3.885976 l .8 2021-11-16 2021-11-16 Refill Leslie, 1.2.840.1 [id number] Methodi 00:00:00 00:00:00 Zenithe 24215.1.1 [address] 3.430.2.7 Hospit a .3.866178 l .8 2021-11-14 2021-11-14 Refill Michi, 1.2.840.1 [id number] Methodi 00:00:00 00:00:[address] [place] 3.430.2.7 Hospit a .3.609711 l .8 2021-11-13 2021-11-13 Refill Sanjiv Cabrera 1.2.840.1 [id number] Methodi 00:00:00 00:00:[address] 3.430.2.7 Hospit a .3.004900 l .8 2021-11-08 2021-11-08 Outpatient Ogbechie_L [facility]G [facility]G 6613 [facility] 00:00:00 00:00:00 0901 Medica l Group 2021-11-07 2021-11-07 Outpatient Ogbechie_L [facility]G [facility]G 6613 [facility] 00:00:00 00:00:00 0831 Medica l Group 2021-10-29 2021-10-29 Orders Leslie, 1.2.840.1 [id number] Methodi 00:00:00 00:00:00 Only Zenithe 22164.1.1 [address] 3.430.2.7 Hospit a .3.126557 l .8 2021-10-26 2021-10-26 Outpatient GAYLORD_S DMG [facility] [id number] -2021 Dev[facility] 00:00:00 00:00:00 0819 Medica l Group 2021-10-26 2021-10-26 Refill Leslie, 1.2.840.1 [id number] Methodi 00:00:00 00:00:00 Zenithe 82224.1.1 [address] 3.430.2.7 Hospit a .3.367042 l .8 2021-10-25 2021-10-25 Telephone Leslie, 1.2.840.1 [id number] [id number] Methodi 00:00:00 00:00:00 Zenithe 90032.1.1 [address] 3.430.2.7 Hospit a .3.386366 l .8 2021-10-24 2021-10-24 Patient Oscar, 1.2.840.1 [id number] Methodi 00:00:00 00:00:00 Outreach Adalgisa 65531.1.[address] 3.430.2.7 Hospit a .3.861944 l .8 2021-10-23 2021-10-23 Office Leslie, 1.2.840.1 [id number] Methodi 14:00:00 14:56:25 Visit Zenithe 99520.1.1 [address]17 [address] 3.430.2.7 Hospit a .3.806460 l .8 2021-10-23 2021-10-23 Outpatient LESLIE, [facility] [id number] [address] [place] [address] 00:00:00 00:00:[address] ZEN[address] 2021-10-23 2021-10-23 Travel 1.2.840.1 1.2.459.818 [id number] Methodi 00:00:00 00:00:[address] 3.430.2.7 0.2.7.3.698 Ho spita .3.642815 084.8 l .8 2021-10-22 2021-10-22 Patient Lupe Holguin 1.2.840.1 [id number] Methodi 00:00:00 00:00:[address] 3.430.2.7 Hospit a .3.248722 l .8 2021-10-12 2021-10-12 Refill Michi, 1.2.840.1 [id number] Methodi 00:00:00 00:00:[address] [place] 3.430.2.7 Hospit a .3.129247 l .8 2021-10-02 2021-10-02 Outpatient RAUL FERRIS [facility] [id number] [facility] 13:33:19 16:23:28 NATHANIEL vidales of Medicin e 2021-09-21 2021-09-21 Outpatient Adams_R DMG DMG [id number] 022 [facility] 03:20:00 03:20:00 0715 Medica l Group 2021-09-08 2021-09-08 Refill Michi, 1.2.840.1 [id number] Methodi 00:00:00 00:00:[address] [place] 3.430.2.7 Hospit a .3.092291 l .8 2021-08-30 2021-08-30 Refill Palafox, 1.2.840.1 [id number] Methodi 00:00:00 00:00:[address] 3.430.2.7 Hospit a .3.627884 l .8 2021-08-30 2021-08-30 Refill Michi, 1.2.840.1 [id number] Methodi 00:00:00 00:00:[address] [place] 3.430.2.7 Hospit a .3.189903 l .8 2021-08-26 2021-08-26 Refill Michi, 1.2.840.1 [id number] Methodi 00:00:00 00:00:[address] [place] 3.430.2.7 Hospit a .3.872850 l .8 2021-08-01 2021-08-01 Telephone Jacky, 1.2.840.1 [id number] Methodi 00:00:00 00:00:[address] 3.430.2.7 Hospit a .3.497697 l .8 2021-07-31 2021-07-31 Refill Michi, 1.2.840.1 [id number] Methodi 00:00:00 00:00:[address] [place] 3.430.2.7 Hospit a .3.658385 l .8 2021-07-31 2021-07-31 Refill Sanjiv Cabrera 1.2.840.1 [id number] Methodi 00:00:00 00:00:[address] 3.430.2.7 Hospit a .3.305298 l .8 2021-07-26 2021-07-26 Office Vipin, 1.2.840.1 [id number] Methodi 10:00:00 10:25:00 Visit Chidi 47931.1.[address] 3.430.2.7 Hospit a .3.236870 l .8 2021-07-26 2021-07-26 Procedure Sanjiv Cabrera 1.2.840.1 [id number] Methodi 09:00:00 09:52:[address] 3.430.2.7 Hospit a .3.253827 l .8 2021-07-26 2021-07-26 Outpatient SANJIV CABRERA [facility] [id number] [place] 00:00:00 00:00:[address] 2021-07-26 2021-07-26 Outpatient [facility] [id number] [place] 00:00:00 00:00:[address] 2021-07-26 2021-07-26 Travel 1.2.840.1 1.2.876.960 [id number] Methodi 00:00:00 00:00:[address] 3.430.2.7 0.2.7.3.698 Ho spita .3.973712 084.8 l .8 2021-07-25 2021-07-25 Outpatient ROSA [facility] [id number] [facility] 13:07:45 13:54:13 DEJUAN petersen of Medicin e 2021-07-25 2021-07-25 Telephone Leslie, 1.2.840.1 [id number] Methodi 00:00:00 00:00:00 Zenithe 80249.1.1 [address] 3.430.2.7 Hospit a .3.898423 l .8 2021-07-23 2021-07-23 Office Leslie, 1.2.840.1 [id number] Methodi 13:30:00 14:47:58 Visit Zenithe 91975.1.1 035 [address] 3.430.2.7 Hospit a .3.744423 l .8 2021-07-23 2021-07-23 Outpatient LESLIE, [facility] [id number] 051 [place] 00:00:00 00:00:[address] 2021-07-23 2021-07-23 Travel 1.2.840.1 1.2.991.031 [id number] Methodi 00:00:00 00:00:[address] 3.430.2.7 0.2.7.3.698 Ho spita .3.746056 084.8 l .8 2021-07-17 2021-07-17 Refill Michi, 1.2.840.1 [id number] Methodi 00:00:00 00:00:[address] [place] 3.430.2.7 Hospit a .3.342656 l .8 2021-07-13 2021-07-13 Office Vipin, 1.2.840.1 [id number] Methodi 08:00:00 08:46:14 Visit Chidi 39067.1.[address] 3.430.2.7 Hospit a .3.203232 l .8 2021-07-13 2021-07-13 Outpatient [facility] [id number] [place] 00:00:00 00:00:[address] 2021-07-13 2021-07-13 Outpatient SANJIV CABRERA [facility] [id number] [place] 00:00:00 00:00:[address] 2021-07-13 2021-07-13 Travel 1.2.840.1 1.2.957.743 6687 [id number] Methodi 00:00:00 00:00:[address] 3.430.2.7 0.2.7.3.698 Ho spita .3.369869 084.8 l .8 2021-07-12 2021-07-12 Orders Bogdan, 1.2.840.1 [id number] Methodi 00:00:00 00:00:00 Only Marj 62346.1.[address] 3.430.2.7 Hospit a .3.353491 l .8 2021-07-10 2021-07-10 Telephone Kalin, 1.2.840.1 [id number] Methodi 00:00:00 00:00:00 Zenzackarye 97689.1.1 [address] 3.430.2.7 Hospit a .3.686740 l .8 2021-07-06 2021-07-06 Refill Sanjiv Cabrera 1.2.840.1 [id number] Methodi 00:00:00 00:00:[address] 3.430.2.7 Hospit a .3.754072 l .8 2021-07-04 2021-07-04 Telephone Leslie, 1.2.840.1 [id number] [id number] Methodi 00:00:00 00:00:00 Zenithe 94984.1.1 752 [address] 3.430.2.7 Hospit a .3.175631 l .8 2021-07-03 2021-07-03 Outpatient [facility] [id number] [facility] 09:16:51 12:04:55 NTAHANIEL vidales of Medicin e 2021-06-13 2021-06-13 Refill Sanjiv Cabrera 1.2.840.1 [id number] Methodi 00:00:00 00:00:[address] 3.430.2.7 Hospit a .3.589311 l .8 2021-06-09 2021-06-09 Refill Michi, 1.2.840.1 [id number] 2597 Methodi 00:00:00 00:00:[address] [place] 3.430.2.7 Hospit a .3.073409 l .8 2021-06-04 2021-06-04 Telephone Kalin, 1.2.840.1 [id number] Methodi 00:00:00 00:00:00 Zenithe 81436.1.1 [address] 3.430.2.7 Hospit a .3.726836 l .8 2021-05-29 2021-05-29 Outpatient [facility] [id number] [facility] 14:07:32 16:34:47 NATHANIEL vidales of Medicin e 2021-05-18 2021-05-18 Refill Sanjiv Cabrera 1.2.840.1 [id number] Methodi 00:00:00 00:00:[address] 3.430.2.7 Hospit a .3.651742 l .8 2021-05-15 2021-05-15 Refill Michi, 1.2.840.1 [id number] 6324 Methodi 00:00:00 00:00:[address] [place] 3.430.2.7 Hospit a .3.711517 l .8 2021-05-01 2021-05-01 Telephone Leslie, 1.2.840.1 [id number] [id number] Methodi 00:00:00 00:00:00 Zenithe 61089.1.1 9[address] 3.430.2.7 Hospit a .3.620846 l .8 2021-04-30 2021-04-30 Telemedici Michi, 1.2.840.1 [id number] [id number] Methodi 13:40:00 13:56:25 ne Nisha 45898.1.[address] [place] 3.430.2.7 Hospit a .3.362801 l .8 2021-04-30 2021-04-30 Outpatient [facility] [id number] [place] 00:00:00 00:00:[address] 2021-04-29 2021-04-29 Orders Leslie, 1.2.840.1 [id number] Methodi 00:00:00 00:00:00 Only Zenithe 74993.1.1 [address] 3.430.2.7 Hospit a .3.919566 l .8 2021-04-23 2021-04-23 Office Leslie, 1.2.840.1 [id number] Methodi 10:30:00 11:21:48 Visit Zenithe 74187.1.1 698 Martina 3.430.2.7 Hospit a .3.979791 l .8 2021-04-23 2021-04-23 Outpatient [facility] [id number] 629 [place] 00:00:00 00:00:00 ZENITHE [address] 2021-04-23 2021-04-23 Telephone [place], 1.2.840.1 [id number] 2100 655508 Methodi 00:00:00 00:00:[address] 3.430.2.7 Hospit a .3.554379 l .8 2021-04-23 2021-04-23 Travel 1.2.840.1 1.2.019.039 4299 719534 Methodi 00:00:00 00:00:[address] 3.430.2.7 0.2.7.3.698 Ho spita .3.905291 084.8 l .8 2021-04-19 2021-04-19 Refill Sanjiv Cabrera 1.2.840.1 [id number] 21 [id number] Methodi 00:00:00 00:00:[address] 3.430.2.7 Hospit a .3.063834 l .8 2021-04-18 2021-04-18 [facility] 022 [facility] 01:24:00 01:24:00 0209 [facility] 2021-04-03 2021-04-03 Telephone [place], 1.2.840.1 [id number] 2099 [id number] Methodi 00:00:00 00:00:[address] 3.430.2.7 Hospit a .3.746051 l .8 2021-04-02 2021-04-02 Travel 1.2.840.1 1.2.743.676 2511 [id number] Methodi 00:00:00 00:00:[address] 3.430.2.7 0.2.7.3.698 Ho spita .3.502398 084.8 l .8 2021-03-28 2021-03-28 On Demand Luci 2.16.840. 2.16.840.1. [id number] [facility] 20:00:00 20:30:00 Bobby Alejandre 1.540261. 537257.4.6. [facility] 4.6.22649 [id number] 2021-03-26 2021-03-26 On Demand Marilu 2.16.840. 2.16.840.1. CL [id number] [facility]oted 22:00:24 22:30:24 Edgard 1.122934. 440282.4.6. [place] 8[address].6.59700 [id number] 2021-03-26 2021-03-26 Travel 1.2.840.1 1.2.332.225 6539 [id number] Methodi 00:00:00 00:00:[address] 3.430.2.7 0.2.7.3.698 Ho spita .3.477299 084.8 l .8 2021-03-21 2021-03-21 Telephone Leslie, 1.2.840.1 [id number] [id number] Methodi 00:00:00 00:00:00 Zenithe 45831.1.1 698 Martina 3.430.2.7 Hospit a .3.976727 l .8 2021-03-20 2021-03-20 Travel 1.2.840.1 1.2.290.540 3875 [id number] Methodi 00:00:00 00:00:[address] 3.430.2.7 0.2.7.3.698 Ho spita .3.724330 084.8 l .8 2021-03-13 2021-03-13 Outpatient Adams_R DMG [facility] 13254-8 022 Devoted 04:55:00 04:55:00 0104 Medica l Group 2021-03-07 2021-03-07 Refill Michi, 1.2.840.1 [id number] 5181 Methodi 00:00:00 00:00:[address] [place] 3.430.2.7 Hospit a .3.545106 l .8 2021-02-09 2021-02-09 Travel 1.2.840.1 1.2.430.868 4673 [id number] Methodi 00:00:00 00:00:[address] 3.430.2.7 0.2.7.3.698 Ho spita .3.640489 084.8 l .8 2020-12-29 2020-12-29 Outpatient DMG DMG 74256-9 021 Devoted 08:00:00 08:00:00 1022 Medica l Group 2020-12-13 2020-12-13 Refill Michi, 1.2.840.1 [id number] 7931 Methodi 00:00:00 00:00:[address] [place] 3.430.2.7 Hospit a .3.293287 l .8 2020-12-06 2020-12-06 Office Michi, 1.2.840.1 [id number] 3533 Methodi 14:00:00 14:25:55 Visit Nisha 35117.1.[address] [place] 3.430.2.7 Hospit a .3.714091 l .8 2020-12-06 2020-12-06 Office [place] 1.2.840.1 [id number] 967 [id number] Methodi 09:50:00 11:09:29 Visit A. 83890.1.[address] 3.430.2.7 Hospit a .3.501142 l .8 2020-12-06 2020-12-06 Outpatient [facility] [id number] 774 [place] 00:00:00 00:00:[address] 2020-12-06 2020-12-06 Outpatient BLAKE GREEN [facility] 2100 [id number] [place] 00:00:00 00:00:[address] 2020-12-06 2020-12-06 Outpatient BLAKE GREEN [facility] 2100 [id number] [place] 00:00:00 00:00:[address] 2020-12-06 2020-12-06 Outpatient MICHI [facility] [id number] 304 [place] 00:00:00 00:00:[address] 2020-12-06 2020-12-06 Travel 1.2.840.1 1.2.385.986 3924 [id number] Methodi 00:00:00 00:00:[address] 3.430.2.7 0.2.7.3.698 Ho spita .3.721647 084.8 l .8 2020-11-23 2020-11-23 Outpatient MICHI, [facility] [id number] 447 [place] 00:00:00 00:00:00 MOHAMMED [address] 2020-11-15 2020-11-15 Outpatient SEPTIMUS, [facility] 81288 [id number] [place] 00:00:00 00:00:00 DIAMOND [address] 2020-10-30 2020-10-30 Outpatient MICHI, [facility] [id number] [place] 00:00:00 00:00:00 MOHAMMED [address] 2020-10-30 2020-10-30 Outpatient MICHI, [facility] [id number] 013 [place] 00:00:00 00:00:[address] 2020-10-30 2020-10-30 Outpatient MICHI, [facility] [id number] 013 [place] 00:00:00 00:00:[address] 2020-10-30 2020-10-30 Outpatient MICHI, [facility] [id number] 013 [place] 00:00:00 00:00:00 MOHAMMED [address] 2020-10-19 2020-10-19 Outpatient [facility] [id number] 307 [place] 00:00:00 00:00:[address] 2020-10-19 2020-10-19 Outpatient MICHI, [facility] [id number] 442 [place] 00:00:00 00:00:00 MOHAMMED [address] 2020-09-20 2020-09-20 Outpatient MICHI, [facility] [id number] 254 [place] 00:00:00 00:00:00 MOHAMMED [address] 2020-01-17 2020-01-17 Outpatient CABRERA, SANJIV [facility] 097 [id number] [place] 00:00:00 00:00:[address] 2019-10-07 2019-10-07 Outpatient CABRERA, SANJIV [facility] [id number] [place] 00:00:00 00:00:[address] 2019-08-27 2019-08-27 Outpatient SANJIV CABRERA [facility] [id number] [place] 00:00:00 00:00:[address] 2019-08-24 2019-08-24 Telephone Shira [facility] 1.2.840.114 [id number] 00:00:00 00:00:00 [facility] 350.1.13.10 Surgical 4.2.7.2.686 Specialti [phone] [address] [place] 2019-08-24 2019-08-24 Telephone Shira [facility] 1.2.840.114 76 [id number] [facility] 00:00:00 00:00:00 [facility] 350.1.13.10 it y of Surgical 4.2.7.2.686 Bon as Specialti [id number] Tn dical 198 [facility] 2019-05-13 2019-05-13 [facility] 1.2.213.531 1207 4907 00:00:00 00:00:00 [facility] [place] 350.1.13.10 [place] 4.2.7.2.686 Professio [phone] [address] 2019-05-13 2019-05-13 Orders Doctor GENE 1.2.840.114 [id number] 00:00:00 00:00:00 Only Unassigned, YESSY 350.1.13.10 [facility] 4.2.7.2.686 [id number] 009 2019-05-13 2019-05-13 Telephone [facility] 1.2.632.898 [id number] 4907 [facility] 00:00:00 00:00:00 [facility] [place] 350.1.13.10 ity [place] [phone] Tn dic[address] 2019-05-13 2019-05-13 Orders Doctor GENE 1.2.840.114 [id number] [facility] 00:00:00 00:00:00 Only Unassigned, YESSY 350.1.13.10 ity of [facility] 4.2.7.2.686 Bon as [id number] [address] 2019-04-29 2019-04-29 [facility] 1.2.840.114 [id number] 00:00:00 00:00:00 [facility] 350.1.13.10 Surgical 4.2.7.2.686 Specialti [phone] es [address] [place] 2019-04-29 2019-04-29 [facility] 1.2.840.114 [id number] Univers 00:00:00 00:00:00 [facility] 350.1.13.10 it y of Surgical 4.2.7.2.686 Bon as Specialti [id number] Tn dical es 198 [facility] 2019-04-18 2019-04-18 Emergency [facility] 1.2.840.114 74 [id number] 16:51:08 18:50:00 Phil Espinoza 350.1.13.10 [place] 4.2.7.2.686 [place] [id number] [facility] 2019-04-18 2019-04-18 Emergency [facility] 1.2.840.114 [id number] Univers 16:51:08 18:50:00 Phil Espinoza 350.1.13.10 i ty of [place] 4.2.7.2.686 [facility] [phone] [address] 2019-04-18 2019-04-18 Emergency X [facility] ERT [id number] Univers 16:51:08 18:50:00 PHIL ity of [facility] 2019-04-13 2019-04-13 Emergency Srinivasan Whitney [facility] 1.2.840. 114 [id number] 01:48:48 20:25:00 Jordon Higgins 350.1.13.10 [place] 4.2.[address] [place] [address] [id number] [facility] 2019-04-13 2019-04-13 Emergency Srinivasan Whitney [facility] 1.2.840. 114 [id number] Univers 01:48:48 20:25:00 Jordon Higgins 350.1.13.10 ity of [place] 4.2.7.2.686 [facility] [phone] [address] 2019-04-12 2019-04-12 Orders Doctor GENE 1.2.840.114 [id number] 00:00:00 00:00:00 Only Unassigned, YESSY 350.1.13.10 [facility] 4.2.7.2.686 [id number] 009 2019-04-12 2019-04-12 Orders Doctor GENE 1.2.840.114 [id number] Univers 00:00:00 00:00:00 Only Unassigned, YESSY 350.1.13.10 ity of [facility] 4.2.7.2.686 Bon as [id number] [address] 2019-04-06 2019-04-06 Orders Doctor GENE 1.2.840.114 [id number] 00:00:00 00:00:00 Only Unassigned, YESSY 350.1.13.10 [facility] 4.2.7.2.686 [id number] [facility] 2019-04-06 2019-04-06 Orders Doctor GENE 1.2.840.114 [id number] Univers 00:00:00 00:00:00 Only Unassigned, YESSY 350.1.13.10 ity of [facility] 4.2.7.2.686 Bon as [id number] [address] 2019-03-15 2019-03-15 Outpatient BLAKE GREEN [facility] 2100 [id number] [place] 00:00:00 00:00:[address] 2018-11-24 2018-11-24 Abstract DHIRAJ Goodwin 1.2.233.203 4827 0669 00:00:00 00:00:00 Christopher PRIMARY 350.1.13.10 CARE 4.2.7.2.686 PAVILLION [id number] [facility] 2018-11-24 2018-11-24 Abstract DHIRAJ Goodwin 1.2.565.245 6442 0669 [facility] 00:00:00 00:00:00 Christopher PRIMARY 350.1.13.10 ity of C[place]2.[place] [id number] Tn dic[address] 2018-11-12 2018-11-12 Office DHIRAJ Fontanez 1.2.840.114 [id number] 08:41:28 09:13:32 Visit [facility] 350.1.13.10 Surgical 4.2.7.2.686 Specialti [id number] es [address] [place] 2018-11-12 2018-11-12 Office [facility] 1.2.840.114 [id number] Univers 08:41:28 09:13:32 Visit [facility] 350.1.13.10 it y of Surgical 4.2.7.2.686 Bon as Specialti [phone] Me dical es 198 [facility] 2018-10-21 2018-10-21 Office [facility] 1.2.840.114 [id number] Univers 08:38:11 08:53:11 Visit [facility] 350.1.13.10 it y of Surgical 4.2.7.2.686 Bon as Specialti [id number] Me dical es 198 [facility] Results Test Description Test Time Test Comments Results Result Comments Source Urinalysis screen and microscopy, with reflex to culture 202 04-17-19 14:10:00 Test Item Value Reference Range Interpretation Comme nts Specific gravity, urine 1.005-1.03 (test code = 5811-5) pH, urine (test code = 5-7.5 5803-2) Color, UA (test code = Yellow Yellow 5778-6) Appearance (test code = Cloudy Clear A 5767-9) WBC esterase, urine (test 2+ Negative A code = 5799-2) Protein, UA (test code = Negative Negative/Trace 55696-9) Glucose, urine (test code 3+ Negative A = 56243-4) Ketones, UA (test code = Negative Negative 2514-8) Occult blood, urine (test 1+ Negative A code = 5794-3) Bilirubin, UA (test code = Negative Negative 5770-3) Urobilinogen, UA (test 0.2 mg/dL 0.2-1 code = 17668-0) Nitrite, UA (test code = Negative Negative 5802-4) Microscopic examination See below: Micr oscopic was (test code = 05836-3) indica rodolfo and was performed. Urinalysis reflex (test Comment This specimen has code = 2386) reflexed to a U rine Culture. NEELAM (test code = NEELAM) Performed at: [facility] [id number] Director: Shivam Uriostegui MD, Phone: [phone] Comment: Test(s) Glucose called to DR LESLIE on 10/24/2021 at 19:29 EST Lab Interpretation (test Abnormal code = 12254-1) [facility]sc[facility] [id number] 14:10:00 Test Item Value Reference Range Interpretation Comments WBC, UA (test code = >30 See_Comment A [Autom ated 5821-4) message] The system which generated this result transmitted reference range : 0 - 5 /hpf. The reference range was not used to interpret this result as normal/abnormal . RBC, UA (test code = 0-2 See_Comment [Autom ated 05340-9) message] The system which generated this result transmitted reference range : 0 - 2 /hpf. The reference range was not used to interpret this result as normal/abnormal . Epithelial cells (non None seen See_Comment [Auto mated renal) (test code = message] The 5787-7) system which generated this result transmitted reference range : 0 - 10 /hpf. Th e reference range was not used to interpret this result as normal/abnormal . Casts (test code = None seen None seen /lpf 48576-2) Bacteria, UA (test None seen None seen/Few code = 5769-5) NEELAM (test code = NEELAM) Performed at: [facility] [address] [id number] Director: Shivam Uriostegui MD, Phone: [phone] Lab Interpretation Abnormal (test code = 19919-4) [facility] CampusHemoglobin [id number] 20:11:00 Test Item Value Reference Range Interpretation Comments Hemoglobin A1C (test 4.8-5.6 H Predia betes: code = 4548-4) 5.7 - 6.4 Diabetes: >6.4 Glycemic control for adults with diabetes: <7.0 NEELAM (test code = NEELAM) Performed at: [facility] [address] [id number] Director: Shivam Uriostegui MD, Phone: [phone] n Comment: Test(s) Glucose called to DR LESLIE on 10/24/2021 at 19:29 EST Lab Interpretation Abnormal (test code = 79773-1) [facility] [id number] 16:11:00 Test Item Value Reference Range Interpretation Comments Glucose (test code = 599 mg/dL 65-99 Verif ied by 2345-7) repeat analysis BUN (test code = 12 mg/dL 6-24 3094-0) Creatinine (test code 0.81 mg/dL 0.57-1 = 2160-0) eGFR (test code = 85 mL/min/1.73 See_Comment [Automa rodolfo 8257) message] The system which generated this result transmitted reference range : >=59. The reference range was not used to interpret this result as normal/abnormal . BUN/creatinine ratio 9-23 (test code = 3097-3) Sodium (test code = 132 mmol/L 134-144 L 2951-2) Potassium (test code 4.3 mmol/L 3.5-5.2 = 2823-3) Chloride (test code = 90 mmol/L 96-106 L 2075-0) CO2 (test code = 26 mmol/L 20-29 2027-9) Calcium (test code = 9.6 mg/dL 8.7-10.2 92113-7) Protein (test code = 7.3 g/dL 6-8.5 2885-2) Albumin, S (test code 4.3 g/dL 3.8-4.9 = 1751-7) Globulin, total (test 3.0 g/dL 1.5-4.5 code = 25563-8) Albumin/globulin 1.2-2.2 ratio (test code = 1759-0) Total bilirubin (test 0.4 mg/dL 0-1.2 code = 1975-2) Alkaline phosphatase See_Comment H [Autom ated (test code = 6768-6) message ] The system which generated this result transmitted reference range : 44 - 121 IU/L. The reference range was not used to interpr et this result as normal/abnormal . AST (test code = See_Comment [Automated 192-8) message] The system which generated this result transmitted reference range : 0 - 40 IU/L. Th e reference range was not used to interpret this result as normal/abnormal . ALT (test code = See_Comment [Automated 1742-6) message] The system which generated this result transmitted reference range : 0 - 32 IU/L. Th e reference range was not used to interpret this result as normal/abnormal . NEELAM (test code = NEELAM) Performed at: [address] [id number] Director: Shivam Uriostegui MD, Phone: [phone] Lab Interpretation Abnormal (test code = 44469-8) [facility] CampusLipid [id number] 16:11:00 Test Item Value Reference Range Interpretation Comments Cholesterol (test 258 mg/dL 100-199 H code = 2093-3) Triglycerides (test 226 mg/dL 0-149 H code = 2571-8) HDL cholesterol (test 50 mg/dL See_Comment [Auto mated code = 2085-9) message] The system which generated this result transmitted reference range : >=39. The reference range was not used to interpret this result as normal/abnormal . VLDL cholesterol rocio 42 mg/dL 5-40 H (test code = 05210-8) LDL Chol Calc (NIH) 166 mg/dL 0-99 H (test code = 76156-2) Non-HDL cholesterol 208 mg/dL 0-129 H (test code = 12904-9) NEELAM (test code = NEELAM) Performed at: [address] [id number] Director: Shivam Uriostegui MD, Phone: [phone] Lab Interpretation Abnormal (test code = 76160-8) [facility] CampusThyroid stimulating [id number] 16:11:00 Test Item Value Reference Range Interpretation Comments TSH (test code See_Comment [Automated m essage] = 31646-7) The system whic h generated this result transmit rodolfo reference range : 0.450 - 4.500 uIU/mL. The reference range was not used to interpret this result as normal/abnormal . NEELAM (test code Performed at: - = NEELAM) [facility] [id number] Director: Shivam Uriostegui MD, Phone: [phone] [facility] CampusMicroalbumin, urine, [id number] 11:10:00 Test Item Value Reference Range Interpretation Comments Albumin, urine (test 13.7 ug/mL Not Estab. code = 80308-8) NEELAM (test code = Performed at: NEELAM) [address] [id number] Director: Shivam Uriostegui MD, Phone: [phone] [facility] CampusVitamin B12 [id number] 15:11:00 Test Item Value Reference Range Interpretation Comments Vitamin B12 (test 850 pg/mL 232-1245 code = 2132-9) NEELAM (test code = NEELAM) Performed at: - [address] [id number] Director: Shivam Uriostegui MD, Phone: [phone] [facility] CampusCRP high [id number] 15:11:00 Test Item Value Reference Range Interpretation Comments CRP, high 5.45 mg/L 0-3 H Relative Risk for sensitivity (test Future code = 03634-5) Cardiovascul ar Event Low <1.00 Average 1.00 - 3.00 High >3.00 NEELAM (test code = Performed at: NEELAM) - [address] [id number] Director: Shivam Uriostegui MD, Phone: [phone] Lab Interpretation Abnormal (test code = 85326-7) [facility] CampusHepatitis C [id number] 15:11:00 Test Item Value Reference Range Interpretation Comments Hepatitis C Ab <0.1 See_Comment Negative: < 0.8 (test code = Indeterminate: 0.8 - 59393-3) 0.9 Positive: > 0.9 The CDC recomme nds that a positive HCV antibody result be followed up wit h a HCV Nucleic Aci d Amplification t est (011905). [Auto mated message] The sy stem which generated this result transmit rodolfo reference range : 0.0 - 0.9 s/co rati o. The reference r benson was not used to interpret this result as normal/abnormal . NEELAM (test code = Performed at: NEELAM) - [address] [id number] Director: Shivam Uriostegui MD, Phone: [phone] [facility] CampusUric acid [id number] 11:10:00 Test Item Value Reference Range Interpretation Comments Uric acid 4.1 mg/dL 3-7.2 Therapeutic ta rget (test code = for gout patien ts: 3084-1) <6.0 NEELAM (test code Performed at: 01 - = NEELAM) [facility] [address] [place], [place] [id number] Director: Shivam Uriostegui MD, Phone: [phone] [facility] with platelet and [id number] 11:10:00 Test Item Value Reference Range Interpretation Comments WBC (test code = See_Comment [Automated 7890-2) message] The system which generated this result transmit rodolfo reference range : 3.4 - 10.8 x10E3/uL. The reference range was not used to interpret this result as normal/abnormal . RBC (test code = See_Comment [Automated 759-8) message] The system which generated this result transmit rodolfo reference range : 3.77 - 5.28 x10E6/uL. The reference range was not used to interpret this result as normal/abnormal . HGB (test code = 14.0 g/dL 11.1-15.9 718-7) HCT (test code = 41.8 % 34-46.6 4544-3) MCV (test code = 88 fL 79-97 787-2) MCH (test code = 29.5 pg 26.6-33 785-6) MCHC (test code = 33.5 g/dL 31.5-35.7 786-4) RDW (test code = 12.2 % 11.7-15.4 788-0) Platelet count See_Comment [Automated (test code = 777-3) message] The system which generated this result transmit rodolfo reference range : 150 - 450 x10E3/uL. The reference range was not used to interpret this result as normal/abnormal . Neutrophils (test 65 % Not Estab. code = 770-8) Lymphocytes (test 28 % Not Estab. code = 736-9) Monocytes (test 4 % Not Estab. code = 5905-5) Eosinophils (test 3 % Not Estab. code = 713-8) Basophils (test 0 % Not Estab. code = 706-2) Neutrophils, See_Comment [Automated absolute (test code message] The = 791-8) system which generated this result transmit rodolfo reference range : 1.4 - 7.0 x10E3/uL. The reference range was not used to interpret this result as normal/abnormal . Lymphocytes, See_Comment [Automated absolute (test code message] The = 731-0) system which generated this result transmit rodolfo reference range : 0.7 - 3.1 x10E3/uL. The reference range was not used to interpret this result as normal/abnormal . Monocytes, absolute See_Comment [Automa rodolfo (test code = 742-7) message] The system which generated this result transmit rodolfo reference range : 0.1 - 0.9 x10E3/uL. The reference range was not used to interpret this result as normal/abnormal . Eosinophils, See_Comment [Automated absolute (test code message] The = 711-2) system which generated this result transmit rodolfo reference range : 0.0 - 0.4 x10E3/uL. The reference range was not used to interpret this result as normal/abnormal . Basophils, absolute See_Comment [Automa rodolfo (test code = 704-7) message] The system which generated this result transmit rodolfo reference range : 0.0 - 0.2 x10E3/uL. The reference range was not used to interpret this result as normal/abnormal . Immature 0 % Not Estab. granulocytes (test code = 49359-9) Immature See_Comment [Automated granulocytes, message] The absolute (test code [facility] = 35642-0) generated this result transmit rodolfo reference range : 0.0 - 0.1 x10E3/uL. The reference range was not used to interpret this result as normal/abnormal . NEELAM (test code = Performed at: NEELAM) - [facility] CenterTmrqjkd[facility]60 [place], [place] [id number] Director: Shivam Uriostegui MD, Phone: [phone] [facility] [id number] 11:10:00 Test Item Value Reference Range Interpretation Comments Sedimentation rate See_Comment [Automat ed (test code = 4537-7) message ] The system which generated this result transmitted reference range : 0 - 40 mm/hr. T he reference range was not used to interpret this result as normal/abnormal . NEELAM (test code = Performed at: NEELAM) - [facility] [address] [id number] Director: Shivam Uriostegui MD, Phone: [phone] [facility] CampusVitamin D 25 hydroxy [id number] 11:10:00 Test Item Value Reference Range Interpretation Comments Vitamin D, 31.1 ng/mL 30-100 Vitamin D defic iency 25-hydroxy has been define d by (test code = [facility] 21557-1) ofMedicine and an Endocrine [facility] practice guidel ine as alevel of serum 25-OH vitamin D less than 20 ng/mL (1,2). The Endocrine Socie ty went on to furt her define vitamin Dinsufficiency as a level between 2 1 and 29 ng/mL (2).1. IOM ([place] [employer]). 2010 . Dietary referen ce intakes for rocio cium and D. [place]: The National [employer] .2. Ty MF, Catrina DIA, Gerry lal HENRY, et al. Evaluation, treatment, and prevention of v itamin D deficiency: a n Endocrine [facility] clinical practi ce guideline. JCEM . 2010; 96(7):1911 -30. NEELAM (test code Performed at: 01 - = NEELAM) [facility] [id number] Director: Shivam Uriostegui MD, Phone: [phone] [facility] CampusURINALYSIS, COMPLETE, WITH REFLEX TO [id number] 11:10:00 Test Item Value Reference Range Interpretation Comments Specific gravity, 1.005-1.03 urine (test code = 5811-5) pH, urine (test code 5-7.5 H = 5803-2) Color, UA (test code Yellow Yellow = 5778-6) Appearance (test code Clear Clear = 5767-9) WBC esterase, urine Negative Negative (test code = 5799-2) Protein, UA (test Trace code = 10773-8) Glucose, urine (test 1+ Negative A code = 51587-0) Ketones, UA (test Negative Negative code = 5344-8) Occult blood, urine Negative Negative (test code = 5794-3) Bilirubin, UA (test Negative Negative code = 5770-3) Urobilinogen, UA 1.0 mg/dL 0.2-1 (test code = 07740-1) Nitrite, UA (test Negative Negative code = 5802-4) Microscopic See below: Microscopic was examination (test indicated and was code = 99378-1) performed. Urinalysis reflex Comment This speci men (test code = 2386) will not reflex to a Urine Culture. NEELAM (test code = NEELAM) Performed at: 01 - [facility]CoS[place] [address] [place], [place] [id number] Director: Shivam Uriostegui MD, Phone: [phone] Lab Interpretation Abnormal (test code = 05010-3) [facility] CampusXR FOOT 3+ VW [id number] 00:25:37Impression: 1. No radiographic evidence of osteomyelitis. ?If clinically indicated,bone scan or MRI may be obtained to further evaluate.2. Nondisplaced first distal phalanx fracture not excluded. RL: 2824AFC: 13843 End of Report Exam: Right Foot, 04/18/2019 [...] periosteal reaction or osseous erosion. Calcanealspurring is noted.IMPRESSIONImpression: 1. No radiographic evidence of osteomyelitis. If clinically indicated,bone scan or MRI may be obtained to further evaluate.2. Nondisplaced first distal phalanx fracture not excluded.RL: 2824AFC: 73538Dvx of Report [facility]2019-04-18 23:51:00 Test Item Value Reference Range Interpretation Comments POCT GLU (test code = [id number]) 278 mg/dL 70-110 H Lab Interpretation (test code = Abnormal 90007-8) [facility] GLUCOSE(AGE >30DAYS)2019-04-18 23:51:00 Test Item Value Reference Range Interpretation Comments POCT Glu (age>30days) (test code = 278 mg/dL 70-110 A 3342) Lab Interpretation (test code = Abnormal 04166-1) [facility] GLUCOSE (AUTOMATED)2019-04-13 22:14:00 Test Item Value Reference Range Interpretation Comments POCT GLU (test code = 1161163837) 356 mg/dL 70-110 H Lab Interpretation (test code = Abnormal 93270-3) [facility] [id number] 19:37:00 Test Item Value Reference Range Interpretation Comments TROPONIN I (test <0.012 See_Comment [Automated code = 7183140485) message] The system which generated this result [...] ? Lab Interpretation Normal (test code = 82841-0) [facility] GLUCOSE (AUTOMATED)2019-04-13 17:48:00 Test Item Value Reference Range Interpretation Comments POCT GLU (test code = 4062190216) 228 mg/dL 70-110 H Lab Interpretation (test code = Abnormal 47688-1) [facility] [id number] 14:16:00 Test Item Value Reference Range Interpretation Comments TROPONIN I (test <0.012 See_Comment [Automated code = 4463229768) message] The system which generated this result [...] ? Lab Interpretation Normal (test code = 26574-0) [facility] GLUCOSE (AUTOMATED)2019-04-13 14:00:00 Test Item Value Reference Range Interpretation Comments POCT GLU (test code = 1187721431) 206 mg/dL 70-110 H Lab Interpretation (test code = Abnormal 93613-4) [facility] [id number] 12:57:00 Test Item Value Reference Range Interpretation Comments TSH (test code = See_Comment [Automated message] 1137182376) The system [employer] generated this result transmitted ref erence range: 0.45 - 4 .70 mIU/L. The refe rence range was not u sed to interpret this result as normal/abnor mal. Lab Interpretation (test Normal code = 89851-1) [facility]AT[facility] [id number] 12:36:00 Test Item Value Reference Range Interpretation Comments CK (test code = 0885463184) <20 33-194 L Lab Interpretation (test code = Abnormal 03622-7) [facility] (A1C)2019-04-13 12:29:00 Test Item Value Reference [...] Indicated Lab Interpretation Abnormal (test code = 14895-2) [facility] (89113)(TOTAL CHOLESTEROL, TRIGLYCERIDES, HDL)2019-04-13 12:24:00 Test Item Value Reference Range Interpretation Comments CHOL (test code = 245 mg/dL 120-200 H 7988065684) HDL (test code = 42 mg/dL >50 L 2680898921) HDLC RATIO (test code = See_Comment H [Au tomated message] 8335691242) The system [employer] generated this result transmit rodolfo reference range : <=4.5. The refe rence range was not u sed to interpret th is result as normal/abnormal . TRIG (test code = 198 mg/dL 30-170 H 2171034617) LDL CHOL (test code = 163 mg/dL See_Comment H [Auto mated message] 15508-6) The system whic h generated this result transmit rodolfo reference range : <=160. The refe rence range was not u sed to interpret th is result as normal/abnormal . VLDL (test code = 40 mg/dL 5-60 4591856172) Lab Interpretation (test Abnormal code = 37115-4) [facility] [id number] 08:48:00 Test Item Value Reference Range Interpretation Comments TROPONIN I (test <0.012 See_Comment [Automated code = 0645301048) message] The system which generated this result [...] ? Lab Interpretation Normal (test code = 51051-0) [facility] [id number] 08:45:00 Test Item Value Reference Range Interpretation Comments NT-proBNP (test code 99 pg/mL See_Comment [Autom ated = 5595945575) message] The system which generated this result transmitted reference range : <=125. The reference range was not used to interpret this result as normal/abnormal . NEELAM (test code = NEELAM) Biotin has been reported to cause a negative bias, interpret results relative to patient's use of biotin. Lab Interpretation Normal (test code = 83540-0) [facility]. METABOLIC PANEL (32400)2019-04-13 08:36:00 Test Item Value Reference Range Interpretation Comments NA (test code = 132 mmol/L 135-145 L 2308584101) K (test code = 4.2 mmol/L 3.5-5 4498388249) CL (test code = 94 mmol/L 98-108 L 9799137770) CO2 TOTAL (test code = 27 mmol/L 23-31 8285861312) AGAP (test code = 2-16 6724913256) BUN (test code = 19 mg/dL 7-23 3105743340) GLUCOSE (test code = 400 mg/dL 70-110 H 2214415689) CREATININE (test code = 0.53 mg/dL 0.5-1.04 9976779111) TOTAL BILI (test code = 0.3 mg/dL 0.1-1.1 6820369101) CALCIUM (test code = 10.0 mg/dL 8.6-10.6 7737535161) T PROTEIN (test code = 7.9 g/dL 6.3-8.2 4527158121) ALBUMIN (test code = 4.6 g/dL 3.5-5 6882914312) ALK PHOS (test code = 177 U/L 34-122 H 0390008070) ALTv (test code = 23 U/L 5-35 1742-6) AST(SGOT) (test code = 25 U/L 13-40 0233302954) eGFR Calculation mL/min/1.73m2 (Non-) (test code = 7126149614) eGFR Calculation mL/min/1.73m2 () (test code = 0241764210) NEELAM (test code = NEELAM) Association of [...] tests). Lab Interpretation Abnormal (test code = 70919-3) [facility]2020-02-04 08:36:00 Test Item Value Reference Range Interpretation Comments MAGNESIUM (test code = 3428455509) 2.1 mg/dL 1.7-2.4 Lab Interpretation (test code = Normal 43318-4) [facility] WITH [id number] 08:24:00 Test Item Value Reference Range Interpretation Comments WBC (test code = See_Comment H [Automated 9598-2) message] The sy stem which generated this result transmitted reference range : 4.30 - 11.10 10*3/?L. The reference range was not used to interpret this result as normal/abnormal . RBC (test code = See_Comment [Automated 038-3) message] The sy stem which generated this [...] (test code = 35.9 fL 39-49.9 L 47099-4) RDW-CV (test code = 11.6 % 12-15.5 L 788-0) PLT (test code = See_Comment [Automated 777-3) message] The sy stem which generated this result transmitted reference range : 166 - 358 10*3/ ?L. The reference r benson was not used to interpret this result as normal/abnormal . MPV (test code = 10.1 fL 9.5-12.9 61487-5) NRBC/100 WBC (test See_Comment [Automat ed code = 0074209325) message] The system which generated this result transmitted reference range : 0.0 - 10.0 /100 WBCs. The refer ence range was not u sed to interpret th is result as normal/abnormal . NRBC x10^3 (test code <0.01 See_Comment [Auto mated = 5961926021) message] The s ystem which generated this result transmitted reference range : 10*3/?L. The reference range was not used to interpret this result as normal/abnormal . GRAN MAT (NEUT) % 66.7 % (test code = 770-8) IMM GRAN % (test code 0.30 % = 8740570577) LYMPH % (test code = 23.7 % 736-9) MONO % (test code = 6.0 % 5905-5) EOS % (test code = 2.9 % 713-8) BASO % (test code = 0.4 % 706-2) GRAN MAT x10^3(ANC) 7.62 10*3/uL 1.88-7.09 H (test code = 0500415363) IMM GRAN x10^3 (test 0.03 10*3/uL 0-0.06 code = 5858361469) LYMPH x10^3 (test code 2.70 10*3/uL 1.32-3.29 = 731-0) MONO x10^3 (test code 0.68 10*3/uL 0.33-0.92 = 742-7) EOS x10^3 (test code = 0.33 10*3/uL 0.03-0.39 711-2) BASO x10^3 (test code 0.04 10*3/uL 0.01-0.07 = 704-7) Lab Interpretation Abnormal (test code = 07712-5) [facility] CHEST 1 [id number] 08:17:28Equivocal edema type pattern. CLINICAL HISTORY:Chest pain [...] - 04/13/2019 2:18 AM CSTCLINICAL HISTORY:Chest pain COMPARISON:NoneTECH NIQUE:Portable view of the chest performed at 04/13/2019 2:00 AMFINDINGS:There is indistinctness of the pulmonary vasculature as well as someprominence, which could represent interstitial edema. This maybeexaggerated due to portable technique and decreased aeration. 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 No ca rdiomegaly. There are no appreciable effusionsor pneumothorax.IMPRESSIONEquivocal edema type pattern. [facility]
[2021-11-26] MEDS ORDERED: ONDANSETRON 4 MG (ODT) TAB ONE (03:14)
[2021-11-26] MEDS ORDERED: TRAMADOL HCL 50 MG TAB ONE (03:14)
[2021-11-26] MEDS ORDERED: AMOX TR/K CLAV 400MG CHEW TAB PO ONE (03:14)
--- NOTE | 2021-11-26 03:52 | ER ---
Nurse's Notes [facility] Name: Emily Nguyen Age: 55 yrs Sex: Female : 1965 Arrival Date: 11/26/2021 Time: 01:02 Bed 12 Private MD: Diagnosis: Headache;Other acute sinusitis Presentation: 11/26 01:20 Chief complaint: Patient states: HEADACHE X 2 DAYS OFF AND ON "FEEL LIKE IT IS A SINUS kl INFECTION". Coronavirus screen: Vaccine status: Patient reports receiving the 2nd dose of the covid vaccine. Ebola Screen: Patient negative for fever greater than or equal to 101.5 degrees Fahrenheit, and additional compatible Ebola Virus Disease symptoms. Initial Sepsis Screen: Does the patient meet any 2 criteria? No. Patient's initial sepsis screen is negative. Does the patient have a suspected source of infection? No. Patient's initial sepsis screen is negative. Risk Assessment: Do you want to hurt yourself or someone else? Patient reports no desire to harm self or others. Onset of symptoms was November 24, 2021. 01:20 Method Of Arrival: Ambulatory 01:20 Acuity: ARLET 4 01:23 Note PT REPORTS OUT OF HER PAIN MEDICATION WAITING FOR MD TO PRESCRIBE. Triage Assessment: 04:00 Pain: Pain Also complains of no other associated symptoms. Historical: - Allergies: 01:22 Benadryl; kl 01:22 Flexeril; kl 01:22 GABAPENTIN; kl - Home Meds: 01:22 bisoprolol-hydrochlorothiazide 5-6.25 mg Oral tab 1 tab once daily [Active]; Celecoxib kl Oral 2 times per day [Active]; Depakote 125 mg Oral TbEC 3 times per day [Active]; furosemide 20 mg Oral tab 1 tab once daily [Active]; Ozempic 0.25 mg or 0.5 mg(2 mg/1.5 mL) subcutaneous pnij once wkly [Active]; Tramadol Oral twice a day [Active]; Tresiba FlexTouch U-100 100 unit/mL (3 mL) subcutaneous inpn [Active]; - PMHx: 01:22 Diabetes - NIDDM; heart blockage; Hypertension; neuropathy; kl - PSHx: 01:22 neck fusion; Tonsillectomy; tubal ligation; kl - Family history:: not pertinent. Screenin:45 Abuse screen: Denies threats or abuse. Nutritional screening: No deficits noted. Tuberculosis screening: No symptoms or risk factors identified. Fall Risk None identified. Assessment: 01:24 General: Appears in no apparent distress. comfortable. Pain: Complains of pain in forehead, left anabaptism and right ear. Neuro: No deficits noted. Level of Consciousness is awake, alert, obeys commands, Oriented to person, place, time, situation, Manager Desktop are equal bilaterally Moves all extremities. Gait is steady, Speech is normal, Facial symmetry appears normal. 02:00 Reassessment: Patient appears in no apparent distress at this time. No changes from previously documented assessment. Patient and/or family updated on plan of care and expected duration. Pain level reassessed. Patient is alert, oriented x 3, equal unlabored respirations, skin warm/dry/pink. Vital Signs: 01:20 BP 152 / 84; Pulse 88; Resp 18; Temp 98.4; Pulse Ox 99% ; Weight 73.48 kg (R); Height 5 kl ft. 7 in. (170.18 cm); Pain 8/10; 03:58 BP 148 / 66; Pulse 72; Resp 16; Pulse Ox 96% on R/A; kl 01:20 Body Mass Index 25.37 (73.48 kg, 170.18 cm) Abel Coma Score: 02:52 Eye Response: spontaneous(4). Verbal Response: oriented(5). Motor Response: obeys kari commands(6). Total: 15. ED Course: 01:02 Patient arrived in ED. bp1 01:22 Triage completed. kl 01:38 Magno Espinoza MD is Attending Physician. kari 02:00 Patient has correct armband on for positive identification. kl 03:00 No apparent distress. Appears to be sleeping. Awaiting CT Scan. kl 03:22 CT Head Brain wo Cont In Process Unspecified. EDMS 03:51 Jason Sheldon MD is Referral Physician. kari 04:00 No provider procedures requiring assistance completed. Patient did not have IV access during this emergency room visit. Administered Medications: 03:06 Drug: Zofran (Ondansetron) 4 mg Route: PO; kl 03:59 Follow up: Response: No adverse reaction; Marked relief of symptoms kl 03:07 Drug: traMADol 50 mg Route: PO; kl 03:59 Follow up: Response: No adverse reaction; Marked relief of symptoms kl 03:07 Drug: Augmentin (Amoxicillin-Clavulanate) 875 mg Route: PO; kl 03:59 Follow up: Response: No adverse reaction Outcome: 03:51 Discharge ordered by MD. pierce 03:59 Discharged to home ambulatory. kl 03:59 Condition: improved 03:59 Discharge instructions given to patient, Instructed on discharge instructions, follow up and referral plans. medication usage, Demonstrated understanding of instructions, follow-up care, medications, Prescriptions given X 2. 04:00 Patient left the ED. kl Signatures: Dispatcher [employer] EDLesa Chance RN RN kl Anderson, Corey, MD MD cha [place], Brittany [facility]
--- NOTE | 2021-11-26 03:52 | EDPHYS ---
Physician Documentation [facility] Name: Emily Nguyen Age: 55 yrs Sex: Female : 1965 Arrival Date: 11/26/2021 Time: 01:02 Bed 12 Private MD: KAYCEE Physician Magno Espinoza HPI: 11/26 02:46 This 55 yrs old Female presents to ER via Ambulatory with complaints of kari Headache. 02:46 The patient complains of pain to the right cheek, left cheek, left base of the skull kari and right base of the skull. The patient describes the headache as aching. Onset: The symptoms/episode began/occurred 2 day(s) ago. Associated signs and symptoms: Pertinent positives: sinus congestion, sinus tenderness. Severity of symptoms: At its worst the pain was mild, moderate, in the emergency department the pain has improved, mildly. Headache History: The patient has had previous headaches and this one is similar to previous episodes. The symptoms are alleviated by nothing. the symptoms are aggravated by nothing. The patient has experienced similar episodes in the past, several times. Historical: - Allergies: :22 Benadryl; kl 01: Flexeril; kl 01:22 GABAPENTIN; kl - Home Meds: :22 bisoprolol-hydrochlorothiazide 5-6.25 mg Oral tab 1 tab once daily [Active]; Celecoxib kl Oral 2 times per day [Active]; Depakote 125 mg Oral TbEC 3 times per day [Active]; furosemide 20 mg Oral tab 1 tab once daily [Active]; Ozempic 0.25 mg or 0.5 mg(2 mg/1.5 mL) subcutaneous pnij once wkly [Active]; Tramadol Oral twice a day [Active]; Tresiba FlexTouch U-100 100 unit/mL (3 mL) subcutaneous inpn [Active]; - PMHx: :22 Diabetes - NIDDM; heart blockage; Hypertension; neuropathy; kl - PSHx: : neck fusion; Tonsillectomy; tubal ligation; kl - Family history:: not pertinent. ROS: 02:46 Constitutional: Negative for fever, chills, and weight loss, Eyes: Negative for injury, kari pain, redness, and discharge, ENT: Negative for injury, pain, and discharge, Neck: Negative for injury, pain, and swelling, Cardiovascular: Negative for chest pain, palpitations, and edema, Respiratory: Negative for shortness of breath, cough, wheezing, and pleuritic chest pain, Abdomen/GI: Negative for abdominal pain, nausea, vomiting, diarrhea, and constipation, Back: Negative for injury and pain, : Negative for injury, bleeding, discharge, and swelling, MS/Extremity: Negative for injury and deformity, Skin: Negative for injury, rash, and discoloration, Psych: Negative for depression, anxiety, suicide ideation, homicidal ideation, and hallucinations, Allergy/Immunology: Negative for hives, rash, and allergies, Endocrine: Negative for neck swelling, polydipsia, polyuria, polyphagia, and marked weight changes, Hematologic/Lymphatic: Negative for swollen nodes, abnormal bleeding, and unusual bruising. 02:46 Neuro: Positive for headache. Exam: 02:46 Constitutional: This is a well developed, well nourished patient who is awake, alert, kari and in no acute distress. Head/Face: Normocephalic, atraumatic. Eyes: Pupils equal round and reactive to light, extra-ocular motions intact. Lids and lashes normal. Conjunctiva and sclera are non-icteric and not injected. Cornea within normal limits. Periorbital areas with no swelling, redness, or edema. ENT: Nares patent. No nasal discharge, no septal abnormalities noted. Tympanic membranes are normal and external auditory canals are clear. Oropharynx with no redness, swelling, or masses, exudates, or evidence of obstruction, uvula midline. Mucous membranes moist. Neck: Trachea midline, no thyromegaly or masses palpated, and no cervical lymphadenopathy. Supple, full range of motion without nuchal rigidity, or vertebral point tenderness. No Meningismus. Chest/axilla: Normal chest wall appearance and motion. Nontender with no deformity. No lesions are appreciated. Cardiovascular: Regular rate and rhythm with a normal S1 and S2. No gallops, murmurs, or rubs. Normal PMI, no JVD. No pulse deficits. Respiratory: Lungs have equal breath sounds bilaterally, clear to auscultation and percussion. No rales, rhonchi or wheezes noted. No increased work of breathing, no retractions or nasal flaring. Abdomen/GI: Soft, non-tender, with normal bowel sounds. No distension or tympany. No guarding or rebound. No evidence of tenderness throughout. Back: No spinal tenderness. No costovertebral tenderness. Full range of motion. Female : Normal external genitalia. Skin: Warm, dry with normal turgor. Normal color with no rashes, no lesions, and no evidence of cellulitis. MS/ Extremity: Pulses equal, no cyanosis. Neurovascular intact. Full, normal range of motion. Neuro: Awake and alert, GCS 15, oriented to person, place, time, and situation. Cranial nerves II-XII grossly intact. Motor strength 5/5 in all extremities. Sensory grossly intact. Cerebellar exam normal. Normal gait. Psych: Awake, alert, with orientation to person, place and time. Behavior, mood, and affect are within normal limits. 02:46 Neck: ROM/movement: is normal, is supple, without pain, no range of motions limitations, no meningismus, no nuchal rigidity, negative Brudzinski's sign, negative Kernig's sign, limited range of motion, that is mild, secondary to fusion. Vital Signs: 01:20 BP 152 / 84; Pulse 88; Resp 18; Temp 98.4; Pulse Ox 99% ; Weight 73.48 kg (R); Height 5 kl ft. 7 in. (170.18 cm); Pain 8/10; 03:58 BP 148 / 66; Pulse 72; Resp 16; Pulse Ox 96% on R/A; kl 01:20 Body Mass Index 25.37 (73.48 kg, 170.18 cm) Abel Coma Score: 02:52 Eye Response: spontaneous(4). Verbal Response: oriented(5). Motor Response: obeys kari commands(6). Total: 15. MDM: 01:39 Patient medically screened. kari 02:52 Differential diagnosis: cluster headache, epidural hematoma, hypertensive headache, kari subarachnoid bleed, subdural hematoma. Data reviewed: vital signs, nurses notes, lab test result(s), radiologic studies, CT scan. Data interpreted: monitoring engineer: rate is 88 beats/min, rhythm is regular, Pulse oximetry: on room air is 99 %. Test interpretation: by ED physician or midlevel provider:. Counseling: I had a detailed discussion with the patient and/or guardian regarding: the historical points, exam findings, and any diagnostic results supporting the discharge/admit diagnosis, lab results, radiology results, the need for outpatient follow up, for definitive care, a family practitioner, a neurologist, a neurosurgeon. 11/26 02:51 Order name: CT Head Brain wo Cont kari Administered Medications: 03:06 Drug: Zofran (Ondansetron) 4 mg Route: PO; kl 03:59 Follow up: Response: No adverse reaction; Marked relief of symptoms kl 03:07 Drug: traMADol 50 mg Route: PO; kl 03:59 Follow up: Response: No adverse reaction; Marked relief of symptoms kl 03:07 Drug: Augmentin (Amoxicillin-Clavulanate) 875 mg Route: PO; kl 03:59 Follow up: Response: No adverse reaction kl Disposition Summary: 11/26/21 03:51 Discharge Ordered Location: Home [facility] Problem: new kari Symptoms: have improved kari Condition: Stable kari Diagnosis - Headache kari - Other acute sinusitis kari Followup: kari - With: Private Physician - When: 2 - 3 days - Reason: Recheck today's complaints, Continuance of care, Re-evaluation by your physician Followup: kari - With: - When: 2 - 3 days - Reason: Recheck today's complaints, Continuance of care, Re-evaluation by your physician Discharge Instructions: - Discharge Summary Sheet kari - Sinus Headache kari - Sinusitis, Adult, [id number] [facility] Forms: - Medication Reconciliation Form [facility] - Thank You Letter kari - Antibiotic Education kari - Prescription Opioid Use [facility] Prescriptions: - Augmentin 875-125 mg Oral Tablet - take 1 tablet by ORAL route every 12 hours for 10 days; 20 tablet; Refills: 0, [facility] Product Selection Permitted - Tramadol 50 mg Oral Tablet - take 1 tablet by ORAL route every 8 hours as needed; 20 tablet; Refills: 0, [facility] Product Selection Permitted Signatures: Dispatcher [employer] Lesa Howard RN RN kl Anderson, Corey, MD MD cha
--- NOTE | 2021-11-26 14:26 | RAD REPORT ---
EXAM DESCRIPTION: Head Brain Wo Cont 11/26/2021 3:41 AM CDT CLINICAL HISTORY: 55 years, Female, Headache, chronic, no new features COMPARISON: None FINDINGS: Multiple transaxial tomograms of the brain were obtained from the base of the skull to the vertex without contrast. 2-D multiplanar reformats and the coronal and sagittal plane were performed and reviewed. This exam was performed according to our departmental dose-optimization protocol, which includes auto mated exposure control, adjustment of the mA and/or kV according to patient size and/or use of iterat doris reconstruction technique. Brain parenchyma as well as the fitch and white matter differentiation demonstrate to be unremarkable. There is no midline shift and/or mass effect. There is no evidence for acute hemorrhage. No focal ar eas of hypodensities. Lateral ventricles and cisterns displace normal appearance. No intra or ext ra axial fluid collections were seen. The calvarium is intact with no evidence for fracture. The visu alized portions of the paranasal sinuses and orbits demonstrate to be clear. IMPRESSION: No acute intracranial hemorrhage identified. Unremarkable CT scan of the head without contrast. Electronically signed by: Jose Nolan MD 11/26/2021 3:41 AM CDT Due to temporary technical issues with the PACS/Fluency reporting system, reports are being signed by the in house radiologists without review as a courtesy to insure prompt reporting. The interpreting radiologist is fully responsible for the content of the report.
[2021-11-27 12:38] VITALS: TEMP 98.4
[2021-11-27 12:42] VITALS: BP 148/66; O2SAT 96
== END 2021-11-26 04:00 | disposition home or self-care (01) ==
LOC: ER 00:59
DX: R51.9 Headache, unspecified (principal); J01.80 Other acute sinusitis; I10 Essential (primary) hypertension; E11.9 Type 2 diabetes mellitus without complications; Z79.4 Long term (current) use of insulin
CPT/HCPCS: 70450; Q0162; 99283

== ENCOUNTER 2023-12-25 04:07 | Emergency (ER) | payer MEDICARE ==
[2023-12-25] MEDS ORDERED: ONDANSETRON 4 MG/2 ML VIAL ONE (04:53)
[2023-12-25] MEDS ORDERED: MORPHINE 4 MG/ML SYR ONE (04:53)
[2023-12-25] MEDS ORDERED: HYDRALAZINE HCL 20 MG/ML VIAL ONE (04:53)
[2023-12-25 05:09] LABS: PT Prothrombin Time 9.7 SECONDS (9.4-12.5); Protime INR 0.86
[2023-12-25 05:36] LABS: ALT/SGPT 20 U/L (13-56); AST/SGOT 13 U/L (15-37); Albumin 3.5 g/dL (3.4-5.0); Albumin/Globulin Ratio 0.7 (1.1-1.8); Alkaline Phosphatase 214 U/L (45-117); Anion Gap 9.8 mEq/L (5.0-15.0); BUN Blood Urea Nitrogen 20 mg/dL (7-18); Bicarbonate 31 mEq/L (21-32); Bilirubin Direct < 0.2 mg/dL (0-0.2); Bilirubin Indirect, Calculated 0.1 mg/dL (0.2-0.8); Bilirubin Total 0.3 mg/dL (0.2-1.0); Globulin 4.8 g/dL (2.3-3.5); Glomerular Filtration Rate 53 ml/min (=/>90); NT PRO-BNP 129 pg/mL (<125); Potassium 3.8 mEq/L (3.5-5.1); Protein, Total 8.3 g/dL (6.4-8.2); Sodium Level 132 mEq/L (136-145); Troponin High Sensitivity 9.4 pg/mL (<58.9)
[2023-12-25 05:37] LABS: Glucose Level 481 mg/dL (74-106)
--- NOTE | 2023-12-25 05:45 | RAD REPORT ---
EXAM: Extrem Venous W Compress Petros US Bilateral Lower Extremity Venous Duplex Doppler HISTORY: swelling bilateral COMPARISON: None TECHNIQUE: Grayscale, color Doppler, duplex Doppler, spectral Doppler images and analysis with compre ssion and augmentation of right and left lower extremity veins. FINDINGS: Right and Left common femoral, greater saphenous, femoral, deep (profunda) femoral, popliteal, principal consulting engineer ior tibial veins unremarkable without evidence of clot. IMPRESSION: No sonographic evidence of right or left lower extremity DVT. Electronically signed by: Duglas Gentile MD 12/25/2023 05:40 AM CDT RP Due to temporary technical issues with the PACS/[employer] scribe reporting system, reports are being signed by the in-house radiologist without review as a courtesy to ensure prompt reporting the interpreting radiologist is fully responsible for the content of the report. Transcribed Date/Time: 12/25/2023 5:45 AM
[2023-12-25 06:02] LABS: Absolute Eosinophils 0.4 K/uL (0-0.5); Absolute Lymphocytes (CBC) 2.2 K/uL (0.7-4.9); Absolute Monocytes 0.4 K/uL (0.1-1.3); Absolute Neutrophil 5.9 K/uL (1.8-8.0); Basophils % 0.3 % (0-1.3); Eosinophils % 4.1 % (0-4.4); Hematocrit 37.3 % (36.0-45.0); Lymphocytes % 24.6 % (15.3-44.8); MCH 30.9 pg (27.0-35.0); MCHC 34.9 g/dL (32.0-36.0); MCV 88.3 fL (80-100); MPV 8.4 fL (7.6-11.3); Monocytes % 4.8 % (3.3-12.3); Neutrophils % 66.2 % (41.7-73.7); Platelets 257 thou/uL (152-406); RBC Red Blood Cell Count 4.23 M/uL (3.86-4.86); Red Cell Distribution Width 13.3 % (12.1-15.2)
--- NOTE | 2023-12-25 08:06 | RAD REPORT ---
EXAMINATION: Tib Fib Left CLINICAL INDICATION: Female, 58 years old. left leg pain TECHNIQUE: 2 view radiograph of the left tibia and fibula were obtained. COMPARISON: No prior exam. FINDINGS: No evidence of fracture or dislocation. Normal alignment. No evidence of arthropathy or oth er focal bone lesion. Mild soft tissue swelling of the upper lower leg anteriorly. IMPRESSION: No acute or significant abnormalities. Mild soft tissue swelling of the upper lower leg anteriorly.
--- NOTE | 2023-12-25 08:09 | RAD REPORT ---
EXAMINATION: Foot Left 3 View CLINICAL INDICATION: Female, 58 years old. [facility] MAIN left foot pain Bed Name: TECHNIQUE: 3 view radiographs of the left foot were obtained. COMPARISON: 06/13/2021. FINDINGS: No evidence of fracture or dislocation. Normal alignment. No evidence of arthropathy or oth er focal bone lesion. Soft tissue irregularity and wound along the sole of the foot opposite the first metatarsophalangeal articulation. Pronounced soft tissue swelling in that region. No deeper sof t tissue gas appreciated. Moderate calcaneal spur. Enthesopathy at the Achilles tendon attachment.. Mild to moderate degenerative changes of the midfoot articulations, stable. IMPRESSION: No acute osseous findings. Soft tissue abnormalities as above.
--- NOTE | 2023-12-25 08:13 | EDPHYS ---
Physician Documentation [facility] Name: Emily Nguyen Age: 58 yrs Sex: Female : 1965 Arrival Date: 12/25/2023 Time: 04:07 Bed 10 Private MD: ED Physician Vipul Obrien HPI: 12/24 04:17 This 58 yrs old Other Race Female presents to ER via Unassigned with complaints of Leg sp4 Pain, Leg Swelling. 05:09 58-year-old female presents with complaint of chronic bilateral lower extremity sp4 swelling associated with worsening left lower leg pain. Arrival patient noticed to have hypertension 208/111. Historical: - Allergies: 04:32 Benadryl; lg3 04:32 contrast; lg3 04:32 Flexeril; lg3 04:32 GABAPENTIN; lg3 - PMHx: 04:32 Aneurysm; Diabetes - NIDDM; heart blockage; Hypertension; neuropathy; stroke 2021; lg3 - PSHx: 04:32 neck fusion; Tonsillectomy; tubal ligation; lg3 - Immunization history:: Adult Immunizations up to date. - Infectious Disease History:: Denies. - Social history:: Smoking status: Patient denies any tobacco usage or history of. Patient/guardian denies using alcohol, street drugs. - Family history:: not pertinent. ROS: 05:09 Constitutional: Negative for fever, chills, and weight loss, positive for vaginal sp4 itching and white discharge Eyes: Negative for injury, pain, redness, and discharge, 05:09 All other systems are negative, Exam: 05:09 Constitutional: This is a well developed, well nourished patient who is awake, alert, sp4 and in no acute distress. Head/Face: Normocephalic, atraumatic. Eyes: Pupils equal round and reactive to light, extra-ocular motions intact. Lids and lashes normal. Conjunctiva and sclera are not injected. Cornea within normal limits. Periorbital areas with no swelling, redness, or edema. ENT: Nares patent. No nasal discharge, no septal abnormalities noted. Tympanic membranes are normal and external auditory canals are clear. Oropharynx with no redness, swelling, or masses, exudates, or evidence of obstruction, uvula midline. Mucous membranes moist. Neck: Trachea midline, no thyromegaly or masses palpated, and no cervical lymphadenopathy. Supple, full range of motion without nuchal rigidity, or vertebral point tenderness. Chest/axilla: Normal chest wall appearance and motion. Nontender with no deformity. No lesions are appreciated. Cardiovascular: Regular rate and rhythm with a normal S1 and S2. No gallops, murmurs, or rubs. Normal PMI, no JVD. No pulse deficits. Respiratory: Lungs have equal breath sounds bilaterally, clear to auscultation and percussion. No rales, rhonchi or wheezes noted. No increased work of breathing, no retractions or nasal flaring. Abdomen/GI: Soft, with normal bowel sounds. No distension or tympany. No guarding or rebound. No evidence of tenderness throughout. Back: No spinal tenderness. No costovertebral tenderness. Skin: Warm, dry with normal turgor. Normal color with no rashes, no lesions, and no evidence of cellulitis. MS/ Extremity: Pulses equal, no cyanosis. Neurovascular intact. Full, normal range of motion. Neuro: Awake and alert, GCS 15, oriented to person, place, time, and situation. Cranial nerves II-XII grossly intact. Motor strength 5/5 in all extremities. Sensory grossly intact. Psych: Awake, alert, with orientation to person, place and time. Behavior, mood, and affect are within normal limits 07:09 ECG was reviewed by the Attending Physician. EKG at 0 446 normal sinus rhythm normal sp4 EKG rate 87 Vital Signs: 04:29 BP 208 / 111; Pulse 90; Resp 17 S; Temp 98.4(O); Pulse Ox 99% on R/A; Weight 82.55 kg lg3 (R); Height 5 ft. 7 in. (R); Pain 6/10; 05:22 BP 148 / 90; Pulse 83; Resp 17 S; Pulse Ox 98% on R/A; lg3 07:40 BP 173 / 98; Pulse 79; Resp 16; Pulse Ox 97% on R/A; Pain 4/10; ss 04:29 Body Mass Index 28.50 (82.55 kg, 170.18 cm) lg3 04:29 Pain Scale: Adult lg3 07:40 Pain Scale: Adult ss Abel Coma Score: 05:09 Eye Response: spontaneous(4). Motor Response: obeys commands(6). Verbal Response: sp4 oriented(5). Total: 15. MDM: 05:09 Differential diagnosis: Patient declined pelvic exam. Data reviewed: vital signs, sp4 nurses notes. ED course: Ultrasound is pending.. 06:44 Medical Screening Exam initiated sp4 07:10 ED course: EXAM: Extrem Venous W Compress Petros US Bilateral Lower Extremity Venous sp4 Duplex Doppler HISTORY: swelling bilateral COMPARISON: None TECHNIQUE: Grayscale, color Doppler, duplex Doppler, spectral Doppler images and analysis with compression and augmentation of right and left lower extremity veins. FINDINGS: Right and Left common femoral, greater saphenous, femoral, deep (profunda) femoral, popliteal, posterior tibial veins unremarkable without evidence of clot. IMPRESSION: No sonographic evidence of right or left lower extremity DVT. . 07:12 Consideration of Admission/Observation Escalation of care including sp4 admission/observation considered. Transition of care: After a detail discussion of the patient's case, care is transferred to Soraya Mccartney MD. 08:14 ED course: 58-year-old female received in turnover from Dr. Cloud pending tib-fib x-ray of gb1 the left and a 3 view left foot x-ray. There are some mild swelling of the left lower extremity but no fracture or dislocation is seen on the x-ray. The foot x-ray is also normal. I will discharge the patient home under return precautions which were previously discussed with her by Dr. Schroeder. 12/24 04:33 Order name: Basic Metabolic Panel; Complete Time: 06:44 sp4 12/24 04:33 Order name: CBC with Diff; Complete Time: 06:44 sp4 12/24 04:33 Order name: LFT's; Complete Time: 06:44 sp4 12/24 04:33 Order name: Magnesium; Complete Time: 06:44 sp4 12/24 04:33 Order name: NT PRO-BNP; Complete Time: 06:44 sp4 12/24 04:33 Order name: PT-INR; Complete Time: 06:44 sp4 12/24 04:33 Order name: Troponin HS; Complete Time: 06:44 sp4 12/24 04:32 Order name: Extrem Venous W Compression Petros US; Complete Time: 08:11 sp4 12/24 06:54 Order name: Tib Fib Left XRAY; Complete Time: 08:11 sp4 12/24 06:54 Order name: Foot Left 3 View XRAY; Complete Time: 08:11 sp4 12/24 04:33 Order name: Cardiac monitoring; Complete Time: 05:10 sp4 12/24 04:33 Order name: EKG - Nurse/Tech; Complete Time: 05:10 sp4 12/24 04:33 Order name: IV Saline Lock; Complete Time: 05:10 sp4 12/24 04:33 Order name: Labs collected and sent; Complete Time: 05: sp4 12/24 04:33 Order name: O2 Per Protocol; Complete Time: 05:10 sp4 12/24 04:33 Order name: O2 Sat Monitoring; Complete Time: 05: sp4 EC:09 Rate is 87 beats/min. Rhythm is regular, Normal Sinus Rhythm. QRS [place] is Normal. GA sp4 interval is normal. QRS interval is normal. QT interval is normal. No Q waves. T waves are Normal. No ST changes noted. Clinical impression: Normal ECG. Interpreted by me. Reviewed by me. Administered Medications: 05:22 Drug: Ondansetron IVP 4 mg IVP once; over 2 minutes Route: IVP; Site: right antecubital;lg3 07:27 Follow up: Response: No adverse reaction ss 05:23 Not Given (Physician Discretion): [id number] mg IVP once lg3 05:23 Drug: morphine IVP or IV 4 mg IVP once over 4 mins Route: IVP; Infused Over: 4 mins; lg3 Site: right antecubital; 07:27 Follow up: Response: No adverse reaction; Pain is decreased; RASS: Alert and Calm (0) ss 06:48 Not Given (Physician Discretion): insulin regular human5 units IVP once sp4 06:54 Not Given (Physician Discretion): norco10 mg-325 mg 1 tabs PO once sp4 Disposition Summary: 12/25/23 08:12 Discharge Ordered Notes: Location: Home gb1 Condition: Stable gb1 Diagnosis - Pain in left lower leg gb1 Discharge Instructions: - Discharge Summary Sheet gb1 - Musculoskeletal Pain gb1 Forms: - Medication Reconciliation Form gb1 - Antibiotic Education gb1 - Prescription Opioid Use gb1 - Patient Portal Instructions gb1 - Leadership Thank You Letter gb1 Signatures: Dispatcher [employer] Maria Olivo RN RN lg3 Vipul Obrien MD MD sp4 Soraya Mccartney MD MD gb1 Jackie Bates RN ss Corrections: (The following items were deleted from the chart) 04:33 04:33 Extrem Venous W Compression Petros+US.RAD.BRZ ordered. EDMS EDMS 04:33 04:33 BASIC METABOLIC PANEL+C.LAB.BRZ ordered. EDMS EDMS 04:33 04:33 CBC+H.LAB.BRZ ordered. EDMS EDMS 04:33 04:33 HEPATIC FUNCTION+C.LAB.BRZ ordered. EDMS EDMS 04:33 04:33 MAGNESIUM+C.LAB.BRZ ordered. EDMS EDMS 04:33 04:33 PROBNP+C.LAB.BRZ ordered. EDMS EDMS 04:33 04:33 PROTIME (+INR)+COAG.LAB.BRZ ordered. EDMS EDMS 04:33 04:33 Troponin High Sensitivity+C.LAB.BRZ ordered. EDMS EDMS 05:14 05:09 88-year-old female presents with complaint of acute vaginal itching and white sp4 discharge consistent with her regular yeast infection. . sp4 05:14 05:09 ED course: Positive for reported yeast infection. Will provide Diflucan by sp4 prescription. sp4
--- NOTE | 2023-12-25 08:13 | ER ---
Nurse's Notes [facility] Name: Emily Nguyen Age: 58 yrs Sex: Female : 1965 Arrival Date: 12/25/2023 Time: 04:07 Bed 10 Private MD: Diagnosis: Pain in left lower leg Presentation: 12/24 04:29 Chief complaint: Patient states: left leg swelling X5 weeks. pain X1 day. Coronavirus lg3 screen: Client denies travel out of the [place] in the last 14 days. At this time, the client does not indicate any symptoms associated with coronavirus-19. Ebola Screen: No symptoms or risks identified at this time. Initial Sepsis Screen: Does the patient meet any 2 criteria? No. Patient's initial sepsis screen is negative. Does the patient have a suspected source of infection? No. Patient's initial sepsis screen is negative. Risk Assessment: Do you want to hurt yourself or someone else? Patient reports no desire to harm self or others. Onset of symptoms is unknown. 04:29 Method Of Arrival: Ambulatory lg3 04:29 Acuity: ARLET 3 lg3 Triage Assessment: 04:32 General: Appears in no apparent distress. comfortable, Behavior is calm, cooperative. lg3 Pain: Complains of pain in left leg. EENT: No deficits noted. No signs and/or symptoms were reported regarding the EENT system. Neuro: No deficits noted. Zhou Agitation-Sedation Scale (RASS): 0 - Alert and Calm Level of Consciousness is awake, alert, obeys commands, Oriented to person, place, time, situation. Cardiovascular: No deficits noted. Denies chest pain, shortness of breath, Capillary refill < 3 seconds Clubbing of nail beds is absent JVD is absent Patient's skin is warm and dry. Respiratory: No deficits noted. Airway is patent Respiratory effort is even, unlabored, Respiratory pattern is regular, symmetrical. GI: No deficits noted. No signs and/or symptoms were reported involving the gastrointestinal system. : No deficits noted. No signs and/or symptoms were reported regarding the genitourinary system. Derm: No deficits noted. Skin is intact, is healthy with good turgor, Skin is dry, Skin is normal, Skin temperature is warm Reports pain that is 6 out of 10 on a pain scale. Musculoskeletal: Circulation, motion, and sensation intact. Range of motion: intact in all extremities, Swelling present in left espino Reports pain in left espino. Historical: - Allergies: 04:32 Benadryl; lg3 04:32 contrast; lg3 04:32 Flexeril; lg3 04:32 GABAPENTIN; lg3 - PMHx: 04:32 Aneurysm; Diabetes - NIDDM; heart blockage; Hypertension; neuropathy; stroke 2021; lg3 - PSHx: 04:32 neck fusion; Tonsillectomy; tubal ligation; lg3 - Immunization history:: Adult Immunizations up to date. - Infectious Disease History:: Denies. - Social history:: Smoking status: Patient denies any tobacco usage or history of. Patient/guardian denies using alcohol, street drugs. - Family history:: not pertinent. Screenin:34 [facility] ED Fall Risk Assessment (Adult) History of falling in the last 3 months, lg3 including since admission No falls in past 3 months (0 pts) Confusion or Disorientation No (0 pts) Intoxicated or Sedated No (0 pts) Impaired Gait No (0 pts) Mobility Assist Device Used No (0 pt) Altered Elimination No (0 pt) Score/Fall Risk Level 0 - 2 = Low Risk Oriented to surroundings, Maintained a safe environment, Educated pt \T\ family on fall prevention, incl call for assistance when getting out of bed, Assessed \T\ reinforced patient's understanding of fall precautions. Abuse screen: Denies threats or abuse. Denies injuries from another. Nutritional screening: No deficits noted. Tuberculosis screening: No symptoms or risk factors identified. Assessment: 04:34 General: see triage assessment. lg3 06:38 Reassessment: Patient appears in no apparent distress at this time. No changes from lg3 previously documented assessment. Patient and/or family updated on plan of care and expected duration. Pain level reassessed. Patient is alert, oriented x 3, equal unlabored respirations, skin warm/dry/pink. Patient states feeling better. Patient states symptoms have improved. 07:40 Reassessment:. Reassessment: Pt ambulated to restroom with steady gait and put on ss clothes as she states she is ready for discharge. Two family members at bedside. Awaiting XRAY results at this time. Neuro: Level of Consciousness is awake, alert, obeys commands, Oriented to person, place, time, situation. Respiratory: Airway is patent Respiratory effort is even, unlabored, Respiratory pattern is regular, symmetrical. Derm: Skin is intact, is healthy with good turgor, Skin is pink, warm \T\ dry. normal. Vital Signs: 04:29 BP 208 / 111; Pulse 90; Resp 17 S; Temp 98.4(O); Pulse Ox 99% on R/A; Weight 82.55 kg lg3 (R); Height 5 ft. 7 in. (R); Pain 6/10; 05:22 BP 148 / 90; Pulse 83; Resp 17 S; Pulse Ox 98% on R/A; lg3 07:40 BP 173 / 98; Pulse 79; Resp 16; Pulse Ox 97% on R/A; Pain 4/10; ss 04:29 Body Mass Index 28.50 (82.55 kg, 170.18 cm) lg3 04:29 Pain Scale: Adult lg3 07:40 Pain Scale: Adult ss Abel Coma Score: 05:09 Eye Response: spontaneous(4). Motor Response: obeys commands(6). Verbal Response: sp4 oriented(5). Total: 15. ED Course: 04:13 Patient arrived in ED. gm2 04:17 Vipul Obrien MD is Attending Physician. sp4 04:32 Triage completed. lg3 04:32 Arm band placed on right wrist. lg3 04:34 Maria Richards RN is Primary Nurse. lg3 04:34 Patient has correct armband on for positive identification. Placed in gown. Bed in low lg3 position. Call light in reach. Side rails up X 1. Client placed on continuous cardiac and pulse oximetry monitoring. NIBP monitoring applied. Door closed. Noise minimized. Warm blanket given. Pillow given. Family accompanied patient. 04:34 Patient maintains SpO2 saturation greater than 95% on room air. lg3 05:09 Inserted saline lock: 22 gauge in right antecubital area, using aseptic technique. kmf Blood collected. Flushed with 10 mL NS. 05:10 Basic Metabolic Panel Sent. kmf 05:10 CBC with Diff Sent. kmf 05:10 LFT's Sent. kmf 05:10 Magnesium Sent. kmf 05:10 NT PRO-BNP Sent. kmf 05:10 Troponin HS Sent. kmf 05:12 Initial lab(s) drawn, by il, sent to lab. kmf 05:12 EKG done, by ED staff, reviewed by Vipul Obrien MD. kmf 05:21 Extrem Venous W Compression Petros US In Process Unspecified. EDMS 05:54 Inserted saline lock: 22 gauge in left antecubital area, using aseptic technique. Blood rv1 collected. Flushed with 10 mL NS. 07:27 Tib Fib Left XRAY In Process Unspecified. EDMS 07:27 Foot Left 3 View XRAY In Process Unspecified. EDMS 08:20 IV discontinued, intact, bleeding controlled, No redness/swelling at site. Pressure kb3 dressing applied. Administered Medications: 05:22 Drug: Ondansetron IVP 4 mg IVP once; over 2 minutes Route: IVP; Site: right antecubital;lg3 07:27 Follow up: Response: No adverse reaction ss 05:23 Not Given (Physician Discretion): [id number] mg IVP once lg3 05:23 Drug: morphine IVP or IV 4 mg IVP once over 4 mins Route: IVP; Infused Over: 4 mins; lg3 Site: right antecubital; 07:27 Follow up: Response: No adverse reaction; Pain is decreased; RASS: Alert and Calm (0) ss 06:48 Not Given (Physician Discretion): insulin regular human5 units IVP once sp4 06:54 Not Given (Physician Discretion): norco10 mg-325 mg 1 tabs PO once sp4 Medication: 04:34 VIS not applicable for this client. lg3 Outcome: 08:12 Discharge ordered by . gb1 08:25 Discharged to home ambulatory, with family, kb3 08:25 Condition: improved 08:25 Discharge instructions given to patient, family, Instructed on discharge instructions, follow up and referral plans. medication usage, Demonstrated understanding of instructions, follow-up care, medications, 08:37 Patient left the ED. kb3 Signatures: Dispatcher [employer] EDMS Jackie Bates RN RN ss Maria Richards RN RN lg3 Soni Jimenez RN RN kb3 Liz Brar rv1 Vipul Obrien MD MD sp4 Soraya Mccartney MD MD gb1 Mariah Browne 2 Katie, Kirsten Maroul kmf
[2023-12-25 09:04] VITALS: TEMP 98.4
[2023-12-25 09:06] VITALS: BP 173/98; O2SAT 97
--- NOTE | 2023-12-25 11:48 | EKG ---
Test Date: 2023-12-25 Test Time: 04:46:31 Journalism Professor: TORREY MEASUREMENT RESULTS: Intervals: Rate: 87 GA: 178 QRSD: 82 QT: 372 QTc: 447 Gans: P: 50 GA: 178 QRS: 32 T: 43 INTERPRETIVE STATEMENTS: Normal sinus rhythm Normal ECG Compared to ECG 07/03/2021 21:08:41 Myocardial infarct finding no longer present Electronically Signed On 12-25-23 11:47:01 CDT by Robby Chapman
== END 2023-12-25 08:37 | disposition home or self-care (01) ==
LOC: ER 04:07
DX: M79.662 Pain in left lower leg (principal); I10 Essential (primary) hypertension; E11.9 Type 2 diabetes mellitus without complications; Z86.73 Personal history of transient ischemic attack (TIA), and cerebral infarction without residual deficits
CPT/HCPCS: 93005; 85025; 80048; 36415; 83735; 85610; 80076; 84484; 83880; 73630; 73590; 93970; 96375; 96374; 99284; J2405; J0360

== ENCOUNTER 2024-06-15 17:38 | Inpatient (IN) | payer MEDICARE ==
[2024-06-15] MEDS ORDERED: NA CHLORIDE 0.9% 1,000 ML ONE ×2 (20:04→22:55)
[2024-06-15] MEDS ORDERED: ONDANSETRON 4 MG/2 ML VIAL ONE (20:04)
[2024-06-15] MEDS ORDERED: PANTOPRAZOLE 40 MG INJ ONE (20:04)
[2024-06-15 20:21] LABS: Absolute Monocytes 0.3 K/uL (0.1-1.3); Absolute Neutrophil 13.5 K/uL (1.8-8.0); Basophils % 0.1 % (0-1.3); Hemoglobin 14.8 g/dL (12.0-15.0); Lymphocytes % 6.6 % (15.3-44.8); MCH 29.8 pg (27.0-35.0); MCHC 33.7 g/dL (32.0-36.0); MCV 88.5 fL (80-100); MPV 8.8 fL (7.6-11.3); Monocytes % 2.3 % (3.3-12.3); Platelets 308 thou/uL (152-406); RBC Red Blood Cell Count 4.97 M/uL (3.86-4.86); Red Cell Distribution Width 13.5 % (12.1-15.2)
[2024-06-15 20:48] LABS: Albumin 3.6 g/dL (3.4-5.0); Albumin/Globulin Ratio 0.7 (1.1-1.8); Bilirubin Total 0.6 mg/dL (0.2-1.0); Globulin 5.5 g/dL (2.3-3.5); Protein, Total 9.1 g/dL (6.4-8.2)
[2024-06-15 20:54] LABS: White Blood Cell Scan OK (OK)
[2024-06-15 20:55] LABS: Blood Morphology Comment NOT SEEN (NOT SEEN); Platelet Estimate ADEQ
--- NOTE | 2024-06-15 21:23 | RAD REPORT ---
EXAMINATION: CT ABDOMEN AND PELVIS WITHOUT CONTRAST CLINICAL INDICATION: Abdominal pain TECHNIQUE: CT abdomen and pelvis was performed, as per department protocol. IV contrast and oral was not administered.Axial, sagittal and coronal reconstructions were obtained. One or more of the following dose reduction techniques were used: Automated exposure control, adjustment of the mA and/o r kV according to the patient size, and/or iterative reconstruction. Unless otherwise specified, incidental findings do not require dedicated imaging follow-up. [id number]. COMPARISON: No prior exam. FINDINGS: The lack of intravenous and oral contrast limits evaluation of solid organs, vessels and bowel. Mild dilatation of the esophagus. Multiple gallstones. Gallbladder wall does not appear thickened. The liver, spleen, adrenals and kidneys appear grossly normal Couple punctate pancreatic calcifications. Pancreas is somewhat atrophic. Mild bladder distention Normal appendix. No adnexal mass. Tiny umbilical hernia IMPRESSION: Cholelithiasis without evidence of cholecystitis Mild dilatation of the esophagus Mild bladder distention
[2024-06-15 21:25] LABS: Arterial Blood Carboxyhemoglob 1.5 % (0-1.5); Blood Gas THB 3.9 g/dl (12-18)
[2024-06-15 22:43] LABS: Specific Gravity > 1.030 (1.005-1.030); Sqamous Epithelial <5 /HPF (None Seen); Urine Bacteria None Seen /HPF (<20); Urine Bilirubin NEGATIVE (Negative); Urine Blood 2+ (Negative); Urine Clarity Extremely Turbid (Clear); Urine Color Light-Yellow (Yellow); Urine Crystals Unidentified Few /HPF (None Seen); Urine Culture Reflex Order REFLEXED; Urine Glucose 4+ (Over) (Negative); Urine Ketones 3+ (Negative); Urine Microscopic Reflex YN ORDER UMIC; Urine Mucus Slight /HPF (None Seen); Urine Nitrite NEGATIVE (Negative); Urine Protein 2+ (Negative); Urine Urobilinogen Normal (Normal); Urine WBC >50 /HPF (<5); Urine WBC Clump Many /HPF (None Seen); Urine Yeast (Budding) Occasional /HPF (None Seen); Urine pH 5.5 (5.0-7.0)
[2024-06-15] MEDS ORDERED: INSULIN REGULAR (HUMAN) 100 UNIT/ML ONE (22:55)
[2024-06-15 23:08] LABS: PT Prothrombin Time 11.7 SECONDS (10-13.0); PTT, Activated Partial Thromb 30.2 SECONDS (27.2-37.4); Protime INR 1.03
[2024-06-15] MEDS ORDERED: CEFTRIAXONE 1000 MG/VIAL ONE (23:40)
--- NOTE | 2024-06-15 23:45 | EDPHYS ---
Physician Documentation [facility] Name: Emily Nguyen Age: 58 yrs Sex: Female : 1965 Arrival Date: 06/15/2024 Time: 17:38 Bed 19 Private MD: ED Physician Magno Espinoza HPI: 06/15 18:33 This 58 yrs old Female presents to ER via Wheelchair with complaints of Abdominal Pain, kb Vomiting. 18:33 Pt is a 58 year old female who presents for "acute cystitis" and vomiting. States kb symptoms started yesterday, was seen at [place] this morning. STates they did blood work, urinarlysis and CT scan. Pt was discharged with a prescription for antibiotics and ondansetron, but she isn't able to tolerate it due to vomiting. . Historical: - Allergies: 17:48 Benadryl; ap3 17:48 contrast; ap3 17:48 Flexeril; ap3 17:48 GABAPENTIN; ap3 - PMHx: 17:48 Aneurysm; Diabetes - NIDDM; heart blockage; Hypertension; neuropathy; stroke 2021; ap3 - Immunization history:: Client reports receiving the 2nd dose of the Covid vaccine, Flu vaccine is not up to date. Patient has never been vaccinated. - Infectious Disease History:: Denies. - Social history:: Smoking status: Patient denies any tobacco usage or history of. ROS: 18:33 Constitutional: As per HPI kb Exam: 18:35 Constitutional: This is a well developed, well nourished patient who is awake, alert, kb and in no acute distress. Head/Face: Normocephalic, atraumatic. ENT: Moist Mucous membranes Cardiovascular: Regular rate Respiratory: Respirations even and unlabored. No increased work of breathing. Talking in full sentences Abdomen/GI: Soft, non-tender. No distention Skin: Warm, dry with normal turgor. Normal color. MS/ Extremity: Pulses equal, no cyanosis. Neurovascular intact. Full, normal range of motion. Neuro: Awake and alert, GCS 15, oriented to person, place, time, and situation. 23:39 ECG was reviewed by the Attending Physician. kb Vital Signs: 17:46 BP 136 / 76; Pulse 98; Resp 17; Temp 98.1; Pulse Ox 96% ; Weight 87.09 kg; Height 5 ft. ap3 7 in. ; Pain 10/10; 21:41 BP 153 / 95; Pulse 101; Resp 18; Pulse Ox 95% on R/A; jb4 22:30 BP 147 / 67; Pulse 99; Resp 19; Pulse Ox 96% on R/A; jb4 23:30 BP 125 / 56; Pulse 102; Resp 18; Pulse Ox 96% on R/A; jb4 06/16 02:35 BP 115 / 65; Pulse 97; Resp 18; Pulse Ox 94% on R/A; rg5 03:45 BP 123 / 60; Pulse 103; Resp 18; Pulse Ox 97% on R/A; rg5 06/15 17:46 Body Mass Index 30.07 (87.09 kg, 170.18 cm) ap3 06/15 17:46 Pain Scale: Adult ap3 MDM: 06/15 17:53 Medical Screening Exam initiated kb 23:39 Data reviewed: vital signs, nurses notes. kb 23:42 Differential diagnosis: urinary tract infection, dka, hyperglycemia, dehydration, kb abnormal electrolytes. Consideration of Admission/Observation Patient was admitted/placed on observation. Escalation of care including admission/observation considered. Management of patient was discussed with the following: Hospitalist: Dr Villegas accepts pt for admission. Counseling: I had a detailed discussion with the patient and/or guardian regarding the historical points, exam findings, and any diagnostic results supporting the discharge/admit diagnosis, lab results, radiology results, the need for further work-up and treatment in the hospital. 06/15 18:35 Order name: CBC with Diff; Complete Time: 20:59 kb 06/15 18:35 Order name: CMP; Complete Time: 20:52 kb 06/15 18:35 Order name: Lipase; Complete Time: 20:52 kb 06/15 18:35 Order name: Urinalysis w/ reflexes; Complete Time: 23:13 kb 06/15 20:55 Order name: CBC Smear Scan; Complete Time: 20:59 EDMS 06/15 20:59 Order name: ABG kb 06/15 22:01 Order name: Blood Culture Adult (2) kb 06/15 22:01 Order name: Lactate w/ 2H reflex if indic.; Complete Time: 23:36 kb 06/15 22:01 Order name: Protime (+inr); Complete Time: 23:11 kb 06/15 22:01 Order name: Ptt, Activated; Complete Time: 23:11 kb 06/15 23:02 Order name: Glucose, Ancillary Testing; Complete Time: 23:11 EDMS 06/15 23:15 Order name: Urine Culture EDMS 06/15 23:37 Order name: Ghost Lactate-NO COLLECT Timer EDMS 06/16 00:37 Order name: Glucose, Ancillary Testing; Complete Time: 00:38 EDMS 06/16 01:44 Order name: BMP rv1 06/16 02:47 Order name: Lactate Sepsis 2 HR Follow-up EDMS 06/16 04:00 Order name: Basic Metabolic Panel EDMS 06/16 04:00 Order name: Basic Metabolic Panel EDMS 06/16 04:00 Order name: Basic Metabolic Panel EDMS 06/16 04:00 Order name: Basic Metabolic Panel EDMS 06/16 04:00 Order name: C-Reactive Protein EDMS 06/16 04:00 Order name: Magnesium EDMS 06/16 04:00 Order name: ABG Arterial Blood Gas EDMS 06/16 04:01 Order name: Osmolality, Serum EDMS 06/16 04:48 Order name: Glucose, Ancillary Testing EDMS 06/15 21:08 Order name: Abdomen ; Complete Time: 21:23 EDMS 06/15 22:01 Order name: EKG; Complete Time: 22:02 kb 06/16 04:00 Order name: EKG Electrocardiogram EDMS 06/15 18:35 Order name: IV Saline Lock; Complete Time: 20:19 kb 06/15 18:35 Order name: Labs collected and sent; Complete Time: 20:19 kb 06/15 22:01 Order name: EKG - Nurse/Tech; Complete Time: 23:39 kb 06/16 00:33 Order name: Misc. Order: please draw repeat lactate at 0134 and a BMP; Complete Time: kb 02:24 EC:39 Rate is 101 beats/min. Rhythm is regular. QRS [place] is Normal. [place] interval is normal at kb 176 msec. QRS interval is normal at 86 msec. QT interval is normal at 487 msec. Administered Medications: 20:19 Drug: Ondansetron IVP 4 mg IVP once; over 2 minutes Route: IVP; Site: right hand; jb4 06/16 04:01 Follow up: Response: No adverse reaction rg5 04/08 20:19 Drug: NS 0.9% IV 1000 ml IV at 1 bolus Per protocol; to be given as a bolus over 60 jb4 minutes Route: IV; Rate: 1 bolus; Site: right hand; 06/16 04:00 Follow up: IV Status: Completed infusion; IV Intake: 1000ml rg5 06/15 20:19 Drug: Pantoprazole IVP 40 mg IVP once Route: IVP; Site: right hand; 4 06/16 04:01 Follow up: Response: No adverse reaction rg5 06/15 21:55 CANCELLED (Physician Discretion): Insulin Drip - (insulin regular human ivp 100 units, kb ns 0.9% 100 ml) IV at calculated rate continuous; Standard concentration 1unit/ml; Dose for DKA is 0.1 units/kg/hr 23:02 Drug: Insulin Regular Human IVP 10 units IVP once {Co-Signature: rubio1 (Arleth Ruiz4 RN).} Route: IVP; Site: left forearm; 06/16 04:00 Follow up: Response: No adverse reaction 5 06/15 23:02 Drug: NS 0.9% IV 1000 ml IV at 1 bolus Per protocol; to be given as a bolus over 60 jb4 minutes Route: IV; Rate: 1 bolus; Site: left forearm; 06/16 03:59 Follow up: IV Status: Completed infusion; IV Intake: 1000ml 5 06/15 23:46 Drug: Rocephin IV 1 grams IV at calculated rate once; Given slow IV push per pharmacy jb4 instructions Route: IV; Rate: calculated rate; Site: left forearm; 06/16 03:59 Follow up: IV Status: Completed infusion; IV Intake: 100ml rg5 02:24 Drug: Ondansetron IVP 4 mg IVP once; over 2 minutes Route: IVP; Site: right hand; jb4 03:59 Follow up: Response: No adverse reaction 5 Disposition: 14:35 Co-signature as Attending Physician, Magno Espinoza MD I agree with the assessment and kari plan of care. Disposition Summary: 06/15/24 23:44 Hospitalization Ordered Notes: Hospitalization Status: Inpatient Admission kb Provider: Michelet Villegas Condition: Stable kb Problem: new kb Symptoms: are unchanged kb Bed/Room Type: Standard kb Location: Intensive Care Unit(06/16/24 04:23) rv1 Room Assignment: 3-(06/16/24 04:23) rv1 Diagnosis - Hyperglycemia, unspecified kb - UTI/ Urinary tract infection, site not specified kb - Severe sepsis without septic shock kb Forms: - Medication Reconciliation Form kb - SBAR form kb - Leadership Thank You Letter kb Critical care time excluding procedures: 06/15 23:42 Critical care time: Bedside Care: 15 minutes, Consultation: 10 minutes, Family kb Intervention: 5 minutes. Total time: 30 minutes Signatures: Dispatcher [employer] EDMS Delaney Parks, BASEBALL GLOVE STUFFER-C BASEBALL GLOVE STUFFER-Magno Bruno MD MD cha Bryson, James RN RN jb4 Ashlee Joshi RN RN ap3 Liz Brar rv1 Vipul Obrien MD MD sp4 Ryan Briceño RN rg5 Arleth Ruiz RN ha1 Corrections: (The following items were deleted from the chart) 21:08 20:26 Abdomen Pelvis W Con+CT.RAD.BRZ ordered. EDMS EDMS 21:55 21:53 Insulin Drip - (Insulin Regular Human IVP 100 units, NS 0.9% IV 100 ml) IV at calculated rate continuous; Standard concentration 1unit/ml; Dose for DKA is 0.1 units/kg/hr ordered. 06/16 01:44 01:44 BASIC METABOLIC PANEL+C.LAB.BRZ ordered. EDMS EDMS 02:34 01:44 LACTATE+C.LAB.BRZ ordered. EDMI EDMS 04:23 06/15 23:44 Telemetry/MedSurg (Inpatient) rv1 06/16 04:23 06/15 23:44 kb rv1
--- NOTE | 2024-06-15 23:45 | ER ---
Nurse's Notes [facility] Name: Emily Nguyen Age: 58 yrs Sex: Female : 1965 Arrival Date: 06/15/2024 Time: 17:38 Bed 19 Private MD: Diagnosis: Hyperglycemia, unspecified;UTI/ Urinary tract infection, site not specified;Severe sepsis without septic shock Presentation: 06/15 17:46 Chief complaint: Patient states: she was evaluated at another facility this morning, ap3 but is continuing to have abdominal pain and vomiting. patient reports she doesn't know how she will be able to tolerate oral medications if she keeps vomiting. patient reports her symptoms started 06/14/24. patient currently rates her pain as a 10/10 on the pain scale. Coronavirus screen: At this time, the client does not indicate any symptoms associated with coronavirus-19. Ebola Screen: No symptoms or risks identified at this time. Initial Sepsis Screen: Does the patient meet any 2 criteria? HR > 90 bpm. Does the patient have a suspected source of infection? No. Patient's initial sepsis screen is negative. Risk Assessment: Do you want to hurt yourself or someone else? Patient reports no desire to harm self or others. Onset of symptoms was June 14, 2024. 17:46 Method Of Arrival: Wheelchair ap3 17:46 Acuity: ARLET 3 ap3 Triage Assessment: 17:48 General: Appears in no apparent distress. Behavior is calm, cooperative, appropriate ap3 for age. Pain: Complains of pain in abdomen Pain currently is 10 out of 10 on a pain scale. Pain began 2-3 days ago. Neuro: Level of Consciousness is awake, alert, obeys commands, Oriented to person, place, time, situation, Appropriate for age. Cardiovascular: Patient's skin is warm and dry. Respiratory: Airway is patent Respiratory effort is even, unlabored, Respiratory pattern is regular, symmetrical. GI: Reports lower abdominal pain, upper abdominal pain, nausea, vomiting. Historical: - Allergies: 17:48 Benadryl; ap3 17:48 contrast; ap3 17:48 Flexeril; ap3 17:48 GABAPENTIN; ap3 - PMHx: 17:48 Aneurysm; Diabetes - NIDDM; heart blockage; Hypertension; neuropathy; stroke 2021; ap3 - Immunization history:: Client reports receiving the 2nd dose of the Covid vaccine, Flu vaccine is not up to date. Patient has never been vaccinated. - Infectious Disease History:: Denies. - Social history:: Smoking status: Patient denies any tobacco usage or history of. Screenin:49 Abuse screen: Denies threats or abuse. Nutritional screening: No deficits noted. ap3 Tuberculosis screening: No symptoms or risk factors identified. 06/16 02:30 [facility] ED Fall Risk Assessment (Adult) History of falling in the last 3 months, rg5 including since admission No falls in past 3 months (0 pts) Confusion or Disorientation No (0 pts) Intoxicated or Sedated No (0 pts) Impaired Gait Yes (1 pt) Mobility Assist Device Used Yes (1 pt) Altered Elimination No (0 pt) Score/Fall Risk Level 0 - 2 = Low Risk Oriented to surroundings, Maintained a safe environment, Hourly rounding (assess needs \T\ fall precautionary measures) done. Assessment: 06/15 19:00 General: Appears in no apparent distress. uncomfortable, Behavior is calm, cooperative, jb4 appropriate for age. Pain: Complains of pain in abdomen Pain does not radiate. Pain currently is 10 out of 10 on a pain scale. Neuro: Level of Consciousness is awake, alert, obeys commands, Oriented to person, place, time, situation. Cardiovascular: Patient's skin is warm and dry. Respiratory: Airway is patent Respiratory effort is even, unlabored, Respiratory pattern is regular, symmetrical. GI: Abdomen is non-distended, obese, Pt is actively vomiting bright red blood, provider notified. Derm: Skin is intact, Skin is pink, warm \T\ dry. 20:00 Reassessment: Patient appears in no apparent distress at this time. Patient and/or jb4 family updated on plan of care and expected duration. Pain level reassessed. Patient is alert, oriented x 3, equal unlabored respirations, skin warm/dry/pink. 21:00 Reassessment: Patient appears in no apparent distress at this time. Patient and/or jb4 family updated on plan of care and expected duration. Pain level reassessed. Patient is alert, oriented x 3, equal unlabored respirations, skin warm/dry/pink. 22:00 Reassessment: Patient appears in no apparent distress at this time. Patient and/or jb4 family updated on plan of care and expected duration. Pain level reassessed. Patient is alert, oriented x 3, equal unlabored respirations, skin warm/dry/pink. 23:00 Reassessment: Patient appears in no apparent distress at this time. Patient and/or jb4 family updated on plan of care and expected duration. Pain level reassessed. Patient is alert, oriented x 3, equal unlabored respirations, skin warm/dry/pink. 06/16 02:30 General: Appears in no apparent distress. comfortable, Behavior is calm, cooperative, rg5 appropriate for age. 02:30 Pain: Complains of pain in abdomen. Neuro: Level of Consciousness is awake, alert, rg5 obeys commands, Oriented to person, place, time. GI: Bowel sounds present in left lower quadrant Abd is soft and non tender Reports nausea, vomiting. Vital Signs: 06/15 17:46 BP 136 / 76; Pulse 98; Resp 17; Temp 98.1; Pulse Ox 96% ; Weight 87.09 kg; Height 5 ft. ap3 7 in. ; Pain 10/10; 21:41 BP 153 / 95; Pulse 101; Resp 18; Pulse Ox 95% on R/A; jb4 22:30 BP 147 / 67; Pulse 99; Resp 19; Pulse Ox 96% on R/A; jb4 23:30 BP 125 / 56; Pulse 102; Resp 18; Pulse Ox 96% on R/A; jb4 06/16 02:35 BP 115 / 65; Pulse 97; Resp 18; Pulse Ox 94% on R/A; rg5 03:45 BP 123 / 60; Pulse 103; Resp 18; Pulse Ox 97% on R/A; rg5 06/15 17:46 Body Mass Index 30.07 (87.09 kg, 170.18 cm) ap3 06/15 17:46 Pain Scale: Adult ap3 ED Course: 06/15 17:40 Patient arrived in ED. al6 17:48 Triage completed. ap3 17:49 Arm band placed on left wrist. ap3 17:53 Delaney Parks FNP-C is PHCP. kb 17:53 Magno Espinoza MD is Attending Physician. kb 20:19 Lipase Sent. jb4 20:19 CMP Sent. jb4 20:19 CBC with Diff Sent. jb4 20:29 Radiology exam delayed due to lab results not completed at this time. (BUN/Creatinine). nj 21:08 Abdomen In Process Unspecified. EDMS 21:39 Srikanth Mclean, RN is Primary Nurse. jb4 22:24 Urinalysis w/ reflexes Sent. jb4 22:52 Ptt, Activated Sent. jb4 22:52 Protime (+inr) Sent. jb4 22:52 Lactate w/ 2H reflex if indic. Sent. jb4 23:43 Michelet Villegas MD is Hospitalizing Provider. 06/16 02:30 Patient has correct armband on for positive identification. Bed in low position. Call rg5 light in reach. Side rails up X 1. Door closed. Noise minimized. Warm blanket given. 02:30 No provider procedures requiring assistance completed. rg5 02:35 Patient admitted, IV remains in place. intact, No redness/swelling at site. 5 03:58 Provided Education on: needs for admit. rg5 Administered Medications: 06/15 20:19 Drug: Ondansetron IVP 4 mg IVP once; over 2 minutes Route: IVP; Site: right hand; [facility] 06/16 04:01 Follow up: Response: No adverse reaction [facility] 06/15 20:19 Drug: NS 0.9% IV 1000 ml IV at 1 bolus Per protocol; to be given as a bolus over 60 jb4 minutes Route: IV; Rate: 1 bolus; Site: right hand; 06/16 04:00 Follow up: IV Status: Completed infusion; IV Intake: 1000ml [facility] 06/15 20:19 Drug: Pantoprazole IVP 40 mg IVP once Route: IVP; Site: right hand; [facility] 06/16 04:01 Follow up: Response: No adverse reaction [facility] 06/15 21:55 CANCELLED (Physician Discretion): Insulin Drip - (insulin regular human ivp 100 units, kb ns 0.9% 100 ml) IV at calculated rate continuous; Standard concentration 1unit/ml; Dose for DKA is 0.1 units/kg/hr 23:02 Drug: Insulin Regular Human IVP 10 units IVP once {Co-Signature: ha1 (Arleth Ruiz jb4 RN).} Route: IVP; Site: left forearm; 06/16 04:00 Follow up: Response: No adverse reaction [facility] 06/15 23:02 Drug: NS 0.9% IV 1000 ml IV at 1 bolus Per protocol; to be given as a bolus over 60 jb4 minutes Route: IV; Rate: 1 bolus; Site: left forearm; 06/16 03:59 Follow up: IV Status: Completed infusion; IV Intake: 1000ml rg5 06/15 23:46 Drug: Rocephin IV 1 grams IV at calculated rate once; Given slow IV push per pharmacy jb4 instructions Route: IV; Rate: calculated rate; Site: left forearm; 06/16 03:59 Follow up: IV Status: Completed infusion; IV Intake: 100ml rg5 02:24 Drug: Ondansetron IVP 4 mg IVP once; over 2 minutes Route: IVP; Site: right hand; jb4 03:59 Follow up: Response: No adverse reaction rg5 Medication: 02:30 VIS not applicable for this client. rg5 Intake: 03:59 IV: 100ml; Total: 100ml. rg5 03:59 IV: 1000ml; Total: 1100ml. rg5 04:00 IV: 1000ml; Total: 2100ml. rg5 Outcome: 06/15 23:44 Decision to Hospitalize by Provider. kb 06/16 02:30 Admitted to ER Hold. Please see [facility] for further documentation. rg5 Condition: stable Instructed on the need for admit, 05:29 Patient left the ED. ha1 Signatures: Dispatcher [employer] EDMS Delaney Parks, RELATIONSHIP ASSOCIATE-C RELATIONSHIP ASSOCIATE-CkSrikanth Smith RN RN jb4 Jesu Mays Amanda, RN RN ap3 Arleth Ruiz RN RN ha1 Ryan Briceño RN RN rg5 Susanne Gonzalez Heidy RN ha1 Corrections: (The following items were deleted from the chart) 06/15 21:41 19:00 Reassessment: Patient appears in no apparent distress at this time. Patient jb4 and/or family updated on plan of care and expected duration. Pain level reassessed. Patient is alert, oriented x 3, equal unlabored respirations, skin warm/dry/pink. jb4
[2024-06-16] MEDS ORDERED: ONDANSETRON 4 MG/2 ML VIAL ONE ×2 (02:20→04:13)
[2024-06-16 02:33] LABS: Anion Gap 15.4 mEq/L (5.0-15.0); Potassium 3.4 mEq/L (3.5-5.1)
[2024-06-16] MEDS: INSULIN REGULAR (HUMAN) 100 UNIT/ML IV ONE (03:51)
[2024-06-16] MEDS: SODIUM CHL 0.9% 1000 ML BAG IV ONE (03:51)
[2024-06-16] MEDS: NA CHLORIDE 0.9% 500 ML IV ONE (03:51)
[2024-06-16] MEDS: D5 0.45 NS 1,000 ML IV SCH (04:00)
[2024-06-16] MEDS: NACHLORIDE 0.45% 1,000 ML IV SCH (04:00)
--- NOTE | 2024-06-16 04:06 | P.HP ---
Patient History Date of Service: 06/16/24 Reason for admission: DKA History of Present Illness: 58-year-old female with a past medical history of diabetes, hypertension, neuropathy, history of CVA presenting after multiple episodes of vomiting that began 2 days ago. She states her blood pressure went up and she has been unable to control it. She has not been able to tolerate any food or drink. She does not have any way of checking her blood sugar at home. She states her diabetes is uncontrolled. She has significant neuropathy which causes her chronic pain. She denies any diarrhea or fever. She states she went to see her physician at [facility] who told her she had a urinary tract infection. Allergies cyclobenzaprine [From Flexeril] Allergy (Verified 09/24/20 06:03) Anaphylaxis diphenhydramine [From Benadryl] Allergy (Verified 09/24/20 06:03) Anaphylaxis gabapentin Allergy (Verified 09/24/20 06:03) Anaphylaxis Home Medications: Acetaminophen with Codeine [Tylenol with-Codeine #3 Tablet] 1 tab PO DAILY PRN 09/24/20 Aspirin 1 tab PO DAILY 09/24/20 B12/Levomefolate Calcium/B-6 [Folbic Rf Tablet] 2 tab PO BID 09/24/20 Bisoprolol/Hydrochlorothiazide [Bisoprolol-Hctz 5-6.25 mg Tab] 5 - 6.25 tab PO DAILY 09/24/20 Cholecalciferol (Vitamin D3) [D3-50] 2 tab PO DAILY 09/24/20 Divalproex Sodium 250 mg PO DAILY 6PM 09/24/20 Divalproex Sodium [Depakote] 1 tab PO DAILY 09/24/20 Famotidine/Ca Carb/Mag Hydrox [Pepcid Complete Tablet Chew] 1 tab PO PRN 09/24/20 Furosemide [Lasix*] 1 tab PO DAILY 09/24/20 Ibuprofen 2 tab PO PRN PRN 09/24/20 Insulin Degludec [Tresiba] 25 units IM BID 09/24/20 Lidocaine [Lidocaine Pain Relief] 1 patch IN PRN 09/24/20 Losartan Potassium 1 tab PO DAILY 09/24/20 Magnesium Oxide [Magnesium] 1 tab PO BID 09/24/20 Metformin ER [Glucophage ER*] 2 tab PO BID 09/24/20 Potassium Gluconate [Potassium] 1 tab PO BID 09/24/20 Pravastatin [Pravachol*] 1 tab PO DAILY 09/24/20 Sennosides [Senna Lax] 1 tab PO PRN PRN 09/24/20 Silver Sulfadiazine Crm [Silvadene*] 1 lizet IN PRN 09/24/20 levoFLOXacin [Levaquin*] 750 mg PO DAILY #7 tab 09/26/20 ondansetron HCL [Zofran] 4 mg PO Q6H #10 tablet 09/26/20 - Past Medical/Surgical History -: DM -: Raynauds -: Diabete retinopathy -: Diabetic neuropathy -: scleritis of eye -: tonsillectomy -: tubal ligation - Family History Mother -: Heart disease, Stroke Father -: Cancer - Social History Alcohol use: No CD- Drugs: No Caffeine use: Yes Review of Systems 10-point ROS is otherwise unremarkable General: As per HPI Gastrointestinal: Nausea, Vomiting Neurological: Numbness Physical Examination - Physical Exam General: Alert HEENT: Normocephalic Neck: Supple Respiratory: Clear to auscultation bilaterally Capillary refill: <2 Seconds Gastrointestinal: Normal bowel sounds Musculoskeletal: No clubbing Integumentary: No rashes Neurological: Normal speech - Studies Laboratory Data (last 24 hrs) 06/16/24 06/15/24 06/15/24 01:58 22:49 20:11 WBC Hgb Hct Plt Count PT 11.7 INR 1.03 APTT 30.2 Sodium 141 D 135 L Potassium 3.4 L D 4.0 BUN 34 H 31 H Creatinine 1.10 H 1.47 H Glucose 426 H* 570 H* Total Bilirubin 0.6 AST 23 ALT 36 Alkaline Phosphatase 167 H Lipase 11 L 06/15/24 20:11 WBC 14.90 H Hgb 14.8 Hct 44.0 Plt Count 308 PT INR APTT Sodium Potassium BUN Creatinine Glucose Total Bilirubin AST ALT Alkaline Phosphatase Lipase Assessment and Plan - Plan DKA Acute cystitis Leukocytosis Pseudohyponatremia Acute kidney injury Cholelithiasis Neuropathy Admit to ICU Continue fluids, insulin drip, BMP every 4 hours Blood cultures pending, urine culture pending, start cefepime Zofran as needed Replace electrolytes as needed Repeat lactic acid DVT prophylaxis with SCDs - Advance Directives Does patient have a Living Will: Yes Does patient have a Durable POA for Healthcare: No
[2024-06-16] MEDS ORDERED: NA CHLORIDE 0.9% 500 ML ONE (04:13)
[2024-06-16] MEDS: ONDANSETRON 4 MG/2 ML VIAL IV PRN (04:25)
[2024-06-16] MEDS ORDERED: D50W 25 GM/50 ML SYRINGE IV PRN ×2 (04:31→04:39)
[2024-06-16] MEDS ORDERED: GLUCAGON 1 MG/VIAL IM PRN ×2 (04:31→04:39)
[2024-06-16] MEDS: MORPHINE 2 MG/ML SYR IV ONE (04:50)
[2024-06-16] MEDS ORDERED: INSULIN REGULAR, HUMAN 100 UNIT in NA CHLORIDE 0.9% 100 ML IV SCH ×2 (05:00)
[2024-06-16] MEDS: INSULIN REGULAR, HUMAN 100 UNIT in NA CHLORIDE 0.9% 100 ML IV SCH (06:05)
--- NOTE | 2024-06-16 07:03 | P.PN ---
Date of Service: 06/16/24 Subjective: feels ~same as yesterday thinks shes had 1 prior episode of DKA States shes had multiple diabetic medication adjustments over the past few years due to side effects. poor oral intake over the last few days Physical Exam: GEN: Alert, oriented, NAD CV: Regular rate and rhythm, no edema Pulm: Nonlabored respirations on room air, clear bilaterally ABD: soft, nontender, nondistended Integumentary: No rashes Neuro: Normal speech, normal affect Problem List: DKA ?UTI Lactic acidosis, resolved Hypertension Hyperlipidemia Anxiety/Depression Raynaud's phenomenon Hx of CVA (2021) Hx left diabetic foot ulcer s/p I&D (02/2024) DKA ?UTI Lactic acidosis, resolved on admission, presents with abdominal pain associated with nausea/vomiting. She was seen at [facility] ER prior to admission and reportedly diagnosed with UTI. Dc'd with Zosyn and zofran but was unable to tolerate oral intake. She reports 1 prior episode of DKA in the past. States shes had multiple diabetic medication adjustments over the years due to side effects. A1c back in Mar 2023: 10.2 CT abd/pelvis (06/15): Cholelithiasis. Mild dilatation of the esophagus. Mild bladder distention Found to be in DKA in ED. Given IVF, PPI, Rocephin in ED 06/16 - Started on insulin drip and admit to ICU Serial BMP q4h IV cefepime (06/16-) Follow blood and urine cultures Lactic acid improved. CRP elevated - 32.9 Hypertension Hyperlipidemia Anxiety/Depression Raynaud's phenomenon Hx of CVA (2021) Hx left diabetic foot ulcer s/p I&D (02/2024) confirm home meds, restart as appropriate VTE: SCD for now Code: Full Dispo: Home pending DKA resolves, urine cx results Time Spent Managing Pts Care (In Minutes): 55
[2024-06-16] MEDS: CEFEPIME 1 GM in NA CHLORIDE 0.9% 100 ML IV SCH (08:00)
[2024-06-16] MEDS: ATORVASTATIN 10 MG TAB PO SCH (08:04)
[2024-06-16] MEDS: MORPHINE 4 MG/ML SYR IV PRN (08:06)
[2024-06-16 08:07] LABS: Absolute Basophils 0.1 K/uL (0-0.5); Absolute Lymphocytes (CBC) 1.2 K/uL (0.7-4.9); Absolute Monocytes 0.8 K/uL (0.1-1.3); Absolute Neutrophil 14.2 K/uL (1.8-8.0); Basophils % 0.5 % (0-1.3); Hematocrit 37.7 % (36.0-45.0); Hemoglobin 12.7 g/dL (12.0-15.0); Lymphocytes % 7.2 % (15.3-44.8); MCH 29.6 pg (27.0-35.0); MCHC 33.8 g/dL (32.0-36.0); MCV 87.6 fL (80-100); MPV 8.1 fL (7.6-11.3); Monocytes % 4.6 % (3.3-12.3); Neutrophils % 87.7 % (41.7-73.7); Platelets 276 thou/uL (152-406); Red Cell Distribution Width 13.7 % (12.1-15.2)
[2024-06-16] MEDS: LOSARTAN POTASSIUM 50 MG TABLET PO SCH (09:00)
[2024-06-16 09:59] LABS: Anion Gap 13.3 mEq/L (5.0-15.0); Potassium 3.3 mEq/L (3.5-5.1)
[2024-06-16 11:19] LABS: C-Reactive Protein 32.9 mg/L (<3.00); Magnesium 2.1 mg/dL (1.6-2.4)
--- NOTE | 2024-06-16 11:56 | EKG ---
Test Date: 2024-06-15 Test Time: 23:32:45 Foundry Engineer: VALE MEASUREMENT RESULTS: Intervals: Rate: 101 OK: 176 QRSD: 86 QT: 376 QTc: 487 [place]: P: 59 OK: 176 QRS: 18 T: 44 INTERPRETIVE STATEMENTS: Sinus tachycardia Cannot rule out Anterior infarct, age undetermined Abnormal ECG Compared to ECG 12/25/2023 04:46:31 Myocardial infarct finding now present Sinus rhythm no longer present Electronically Signed On 06-16-24 11:55:17 CDT by Robby Chapman
[2024-06-16 11:57] LABS: Anion Gap 7.6 mEq/L (5.0-15.0); Potassium 3.6 mEq/L (3.5-5.1)
[2024-06-16] MEDS ORDERED: D10W 125 ML IV PRN (14:54)
[2024-06-16] MEDS: INSULIN REGULAR (HUMAN) 100 UNIT/ML SQ SCH (15:59)
[2024-06-16] MEDS: INSULIN GLARGINE 100 UNIT/ML SQ ONE (17:00)
[2024-06-17] MEDS: LABETALOL 20 MG/4ML SYRINGE IV ONE (03:16)
[2024-06-17 06:28] LABS: Absolute Lymphocytes (CBC) 1.6 K/uL (0.7-4.9); Absolute Monocytes 0.7 K/uL (0.1-1.3); Absolute Neutrophil 11.1 K/uL (1.8-8.0); Basophils % 0.3 % (0-1.3); Eosinophils % 0.1 % (0-4.4); Hematocrit 36.4 % (36.0-45.0); Hemoglobin 12.6 g/dL (12.0-15.0); Lymphocytes % 11.7 % (15.3-44.8); MCH 30.1 pg (27.0-35.0); MCHC 34.6 g/dL (32.0-36.0); MPV 7.9 fL (7.6-11.3); Monocytes % 5.1 % (3.3-12.3); Neutrophils % 82.8 % (41.7-73.7); Platelets 252 thou/uL (152-406); RBC Red Blood Cell Count 4.18 M/uL (3.86-4.86); Red Cell Distribution Width 13.9 % (12.1-15.2)
[2024-06-17 06:31] LABS: Albumin 2.6 g/dL (3.4-5.0); Albumin/Globulin Ratio 0.7 (1.1-1.8); Anion Gap 10.7 mEq/L (5.0-15.0); Bilirubin Total 0.4 mg/dL (0.2-1.0); Globulin 3.7 g/dL (2.3-3.5); Protein, Total 6.3 g/dL (6.4-8.2)
[2024-06-17 06:33] LABS: Magnesium 2.2 mg/dL (1.6-2.4); Potassium 3.7 mEq/L (3.5-5.1)
--- NOTE | 2024-06-17 06:46 | P.PN ---
Date of Service: 06/17/24 Subjective: gap closed yesterday, transitioned off insulin drip last night Physical Exam: GEN: Alert, oriented, NAD CV: Regular rate and rhythm, no edema Pulm: Nonlabored respirations on room air, clear bilaterally ABD: soft, mild epigastric tenderness, nondistended Neuro: Normal speech, normal affect Problem List: DKA ?UTI Lactic acidosis, resolved Hypertension Hyperlipidemia Anxiety/Depression Raynaud's phenomenon Hx of CVA (2021) Hx left diabetic foot ulcer s/p I&D (02/2024) DKA ?UTI Lactic acidosis, resolved on admission, presents with abdominal pain associated with nausea/vomiting. She was seen at [facility] ER prior to admission and reportedly diagnosed with UTI. Dc'd with Zosyn and zofran but was unable to tolerate oral intake. She reports 1 prior episode of DKA in the past. States shes had multiple diabetic medication adjustments over the years due to side effects. A1c back in Mar 2023: 10.2 CT abd/pelvis (06/15): Cholelithiasis. Mild dilatation of the esophagus. Mild bladder distention Found to be in DKA in ED. Given IVF, PPI, Rocephin in ED 06/16 - Started on insulin drip and admit to ICU Serial BMP q4h IV cefepime (06/16-) Follow blood and urine cultures Lactic acid improved. CRP elevated - 32.9 06/17 gap closed, off insulin drip continue semglee restart home anti-hypertensives now that no longer NPO reports nausea./vomiting overnight, hasn't really kept much down make npo for bowel rest lipase WNL Hypertension Hyperlipidemia Anxiety/Depression Raynaud's phenomenon Hx of CVA (2021) Hx left diabetic foot ulcer s/p I&D (02/2024) confirm home meds, restart as appropriate VTE: SCD for now Code: Full Dispo: Home, ~2 days Time Spent Managing Pts Care (In Minutes): 55
[2024-06-17] MEDS: INSULIN GLARGINE 100 UNIT/ML SQ SCH (07:36)
[2024-06-17] MEDS: KCL 20 MEQ/100 mL IVPB 20 MEQ/100 ML BAG IV SCH (08:16)
[2024-06-17] MEDS: NA CHLORIDE 0.9% 1,000 ML IV SCH (08:16)
[2024-06-17] MEDS: MORPHINE 4 MG/ML SYR IV PRN (08:19)
[2024-06-17] MEDS: hydroCHLOROthiazide 25 MG TAB PO SCH (09:00)
[2024-06-17] MEDS: CLOPIDOGREL 75 MG TABLET PO SCH (09:00)
[2024-06-17] MEDS: HYDRALAZINE HCL 20 MG/ML VIAL IV PRN (09:35)
[2024-06-17 12:46] LABS: Phosphorus 2.3 mg/dL (2.5-4.9)
[2024-06-17] MEDS: INSULIN REGULAR (HUMAN) 100 UNIT/ML SQ SCH (15:58)
--- NOTE | 2024-06-17 21:41 | RAD REPORT ---
EXAM: XR Abdomen 1 View (KUB) HISTORY: [facility] MAIN N/V; Abd pain COMPARISON: None FINDINGS: Single view of the abdomen shows a nonspecific, nonobstructive bowel gas pattern. No suspi cious calcifications are seen. The bones are unremarkable. IMPRESSION: Unremarkable exam
[2024-06-18 05:37] VITALS: BMI 29.0
[2024-06-18 05:57] LABS: Absolute Lymphocytes (CBC) 1.2 K/uL (0.7-4.9); Absolute Monocytes 0.5 K/uL (0.1-1.3); Absolute Neutrophil 9.4 K/uL (1.8-8.0); Basophils % 0.1 % (0-1.3); Eosinophils % 0.1 % (0-4.4); Hematocrit 38.9 % (36.0-45.0); Hemoglobin 13.4 g/dL (12.0-15.0); Lymphocytes % 10.4 % (15.3-44.8); MCH 30.2 pg (27.0-35.0); MCHC 34.5 g/dL (32.0-36.0); MCV 87.7 fL (80-100); MPV 8.1 fL (7.6-11.3); Monocytes % 4.7 % (3.3-12.3); Neutrophils % 84.7 % (41.7-73.7); Nucleated Red Blood Cells % 0.1 % (0-0); Platelets 268 thou/uL (152-406); RBC Red Blood Cell Count 4.44 M/uL (3.86-4.86); Red Cell Distribution Width 13.5 % (12.1-15.2)
[2024-06-18 06:04] LABS: Albumin 2.6 g/dL (3.4-5.0); Albumin/Globulin Ratio 0.6 (1.1-1.8); Anion Gap 11.3 mEq/L (5.0-15.0); Bilirubin Total 0.4 mg/dL (0.2-1.0); Globulin 4.2 g/dL (2.3-3.5); Magnesium 2.1 mg/dL (1.6-2.4); Potassium 3.3 mEq/L (3.5-5.1); Protein, Total 6.8 g/dL (6.4-8.2)
[2024-06-18] MEDS ORDERED: SODIUM CHLORIDE 0.9% 10ML INJ IV PRN (07:36)
[2024-06-18] MEDS: NA CHLORIDE 0.9% 1,000 ML IV SCH (07:57)
--- NOTE | 2024-06-18 08:04 | P.PN ---
Date of Service: 06/18/24 Subjective: nausea/abd pain yesterday feels better today - less pain, less nausea hungry/thirsty this morning no new/worsening symptoms Physical Exam: GEN: Alert, oriented, NAD CV: Regular rate and rhythm, no edema Pulm: Nonlabored respirations on room air, clear bilaterally ABD: soft, mild epigastric tenderness, nondistended Neuro: Normal speech, normal affect Problem List: DKA possible UTI Lactic acidosis, resolved Hypertension Hyperlipidemia Anxiety/Depression Raynaud's phenomenon Hx of CVA (2021) Hx left diabetic foot ulcer s/p I&D (02/2024) DKA possible UTI Lactic acidosis, resolved on admission, presents with abdominal pain associated with nausea/vomiting. She was seen at [facility] ER prior to admission and reportedly diagnosed with UTI. Dc'd with Zosyn and zofran but was unable to tolerate oral intake. She reports 1 prior episode of DKA in the past. States shes had multiple diabetic medication adjustments over the years due to side effects. A1c back in Mar 2023: 10.2 CT abd/pelvis (06/15): Cholelithiasis. Mild dilatation of the esophagus. Mild bladder distention Found to be in DKA in ED. Given IVF, PPI, Rocephin in ED 06/16 - Started on insulin drip and admit to ICU Serial BMP q4h IV cefepime (06/16-) Follow blood and urine cultures Lactic acid improved. CRP elevated - 32.9 06/17 - gap closed, off insulin drip continue semglee restart home anti-hypertensives now that no longer NPO reports nausea./vomiting overnight, hasn't really kept much down make npo for bowel rest lipase WNL 06/18 - advance diet to full liquids, and as tolerated throughout the day decrease IVF monitor pain/nausea semglee this morning gap remains closed potential downgrade from ICU Hypertension Hyperlipidemia Anxiety/Depression Raynaud's phenomenon Hx of CVA (2021) Hx left diabetic foot ulcer s/p I&D (02/2024) confirm home meds, restart VTE: SCD for now Code: Full Dispo: Home, ~2 days Time Spent Managing Pts Care (In Minutes): 55
[2024-06-18] MEDS: PANTOPRAZOLE 40 MG INJ IVP SCH (08:26)
[2024-06-18] MEDS: KCL 20 MEQ/100 mL IVPB 20 MEQ/100 ML BAG IV SCH (08:26)
[2024-06-18] MEDS: ENOXAPARIN 40 MG/0.4 ML SQ SCH (16:42)
[2024-06-19 05:35] LABS: Absolute Eosinophils 0.1 K/uL (0-0.5); Absolute Lymphocytes (CBC) 1.5 K/uL (0.7-4.9); Absolute Monocytes 0.5 K/uL (0.1-1.3); Absolute Neutrophil 6.8 K/uL (1.8-8.0); Basophils % 0.4 % (0-1.3); Eosinophils % 0.6 % (0-4.4); Hematocrit 38.5 % (36.0-45.0); Hemoglobin 13.2 g/dL (12.0-15.0); MCH 29.9 pg (27.0-35.0); MCHC 34.3 g/dL (32.0-36.0); MCV 87.2 fL (80-100); MPV 7.4 fL (7.6-11.3); Monocytes % 5.6 % (3.3-12.3); Neutrophils % 76.4 % (41.7-73.7); Nucleated RBC Absolute Count 0.1 (0-0); Nucleated Red Blood Cells % 0.7 % (0-0); Platelets 276 thou/uL (152-406); RBC Red Blood Cell Count 4.42 M/uL (3.86-4.86); Red Cell Distribution Width 13.9 % (12.1-15.2)
[2024-06-19] MEDS: ONDANSETRON 4 MG/2 ML VIAL IV ONE (05:45)
[2024-06-19 06:05] LABS: Albumin 2.6 g/dL (3.4-5.0); Albumin/Globulin Ratio 0.7 (1.1-1.8); Anion Gap 10.4 mEq/L (5.0-15.0); Bilirubin Total 0.5 mg/dL (0.2-1.0); Globulin 3.8 g/dL (2.3-3.5); Magnesium 2.2 mg/dL (1.6-2.4); Potassium 3.4 mEq/L (3.5-5.1); Protein, Total 6.4 g/dL (6.4-8.2)
--- NOTE | 2024-06-19 07:46 | P.PN ---
Date of Service: 06/19/24 Subjective: continues with pain and nausea but feels slightly better compared to a few days ago last BM ~ per patient denies urinary symptoms afebrile Physical Exam: GEN: Alert, oriented, NAD CV: Regular rate and rhythm, trace edema Pulm: Nonlabored respirations on room air, clear bilaterally ABD: soft, mild epigastric tenderness, nondistended Neuro: Normal speech, normal affect Problem List: DKA UTI ruled out Lactic acidosis, resolved Hypertension Hyperlipidemia Anxiety/Depression Raynaud's phenomenon Hx of CVA (2021) Hx left diabetic foot ulcer s/p I&D (02/2024) DKA UTI ruled out Lactic acidosis, resolved on admission, presents with abdominal pain associated with nausea/vomiting. She was seen at [facility] ER prior to admission and reportedly diagnosed with UTI. Dc'd with Zosyn and zofran but was unable to tolerate oral intake. She reports 1 prior episode of DKA in the past. States shes had multiple diabetic medication adjustments over the years due to side effects. A1c back in Mar 2023: 10.2 CT abd/pelvis (06/15): Cholelithiasis. Mild dilatation of the esophagus. Mild bladder distention Found to be in DKA in ED. Given IVF, PPI, Rocephin in ED 06/16 - Started on insulin drip and admit to ICU IV cefepime (06/16-) Lactic acid improved. CRP elevated - 32.9 06/17 - gap closed, off insulin drip; transition to semglee restart home anti-hypertensives now that no longer NPO reports nausea/vomiting overnight, hasn't really kept much down lipase WNL; KUB unremarkable Urine cx grew mixed tito 06/18 - advance diet to full liquids, and as tolerated throughout the day decrease IVF gap remains closed IV PPI BID Blood cx resulted Staph hominis in 03/13 bottles; likely contaminant 06/19 - continues with pain and nausea but feels slightly better compared to a few days ago semglee decreased to 15u daily from 15u BID Carafate added will check CT abd/pelvis given persistent nausea/pain initial CT noted cholelithiasis, no GB wall thickening, has mostly epigastric pain, but seems to have slight RUQ discomfort Hypertension Hyperlipidemia Anxiety/Depression Raynaud's phenomenon Hx of CVA (2021) Hx left diabetic foot ulcer s/p I&D (02/2024) confirm home meds, restart VTE: lovenox Code: Full Dispo: Home, ~1-2 days Pending pain and nausea improve Time Spent Managing Pts Care (In Minutes): 55
[2024-06-19] MEDS: KCL 20 MEQ/100 mL IVPB 20 MEQ/100 ML BAG IV SCH (08:34)
[2024-06-19] MEDS: INSULIN GLARGINE 100 UNIT/ML SQ SCH (08:35)
[2024-06-19] MEDS: HYDROCODONE/APAP 5/325 MG TAB PO PRN (08:43)
--- NOTE | 2024-06-19 10:29 | RAD REPORT ---
EXAMINATION: CT ABDOMEN AND PELVIS WITHOUT CONTRAST CLINICAL INDICATION: Abdominal pain TECHNIQUE: CT abdomen and pelvis was performed, as per department protocol. IV contrast and oral was not administered.Axial, sagittal and coronal reconstructions were obtained. One or more of the following dose reduction techniques were used: Automated exposure control, adjustment of the mA and/o r kV according to the patient size, and/or iterative reconstruction. Unless otherwise specified, incidental findings do not require dedicated imaging follow-up. [id number]. COMPARISON: June 15, 2024 FINDINGS: The lack of intravenous and oral contrast limits evaluation of solid organs, vessels and bowel. Small bilateral pleural effusions. Mild left lower lobe atelectasis. Cholelithiasis. Gallbladder wall appears borderline thickened. Liver, spleen, pancreas, adrenals grossly normal. Punctate renal calculi. No hydronephrosis. Bladder distention. No adnexal mass 6 cm hematoma right rectus abdominous muscle. Normal appendix. Small umbilical hernia. IMPRESSION: 6 mm hematoma right rectus abdominis muscle within the pelvis. Bladder distention Cholelithiasis. There appears to be borderline gallbladder wall thickening
[2024-06-19] MEDS: SUCRALFATE 1 GM TABLET PO SCH (11:29)
--- NOTE | 2024-06-19 13:11 | RAD REPORT ---
EXAM: Abdominal exam Limited ultrasound CLINICAL HISTORY: Abdominal pain COMPARISON: CT June 19, 2024 FINDINGS: Large amount of sludge is present within the gallbladder. Probable tiny gallstones. Gallbladder wall upper limits normal thickness. Biliary tree normal caliber IMPRESSION: Large amount of gallbladder sludge Probable tiny gallstones. No evidence of cholecystitis
[2024-06-20 06:11] LABS: Absolute Eosinophils 0.1 K/uL (0-0.5); Absolute Lymphocytes (CBC) 1.6 K/uL (0.7-4.9); Absolute Monocytes 0.6 K/uL (0.1-1.3); Absolute Neutrophil 6.2 K/uL (1.8-8.0); Basophils % 0.6 % (0-1.3); Eosinophils % 1.3 % (0-4.4); Hematocrit 36.1 % (36.0-45.0); Hemoglobin 12.7 g/dL (12.0-15.0); Lymphocytes % 18.3 % (15.3-44.8); MCH 30.3 pg (27.0-35.0); MCHC 35.2 g/dL (32.0-36.0); MPV 7.4 fL (7.6-11.3); Monocytes % 6.6 % (3.3-12.3); Neutrophils % 73.2 % (41.7-73.7); Nucleated Red Blood Cells % 0.1 % (0-0); Platelets 266 thou/uL (152-406); RBC Red Blood Cell Count 4.19 M/uL (3.86-4.86); Red Cell Distribution Width 13.1 % (12.1-15.2)
[2024-06-20 06:45] LABS: Albumin 2.5 g/dL (3.4-5.0); Albumin/Globulin Ratio 0.7 (1.1-1.8); Anion Gap 6.5 mEq/L (5.0-15.0); Bilirubin Total 0.5 mg/dL (0.2-1.0); Globulin 3.7 g/dL (2.3-3.5); Magnesium 2.1 mg/dL (1.6-2.4); Potassium 3.5 mEq/L (3.5-5.1); Protein, Total 6.2 g/dL (6.4-8.2)
[2024-06-20] MEDS: POTASSIUM CL SA 10 MEQ TAB PO ONE (07:34)
--- NOTE | 2024-06-20 08:19 | P.PN ---
Date of Service: 06/20/24 Subjective: feeling better overall today continues with nausea but improving able to tolerate more fluids and a few bites of jello this morning she reports some difficulty swallowing; not new - ongoing for several months per patient does not use oxygen at home Physical Exam: GEN: Alert, oriented, NAD CV: Regular rate and rhythm, trace edema Pulm: Nonlabored respirations on room air, clear bilaterally ABD: soft, mild epigastric tenderness, nondistended Neuro: Normal speech, normal affect Problem List: Persistent Nausea DKA, resolved UTI ruled out Lactic acidosis, resolved 6cm rectus abdominis hematoma Hypertension Hyperlipidemia Anxiety/Depression Raynaud's phenomenon Hx of CVA (2021) Hx left diabetic foot ulcer s/p I&D (02/2024) Hx of Carotid artery stenosis Persistent Nausea DKA, resolved UTI ruled out Lactic acidosis, resolved 6cm rectus abdominis hematoma on admission, presents with abdominal pain associated with nausea/vomiting. She was seen at [facility] ER prior to admission and reportedly diagnosed with UTI. Dc'd with Zosyn and zofran but was unable to tolerate oral intake. She reports 1 prior episode of DKA in the past. States shes had multiple diabetic medication adjustments over the years due to side effects. A1c back in Mar 2023: 10.2 CT abd/pelvis (06/15): Cholelithiasis. Mild dilatation of the esophagus. Mild bladder distention Found to be in DKA in ED. Given IVF, PPI, Rocephin in ED 06/16 - Started on insulin drip and admit to ICU IV cefepime (06/16-) Lactic acid improved. CRP elevated - 32.9 06/17 - gap closed, off insulin drip; transition to semglee restart home anti-hypertensives now that no longer NPO reports nausea/vomiting overnight, hasn't really kept much down lipase WNL; KUB unremarkable Urine cx grew mixed tito 06/18 - advance diet to full liquids, and as tolerated throughout the day IV PPI BID Blood cx resulted Staph hominis in 1/4 bottles; likely contaminant Downgraded from ICU yesterday 06/19 - Continues with pain and nausea but feels slightly better compared to a few days ago semglee decreased to 15u daily from 15u BID Carafate added CT abd noted 6cm rectus abdominis hematoma, bladder distention, cholelithiasis with borderline gallbladder wall thickening Abdominal u/s with large amount of gallbladder sludge with probable tiny gallstones. No evidence of cholecystitis. DC lovenox given CT findings. Hgb stable. 06/20 - Feeling better today. Nausea improving. Able to tolerate more fluids and a few bites of jello this morning She reports some difficulty swallowing; not new for her - ongoing for several months per patient Patient thinks her nausea may be related to her swallowing. Nausea occurs a few seconds after swallowing. No BM since Friday. Started passing gas yesterday. Wean oxygen as tolerated. Does not use oxygen at home Hypertension Hyperlipidemia Anxiety/Depression Raynaud's phenomenon Hx of CVA (2021) Hx left diabetic foot ulcer s/p I&D (02/2024) Hx of Carotid artery stenosis confirm home meds, restart VTE: lovenox dc'd 06/19 given hematoma findings on CT Code: Full Dispo: Home, ~1-2 days Pending pain and nausea improve Time Spent Managing Pts Care (In Minutes): 55
[2024-06-20] MEDS: INSULIN REGULAR (HUMAN) 100 UNIT/ML SQ ONE (20:41)
[2024-06-21 06:33] LABS: Absolute Basophils 0.1 K/uL (0-0.5); Absolute Lymphocytes (CBC) 1.9 K/uL (0.7-4.9); Absolute Monocytes 0.7 K/uL (0.1-1.3); Absolute Neutrophil 5.4 K/uL (1.8-8.0); Basophils % 0.6 % (0-1.3); Eosinophils % 0.4 % (0-4.4); Hematocrit 34.1 % (36.0-45.0); Lymphocytes % 23.3 % (15.3-44.8); MCH 29.9 pg (27.0-35.0); MCHC 35.1 g/dL (32.0-36.0); MPV 7.4 fL (7.6-11.3); Monocytes % 8.5 % (3.3-12.3); Neutrophils % 67.2 % (41.7-73.7); Nucleated Red Blood Cells % 0.2 % (0-0); Platelets 250 thou/uL (152-406)
[2024-06-21 06:53] LABS: Albumin 2.5 g/dL (3.4-5.0); Albumin/Globulin Ratio 0.7 (1.1-1.8); Anion Gap 8.3 mEq/L (5.0-15.0); Bilirubin Total 0.5 mg/dL (0.2-1.0); Globulin 3.5 g/dL (2.3-3.5); Magnesium 2.1 mg/dL (1.6-2.4); Potassium 3.3 mEq/L (3.5-5.1)
[2024-06-21] MEDS: INSULIN GLARGINE 100 UNIT/ML SQ SCH (08:47)
[2024-06-21] MEDS: LOSARTAN POTASSIUM 50 MG TABLET PO SCH (08:49)
--- NOTE | 2024-06-21 10:17 | P.PN ---
Date of Service: 06/21/24 Subjective: had 3 episode of nausea/vomiting since dinner yesterday occurred after dinner yesterday and again this morning shortly after medication abdominal pain continues ~same states she produces minimal saliva afebrile Physical Exam: GEN: Alert, oriented, NAD CV: Regular rate and rhythm, trace edema Pulm: Nonlabored respirations on room air, clear bilaterally ABD: soft, mild epigastric tenderness, nondistended Neuro: Normal speech, normal affect Problem List: Persistent Nausea DKA, resolved UTI ruled out Lactic acidosis, resolved 6cm rectus abdominis hematoma Hypertension Hyperlipidemia Anxiety/Depression Raynaud's phenomenon Hx of CVA (2021) Hx left diabetic foot ulcer s/p I&D (02/2024) Hx of Carotid artery stenosis Persistent Nausea DKA, resolved UTI ruled out Lactic acidosis, resolved 6cm rectus abdominis hematoma on admission, presents with abdominal pain associated with nausea/vomiting. She was seen at [facility] ER prior to admission and reportedly diagnosed with UTI. Dc'd with Zosyn and zofran but was unable to tolerate oral intake. She reports 1 prior episode of DKA in the past. States shes had multiple diabetic medication adjustments over the years due to side effects. A1c back in Mar 2023: 10.2 CT abd/pelvis (06/15): Cholelithiasis. Mild dilatation of the esophagus. Mild bladder distention Found to be in DKA in ED. Given IVF, PPI, Rocephin in ED 06/16 - Started on insulin drip and admit to ICU IV cefepime (06/16-) Lactic acid improved. CRP elevated - 32.9 06/17 - gap closed, off insulin drip; transition to semglee restart home anti-hypertensives now that no longer NPO reports nausea/vomiting overnight, hasn't really kept much down lipase WNL; KUB unremarkable Urine cx grew mixed tito 06/18 - advance diet to full liquids, and as tolerated throughout the day IV PPI BID Blood cx resulted Staph hominis in 1/ bottles; likely contaminant Downgraded from ICU yesterday 06/19 - Continues with pain and nausea but feels slightly better compared to a few days ago semglee decreased to 15u daily from 15u BID Carafate added CT abd noted 6cm rectus abdominis hematoma, bladder distention, cholelithiasis with borderline gallbladder wall thickening Abdominal u/s with large amount of gallbladder sludge with probable tiny gallstones. No evidence of cholecystitis. DC lovenox given CT findings. Hgb stable. 06/20 - Feeling better today. Nausea improving. Able to tolerate more fluids and a few bites of jello this morning She reports some difficulty swallowing; not new for her - ongoing for several months per patient Patient thinks her nausea may be related to her swallowing. Nausea occurs a few seconds after swallowing. No BM since Friday. Started passing gas yesterday. Wean oxygen as tolerated. Does not use oxygen at home 06/21 - had 3 episode of nausea/vomiting since dinner yesterday abdominal pain continues ~same /slight improvement Overall seems to be doing better Tolerating more fluid intermittently Continue to monitor Hypertension Hyperlipidemia Anxiety/Depression Raynaud's phenomenon Hx of CVA (2021) Hx left diabetic foot ulcer s/p I&D (02/2024) Hx of Carotid artery stenosis confirm home meds, restart VTE: lovenox dc'd 06/19 given hematoma findings on CT Code: Full Dispo: Home, ~1-2 days Pending pain and nausea improve Time Spent Managing Pts Care (In Minutes): 55
[2024-06-21] MEDS: SUCRALFATE 1GM/10ML UCUP PO SCH (12:01)
[2024-06-21] MEDS: MORPHINE 2 MG/ML SYR IV PRN (12:45)
[2024-06-21] MEDS: PANTOPRAZOLE 40MG TABLET PO SCH (15:03)
[2024-06-22 08:01] LABS: Albumin 2.5 g/dL (3.4-5.0); Albumin/Globulin Ratio 0.7 (1.1-1.8); Anion Gap 6.3 mEq/L (5.0-15.0); Bilirubin Total 0.6 mg/dL (0.2-1.0); Globulin 3.7 g/dL (2.3-3.5); Magnesium 2.1 mg/dL (1.6-2.4); Potassium 3.3 mEq/L (3.5-5.1); Protein, Total 6.2 g/dL (6.4-8.2)
[2024-06-22] MEDS: INSULIN GLARGINE 100 UNIT/ML SQ ONE ×3 (09:37→12:01)
--- NOTE | 2024-06-22 16:12 | P.PN ---
Subjective Date of Service: 06/22/24 Chief Complaint: DKA Patient denies any nausea or vomiting. She is tolerating diet. No issues overnight She is complaining of pain in the left leg. Physical Examination - Vital Signs Temperature: 97.4 F Blood Pressure: 148/71 Pulse: 109 Respirations: 18 Pulse Ox (%): 93 Assessment And Plan - Plan Physical examination General: Alert and oriented x3, NAD, HEENT: Conjunctiva not pale, anicteric sclera Neck: Supple, no elevated JVD Heart: Heart sounds 1 and 2 normal, regular rhythm, normal rate, no pedal edema Lungs: Clear to auscultation bilaterally, adequate breath sounds bilaterally, no rhonchi or crackles. Abdomen: Soft, nondistended, nontender, normal bowel sounds. Extremities: No tenderness, no deformity Skin: Normal skin turgor, no rash, no nodules or ulcers. Neuro: No focal motor deficit. Normal speech. Psychiatry: Normal mood, no agitation. Problem List: Persistent Nausea DKA, resolved UTI ruled out Lactic acidosis, resolved 6cm rectus abdominis hematoma Hypertension Hyperlipidemia Anxiety/Depression Raynaud's phenomenon Hx of CVA (2021) Hx left diabetic foot ulcer s/p I&D (02/2024) Hx of Carotid artery stenosis Persistent Nausea DKA, resolved UTI ruled out Lactic acidosis, resolved 6cm rectus abdominis hematoma on admission, presents with abdominal pain associated with nausea/vomiting. She was seen at [facility] ER prior to admission and reportedly diagnosed with UTI. Dc'd with Zosyn and zofran but was unable to tolerate oral intake. She reports 1 prior episode of DKA in the past. States shes had multiple diabetic medication adjustments over the years due to side effects. A1c back in Mar 2023: 10.2 CT abd/pelvis (06/15): Cholelithiasis. Mild dilatation of the esophagus. Mild bladder distention Found to be in DKA in ED. Given IVF, PPI, Rocephin in ED 06/16 - Started on insulin drip and admit to ICU IV cefepime (06/16-) Lactic acid improved. CRP elevated - 32.9 06/17 - gap closed, off insulin drip; transition to semglee restart home anti-hypertensives now that no longer NPO reports nausea/vomiting overnight, hasn't really kept much down lipase WNL; KUB unremarkable Urine cx grew mixed tito 06/18 - advance diet to full liquids, and as tolerated throughout the day IV PPI BID Blood cx resulted Staph hominis in 1/4 bottles; likely contaminant Downgraded from ICU yesterday 06/19 - Continues with pain and nausea but feels slightly better compared to a few days ago semglee decreased to 15u daily from 15u BID Carafate added CT abd noted 6cm rectus abdominis hematoma, bladder distention, cholelithiasis with borderline gallbladder wall thickening Abdominal u/s with large amount of gallbladder sludge with probable tiny gallstones. No evidence of cholecystitis. DC lovenox given CT findings. Hgb stable. 06/20 - Feeling better today. Nausea improving. Able to tolerate more fluids and a few bites of jello this morning She reports some difficulty swallowing; not new for her - ongoing for several months per patient Patient thinks her nausea may be related to her swallowing. Nausea occurs a few seconds after swallowing. No BM since Friday. Started passing gas yesterday. Wean oxygen as tolerated. Does not use oxygen at home 06/21 - had 3 episode of nausea/vomiting since dinner yesterday abdominal pain continues ~same /slight improvement Overall seems to be doing better Tolerating more fluid intermittently Continue to monitor Hypertension Hyperlipidemia Anxiety/Depression Raynaud's phenomenon Hx of CVA (2021) Hx left diabetic foot ulcer s/p I&D (02/2024) Hx of Carotid artery stenosis confirm home meds, restart 06/22 Patient is tolerating diet She is hyperglycemic. Lantus insulin titrated to 30 units daily Continue insulin sliding scale. Continue Protonix and sucralfate Patient completed IV cefepime for UTI. Decreasing mobility noted. Continue PT. Patient may be a candidate for skilled rehab. VTE: SCD Code: Full Dispo: SNF
[2024-06-22] MEDS: METFORMIN ER 500 MG TAB PO SCH (20:43)
[2024-06-23 05:59] LABS: Absolute Eosinophils 0.2 K/uL (0-0.5); Absolute Lymphocytes (CBC) 1.8 K/uL (0.7-4.9); Absolute Monocytes 0.9 K/uL (0.1-1.3); Absolute Neutrophil 5.9 K/uL (1.8-8.0); Basophils % 0.4 % (0-1.3); Eosinophils % 2.8 % (0-4.4); Hematocrit 31.8 % (36.0-45.0); Hemoglobin 11.1 g/dL (12.0-15.0); Lymphocytes % 20.3 % (15.3-44.8); MCH 30.6 pg (27.0-35.0); MCV 87.4 fL (80-100); MPV 7.8 fL (7.6-11.3); Monocytes % 10.2 % (3.3-12.3); Neutrophils % 66.3 % (41.7-73.7); Nucleated Red Blood Cells % 0.1 % (0-0); Platelets 252 thou/uL (152-406); RBC Red Blood Cell Count 3.64 M/uL (3.86-4.86); Red Cell Distribution Width 13.5 % (12.1-15.2)
[2024-06-23 06:12] LABS: Anion Gap 10.4 mEq/L (5.0-15.0); Potassium 3.4 mEq/L (3.5-5.1)
[2024-06-23] MEDS: INSULIN GLARGINE 100 UNIT/ML SQ SCH (08:24)
[2024-06-23] MEDS: POTASSIUM CL SA 10 MEQ TAB PO ONE (08:25)
[2024-06-23] MEDS ORDERED: INSULIN GLARGINE 100 UNIT/ML SQ SCH (09:00)
--- NOTE | 2024-06-23 16:21 | P.PN ---
Subjective Date of Service: 06/23/24 Chief Complaint: DKA Patient has no new complaint. She is tolerating diet. Physical Examination - Vital Signs Temperature: 98.1 F Blood Pressure: 159/80 Pulse: 117 Respirations: 18 Pulse Ox (%): 90 Assessment And Plan - Plan Physical examination General: Alert and oriented x3, NAD, HEENT: Conjunctiva not pale, anicteric sclera Neck: Supple, no elevated JVD Heart: Heart sounds 1 and 2 normal, regular rhythm, normal rate, no pedal edema Lungs: Clear to auscultation bilaterally, adequate breath sounds bilaterally, no rhonchi or crackles. Abdomen: Soft, nondistended, nontender, normal bowel sounds. Extremities: No tenderness, no deformity Skin: Normal skin turgor, no rash, no nodules or ulcers. Neuro: No focal motor deficit. Normal speech. Psychiatry: Normal mood, no agitation. Problem List: Persistent Nausea DKA, resolved UTI ruled out Lactic acidosis, resolved 6cm rectus abdominis hematoma Hypertension Hyperlipidemia Anxiety/Depression Raynaud's phenomenon Hx of CVA (2021) Hx left diabetic foot ulcer s/p I&D (02/2024) Hx of Carotid artery stenosis Persistent Nausea DKA, resolved UTI ruled out Lactic acidosis, resolved 6cm rectus abdominis hematoma on admission, presents with abdominal pain associated with nausea/vomiting. She was seen at [facility] ER prior to admission and reportedly diagnosed with UTI. Dc'd with Zosyn and zofran but was unable to tolerate oral intake. She reports 1 prior episode of DKA in the past. States shes had multiple diabetic medication adjustments over the years due to side effects. A1c back in Mar 2023: 10.2 CT abd/pelvis (06/15): Cholelithiasis. Mild dilatation of the esophagus. Mild bladder distention Found to be in DKA in ED. Given IVF, PPI, Rocephin in ED 06/16 - Started on insulin drip and admit to ICU IV cefepime (06/16-) Lactic acid improved. CRP elevated - 32.9 06/17 - gap closed, off insulin drip; transition to semglee restart home anti-hypertensives now that no longer NPO reports nausea/vomiting overnight, hasn't really kept much down lipase WNL; KUB unremarkable Urine cx grew mixed tito 06/18 - advanced diet to full liquids, and as tolerated throughout the day IV PPI BID Blood cx resulted Staph hominis in 03/13 bottles; likely contaminant Downgraded from ICU yesterday 06/19 - semglee decreased to 15u daily from 15u BID Carafate added CT abd noted 6cm rectus abdominis hematoma, bladder distention, cholelithiasis with borderline gallbladder wall thickening Abdominal u/s with large amount of gallbladder sludge with probable tiny gallstones. No evidence of cholecystitis. Lovenox discontinued given CT findings. Hgb stable. 06/20 -constipation Wean oxygen as tolerated. Does not use oxygen at home 06/21 - More episodes of nausea/vomiting. Overall seems to be doing better Tolerating more fluid intermittently Hypertension Hyperlipidemia Anxiety/Depression Raynaud's phenomenon Hx of CVA (2021) Hx left diabetic foot ulcer s/p I&D (02/2024) Hx of Carotid artery stenosis confirm home meds, restart 06/22 Patient is tolerating diet She is hyperglycemic. Lantus insulin titrated to 30 units daily Continue insulin sliding scale. Continue Protonix and sucralfate Patient completed IV cefepime for UTI. Decreasing mobility noted. Continue PT. Patient may be a candidate for skilled rehab. 06/23 Patient is tolerating diet without nausea or vomiting. Blood sugar readings are elevated. Lantus insulin titrated to 40 units daily Home dose metformin resumed Patient completed antibiotics for UTI Her mobility is decreased Continue PT Patient slated for skilled rehab placement. VTE: SCD Code: Full Dispo: SNF
[2024-06-24 07:24] LABS: Anion Gap 9.8 mEq/L (5.0-15.0); Potassium 3.8 mEq/L (3.5-5.1)
[2024-06-24] MEDS: INSULIN GLARGINE 100 UNIT/ML SQ SCH (08:28)
--- NOTE | 2024-06-24 14:59 | P.PN ---
Subjective Date of Service: 06/24/24 Chief Complaint: DKA Patient has no new complaint. Patient is eating well. She reports good appetite. Blood sugar significantly elevated. Physical Examination - Vital Signs Temperature: 97.9 F Blood Pressure: 149/78 Pulse: 99 Respirations: 16 Pulse Ox (%): 96 Assessment And Plan - Plan Physical examination General: Alert and oriented x3, NAD, Heart: Heart sounds 1 and 2 normal, regular rhythm, normal rate, no pedal edema Lungs: Clear to auscultation bilaterally, adequate breath sounds bilaterally, no rhonchi or crackles. Abdomen: Soft, obese, nontender, normal bowel sounds. Extremities: No tenderness, no deformity Skin: Normal skin turgor, no rash, no nodules or ulcers. Neuro: No focal motor deficit. Normal speech. Psychiatry: Normal mood, no agitation. Problem List: Persistent Nausea DKA, resolved UTI ruled out Lactic acidosis, resolved 6cm rectus abdominis hematoma Hypertension Hyperlipidemia Anxiety/Depression Raynaud's phenomenon Hx of CVA (2021) Hx left diabetic foot ulcer s/p I&D (02/2024) Hx of Carotid artery stenosis Persistent Nausea DKA, resolved UTI ruled out Lactic acidosis, resolved 6cm rectus abdominis hematoma on admission, presents with abdominal pain associated with nausea/vomiting. She was seen at [facility] ER prior to admission and reportedly diagnosed with UTI. Dc'd with Zosyn and zofran but was unable to tolerate oral intake. She reports 1 prior episode of DKA in the past. States shes had multiple diabetic medication adjustments over the years due to side effects. A1c back in Mar 2023: 10.2 CT abd/pelvis (06/15): Cholelithiasis. Mild dilatation of the esophagus. Mild bladder distention Found to be in DKA in ED. Given IVF, PPI, Rocephin in ED 06/16 - Started on insulin drip and admit to ICU IV cefepime (06/16-) Lactic acid improved. CRP elevated - 32.9 06/17 - gap closed, off insulin drip; transition to semglee restart home anti-hypertensives now that no longer NPO reports nausea/vomiting overnight, hasn't really kept much down lipase WNL; KUB unremarkable Urine cx grew mixed tito 06/18 - advanced diet to full liquids, and as tolerated throughout the day IV PPI BID Blood cx resulted Staph hominis in 1/ bottles; likely contaminant Downgraded from ICU yesterday 06/19 - semglee decreased to 15u daily from 15u BID Carafate added CT abd noted 6cm rectus abdominis hematoma, bladder distention, cholel ithiasis with borderline gallbladder wall thickening Abdominal u/s with large amount of gallbladder sludge with probable tiny gallstones. No evidence of cholecystitis. Lovenox discontinued given CT findings. Hgb stable. 06/20 -constipation Wean oxygen as tolerated. Does not use oxygen at home 06/21 - More episodes of nausea/vomiting. Overall seems to be doing better Tolerating more fluid intermittently Hypertension Hyperlipidemia Anxiety/Depression Raynaud's phenomenon Hx of CVA (2021) Hx left diabetic foot ulcer s/p I&D (02/2024) Hx of Carotid artery stenosis confirm home meds, restart 06/22 Patient is tolerating diet She is hyperglycemic. Lantus insulin titrated to 30 units daily Continue insulin sliding scale. Continue Protonix and sucralfate Patient completed IV cefepime for UTI. Decreasing mobility noted. Continue PT. Patient may be a candidate for skilled rehab. 06/23 Patient is tolerating diet without nausea or vomiting. Blood sugar readings are elevated. Lantus insulin titrated to 40 units daily Home dose metformin resumed Patient completed antibiotics for UTI Her mobility is decreased Continue PT Patient slated for skilled rehab placement. 06/24 Patient reports good appetite and denies any nausea. She remained hyperglycemic Continue to titrate Lantus insulin(Lantus insulin titrated to 50 units daily) Continue metformin Functional status is improving and patient is ambulating more distance though with stops. Continue PT I reemphasized ADA diet. VTE: SCD Code: Full Dispo: SNF
[2024-06-24] MEDS: INSULIN GLARGINE 100 UNIT/ML SQ ONE (16:54)
[2024-06-24] MEDS: AMLODIPINE 5 MG TAB PO SCH (16:55)
[2024-06-24] MEDS: ENSURE HIGH PROTEIN 237 ML CAN PO SCH (20:38)
[2024-06-25 06:04] LABS: Absolute Eosinophils 0.1 K/uL (0-0.5); Absolute Lymphocytes (CBC) 1.4 K/uL (0.7-4.9); Absolute Monocytes 0.4 K/uL (0.1-1.3); Absolute Neutrophil 5.3 K/uL (1.8-8.0); Basophils % 0.1 % (0-1.3); Hematocrit 46.6 % (36.0-45.0); Hemoglobin 16.3 g/dL (12.0-15.0); Lymphocytes % 19.9 % (15.3-44.8); MCH 30.7 pg (27.0-35.0); MCHC 34.9 g/dL (32.0-36.0); MCV 88.1 fL (80-100); MPV 7.8 fL (7.6-11.3); Monocytes % 5.1 % (3.3-12.3); Neutrophils % 72.9 % (41.7-73.7); Nucleated Red Blood Cells % 0.3 % (0-0); Platelets 146 thou/uL (152-406); Red Cell Distribution Width 13.8 % (12.1-15.2)
[2024-06-25 06:13] LABS: Anion Gap 9.1 mEq/L (5.0-15.0); Potassium 4.1 mEq/L (3.5-5.1)
[2024-06-25] MEDS: INSULIN GLARGINE 100 UNIT/ML SQ SCH (08:52)
--- NOTE | 2024-06-25 17:20 | P.PN ---
Subjective Date of Service: 06/25/24 Chief Complaint: DKA Patient denies any new complain. Patient is eating well. Blood sugar readings fluctuate but overall improved. Physical Examination - Vital Signs Temperature: 98.9 F Blood Pressure: 140/64 Pulse: 109 Respirations: 16 Pulse Ox (%): 95 Assessment And Plan - Plan Physical examination General: Alert and oriented x3, NAD, Heart: Heart sounds 1 and 2 normal, regular rhythm, normal rate, no pedal edema Lungs: Clear to auscultation bilaterally, adequate breath sounds bilaterally, no rhonchi or crackles. Abdomen: Soft, obese, nontender, normal bowel sounds. Extremities: No tenderness, no deformity Skin: Normal skin turgor, no rash. Neuro: No focal motor deficit. Normal speech. Psychiatry: Normal mood, no agitation. Problem List: Persistent Nausea DKA, resolved UTI ruled out Lactic acidosis, resolved 6cm rectus abdominis hematoma Hypertension Hyperlipidemia Anxiety/Depression Raynaud's phenomenon Hx of CVA (2021) Hx left diabetic foot ulcer s/p I&D (02/2024) Hx of Carotid artery stenosis Persistent Nausea DKA, resolved UTI ruled out Lactic acidosis, resolved 6cm rectus abdominis hematoma on admission, presents with abdominal pain associated with nausea/vomiting. She was seen at [facility] ER prior to admission and reportedly diagnosed with UTI. Dc'd with Zosyn and zofran but was unable to tolerate oral intake. She reports 1 prior episode of DKA in the past. States shes had multiple diabetic medication adjustments over the years due to side effects. A1c back in Mar 2023: 10.2 CT abd/pelvis (06/15): Cholelithiasis. Mild dilatation of the esophagus. Mild bladder distention Found to be in DKA in ED. Given IVF, PPI, Rocephin in ED 06/16 - Started on insulin drip and admit to ICU IV cefepime (06/16-) Lactic acid improved. CRP elevated - 32.9 06/17 - gap closed, off insulin drip; transition to semglee restart home anti-hypertensives now that no longer NPO reports nausea/vomiting overnight, hasn't really kept much down lipase WNL; KUB unremarkable Urine cx grew mixed tito 06/18 - advanced diet to full liquids, and as tolerated throughout the day IV PPI BID Blood cx resulted Staph hominis in 03/13 bottles; likely contaminant Downgraded from ICU yesterday 06/19 - semglee decreased to 15u daily from 15u BID Carafate added CT abd noted 6cm rectus abdominis hematoma, bladder distention, cholelithiasis with borderline gallbladder wall thickening Abdominal u/s with large amount of gallbladder sludge with probable tiny gallstones. No evidence of cholecystitis. Lovenox discontinued given CT findings. Hgb stable. 06/20 -constipation Wean oxygen as tolerated. Does not use oxygen at home 06/21 - More episodes of nausea/vomiting. Overall seems to be doing better Tolerating more fluid intermittently Hypertension Hyperlipidemia Anxiety/Depression Raynaud's phenomenon Hx of CVA (2021) Hx left diabetic foot ulcer s/p I&D (02/2024) Hx of Carotid artery stenosis confirm home meds, restart 06/22 Patient is tolerating diet She is hyperglycemic. Lantus insulin titrated to 30 units daily Continue insulin sliding scale. Continue Protonix and sucralfate Patient completed IV cefepime for UTI. Decreasing mobility noted. Continue PT. Patient may be a candidate for skilled rehab. 06/23 Patient is tolerating diet without nausea or vomiting. Blood sugar readings are elevated. Lantus insulin titrated to 40 units daily Home dose metformin resumed Patient completed antibiotics for UTI Her mobility is decreased Continue PT Patient slated for skilled rehab placement. 06/24 Patient reports good appetite and denies any nausea. She remained hyperglycemic Continue to titrate Lantus insulin(Lantus insulin titrated to 50 units daily) Continue metformin Functional status is improving and patient is ambulating more distance though with stops. Continue PT I reemphasized ADA diet. 06/25 Blood sugar readings overall improving Continue Lantus insulin and insulin sliding scale Continue metformin Patient is ambulating only short distances. Continue PT. Awaiting insurance authorization for skilled rehab placement VTE: SCD Code: Full Dispo: SNF
[2024-06-26 06:00] LABS: Anion Gap 7.8 mEq/L (5.0-15.0); Potassium 3.8 mEq/L (3.5-5.1)
[2024-06-26] MEDS: POTASSIUM CL SA 10 MEQ TAB PO ONE (08:08)
--- NOTE | 2024-06-26 16:45 | P.PN ---
Subjective Date of Service: 06/26/24 Chief Complaint: DKA Patient reports mild abdominal discomfort. Patient is eating well. Physical Examination - Vital Signs Temperature: 98.1 F Blood Pressure: 183/83 Pulse: 113 Respirations: 20 Pulse Ox (%): 97 Assessment And Plan - Plan Physical examination General: Alert and oriented x3, NAD, Heart: Heart sounds 1 and 2 normal, regular rhythm, normal rate, no pedal edema Lungs: Clear to auscultation bilaterally, adequate breath sounds bilaterally, no rhonchi or crackles. Abdomen: Soft, obese, nontender, normal bowel sounds. Skin: Normal skin turgor, no rash. Neuro: No focal motor deficit. Normal speech. Psychiatry: Normal mood, no agitation. Problem List: Persistent Nausea DKA, resolved UTI ruled out Lactic acidosis, resolved 6cm rectus abdominis hematoma Hypertension Hyperlipidemia Anxiety/Depression Raynaud's phenomenon Hx of CVA (2021) Hx left diabetic foot ulcer s/p I&D (02/2024) Hx of Carotid artery stenosis Persistent Nausea DKA, resolved UTI ruled out Lactic acidosis, resolved 6cm rectus abdominis hematoma on admission, presents with abdominal pain associated with nausea/vomiting. She was seen at [facility] ER prior to admission and reportedly diagnosed with UTI. Dc'd with Zosyn and zofran but was unable to tolerate oral intake. She reports 1 prior episode of DKA in the past. States shes had multiple diabetic medication adjustments over the years due to side effects. A1c back in Mar 2023: 10.2 CT abd/pelvis (06/15): Cholelithiasis. Mild dilatation of the esophagus. Mild bladder distention Found to be in DKA in ED. Given IVF, PPI, Rocephin in ED 06/16 - Started on insulin drip and admit to ICU IV cefepime (06/16-) Lactic acid improved. CRP elevated - 32.9 06/17 - gap closed, off insulin drip; transition to semglee restart home anti-hypertensives now that no longer NPO reports nausea/vomiting overnight, hasn't really kept much down lipase WNL; KUB unremarkable Urine cx grew mixed tito 06/18 - advanced diet to full liquids, and as tolerated throughout the day IV PPI BID Blood cx resulted Staph hominis in 1/ bottles; likely contaminant Downgraded from ICU yesterday 06/19 - semglee decreased to 15u daily from 15u BID Carafate added CT abd noted 6cm rectus abdominis hematoma, bladder distention, cholelithiasis with borderline gallbladder wall thickening Abdominal u/s with large amount of gallbladder sludge with probable tiny gallstones. No evidence of cholecystitis. Lovenox discontinued given CT findings. Hgb stable. 06/20 -constipation Wean oxygen as tolerated. Does not use oxygen at home 06/21 - More episodes of nausea/vomiting. Overall seems to be doing better Tolerating more fluid intermittently Hypertension Hyperlipidemia Anxiety/Depression Raynaud's phenomenon Hx of CVA (2021) Hx left diabetic foot ulcer s/p I&D (02/2024) Hx of Carotid artery stenosis confirm home meds, restart 06/22 Patient is tolerating diet She is hyperglycemic. Lantus insulin titrated to 30 units daily Continue insulin sliding scale. Continue Protonix and sucralfate Patient completed IV cefepime for UTI. Decreasing mobility noted. Continue PT. Patient may be a candidate for skilled rehab. 06/23 Patient is tolerating diet without nausea or vomiting. Blood sugar readings are elevated. Lantus insulin titrated to 40 units daily Home dose metformin resumed Patient completed antibiotics for UTI Her mobility is decreased Continue PT Patient slated for skilled rehab placement. 06/24 Patient reports good appetite and denies any nausea. She remained hyperglycemic Continue to titrate Lantus insulin(Lantus insulin titrated to 50 units daily) Continue metformin Functional status is improving and patient is ambulating more distance though with stops. Continue PT I reemphasized ADA diet. 06/25 Blood sugar readings overall improving Continue Lantus insulin and insulin sliding scale Continue metformin Patient is ambulating only short distances. Continue PT. Awaiting insurance authorization for skilled rehab placement 06/26 Blood sugar readings improved Lantus insulin titrated to 60 unit daily Continue insulin sliding scale Continue metformin Patient functional status is improving slowly with PT. Awaiting insurance authorization for skilled rehab placement. VTE: SCD Code: Full Dispo: SNF
[2024-06-27 06:00] LABS: Absolute Eosinophils 0.2 K/uL (0-0.5); Absolute Lymphocytes (CBC) 1.7 K/uL (0.7-4.9); Absolute Monocytes 0.8 K/uL (0.1-1.3); Absolute Neutrophil 6.3 K/uL (1.8-8.0); Basophils % 0.5 % (0-1.3); Eosinophils % 2.7 % (0-4.4); Hemoglobin 11.2 g/dL (12.0-15.0); Lymphocytes % 18.9 % (15.3-44.8); MCH 30.5 pg (27.0-35.0); MCHC 34.8 g/dL (32.0-36.0); MCV 87.6 fL (80-100); MPV 7.5 fL (7.6-11.3); Monocytes % 8.3 % (3.3-12.3); Neutrophils % 69.6 % (41.7-73.7); Nucleated Red Blood Cells % 0.1 % (0-0); Platelets 333 thou/uL (152-406); RBC Red Blood Cell Count 3.66 M/uL (3.86-4.86); Red Cell Distribution Width 13.4 % (12.1-15.2)
[2024-06-27 06:15] LABS: Anion Gap 6.8 mEq/L (5.0-15.0); Potassium 3.8 mEq/L (3.5-5.1)
[2024-06-27] MEDS: POTASSIUM CL SA 10 MEQ TAB PO ONE ×2 (09:00→12:04)
--- NOTE | 2024-06-27 15:00 | P.PN ---
Subjective Date of Service: 06/27/24 Chief Complaint: DKA Patient denies any new Patient is eating well. No issues overnight. Physical Examination - Vital Signs Temperature: 97.9 F Blood Pressure: 198/93 Pulse: 107 Respirations: 18 Pulse Ox (%): 93 Assessment And Plan - Plan Physical examination General: Alert and oriented x3, NAD, Heart: Heart sounds 1 and 2 normal, regular rhythm, normal rate, no pedal edema Lungs: Clear to auscultation bilaterally, adequate breath sounds bilaterally, no rhonchi or crackles. Abdomen: Soft, obese, nontender, normal bowel sounds. Neuro: No focal motor deficit. Normal speech. Psychiatry: Normal mood. Problem List: Persistent Nausea DKA, resolved UTI ruled out Lactic acidosis, resolved 6cm rectus abdominis hematoma Hypertension Hyperlipidemia Anxiety/Depression Raynaud's phenomenon Hx of CVA (2021) Hx left diabetic foot ulcer s/p I&D (02/2024) Hx of Carotid artery stenosis Persistent Nausea DKA, resolved UTI ruled out Lactic acidosis, resolved 6cm rectus abdominis hematoma on admission, presents with abdominal pain associated with nausea/vomiting. She was seen at [facility] ER prior to admission and reportedly diagnosed with UTI. Dc'd with Zosyn and zofran but was unable to tolerate oral intake. She reports 1 prior episode of DKA in the past. States shes had multiple diabetic medication adjustments over the years due to side effects. A1c back in Mar 2023: 10.2 CT abd/pelvis (06/15): Cholelithiasis. Mild dilatation of the esophagus. Mild bladder distention Found to be in DKA in ED. Given IVF, PPI, Rocephin in ED 06/16 - Started on insulin drip and admit to ICU IV cefepime (06/16-) Lactic acid improved. CRP elevated - 32.9 06/17 - gap closed, off insulin drip; transition to semglee restart home anti-hypertensives now that no longer NPO reports nausea/vomiting overnight, hasn't really kept much down lipase WNL; KUB unremarkable Urine cx grew mixed tito 06/18 - advanced diet to full liquids, and as tolerated throughout the day IV PPI BID Blood cx resulted Staph hominis in 1/ bottles; likely contaminant Downgraded from ICU yesterday 06/19 - semglee decreased to 15u daily from 15u BID Carafate added CT abd noted 6cm rectus abdominis hematoma, bladder distention, cholelithiasis with borderline gallbladder wall thickening Abdominal u/s with large amount of gallbladder sludge with probable tiny gallstones. No evidence of cholecystitis. Lovenox discontinued given CT findings. Hgb stable. 06/20 -constipation Wean oxygen as tolerated. Does not use oxygen at home 06/21 - More episodes of nausea/vomiting. Overall seems to be doing better Tolerating more fluid intermittently Hypertension Hyperlipidemia Anxiety/Depression Raynaud's phenomenon Hx of CVA (2021) Hx left diabetic foot ulcer s/p I&D (02/2024) Hx of Carotid artery stenosis confirm home meds, restart 06/22 Patient is tolerating diet She is hyperglycemic. Lantus insulin titrated to 30 units daily Continue insulin sliding scale. Continue Protonix and sucralfate Patient completed IV cefepime for UTI. Decreasing mobility noted. Continue PT. Patient may be a candidate for skilled rehab. 06/23 Patient is tolerating diet without nausea or vomiting. Blood sugar readings are elevated. Lantus insulin titrated to 40 units daily Home dose metformin resumed Patient completed antibiotics for UTI Her mobility is decreased Continue PT Patient slated for skilled rehab placement. 06/24 Patient reports good appetite and denies any nausea. She remained hyperglycemic Continue to titrate Lantus insulin(Lantus insulin titrated to 50 units daily) Continue metformin Functional status is improving and patient is ambulating more distance though with stops. Continue PT I reemphasized ADA diet. 06/25 Blood sugar readings overall improving Continue Lantus insulin and insulin sliding scale Continue metformin Patient is ambulating only short distances. Continue PT. Awaiting insurance authorization for skilled rehab placement 06/26 Blood sugar readings improved Lantus insulin titrated to 60 unit daily Continue insulin sliding scale Continue metformin Patient functional status is improving slowly with PT. Awaiting insurance authorization for skilled rehab placement. 06/27 Continue Lantus insulin Continue metformin Continue PT ADA diet reemphasized. Awaiting insurance authorization for skilled rehab placement. VTE: SCD Code: Full Dispo: SNF
[2024-06-28 10:04] VITALS: O2SAT 98
--- NOTE | 2024-06-28 12:53 | P.DS ---
Admission Date: 06/16/24 Discharge Date: 06/28/24 Disposition: ROUTINE DISCHARGE Discharge Condition: FAIR Reason for Admission: DKA Hospital Course: Problem List: Persistent Nausea DKA, resolved UTI ruled out Lactic acidosis, resolved 6cm rectus abdominis hematoma Hypertension Hyperlipidemia Anxiety/Depression Raynaud's phenomenon Hx of CVA (2021) Hx left diabetic foot ulcer s/p I&D (02/2024) Hx of Carotid artery stenosis 58-year-old female with a past medical history of diabetes, hypertension, neuropathy, history of CVA presented after multiple episodes of vomiting of 2 days duration. She reported her diabetes is uncontrolled. She has significant neuropathy which causes her chronic pain. Blood work done in the ED showed hyperglycemia with increased anion gap. Patient was hospitalized for DKA treatment. Patient treated with insulin drip for DKA protocol in the ICU. She also treated with IV cefepime given prior UTI diagnosis before presentation to the ED. DKA resolved, patient was started on a diet and subsequently transferred to the medical floor for further management. She was placed on Lantus insulin which was titrated to 50 units daily.. Her metformin was also continued during the hospital stay. CT abdomen pelvis showed a 6 cm rectus abdominal hematoma. It also showed cholelithiasis/gallbladder sludge with no evidence of cholecystitis. Patient tolerated diet. She reported decreased mobility. Patient was evaluated by PT and she was able to ambulate up to 125 feet with a walker and contact-guard assist. Patient is discharged to continue PT at home. Patient prescribed Protonix for possible gastritis leading to nausea and vomiting. Vital Signs/Physical Exam: Temp Pulse Resp BP Pulse Ox 97.8 F 100 H 18 157/85 H 97 06/28/24 08:00 06/28/24 09:08 06/28/24 08:00 06/28/24 09:08 06/28/24 08:00 General: Alert, In no apparent distress, Oriented x3 HEENT: Mucous membr. moist/pink, Sclerae nonicteric Neck: JVD not distended Respiratory: Clear to auscultation bilaterally, Normal air movement Cardiovascular: No edema, Regular rate/rhythm, Normal S1 S2 Gastrointestinal: Normal bowel sounds, Soft and benign, Non-distended, No tenderness Musculoskeletal: No swelling Integumentary: No rashes, No cyanosis Neurological: Normal strength at 5/5 x4 extr, Cranial nerves 3-12 intact Laboratory Data at Discharge: WBC 9.10 thou/uL (4.3-10.9) 06/27/24 05:21 Hgb 11.2 g/dL (12.0-15.0) L 06/27/24 05:21 Hct 32.0 % (36.0-45.0) L 06/27/24 05:21 Plt Count 333 thou/uL (152-406) 06/27/24 05:21 PT 11.7 SECONDS (10-13.0) 06/15/24 22:49 INR 1.03 06/15/24 22:49 APTT 30.2 SECONDS (27.2-37.4) 06/15/24 22:49 Sodium 133 mEq/L (136-145) L 06/28/24 06:04 Potassium 4.0 mEq/L (3.5-5.1) 06/28/24 06:04 BUN 25 mg/dL (7-18) H 06/28/24 06:04 Creatinine 0.81 mg/dL (0.55-1.02) 06/28/24 06:04 Glucose 269 mg/dL (74-106) H 06/28/24 06:04 Phosphorus 2.3 mg/dL (2.5-4.9) L 06/17/24 05:37 Magnesium 2.1 mg/dL (1.6-2.4) 06/22/24 07:28 Total Bilirubin 0.6 mg/dL (0.2-1.0) 06/22/24 07:28 AST 28 U/L (15-37) 06/22/24 07:28 ALT 26 U/L (13-56) 06/22/24 07:28 Alkaline Phosphatase 154 U/L (45-117) H 06/22/24 07:28 Lipase 34 U/L (13-75) 06/17/24 06:20 Home Medications: Aspirin 1 tab PO DAILY 09/24/20 B12/Levomefolate Calcium/B-6 [Folbic Rf Tablet] 2 tab PO BID 09/24/20 Bisoprolol/Hydrochlorothiazide [Bisoprolol-Hctz 5-6.25 mg Tab] 5 - 6.25 tab PO DAILY 09/24/20 Losartan Potassium 4 tab PO DAILY 09/24/20 Metformin ER [Glucophage ER*] 2 tab PO BID 09/24/20 Potassium Gluconate [Potassium] 1 tab PO BID 09/24/20 Pravastatin [Pravachol*] 1 tab PO DAILY 09/24/20 Clopidogrel Bisulfate [Plavix*] 75 mg PO DAILY 06/16/24 traMADol HCL [Ultram*] 50 mg PO BID 06/16/24 Alcohol Antiseptic Pads [Alcohol Swabs] 1 each TP BID #100 ea 06/22/24 Blood Sugar Diagnostic [Glucose Test Strip] 1 each MC BID #30 strip 06/22/24 Blood-Glucose Meter [Blood Glucose Monitoring] 1 each MC BID #1 kit 06/22/24 Lancets 1 each MC BID #100 ea 06/22/24 Pantoprazole [Protonix Tab*] 40 mg PO BIDAC #60 tab 06/22/24 Pen Needle, Diabetic [Pen Needle] 1 each MC BID #100 ea 06/22/24 Amlodipine [Norvasc*] 5 mg PO DAILY #30 tab 06/28/24 Insulin Glargine,Hum.rec.anlog [Lantus Solostar] 50 unit SQ DAILY #15 ml 06/28/24 New Medications: Alcohol Antiseptic Pads [Alcohol Swabs] 1 each TP BID #100 ea Blood-Glucose Meter [Blood Glucose Monitoring] 1 each MC BID #1 kit Blood Sugar Diagnostic [Glucose Test Strip] 1 each MC BID #30 strip Lancets 1 each MC BID #100 ea Insulin Glargine,Hum.rec.anlog [Lantus Solostar] 50 unit SQ DAILY #15 ml Amlodipine [Norvasc*] 5 mg PO DAILY #30 tab Pen Needle, Diabetic [Pen Needle] 1 each MC BID #100 ea Pantoprazole [Protonix Tab*] 40 mg PO BIDAC #60 tab Physician Discharge Instructions: 58-year-old female with a past medical history of diabetes, hypertension, neuropathy, history of CVA presented after multiple episodes of vomiting of 2 days duration. She reported her diabetes is uncontrolled. She has significant neuropathy which causes her chronic pain. Blood work done in the ED showed hyperglycemia with increased anion gap. Patient was hospitalized for DKA treatment. Patient treated with insulin drip for DKA protocol in the ICU. She also treated with IV cefepime given prior UTI diagnosis before presentation to the ED. DKA resolved, patient was started on a diet and subsequently transferred to the medical floor for further management. She was placed on Lantus insulin which was titrated to 50 units daily.. Her metformin was also continued during the hospital stay. CT abdomen pelvis showed a 6 cm rectus abdominal hematoma. It also showed cholelithiasis/gallbladder sludge with no evidence of cholecystitis. Patient tolerated diet. She reported decreased mobility. Patient was evaluated by PT and she was able to ambulate up to 125 feet with a walker and contact-guard assist. Patient is discharged to continue PT at home. Patient prescribed Protonix for possible gastritis leading to nausea and vomiting. New medications: Lantus insulin 50 units daily Protonix 40 mg twice a day Amlodipine 5 mg daily. Please check your blood sugar twice a day. Please check your blood sugar before you give yourself insulin. Please follow-up with your PCP regarding other alternate for blood glucose monitoring kit. Diet: ADA Activity: Fall precautions Followup: HENOK WHITING [Primary Care Provider] - 1 Week Time spent managing pt's care (in minutes): 42
[2024-06-28 13:26] VITALS: BP 147/87; TEMP 98.2
== END 2024-06-28 15:45 | disposition home health service (06) | DRG 637 ==
LOC: ER 17:38 → ERHOLD 06-16 03:51 → 3RD-ICU 06-16 04:33 → 4TH 06-19 17:08
PROVIDERS: ADMIT Family Medicine; ATTEND Internal Medicine
PROC: 4A033R1 Measurement of Arterial Saturation, Peripheral, Percutaneous Approach (ICD-10-PCS; principal; 2024-06-15)
DX: E11.10 Type 2 diabetes mellitus with ketoacidosis without coma (principal); R65.11 Systemic inflammatory response syndrome (SIRS) of non-infectious origin with acute organ dysfunction; N17.9 Acute kidney failure, unspecified; I10 Essential (primary) hypertension; F41.9 Anxiety disorder, unspecified; F32.A Depression, unspecified; E78.5 Hyperlipidemia, unspecified; K59.00 Constipation, unspecified; K22.89 Other specified disease of esophagus; I73.00 Raynaud's syndrome without gangrene; E11.65 Type 2 diabetes mellitus with hyperglycemia; E11.40 Type 2 diabetes mellitus with diabetic neuropathy, unspecified; S30.1XXA Contusion of abdominal wall, initial encounter; K80.20 Calculus of gallbladder without cholecystitis without obstruction; Z79.4 Long term (current) use of insulin; Z88.8 Allergy status to other drugs, medicaments and biological substances; Z79.82 Long term (current) use of aspirin; Z79.84 Long term (current) use of oral hypoglycemic drugs; Z86.73 Personal history of transient ischemic attack (TIA), and cerebral infarction without residual deficits; Z79.899 Other long term (current) drug therapy
CPT/HCPCS: 36415; 36600; 74018; 74176; 76705; 80048; 80053; 81001; 82805; 82947; 83036; 83605; 83690; 83735; 83930; 84100; 84132; 85025; 85610; 85730; 86140; 87040; 87077; 87086; 87088; 87186; 87205; 93005; 94760; 97110; 97116; 97161; 97530; 99285; J0360; J0692; J0696; J1815; J2270; J2405; J2470; J3480; J7030; J7040; J7799

== ENCOUNTER 2024-11-04 11:45 | Emergency (ER) | payer MEDICARE ==
[2024-11-04 13:04] LABS: Absolute Lymphocytes (CBC) 2.3 K/uL (0.7-4.9); Hematocrit 36.2 % (36.0-45.0); Hemoglobin 12.5 g/dL (12.0-15.0); MCH 30.4 pg (27.0-35.0); MCHC 34.4 g/dL (32.0-36.0); MCV 88.2 fL (80-100); MPV 7.7 fL (7.6-11.3); Nucleated RBC Absolute Count 0.0 (0-0); Nucleated Red Blood Cells % 0.1 % (0-0); RBC Red Blood Cell Count 4.10 M/uL (3.86-4.86); White Blood Count 8.60 thou/uL (4.3-10.9)
[2024-11-04 13:05] LABS: Sqamous Epithelial None Seen /HPF (None Seen); Urine Culture Reflex Order REFLEXED; Urine Microscopic Reflex YN ORDER UMIC
[2024-11-04] MEDS ORDERED: KETOROLAC 30 MG/ML INJ ONE (13:11)
[2024-11-04] MEDS ORDERED: ONDANSETRON 4 MG/2 ML VIAL ONE (13:11)
[2024-11-04] MEDS ORDERED: CEFTRIAXONE 1000 MG/VIAL ONE (13:11)
[2024-11-04] MEDS ORDERED: FAMOTIDINE 20 MG/2 ML VIAL IV ONE (13:11)
[2024-11-04] MEDS ORDERED: NA CHLORIDE 0.9% 1,000 ML ONE (13:11)
[2024-11-04 13:12] LABS: PT Prothrombin Time 11.7 SECONDS (10-13.0); Protime INR 1.04
--- NOTE | 2024-11-04 13:21 | RAD REPORT ---
EXAMINATION: CT Stone Protocol CLINICAL INDICATION: Female, 58 years old. Pain;Kidney stones TECHNIQUE: CT abdomen and pelvis was performed, without IV contrast, as per department protocol. Axia l, sagittal and coronal reconstructions were obtained. One or more of the following dose reduction techniques were used: Automated exposure control, adjustment of the mA and kV according to the patien t size, and iterative reconstruction. Unless otherwise specified, incidental findings do not require dedicated imaging follow-up. COMPARISON: 06/19/2024 FINDINGS: The lack of intravenous contrast limits the sensitivity of this exam for evaluation of solid visceral organs, vascular structures, and retroperitoneum. LOWER CHEST: The visualized lung bases are clear. LIVER: Normal in size and contour. No focal lesion. BILIARY SYSTEM: No suspicious abnormalities. SPLEEN: Normal size. No focal lesion. PANCREAS: No mass, ductal dilation, or sharmila-pancreatic fluid. ADRENALS: Normal; no mass. KIDNEYS AND URETERS: Normal size and contour. No hydronephrosis. URINARY BLADDER: Linear diffuse wall thickening of the urinary bladder with mild pericystic fat stran ding. No radiopaque calculi. GASTROINTESTINAL TRACT: No evidence of bowel obstruction, significant free fluid, free air or abscess . APPENDIX: Normal appendix. LYMPH NODES: No lymphadenopathy. MUSCULOSKELETAL: No acute or suspicious osseous abnormality. ADDITIONAL FINDINGS: None. IMPRESSION: New diffuse wall thickening of the urinary bladder with mild pericystic fat stranding. Please correla te clinically for acute cholecystitis. No radiopaque urinary tract calculi or evidence of obstruction.
[2024-11-04 13:23] LABS: ALT/SGPT 18 U/L (13-56); Albumin 3.3 g/dL (3.4-5.0); Albumin/Globulin Ratio 0.7 (1.1-1.8); Alkaline Phosphatase 134 U/L (45-117); Anion Gap 8.2 mEq/L (5.0-15.0); BUN Blood Urea Nitrogen 27 mg/dL (7-18); Globulin 4.7 g/dL (2.3-3.5); Glucose Level 268 mg/dL (74-106); Lipase 12 U/L (13-75); Potassium 4.2 mEq/L (3.5-5.1)
[2024-11-04 13:25] LABS: AST/SGOT < 10 U/L (15-37)
--- NOTE | 2024-11-04 14:22 | ER ---
Nurse's Notes [facility] Name: Emily Nguyen Age: 58 yrs Sex: Female : 1965 Arrival Date: 11/04/2024 Time: 11:45 Bed 8 Private MD: Diagnosis: Acute cystitis with hematuria;Dysuria;Type 2 diabetes mellitus with hyperglycemia Presentation: 11/04 12:30 Chief complaint: Patient states: blood in urine, urinary frequency and pain with ss urination that began 4 days ago. HX of chronic UTIs. Coronavirus screen: Client denies travel out of the [place] in the last 14 days. Ebola Screen: Patient denies exposure to infectious person. Patient denies travel to an Ebola-affected area in the 21 days before illness onset. Initial Sepsis Screen: Does the patient meet any 2 criteria? No. Patient's initial sepsis screen is negative. Does the patient have a suspected source of infection? No. Patient's initial sepsis screen is negative. Risk Assessment: Do you want to hurt yourself or someone else?. Onset of symptoms was October 31, 2024. 12:30 Acuity: ARLET 3 ss 12:30 Method Of Arrival: Ambulatory ss Historical: - Allergies: 12:48 Benadryl; ss 12:48 contrast; ss 12:48 Flexeril; ss 12:48 GABAPENTIN; ss - PMHx: 12:48 Aneurysm; stroke 2021; Diabetes - NIDDM; heart blockage; Hypertension; neuropathy; ss - PSHx: 12:48 neck fusion; Tonsillectomy; tubal ligation; ss - Infectious Disease History:: Denies. - Social history:: Smoking status: Patient denies any tobacco usage or history of. - Family history:: not pertinent. Screenin:53 [facility] ED Fall Risk Assessment (Adult) History of falling in the last 3 months, iw including since admission No falls in past 3 months (0 pts) Confusion or Disorientation No (0 pts) Intoxicated or Sedated No (0 pts) Impaired Gait No (0 pts) Mobility Assist Device Used No (0 pt) Altered Elimination No (0 pt) Score/Fall Risk Level 0 - 2 = Low Risk Oriented to surroundings, Maintained a safe environment. Abuse screen: Denies threats or abuse. Nutritional screening: No deficits noted. Tuberculosis screening: No symptoms or risk factors identified. Assessment: 12:52 General: Appears in no apparent distress. Behavior is calm, cooperative. Pain:. Neuro: iw Level of Consciousness is awake, alert, obeys commands, Oriented to person, place, time, situation, Moves all extremities. Full function. Cardiovascular: Patient's skin is warm and dry. Respiratory: Respiratory effort is even, unlabored, Respiratory pattern is regular, symmetrical. : Parent/caregiver report the patient having burning with urination pain with urination. Derm: Skin is intact, is healthy with good turgor. Musculoskeletal: Capillary refill < 3 seconds. 14:00 Reassessment: Patient appears in no apparent distress at this time. Patient and/or iw family updated on plan of care and expected duration. Pain level reassessed. Patient is alert, oriented x 3, equal unlabored respirations, skin warm/dry/pink. Vital Signs: 12:30 Pulse 105; Resp 16; Temp 98.3(O); Pulse Ox 97% on R/A; Weight 88.45 kg; Height 5 ft. 7 ss in. ; Pain 0/10; 13:22 BP 165 / 80; Pulse 89; Resp 18; Pulse Ox 98% on R/A; iw 12:30 Body Mass Index 30.54 (88.45 kg, 170.18 cm) ss 12:30 Pain Scale: Adult ss Abel Coma Score: 14:17 Eye Response: spontaneous(4). Motor Response: obeys commands(6). Verbal Response: kari oriented(5). Total: 15. ED Course: 11:50 Patient arrived in ED. [email or web address] 12:01 Magno Espinoza MD is Attending Physician. kari 12:17 CT Stone Protocol In Process Unspecified. EDMS 12:39 Melisa Ashley, RN is Primary Nurse. iw 12:48 Triage completed. ss 12:48 Arm band placed on right wrist. ss 12:48 Patient has correct armband on for positive identification. iw 12:53 Initial lab(s) drawn, by me, sent to lab. Inserted saline lock: 20 gauge in left iw antecubital area, using aseptic technique. Blood collected. Flushed with 10 mL NS. 14:20 Dl Almeida MD is Referral Physician. kari 14:44 No provider procedures requiring assistance completed. IV discontinued, intact, iw bleeding controlled, No redness/swelling at site. Pressure dressing applied. Administered Medications: 13:22 Drug: Rocephin IV 1 grams IV at per protocol once; Given slow IV push per pharmacy iw instructions Route: IV; Rate: per protocol; Site: left antecubital; 13:30 Follow up: IV Status: Completed infusion iw 13: Drug: TORadol - Ketorolac IVP 15 mg IVP once Route: IVP; Site: left antecubital; iw 14:00 Follow up: Response: No adverse reaction; Pain is decreased iw 13: Drug: NS 0.9% IV 1000 ml IV at 1 bolus Per protocol; to be given as a bolus over 60 iw minutes Route: IV; Rate: 1 bolus; Site: left antecubital; 14:30 Follow up: IV Status: Completed infusion iw 14:23 Drug: Rocephin IV 1 grams IV at per protocol once; Given slow IV push per pharmacy iw instructions Route: IV; Rate: per protocol; Site: left antecubital; 14:30 Follow up: IV Status: Completed infusion iw 14:30 Drug: Ciprofloxacin PO 500 mg PO once Route: PO; iw 14:35 Follow up: Response: No adverse reaction iw 17:07 Not Given (Patient Refused): ondansetron 4 mg IVP once; over 2 minutes iw 17:07 Not Given (Patient Refused): morphineor iv 4 mg IVP once over 4 mins iw 17:08 Not Given (Patient Refused): [id number] mg IVP once; dilute with 10 mL 0.9% NaCl; iw give over 2 minutes Medication: 12:53 VIS not applicable for this client. iw Outcome: 14:22 Discharge ordered by MD. pierce 14:44 Discharged to home ambulatory, iw 14:44 Condition: good 14:44 Discharge instructions given to patient, Instructed on discharge instructions, follow up and referral plans. medication usage, Demonstrated understanding of instructions, follow-up care, medications, Prescriptions given X 4, 14:45 Patient left the ED. iw Signatures: Dispatcher [employer] EDPA Magno Espinoza MD MD cha Williams, Irene, RN RN iw Jackie Bates RN RN Shikha Harman [email or web address]
--- NOTE | 2024-11-04 14:22 | EDPHYS ---
Physician Documentation [facility] Name: Emily Nguyen Age: 58 yrs Sex: Female : 1965 Arrival Date: 11/04/2024 Time: 11:45 Bed 8 Private MD: KAYCEE Physician Magno Espinoza HPI: 11/04 14:17 This 58 yrs old Female presents to ER via Ambulatory with complaints of Pain kari With Urination, Blood in Urine. 14:17 The patient presents with urinary symptoms, dysuria, frequency, hematuria. Onset: The kari symptoms/episode began/occurred 2 day(s) ago. Modifying factors: The symptoms are alleviated by nothing, the symptoms are aggravated by nothing. Associated signs and symptoms: The patient has no apparent associated signs or symptoms. Severity of symptoms: At their worst the symptoms were mild, moderate, in the emergency department the symptoms are unchanged. The patient is not sexually active. The patient has not experienced similar symptoms in the past. Historical: - Allergies: 12:48 Benadryl; ss 12:48 contrast; ss 12:48 Flexeril; ss 12:48 GABAPENTIN; ss - PMHx: 12:48 Aneurysm; stroke 2021; Diabetes - NIDDM; heart blockage; Hypertension; neuropathy; ss - PSHx: 12:48 neck fusion; Tonsillectomy; tubal ligation; ss - Infectious Disease History:: Denies. - Social history:: Smoking status: Patient denies any tobacco usage or history of. - Family history:: not pertinent. ROS: 14:17 Constitutional: Negative for fever, chills, and weight loss, Eyes: Negative for injury, kari pain, redness, and discharge, ENT: Negative for injury, pain, and discharge, Neck: Negative for injury, pain, and swelling, Cardiovascular: Negative for chest pain, palpitations, and edema, Respiratory: Negative for shortness of breath, cough, wheezing, and pleuritic chest pain, Back: Negative for injury and pain, MS/Extremity: Negative for injury and deformity, Skin: Negative for injury, rash, and discoloration, Neuro: Negative for headache, weakness, numbness, tingling, and seizure, Psych: Negative for depression, anxiety, suicide ideation, homicidal ideation, and hallucinations, Allergy/Immunology: Negative for hives, rash, and allergies, Endocrine: Negative for neck swelling, polydipsia, polyuria, polyphagia, and marked weight changes, Hematologic/Lymphatic: Negative for swollen nodes, abnormal bleeding, and unusual bruising, 14:17 Abdomen/GI: Positive for abdominal pain, abdominal cramps, of the suprapubic area, 14:17 Back: Negative for injury or acute deformity, decreased range of motion, pain at rest, pain with movement, radiated pain, Exam: 14:17 Constitutional: This is a well developed, well nourished patient who is awake, alert, kari and in no acute distress. Head/Face: Normocephalic, atraumatic. Eyes: Pupils equal round and reactive to light, extra-ocular motions intact. Lids and lashes normal. Conjunctiva and sclera are non-icteric and not injected. Cornea within normal limits. Periorbital areas with no swelling, redness, or edema. ENT: Nares patent. No nasal discharge, no septal abnormalities noted. Tympanic membranes are normal and external auditory canals are clear. Oropharynx with no redness, swelling, or masses, exudates, or evidence of obstruction, uvula midline. Mucous membranes moist. Neck: Trachea midline, no thyromegaly or masses palpated, and no cervical lymphadenopathy. Supple, full range of motion without nuchal rigidity, or vertebral point tenderness. No Meningismus. Chest/axilla: Normal chest wall appearance and motion. Nontender with no deformity. No lesions are appreciated. Cardiovascular: Regular rate and rhythm with a normal S1 and S2. No gallops, murmurs, or rubs. Normal PMI, no JVD. No pulse deficits. Respiratory: Lungs have equal breath sounds bilaterally, clear to auscultation and percussion. No rales, rhonchi or wheezes noted. No increased work of breathing, no retractions or nasal flaring. Back: No spinal tenderness. No costovertebral tenderness. Full range of motion. Female : Normal external genitalia. Skin: Warm, dry with normal turgor. Normal color with no rashes, no lesions, and no evidence of cellulitis. MS/ Extremity: Pulses equal, no cyanosis. Neurovascular intact. Full, normal range of motion., bilateral aka Neuro: Awake and alert, GCS 15, oriented to person, place, time, and situation. Cranial nerves II-XII grossly intact. Motor strength 5/5 in all extremities. Sensory grossly intact. Cerebellar exam normal. Normal gait. Psych: Awake, alert, with orientation to person, place and time. Behavior, mood, and affect are within normal limits. 14:17 Abdomen/GI: Inspection: abdomen appears normal, Bowel sounds: normal, Palpation: mild abdominal tenderness, in the suprapubic area, Liver: no appreciated palpable abnormalities, Hernia: not appreciated, Vital Signs: 12:30 Pulse 105; Resp 16; Temp 98.3(O); Pulse Ox 97% on R/A; Weight 88.45 kg; Height 5 ft. 7 ss in. ; Pain 0/10; 13:22 BP 165 / 80; Pulse 89; Resp 18; Pulse Ox 98% on R/A; iw 12:30 Body Mass Index 30.54 (88.45 kg, 170.18 cm) 12:30 Pain Scale: Adult ss Abel Coma Score: 14:17 Eye Response: spontaneous(4). Motor Response: obeys commands(6). Verbal Response: kari oriented(5). Total: 15. MDM: 12:01 Medical Screening Exam initiated [facility] 11/04 12:03 Order name: CBC with Diff; Complete Time: 14:10 [facility] 11/04 12:03 Order name: CMP; Complete Time: 14:10 [facility] 11/04 12:03 Order name: Lipase; Complete Time: 14:10 [facility] 11/04 12:03 Order name: PT-INR; Complete Time: 14:10 [facility] 11/04 12:03 Order name: UA Rfx Ivan Cult if indicated; Complete Time: 14:10 [facility] 11/04 13:08 Order name: Urine Culture [facility] 11/04 12:03 Order name: CT Stone Protocol; Complete Time: 14:10 [facility] 11/04 12:03 Order name: IV Saline Lock; Complete Time: 12:52 [facility] 11/04 12:03 Order name: Labs collected and sent; Complete Time: 12:52 [facility] Administered Medications: 13:22 Drug: Rocephin IV 1 grams IV at per protocol once; Given slow IV push per pharmacy iw instructions Route: IV; Rate: per protocol; Site: left antecubital; 13:30 Follow up: IV Status: Completed infusion iw 13:26 Drug: TORadol - Ketorolac IVP 15 mg IVP once Route: IVP; Site: left antecubital; iw 14:00 Follow up: Response: No adverse reaction; Pain is decreased iw 13:26 Drug: NS 0.9% IV 1000 ml IV at 1 bolus Per protocol; to be given as a bolus over 60 iw minutes Route: IV; Rate: 1 bolus; Site: left antecubital; 14:30 Follow up: IV Status: Completed infusion iw 14:23 Drug: Rocephin IV 1 grams IV at per protocol once; Given slow IV push per pharmacy iw instructions Route: IV; Rate: per protocol; Site: left antecubital; 14:30 Follow up: IV Status: Completed infusion iw 14:30 Drug: Ciprofloxacin PO 500 mg PO once Route: PO; iw 14:35 Follow up: Response: No adverse reaction iw 17:07 Not Given (Patient Refused): ondansetron 4 mg IVP once; over 2 minutes iw 17:07 Not Given (Patient Refused): morphineor iv 4 mg IVP once over 4 mins iw 17:08 Not Given (Patient Refused): [id number] mg IVP once; dilute with 10 mL 0.9% NaCl; iw give over 2 minutes Disposition Summary: 11/04/24 14:22 Discharge Ordered Notes: Location: Home kari Problem: new kari Symptoms: have improved kari Condition: Stable kari Diagnosis - Acute cystitis with hematuria kari - Dysuria kari - Type 2 diabetes mellitus with hyperglycemia kari Followup: kari - With: Private Physician - When: 2 - 3 days - Reason: Recheck today's complaints, Continuance of care, Re-evaluation by your physician Followup: kari - With: Dl Almeida MD - When: 2 - 3 days - Reason: Recheck today's complaints, Continuance of care, Re-evaluation by your physician Discharge Instructions: - Discharge Summary Sheet kari - Dysuria kari - Hyperglycemia kari - Urinary Tract Infection, Adult kari - Urinary Tract Infection, Adult, [id number] kari - Hemorrhagic Cystitis kari Forms: - Medication Reconciliation Form kari - Antibiotic Education kari - Prescription Opioid Use kari - Patient Portal Instructions kari - Leadership Thank You Letter kari Prescriptions: - cefdinir 300 mg Oral capsule - take 1 capsule ORAL route 2 times per day for 7 days; 14 capsule; Refills: 0, akri Product Selection Permitted - Diflucan 150 mg Oral tablet - take 1 tablet ORAL route one time for 1 day TAKE 1 NEEDED REPEAT in 1 WEEK kari IF SYMPTOMS PERSIST; 2 tablet; Refills: 0, Product Selection Permitted - Pyridium 200 mg Oral Tablet - take 1 tablet ORAL route every 8 hours for 3 days; 9 tablet; Refills: 0, [facility] Product Selection Permitted - Cipro 500 mg Oral Tablet - take 1 tablet ORAL route every 12 hours for 7 days; 14 tablet; Refills: 0, [facility] Product Selection Permitted Signatures: Dispatcher [employer] EDMS Magno Espinoza MD MD cha Williams, Irene, RN RN Jackie Bates RN RN ss Corrections: (The following items were deleted from the chart) 12:04 12:04 CBC+H.LAB.BRZ ordered. EDMS EDMS 12:04 12:04 COMPREHENSIVE METABOLIC PANEL+C.LAB.BRZ ordered. EDMS EDMS 12:04 12:04 LIPASE+C.LAB.BRZ ordered. EDMS EDMS 12:04 12:04 PROTIME (+INR)+COAG.LAB.BRZ ordered. EDMS EDMS 12:04 12:04 UA Rfx Ivan Cult if indicated+U.LAB.BRZ ordered. EDMS EDMS
[2024-11-04 21:59] VITALS: TEMP 98.3
[2024-11-04 22:02] VITALS: BP 165/80; O2SAT 98
== END 2024-11-04 14:45 | disposition home or self-care (01) ==
LOC: ER 11:45
DX: N30.01 Acute cystitis with hematuria (principal); E11.65 Type 2 diabetes mellitus with hyperglycemia; I10 Essential (primary) hypertension
CPT/HCPCS: 96361; 87088; 85025; 81001; 87086; 36415; 85610; 83690; 80053; 76377; 74176; 96375; 96374; 99284; J7030; J0696; J2405